=== PATIENT | female | born 1945 | race Caucasian/White ===

== ENCOUNTER 2016-06-22 12:08 | Observation (INO) ==
--- NOTE | 2016-06-22 12:21 | Emergency Department Note ---
Disposition Clinical Impression: Unstable angina pectoris Disposition: Admitted As Inpatient Condition: Fair Chest Pain HPI - General Chief Complaint: ED Chest Pain Stated Complaint: Chest pain Time Seen by Provider: 06/22/16 12:16 - History of Present Illness HPI Narrative: She has a history of coronary artery disease and peripheral vascular disease and presents per EMS and I did see the patient immediately upon arrival muscles. The paramedics and the patient presents with chest heaviness which began at 11:00 this morning at home and is constant with radiation to the back and this is a new finding. She did have some dyspnea but no diaphoresis. She does have some exertional component. Does radiate to both arms as well as to her jaw. No lightheadedness. Does have rhinorrhea no coughing or sneezing. No fever. Does have some blurred vision for the last several days. No pain or swelling or numbness of the extremities, blood in the urine or stool, skin rash or bruising of the skin. Social history: Smoker, no alcohol or drugs - Related Data Home Medications Medication Instructions Recorded Confirmed Albuterol Sulfate [Albuterol 2 puff IH Q4HR PRN 01/22/15 06/22/16 Inhaler] Aspirin Enteric Coated [Aspirin EC] 81 mg PO HS 01/22/15 06/22/16 Carisoprodol [Soma] 350 mg PO BID PRN 01/22/15 06/22/16 ClonazePAM [Klonopin] 1 mg PO BID 01/22/15 06/22/16 Dicyclomine [Bentyl] 20 mg PO TID 01/22/15 06/22/16 Escitalopram [Lexapro] 20 mg PO DAILY 01/22/15 06/22/16 Metoprolol [Lopressor] 25 mg PO BID 01/22/15 06/22/16 Promethazine [Phenergan] 25 mg PO Q8HR PRN 01/22/15 06/22/16 Ropinirole HCl [Requip] 0.5 mg PO HS 01/22/15 06/22/16 Losartan [Cozaar] 25 mg PO DAILY 05/10/15 06/22/16 Simvastatin [Zocor] 20 mg PO HS 05/10/15 06/22/16 Famotidine [Pepcid] 20 mg PO DAILY 06/22/16 06/22/16 Mirtazapine [Remeron] 15 mg PO HS 06/22/16 06/22/16 Previous Rx's Medication Instructions Recorded Clopidogrel [Plavix] 75 mg PO DAILY #30 tablet 10/29/15 HYDROcodone/Acet 5/325 mg [[place] 1 - 2 tab PO Q4H PRN #60 tablet 10/29/15 5-325 mg] Allergies Allergy/AdvReac Type Severity Reaction Status Date / Time acetaminophen [From Percocet] Allergy Rash Verified 10/28/15 07:32 atorvastatin Allergy Nausea Verified 10/28/15 07:32 clonidine Allergy Blister Verified 10/28/15 07:32 lisinopril Allergy Cough Verified 10/28/15 07:32 Oxycodone [From Percocet] Allergy Rash Verified 10/28/15 07:32 Review of Systems: Refer to history of present illness Chest Pain PMH - Past Medical History Medical history: Reports: coronary artery disease, DVT, GERD, hepatitis, hyperlipidemia, hypertension, myocardial infarction, peripheral artery disease, renal disease, seizures, other Surgical history: Reports: appendectomy, LAYO/BSO, other Psychiatric history: Reports: anxiety, depression - Social History Smoking Status: Current every day smoker Alcohol use: Reports: occasionally Drug use: Reports: none Physical Exam CONSTITUTIONAL: Well-appearing; well-nourished; A&O X 3, in no apparent distress HEAD: Normocephalic; atraumatic EYES: PERRL, no scleral icterus NOSE: The nose is normal in appearance without rhinorrhea NECK: No JVD or distended neck veins RESP: Normal chest excursion with respiration; breath sounds clear and equal bilaterally; no wheezes, rhonchi, or rales CARD: Regular rhythm, without murmurs, rub or gallop ABD: Non-distended; non-tender, soft, without rigidity, rebound or guarding,no pulsatile mass CHEST: Normal appearance. There is some pain with palpation anterior chest wall which does cause facial wincing Skin: Normal for age and race; warm and dry without diaphoresis ; no apparent lesions EXTREMITIES: Pulses are 2 plus and equal times 4 extremities, no peripheral edema or calf muscle pain Course Vital Signs Temperature 97.4 F L 06/22/16 12:10 Pulse Rate 58 06/22/16 12:10 Respiratory Rate 18 06/22/16 12:10 Blood Pressure 111/79 06/22/16 12:10 O2 Sat by Pulse Oximetry 95 06/22/16 12:10 Temperature 98.0 F 06/22/16 19:17 Pulse Rate 54 06/22/16 19:17 Respiratory Rate 12 06/22/16 19:17 Blood Pressure 125/74 06/22/16 19:17 O2 Sat by Pulse Oximetry 98 06/22/16 19:17 Oxygen Delivery Oxygen Delivery Room Air Chest Pain - MDM Narrative Medical decision making narrative: I did review the patient's EKG showing sinus bradycardia with a rate of 58 without acute ischemic changes. The patient did receive nitroglycerin prior to arrival which did improve her symptoms. She will also get a CT scan to look for dissection with a history of vascular disease and additionally I do have labs including troponin, chest x-ray, monitor, pulse ox the patient will be watched closely in the emergency department. 1221 Patient's initial labs have been reviewed and are negative. CT scan of the chest is pending to look for dissection. I did speak with Dr. Ruiz who accepts the patient for admission pending results of CT scan being negative. Patient does have a story concerning for acute coronary syndrome. I did see the patient again and her pain has improved but is still present so the EKG will be repeated as well as a second troponin. 1410 I did speak with the radiologist was concerned about a possible left upper lobe pulmonary embolism however he said that the findings were equivocal and when I splinted the patient's clinical story he thought that this was now unlikely to be a pulmonary embolism based on the combination of clinical story and clinical correlation. I will convey this information to the hospitalist Dr. Ruiz 1422 I did confirm with the patient as she does not have a pleuritic aspect of her pain. Her clinical picture does not sound like a pulmonary embolism. I did discuss this with Dr. Ruiz - Medical Records Medical records reviewed: Yes I reviewed the patient's medical records. - Lab Data Lab results reviewed: Yes I reviewed the patient's lab results. Result diagrams: 06/22/16 12:27 06/22/16 12:27 Lab Results 06/22/16 06/22/16 06/22/16 Range/Units 12:27 12:27 12:27 WBC 7.7 (4.3-11.1) K/mcL RBC 4.54 (3.82-4.97) M/mcL Hgb 14.5 (11.5-15.4) g/dL Hct 42.7 (35.3-44.9) % MCV 94.1 (83.0-100.0) fL MCH 31.9 (28.0-33.3) pg MCHC 34.0 (31.6-35.5) g/dL RDW 13.8 (11.5-14.5) % Plt Count 199 (140-400) K/mcL MPV 10.2 (9.4-12.4) fL Immature Gran % 0.1 (0-4) % Seg Neutrophils % 30.3 % Lymphocytes % 54.9 % Monocytes % 5.6 % Eosinophils % 8.7 % Basophils % 0.4 % Neutrophils # 2.3 (1.6-8.9) K/mcL Lymphocytes # 4.2 (0.6-4.6) K/mcL Monocytes # 0.4 (0.0-1.3) K/mcL Eosinophils # 0.7 H (0.0-0.6) K/mcL Basophils # 0.0 (0.0-0.2) K/mcL PT 10.5 (9.4-12.1) Seconds INR 1.0 APTT 31.3 (26.0-36.0) Seconds Sodium 136 (136-145) mEq/L Potassium 4.9 H (3.5-4.5) mEq/L Chloride 103 (98-109) mEq/L Carbon Dioxide 26 (19-29) mEq/L BUN 25 H (7-20) mg/dL Creatinine 1.11 (0.57-1.11) mg/dL Est GFR ( Amer) 59 L (> 60) Est GFR (Non-Af Amer) 49 L (> 60) BUN/Creatinine Ratio 23 (6-26) Glucose 84 (70-99) mg/dL Calculated Osmolality 286 (280-300) Calcium 8.9 (8.6-10.8) mg/dL Troponin I (0-0.03) ng/mL 06/22/16 Range/Units 12:27 WBC (4.3-11.1) K/mcL RBC (3.82-4.97) M/mcL Hgb (11.5-15.4) g/dL Hct (35.3-44.9) % MCV (83.0-100.0) fL MCH (28.0-33.3) pg MCHC (31.6-35.5) g/dL RDW (11.5-14.5) % Plt Count (140-400) K/mcL MPV (9.4-12.4) fL Immature Gran % (0-4) % Seg Neutrophils % % Lymphocytes % % Monocytes % % Eosinophils % % Basophils % % Neutrophils # (1.6-8.9) K/mcL Lymphocytes # (0.6-4.6) K/mcL Monocytes # (0.0-1.3) K/mcL Eosinophils # (0.0-0.6) K/mcL Basophils # (0.0-0.2) K/mcL PT (9.4-12.1) Seconds INR APTT (26.0-36.0) Seconds Sodium (136-145) mEq/L Potassium (3.5-4.5) mEq/L Chloride (98-109) mEq/L Carbon Dioxide (19-29) mEq/L BUN (7-20) mg/dL Creatinine (0.57-1.11) mg/dL Est GFR ( Amer) (> 60) Est GFR (Non-Af Amer) (> 60) BUN/Creatinine Ratio (6-26) Glucose (70-99) mg/dL Calculated Osmolality (280-300) Calcium (8.6-10.8) mg/dL Troponin I 0.01 (0-0.03) ng/mL - Radiology Data Radiology results reviewed: Yes I reviewed the patient's radiology results. - EKG Data EKG attestation: Yes I reviewed and interpreted this EKG.
[2016-06-22 12:35] LABS: Basophils % 0.4 %; Eosinophils # 0.7 K/mcL (0.0-0.6); Eosinophils % 8.7 %; Hematocrit 42.7 % (35.3-44.9); Hemoglobin 14.5 g/dL (11.5-15.4); Immature Granulocytes % 0.1 % (0-4); Lymphocytes # 4.2 K/mcL (0.6-4.6); Lymphocytes % 54.9 %; Mean Corpuscular Hemoglobin 31.9 pg (28.0-33.3); Mean Corpuscular Volume 94.1 fL (83.0-100.0); Mean Platelet Volume 10.2 fL (9.4-12.4); Monocytes # 0.4 K/mcL (0.0-1.3); Monocytes % 5.6 %; Neutrophils # 2.3 K/mcL (1.6-8.9); Platelet Count 199 K/mcL (140-400); Red Blood Count 4.54 M/mcL (3.82-4.97); Red Cell Distribution Width 13.8 % (11.5-14.5); Segmented Neutrophils % 30.3 %
[2016-06-22] MEDS ORDERED: Ondansetron 4 MG/2 ML VIAL IVP ONE ×2 (12:37→22:17)
[2016-06-22] MEDS ORDERED: *HR* Morphine 2 MG/ML SYRINGE IVP ONE (12:37)
[2016-06-22 12:42] LABS: Prothrombin Time 10.5 Seconds (9.4-12.1)
[2016-06-22 12:45] LABS: Activated Partial Thrombo Time 31.3 Seconds (26.0-36.0)
[2016-06-22 12:50] LABS: Calcium 8.9 mg/dL (8.6-10.8); Potassium 4.9 mEq/L (3.5-4.5)
--- NOTE | 2016-06-22 16:04 | Electrocardiograph Report ---
[address] [address] Test Date: 2016-06-22 Pat Name: Marisa Chavez Department: 103 Room: 3B44 Gender: F Comfort Filler: PRADIP : 1945 Requested By: Emil Awan Order Number: [id number] Reading MD: Adarsh Rodriguez MD Measurements Intervals Leslie Rate: 58 P: 49 MO: 165 QRS: 25 QRSD: 83 T: 46 QT: 438 QTc: 434 Interpretive Statements SINUS BRADYCARDIA Electronically Signed On 06-22-2016 16:02:49 EDT by Adarsh Rodriguez MD
--- NOTE | 2016-06-22 16:40 | Internal Med History&Physical ---
<Yanely Joshi - Last Filed: 06/22/16 17:38> Date of Encounter: 06/22/16 Time of Encounter: 16:39 Assessment and Plan (1) 3-vessel coronary artery disease Current visit: No Status: Chronic Patient has known CAD with past stenting. Last C was 02/22/15 after patient presented with NSTEMI. Moderate 3 vessel disease, EF 60%. No stenting performed, medical management had been recommended with plavix and ASA. Patient states she has been taking her ASA daily, but has been out of plavix since March. Troponin negative x1 EKG Sinus alicia, after 4 sprays of nitro and sl nitro via EMS. Pain seems to be more musculoskeletal than ACS, however the patient is at very high risk with her history of CAD, PAD, MIs. Consider cardiology consult based on ECHO results. CTA revealed possible small filling defect in left upper lobe pulmonary artery, PE can not be ruled out. Plan: -continue ASA, plavix, statin, BB -telemetry -ECHO -Trend troponins -bilateral venous doppler (2) Decreased GFR Current visit: Yes Status: Acute GFR 49, no history of CKD and GFR has not been this low when trended. K elevated at 4.9 She did receive contrast dye with multiple CT scans, which could have affected it, however SCr at 1.11 currently. May be secondary to mild sergey, dehydration or IV dye. Plan: -500ml IVF bolus -Recheck BMP in AM, may warrant further workup depending on the trend. (3) Back pain Current visit: Yes Status: Acute Pain in romboid muscles on the left. currently 04/28 Plan: -Continue home pain meds Qualifiers: Back pain location: thoracic back pain Chronicity: acute Back pain laterality: left Qualified Code(s): M54.6 - Pain in thoracic spine (4) Abdominal pain Current visit: Yes Status: Chronic Patient with hx of GERD, epigastric pain for "years" epigastric tenderness on exam Plan: -Continue famotidine -MOM PRN Qualifiers: Abdominal location: epigastric Qualified Code(s): R10.13 - Epigastric pain (5) PAD (peripheral artery disease) Current visit: No Status: Chronic (6) GERD (gastroesophageal reflux disease) Current visit: No Status: Chronic Qualifiers: Esophagitis presence: without esophagitis Qualified Code(s): K21.9 - Gastro -esophageal reflux disease without esophagitis (7) Tobacco use disorder Current visit: Yes Status: Chronic Smoke 1PPD. States she is working on quitting on her own, does not want nicotine patch, gum, chantix. Plan: -Nicotine patch prn (8) Mixed hyperlipidemia Current visit: No Status: Chronic (9) HTN (hypertension) Current visit: Yes Status: Chronic Qualifiers: Hypertension type: essential hypertension Qualified Code(s): I10 - Essential (primary) hypertension (10) DVT prophylaxis Current visit: Yes Status: Acute heparin SQ Internal Medicine - H&P: HPI Chief complaint: Chest pain Admitted From: Emergency Dept Plans for Post Hospital Care: Home History of present illness: Ms. Chavez is a 71 year old female with a PMH of CAD, TX s/p stenting, PAD s/p femoral bypass in the left, HTN, HLD, tobacco abuse, HISTORY OF DVT, GERD, and hepatitis C who presented to the ER today complaining of chest pain. She states that she was in her kitchen when both arms began hurting, she states that they "felt like Prabhakar's arms when they are swollen." She then began to have pain in her jaw and in her back on the left side that wrapped around to the mid sternum. This pain was rated 8/10. She states that it was different from the pain she felt with her prior MIs. She did use her nitro spray at home. She sprayed it under her tongue twice without any relief. Some time later she sprayed it twice more and took 3 81mg ASA. This reduced the pain to 6-5/10. She then called EMS. She denies any current chest pain, arm or jaw pain. Her only current pain is in her left back in the romboid muscles, and is rated 2/10. She had no associated dizziness, lightheadedness, fever, diaphoresis, sob, wheezing , palpitations, nausea, vomiting, or diarrhea. She does note that she has epigastric and umbilical abdominal pain that she has had "for a while." he cannot recall the last day of her last LHC, however upon review of the records it appears t to have been 12\\7\\15. At that time no stenting was performed it was noted that she has moderate three-vessel CAD with an EF of 60%. She states that she has been out of Plavix since March. She has been taking her aspirin daily. Past Med Surg Social Fam HX - Past Medical History Source: patient Medical history: coronary artery disease, DVT, GERD, hepatitis (C), hyperlipidemia, hypertension, myocardial infarction, peripheral artery disease, other Psychiatric history: anxiety, depression - Past Surgical History Surgical History: appendectomy, LAYO/BSO, other, LE vascular intervention - Social History Smoking Status: Current every day smoker Packs per day: 1 PPD Smokeless Tobacco Status: No Alcohol use: occasionally Drug use: none Current living situation: Home, With Family Activity Level: Independent ambulation Recent Out of Country Travel Within the Last 8 Weeks: No Exposure or Possible Exposure to Illness During Travel: No - Family History Sister Adopted: No Living Status: Still Living Hx Family Cardiac Disorders: Yes Hx Family Respiratory Disorders: No Hx Family Cancer: No Hx Family GI Disorders: No Hx Family Endocrine Disorder: No Hx Family Neuromuscular Disorders: No Hx Family Neurologic Disorders: No Hx Family HEENT Disorders: No Hx Family Autoimmune Disorders: No Father Living Status: Hx Family Cardiac Disorders: Yes Hx Family Respiratory Disorders: No Hx Family Cancer: No Hx Family GI Disorders: Yes Hx Family Endocrine Disorder: No Hx Family Neuromuscular Disorders: No Hx Family Neurologic Disorders: No Hx Family HEENT Disorders: No Hx Family Autoimmune Disorders: No Internal Medicine - H&P: Meds Albuterol Sulfate [Albuterol Inhaler] 2 puff IH Q4HR PRN 01/22/15 [History] Aspirin Enteric Coated [Aspirin EC] 81 mg PO HS 01/22/15 [History] Carisoprodol [Soma] 350 mg PO BID PRN 01/22/15 [History] ClonazePAM [Klonopin] 1 mg PO BID 01/22/15 [History] Dicyclomine [Bentyl] 20 mg PO TID 01/22/15 [History] Escitalopram [Lexapro] 20 mg PO DAILY 01/22/15 [History] Metoprolol [Lopressor] 25 mg PO BID 01/22/15 [History] Promethazine [Phenergan] 25 mg PO Q8HR PRN 01/22/15 [History] Ropinirole HCl [Requip] 0.5 mg PO HS 01/22/15 [History] Losartan [Cozaar] 25 mg PO DAILY 05/10/15 [History] Simvastatin [Zocor] 20 mg PO HS 05/10/15 [History] Clopidogrel [Plavix] 75 mg PO DAILY #30 tablet 10/29/15 [Rx] HYDROcodone/Acet 5/325 mg [[place] 5-325 mg] 1 - 2 tab PO Q4H PRN #60 tablet 10/28 [Rx] Famotidine [Pepcid] 20 mg PO DAILY 06/22/16 [History] Mirtazapine [Remeron] 15 mg PO HS 06/22/16 [History] Allergies acetaminophen [From Percocet] Allergy (Verified 10/28/15 07:32) Rash atorvastatin Allergy (Verified 10/28/15 07:32) Nausea clonidine Allergy (Verified 10/28/15 07:32) Blister lisinopril Allergy (Verified 10/28/15 07:32) Cough Oxycodone [From Percocet] Allergy (Verified 10/28/15 07:32) Rash All Systems PM: A 10-system review of systems was performed and is negative for pertinent findings except as documented above in the HPI. - Constitutional Vitals: Temp Pulse Resp BP Pulse Ox 97.3 F L 53 16 137/67 97 06/22/16 15:05 06/22/16 15:05 06/22/16 15:05 06/22/16 15:05 06/22/16 15:05 General appearance: Present: cooperative, A&O X 3, pleasant, no acute distress, answers questions appropriately - Head Head exam: Present: atraumatic, normocephalic - Eye Eye exam: Present: PERRL, conjuntiva pink, sclera anicteric Pupils: Present: PERRL - ENT ENT exam: Present: mucous membranes moist, normal exam, normal oropharynx - Neck Neck exam general surgery: Present: supple, trachea midline. Absent: lymphadenopathy - Respiratory Respiratory exam: Present: CTAB. Absent: accessory muscle use, rales, rhonchi, wheezes - Cardiovascular Cardiovascular exam: Present: RRR, +S1, +S2. Absent: diastolic murmur, gallop, rubs, systolic murmur - GI/Abdominal GI/Abdominal exam: Present: normal bowel sounds, soft, tenderness (epigastric). Absent: distended - Extremities Exam Extremities exam: Present: normal capillary refill, warm, radial pulses palpable and symetrical. Absent: calf tenderness, cyanotic, pedal edema - Back Exam Back exam: Present: tenderness (left romboids) - Neurological Exam Neurological exam: Present: alert, no focal deficits. Absent: motor sensory deficit, facial droop, speech deficit - Psychiatric Psychiatric exam: Present: normal affect, normal mood - Skin Skin exam: Present: dry, intact. Absent: diaphoretic, erythema, rash Internal Med - H&P Results - Labs CBC & Chem 7: 06/22/16 12:27 06/22/16 12:27 <Silverio Ruiz T - Last Filed: 06/22/16 18:03> Date of Encounter: 06/22/16 Internal Medicine - H&P: HPI History of present illness: Ms. Chavez is a 71 year old female All Systems PM: A 10-system review of systems was performed and is negative for pertinent findings except as documented above in the HPI. - Constitutional Vitals: Temp Pulse Resp BP Pulse Ox 97.3 F L 53 16 137/67 97 06/22/16 15:05 06/22/16 15:05 06/22/16 15:05 06/22/16 15:05 06/22/16 15:05 Internal Med - H&P Results - Labs CBC & Chem 7: 06/22/16 12:27 06/22/16 12:27 - Attending Attestation I have independently interviewed and examined this patient. I agree with the resident/practitioner with exemptions as stated below. The plan of care has been discussed with the patient, resident and rest of the team 71 Y/O F, heavy tobacco use, Severe artherosclerotic disease with CAD s/p TX with stents, femoral bypass, GERD, HLD, Anxiety/depression. She presented to ER with complains of left sided back pain which radiated to her anterior chest wall. She denies active chest pain, she denies SOB/Dizziness/Palpitations/ Diaphoresis. She is still smoking and has stopped taking her Plavix earlier this year. Last LHC was 2014. Labs and Imaging reviewed: Unremarkable save for azotemia. Abdomen/Pelvic/Chest CTA noted for chronic findings of severe atherosclerosis and lung nodules, suspected NICA PE. EKG X2-sinus alicia, no ischemic changes. Last ECHO 2014 noted. Assessment/Plan: Left sided back/Chest pain in patient with risk factors for TX. Continue home meds, trend troponins, obtain ECHO to assess wall motion, tobacco cessation counselling done again. Abnormal Chest CT findings of suspected PE, unlikely due to patient not having pleuritic chest pain, tachycardia or hypoxia. However, will obtain Doppler of lower extremities. Other chronic medical conditions are stable. Rest of details as in resident Heiligs documentation.
[2016-06-22] MEDS ORDERED: 0.9 % Sodium Chloride 500 ML IVC ONE (17:21)
[2016-06-22] MEDS ORDERED: Naloxone 0.4 MG/ML INJ IVP PRN (17:25)
[2016-06-22] MEDS ORDERED: Carisoprodol 350 MG TABLET PO PRN (17:30)
[2016-06-22] MEDS ORDERED: Nicotine 21 MG PATCH.TD24 TD PRN (17:48)
[2016-06-22] MEDS: *HR* HYDROcodone/Acet 5/325 mg TABLET PO PRN (20:22)
[2016-06-22] MEDS: Aspirin Enteric Coated 81 MG Tablet PO SCH (21:53)
[2016-06-22] MEDS: rOPINIRole 0.25 MG TABLET PO SCH (21:53)
[2016-06-22] MEDS: *HR* Heparin 5,000 UNIT/ML VIAL SQ SCH (21:53)
[2016-06-22] MEDS: clonazePAM 1 MG TABLET PO SCH (21:54)
[2016-06-22 21:58] LABS: Bilirubin,Urine Negative (Negative); Blood,Urine Negative (Negative); Clarity,Urine Clear (Clear); Color,Urine Yellow (Yellow); Glucose,Urine (UA) Normal (Normal); Ketones,Urine Negative (Negative); Leukocyte Esterase,Urine Negative (Negative); Nitrite,Urine Negative (Negative); Protein,Urine Negative (Neg-Trace); Specific Gravity,Urine 1.028 (1.010-1.025); Urobilinogen,Urine Normal (Normal)
[2016-06-22] MEDS: Mirtazapine 15 MG TABLET PO SCH (22:20)
[2016-06-23 02:52] LABS: Albumin 3.3 g/dL (3.5-5.0); Bilirubin,Total 0.3 mg/dL (0.2-1.2); Calcium 8.8 mg/dL (8.6-10.8); Globulin 3.2 g/dL (2.4-3.5); Potassium 4.9 mEq/L (3.5-4.5); Total Protein 6.5 g/dL (6.0-8.3)
[2016-06-23] MEDS: *HR* Heparin 5,000 UNIT/ML VIAL SQ SCH ×3 (05:46→20:48)
[2016-06-23] MEDS: *HR* HYDROcodone/Acet 5/325 mg TABLET PO PRN ×2 (08:54→21:05)
[2016-06-23] MEDS: Famotidine 20 MG TABLET PO SCH (08:55)
[2016-06-23] MEDS: clonazePAM 1 MG TABLET PO SCH ×2 (08:55→20:48)
--- NOTE | 2016-06-23 10:51 | ECHO - Doppler Report ---
Echocardiogram Name: Marisa Chavez Date of Study: 06/23/2016 Date: 1945 Ht: 59.0 in Medical Record#: [id number] Age: 71 Wt: Gender: Female BSA: Order #: [id number] Location: [facility] IP Room #: 3B44 Reading Physician: Arianna Tijerina DO Wildlife [employer] Internship: Caesar Choudhary RN Ordering Physician: Yanely Joshi DO Primary Physician: Horacio Hardin MD Indications: Chest pain Impressions: LVEF 60%. Normal left ventricular size and systolic function. There is evidence of mild diastolic dysfunction of the left ventricle. Normal right ventricular size and function. Mild tricuspid regurgitation. Borderline mild pulmonary hypertension. Left Ventricular Wall Motion: Rest Echo Findings All wall segments showed normal motion. Findings: Study Quality * Technically adequate exam. ECG Findings * Sinus bradycardia. Left Ventricle * LVEF 60%. * Normal LV chamber size, wall thickness and function. * Mild left ventricular diastolic dysfunction. Left Atrium * Normal left atrial size. Mitral Valve * No mitral stenosis. * Mild mitral annular calcification * Mildly calcified mitral valve leaflets. * Trace mitral regurgitation. Aorta * Normally sized aortic root. Aortic Valve * No aortic regurgitation. * Aortic valve not well visualized. * No aortic stenosis. Tricuspid Valve * Normal tricuspid valve structure. * Mild tricuspid regurgitation. * Estimated RA pressure is 3 mmHg. * Estimated RVSP is 35 mmHg. * Borderline mild pulmonary hypertension. Pulmonic Valve * Pulmonic valve is not well visualized. * No pulmonic stenosis. * No pulmonic regurgitation. Pulmonary Artery * Pulmonary artery not well visualized. Right Ventricle * Normal right ventricular structure and function. Right Atrium * Normal right atrial size. Interatrial Septum * No evidence of PFO by color Doppler. IVC * The IVC is not dilated. Pericardium * There is no pericardial effusion present. History Hypertension Hypercholesteremia History of Smoking Years 61 Packs 2 Family History of CAD History of CAD/PTCA Myocardial Infarction 02/22/2015 a Previous Echo was performed. Measurements: BP: 147/ 82 2D Normal Values IVSd: 1.00 cm 0.6 - 1.0 cm LVIDd: 3.20 cm 3.7 - 5.6 cm LVPWd: 1.00 cm 0.6 - 1.1 cm LVIDs: 2.10 cm 1.5 - 3.6 cm LA: 2.70 cm 2.0 - 4.0cm %FS: 34.40 cm >25 % LVOT Diam: 1.40 cm LA volume: 31 Mitral Valve Peak E:.70 m/sec Peak A:.80 m/sec E/A Ratio:0.9 Peak E' Lat Daryl:7.12 cm/s Peak E' Med Drayl:4.68 cm/s E/E' Lat Ratio:9.8 E/E' Med Ratio:15 Tricuspid Valve TV Regurg Peak Grad: 32.00mmHg TV Regurg Peak Daryl: 2.82m/sec Updated by Arianna Tijerina on 06/23/2016 10:45:30 AM electronically signed on 06/23/2016 10:46:45 AM with status of Final Wall Motion Tuttle: 1=Normal, 2=Hypokinesis, 3=Akinesis, 4=Dyskinesis, 5=Aneurysmal, 6=Hyperkinetic, X=Not Visualized (Blank)=Missing
[2016-06-23] MEDS: Ondansetron 4 MG/2 ML VIAL IVP PRN ×2 (11:46→20:48)
--- NOTE | 2016-06-23 16:28 | Venous Imaging Report ---
LE Venous Duplex Patient Name:Marisa Chavez Order Number:[id number] Procedure Date:06/23/2016 Date:7Age:71 yrs Gender:Female Location:[facility] Room #: 3B44 Supervisor Twisting Department:Caesar Choudhary RN Referring MD:Yanely Joshi DO division officer weapons department:Horacio Hardin MD Reading MD:Lino Rondon MD , FACS Primary Indications:Possible Pulmonary Emboli on CTA Secondary Indications: Risk Factors Yes/No Hypertension Yes Diabetes No Hypercholesterolemia Yes Smoking Current Yes Anticoagulants Yes Hx of CAD/PTCA Yes Previous Vascular Surgery Yes Hx of DVT Yes Hx of Chemotherapy No Trauma to Veins No Recent Surgery No Hx of Superficial Phlebitis No Pearl Filter No Impressions: Bilateral lower extremity: normal superficial and deep exam. Recommendations: Test completed on 06/23/2016 at 9:50:00 am. Findings Venous Duplex Results: Right: Venous imaging of the lower extremity reveals full patency and normal vessel compressibility of the right distal iliac, right common femoral, right superficial femoral, right popliteal, right posterior tibial, right peroneal, right great saphenous and right lesser saphenous. Doppler signals in the evaluated veins were normal. Left: Venous imaging of the lower extremity reveals full patency and normal vessel compressibility of the left distal iliac, left common femoral, left superficial femoral, left popliteal, left posterior tibial, left peroneal, left great saphenous and left lesser saphenous. Doppler signals in the evaluated veins were normal. Prior Study: No change compared to prior study dated: 12/28/2015. Lower Extremity Venous Duplex Side Vein Compress Spontaneous Flow Augment Diameter (cm) Depth (cm) Right Distal Iliac Normal Yes Phasic Yes Right Common Femoral Normal Yes Phasic Yes Right Superficial Femoral Normal Yes Phasic Yes Right Popliteal Normal Yes Phasic Yes Right Posterior Tibial Normal Yes Phasic Yes Right Peroneal Normal Yes Phasic Yes Right Great Saphenous Normal Yes Phasic Yes Right Lesser Saphenous Normal Yes Phasic Yes Left Distal Iliac Normal Yes Phasic Yes Left Common Femoral Normal Yes Phasic Yes Left Superficial Femoral Normal Yes Phasic Yes Left Popliteal Normal Yes Phasic Yes Left Posterior Tibial Normal Yes Phasic Yes Left Peroneal Normal Yes Phasic Yes Left Great Saphenous Normal Yes Phasic Yes Left Lesser Saphenous Normal Yes Phasic Yes Updated by Lino Rondon MD, FACS on 06/23/2016 4:22:56 PM Lino Rondon MD electronically signed on 06/23/2016 4:23:53 PM with status of Final
--- NOTE | 2016-06-23 16:49 | Electrocardiograph Report ---
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
--- NOTE | 2016-06-23 17:27 | Internal Med Progress Note ---
Date of Encounter: 06/23/16 Time of Encounter: 16:45 - Assessment and plan (1) Chest pain Current Visit: Yes Status: Acute Assessment and plan: Patient currently complains of neck pain and shoulder pain as well as jaw pain which is consistent with her prior MIs. Continue with pain control. Chest x- ray negative. CTA of abdomen and chest with possible tiny PE to the left upper lobe. Lower extremity Doppler still pending. No swelling or asymmetry noted to her lower legs. She denies shortness of breath above her norm. Fair to good aeration throughout. Will bring cardiology on board as the patient states her current pain is consistent with her prior heart attacks. Echocardiogram unremarkable ejection fraction of 60% and mild diastolic dysfunction. (2) 3-vessel coronary artery disease Current Visit: No Status: Chronic (3) SAMM (acute kidney injury) Current Visit: Yes Status: Acute Assessment and plan: Acute on chronic. She currently appears consistent with her baseline, do not have enough readings to denote chronicity. We will continue to trend. (4) COPD (chronic obstructive pulmonary disease) Current Visit: No Status: Chronic Assessment and plan: No acute exacerbation. Patient denies shortness of breath above her norm. Qualifiers: COPD type: emphysema Emphysema type: panlobular Qualified Code(s): J43.1 - Panlobular emphysema (5) GERD (gastroesophageal reflux disease) Current Visit: No Status: Chronic Assessment and plan: Denies current symptoms Qualifiers: Esophagitis presence: without esophagitis Qualified Code(s): K21.9 - Gastro -esophageal reflux disease without esophagitis (6) Tobacco use disorder Current Visit: Yes Status: Chronic Assessment and plan: Patient stating she has decreased down to 1 pack per day. She used to smoke 3 packs per day and decreased down to 1-2 packs per day last year. Nicotine replacement therapy. (7) Unspecified essential hypertension Current Visit: No Status: Chronic Assessment and plan: Relatively well-controlled, at home, she is on metoprolol 25 mg twice a day, losartan 25 mg daily and these have been continued. We will continue to trend. (8) PAD (peripheral artery disease) Current Visit: No Status: Chronic Assessment and plan: She states she has had [address] Sheehan. She states she may need further surgeries and states that she would prefer second opinion from Dr. Rondon. Follow-up outpatient. (9) DVT prophylaxis Current Visit: Yes Status: Acute Assessment and plan: Subcutaneous heparin (10) Back pain Current Visit: Yes Status: Chronic Qualifiers: Back pain location: thoracic back pain Chronicity: acute Back pain laterality: left Qualified Code(s): M54.6 - Pain in thoracic spine - Subjective Interval history: Patient seen and examined. On examination, patient sitting upright in bed conversing with her . She states she continues to have pain in her neck and in her right shoulder. She states her pain is similar to the several prior times when she has had heart attacks. She states that she is going to take her home nitroglycerin and she was encouraged to let staff know when she is having chest pain and she was instructed not to take her home medications. She currently denies shortness of breath above her norm. - Constitutional Vitals: Temp Pulse Resp BP Pulse Ox 97.9 F 55 17 142/78 95 06/23/16 14:52 06/23/16 14:52 06/23/16 14:52 06/23/16 14:52 06/23/16 14:52 General appearance: Present: cooperative, A&O X 3, pleasant, no acute distress, answers questions appropriately - Head Head exam: Present: atraumatic, normocephalic - Eye Eye exam: Present: PERRL, conjuntiva pink, sclera anicteric Pupils: Present: PERRL - Neck Neck exam general surgery: Present: supple, trachea midline. Absent: lymphadenopathy - Respiratory Respiratory exam: Present: decreased breath sounds. Absent: accessory muscle use, rales, respiratory distress, rhonchi, wheezes - Cardiovascular Cardiovascular exam: Present: RRR, +S1, +S2. Absent: diastolic murmur, gallop, rubs, systolic murmur - GI/Abdominal GI/Abdominal exam: Present: normal bowel sounds, soft, no peritoneal signs. Absent: distended, tenderness - Extremities Exam Extremities exam: Present: warm, radial pulses palpable and symetrical. Absent : calf tenderness, cyanotic, pedal edema - Neurological Exam Neurological exam: Present: alert, CN II-XII intact, normal gait, oriented X3, no focal deficits, strengths equal and symetr throughout. Absent: pronater drift, facial droop, speech deficit - Skin Skin exam: Present: dry, intact, normal color, warm Internal Medicine: Result - Labs CBC & Chem 7: 06/22/16 12:27 06/23/16 02:31 Labs: BMP 06/23/16 02:31 Sodium 138 Potassium 4.9 H Chloride 105 Carbon Dioxide 22 BUN 25 H Creatinine 1.11 Glucose 87 Calcium 8.8 Cardiac Enzymes 06/22/16 06/23/16 Range/Units 20:21 02:31 Troponin I 0.01 0.01 (0-0.03) ng/mL Liver Function 06/23/16 Range/Units 02:31 Total Bilirubin 0.3 (0.2-1.2) mg/dL AST 15 (5-34) Units/L ALT 10 (0-55) Units/L Alkaline Phosphatase 78 (38-126) Units/L Albumin 3.3 L (3.5-5.0) g/dL Urine 06/22/16 Range/Units 21:41 Urine Color Yellow (Yellow) Urine Clarity Clear (Clear) Urine pH 6.0 (5.0-8.0) pH Units Ur Specific [place] 1.028 H (1.010-1.025) Urine Protein Negative (Neg-Trace) mg/dL Urine Glucose (UA) Normal (Normal) mg/dL - ABG Interpretation ABG results: PT/INR, D-dimer PT 10.5 Seconds (9.4-12.1) 06/22/16 12:27 Consult Discharge Plan - Plan Referrals: Horacio Hardin MD [Primary Care Provider] - 06/30/16 1:15 pm Jake Andrade DO [Partnered Physician] - 07/20/16 10:55 am
[2016-06-23] MEDS: Mirtazapine 15 MG TABLET PO SCH (20:45)
[2016-06-23] MEDS: rOPINIRole 0.25 MG TABLET PO SCH (20:48)
[2016-06-23] MEDS: Aspirin Enteric Coated 81 MG Tablet PO SCH (20:48)
[2016-06-24 05:16] LABS: Calcium 8.6 mg/dL (8.6-10.8); Potassium 4.4 mEq/L (3.5-4.5)
[2016-06-24] MEDS: *HR* Heparin 5,000 UNIT/ML VIAL SQ SCH (06:24)
--- NOTE | 2016-06-24 08:03 | Cardiology Consult Note ---
Date of Encounter: 06/24/16 Time of Encounter: 08:00 Assessment and Plan (1) Chest pain Current Visit: Yes Status: Acute Patient presented with atypical chest pain symptoms. Troponin negative x3, no ischemic ECG changes. Hx of CAD s/p PCI. Most recent [facility] 2014--stable CAD. CTA Chest upon admission--small PE could not be ruled out; BLE dopplers normal. TTE 06/23/16: EF preserved, 60%, mild LVDD, mild TR, borderline PH, with normal wall motion. Given possible PE, recommend medical management. Continue current CV medications including asa, statin, betablocker, and ARB. Will add nitrate. Risk factor modification including tobacco cessation discussed; hx of 2-2.5 ppd x50+ years. Close outpatient follow-up with [facility] as scheduled in July. No further inpatient Cardiology recommendations. Qualifiers: Chest pain type: unspecified Qualified Code(s): R07.9 - Chest pain, unspecified (2) SAMM (acute kidney injury) Current Visit: Yes Status: Acute Defer mgmt to primary service. (3) Unspecified essential hypertension Current Visit: Yes Status: Acute EMS report--SBP 193/150. Controlled now, continue to monitor closely as outpatient. Discussion w patient/family: The assessment and plan as outlined above was discussed with the patient and/or family members who expressed understanding and agreement. All questions were answered. Thank you for involving us in the care of your patient. Please call with any questions. The patient will be discussed and reviewed with Dr. Andrade; changes to be made accordingly. History of Present Illness Consult date: 06/24/16 Requesting physician: Flori Lewis Consult reason: Chest pain Chief complaint: Chest pain History of present illness: Ms. Chavez is a 71 year old female with PMH significant for CAD s/p PCI, PAD s/ p LE arterial bypass, HTN, HLD, and heavy tobacco use who presents to the ED with a 1-day history of midsternal chest pain. Reports symptoms started abruptly while at rest; associated symptoms including jaw/bilateral arm, and back discomfort--states symptoms are different that prior [place]. Per EMS report, SBP was 193/150. CTA chest in ED could not rule small PE. No ischemic ECG changes noted, troponin was negative x3. Cardiology consulted today for chest pain given hx of obstructive CAD. Prior CV testing includes: TTE 02/22/2015: EF 65%. Normal LV size and function. Mild diastolic dysfunction. Mild pulmonary hypertension, estimated RVSP 44 mmHg. C 02/22/2015: EF 60%. Left main normal. LAD mid 40% stenosis. D1 50% stenosis. Circumflex mid 100% stenosis (small vessel). RCA patent stent, mid 40 % stenosis. [id number] collaterals noted. Past Med Surg Social Fam HX - Past Medical History Attestation: Yes The following information was validated with the patient. Source: patient, old records reviewed Medical history: coronary artery disease, DVT, GERD, hepatitis, hyperlipidemia, hypertension, myocardial infarction, peripheral artery disease, renal disease, seizures Psychiatric history: anxiety, depression - Past Surgical History Surgical History: angioplasty/stent, appendectomy, LAYO/BSO, LE bypass - Social History Smoking Status: Current every day smoker Packs per day: 1 PPD Smokeless Tobacco Status: No Alcohol use: occasionally Drug use: none - Family History Sister Adopted: No Living Status: Still Living Hx Family Cardiac Disorders: Yes Hx Family Respiratory Disorders: No Hx Family Cancer: No Hx Family GI Disorders: No Hx Family Endocrine Disorder: No Hx Family Neuromuscular Disorders: No Hx Family Neurologic Disorders: No Hx Family HEENT Disorders: No Hx Family Autoimmune Disorders: No Father Name: Guanako Villegas Living Status: Age at : 75 Cause of : heart attack Hx Family Cardiac Disorders: Yes Hx Family Respiratory Disorders: No Hx Family Cancer: No Hx Family GI Disorders: Yes Hx Family Endocrine Disorder: No Hx Family Neuromuscular Disorders: No Hx Family Neurologic Disorders: No Hx Family HEENT Disorders: No Hx Family Autoimmune Disorders: No Medications and Allergies Albuterol Sulfate [Albuterol Inhaler] 2 puff IH Q4HR PRN 01/22/15 [History] Aspirin Enteric Coated [Aspirin EC] 81 mg PO HS 01/22/15 [History] Carisoprodol [Soma] 350 mg PO BID PRN 01/22/15 [History] ClonazePAM [Klonopin] 1 mg PO BID 01/22/15 [History] Dicyclomine [Bentyl] 20 mg PO TID 01/22/15 [History] Escitalopram [Lexapro] 20 mg PO DAILY 01/22/15 [History] Metoprolol [Lopressor] 25 mg PO BID 01/22/15 [History] Promethazine [Phenergan] 25 mg PO Q8HR PRN 01/22/15 [History] Ropinirole HCl [Requip] 0.5 mg PO HS 01/22/15 [History] Losartan [Cozaar] 25 mg PO DAILY 05/10/15 [History] Simvastatin [Zocor] 20 mg PO HS 05/10/15 [History] Clopidogrel [Plavix] 75 mg PO DAILY #30 tablet 10/29/15 [Rx] HYDROcodone/Acet 5/325 mg [[place] 5-325 mg] 1 - 2 tab PO Q4H PRN #60 tablet 10/28 [Rx] Famotidine [Pepcid] 20 mg PO DAILY 06/22/16 [History] Mirtazapine [Remeron] 15 mg PO HS 06/22/16 [History] Allergies acetaminophen [From Percocet] Allergy (Verified 10/28/15 07:32) Rash atorvastatin Allergy (Verified 10/28/15 07:32) Nausea clonidine Allergy (Verified 10/28/15 07:32) Blister lisinopril Allergy (Verified 10/28/15 07:32) Cough Oxycodone [From Percocet] Allergy (Verified 10/28/15 07:32) Rash All Systems Review: A 10-system review of systems was performed and is negative for pertinent findings except as documented above in the HPI. - Cardiovascular Cardiovascular: as per HPI Physical Examination General: Conversant, No Apparent Distress HEENT: Atraumatic, Normocephaly, Mucus Membranes Moist Cardiac: Reg Rate and Rhythm, Normal S1 and S2 Lungs: Normal Breath Sounds Neuro: Alert and responsive Abdomen: Soft Skin: No rashes noted on visualized skin Musculoskeletal: No Chest Wall Tenderness Extremities: No Edema, Normal Pulses Results 06/22/16 12:27 06/24/16 04:28 Lab Results 06/24/16 04:28 Sodium 139 Potassium 4.4 Chloride 107 Carbon Dioxide 22 BUN 25 H Creatinine 1.29 H Glucose 99 Calcium 8.6 Active Medications Acetaminophen/Hydrocodone Bitart ([place] 5-325 Mg) 1 tab PO Q4H PRN PRN Reason: Moderate Pain Stop: 12/22/16 17:31 Last Admin: 06/24/16 08:33 Dose: 1 tab Albuterol Sulfate (Albuterol Inhaler) 2 puff IH Q4HR PRN PRN Reason: Shortness Of Breath Stop: 12/22/16 17:31 Aspirin (Aspirin Ec) 81 mg PO HS [facility] Stop: 12/22/16 21:01 Last Admin: 06/23/16 20:48 Dose: 81 mg Carisoprodol (Soma) 350 mg PO BID PRN PRN Reason: Pain Stop: 12/22/16 17:31 Last Admin: 06/23/16 21:05 Dose: 350 mg Clonazepam (Klonopin) 1 mg PO BID [facility] Stop: 12/22/16 21:01 Last Admin: 06/24/16 08:33 Dose: 1 mg Clopidogrel Bisulfate (Plavix) 75 mg PO DAILY [facility] Stop: 12/22/16 17:31 Last Admin: 06/24/16 08:33 Dose: 75 mg Dicyclomine HCl (Bentyl) 20 mg PO TID [facility] Stop: 12/22/16 21:01 Last Admin: 06/24/16 08:33 Dose: 20 mg Docusate Sodium (Colace) 100 mg PO BID PRN PRN Reason: Constipation Stop: 12/22/16 17:26 Escitalopram Oxalate (Lexapro) 20 mg PO DAILY [facility] Stop: 12/23/16 09:01 Last Admin: 06/24/16 08:33 Dose: 20 mg Famotidine (Pepcid) 20 mg PO DAILY [facility] PRN Reason: Protocol Stop: 12/23/16 09:01 Last Admin: 06/24/16 08:33 Dose: 20 mg Heparin Sodium (Porcine) (Heparin) 5,000 unit SQ Q8HCO [facility] Stop: 12/22/16 22:01 Last Admin: 06/24/16 06:24 Dose: 5,000 unit Losartan Potassium (Cozaar) 25 mg PO DAILY [facility] PRN Reason: Protocol Stop: 12/23/16 09:01 Last Admin: 06/24/16 08:33 Dose: 25 mg Metoprolol Tartrate (Lopressor) 25 mg PO BID [facility] Stop: 12/22/16 21:01 Last Admin: 06/24/16 08:34 Dose: Not Given Mirtazapine (Remeron) 15 mg PO HS [facility] Stop: 12/22/16 21:01 Last Admin: 06/23/16 20:45 Dose: Not Given Naloxone HCl (Narcan) 0.4 mg IVP Q2MIN PRN PRN Reason: Opioid Reversal Stop: 12/22/16 17:26 Nicotine (Nicoderm) 21 mg TD DAILY PRN; Protocol PRN Reason: Nicotine Cravings Stop: 12/23/16 09:01 Ondansetron HCl (Zofran) 4 mg IVP Q6HR PRN; Protocol PRN Reason: Nausea Stop: 12/23/16 10:58 Last Admin: 06/23/16 20:48 Dose: 4 mg Ropinirole HCl (Requip) 0.5 mg PO HS [facility] Stop: 12/22/16 21:01 Last Admin: 06/23/16 20:48 Dose: 0.5 mg Simvastatin (Zocor) 20 mg PO HS [facility] PRN Reason: Protocol Stop: 12/22/16 21:01 Last Admin: 06/23/16 20:48 Dose: 20 mg - Imaging and Cardiology Chest Xray: report reviewed Echo: report reviewed - EKG Interpretation EKG results cardiology: personally reviewed Consult Discharge Plan - Plan Referrals: Horacio Hardin MD [Primary Care Provider] - 06/30/16 1:15 pm Jake Andrade DO [Partnered Physician] - 07/20/16 10:55 am
[2016-06-24] MEDS: *HR* HYDROcodone/Acet 5/325 mg TABLET PO PRN (08:33)
[2016-06-24] MEDS: clonazePAM 1 MG TABLET PO SCH (08:33)
[2016-06-24] MEDS: Famotidine 20 MG TABLET PO SCH (08:33)
--- NOTE | 2016-06-24 11:43 | Discharge Summary ---
Date of Encounter: 06/24/16 Time of Encounter: 09:00 - Discharge Diagnosis (1) Chest pain Priority: Primary Status: Acute Comments: Seen and evaluated by cardiology who recommended medical management with the addition of Imdur to her regimen with close outpatient follow-up. Qualifiers: Chest pain type: unspecified Qualified Code(s): R07.9 - Chest pain, unspecified (2) 3-vessel coronary artery disease Priority: Secondary Status: Chronic (3) SAMM (acute kidney injury) Priority: Primary Status: Acute Comments: Remained stable. Strongly suspect she has chronic kidney disease stage III, moving forward, she will need more serial lab exams to determine chronicity. (4) COPD (chronic obstructive pulmonary disease) Priority: Secondary Status: Chronic Comments: No acute exacerbation Qualifiers: COPD type: emphysema Emphysema type: panlobular Qualified Code(s): J43.1 - Panlobular emphysema (5) GERD (gastroesophageal reflux disease) Priority: Secondary Status: Chronic Comments: Patient states she had an EGD last year and was started on omeprazole, then Prevacid, the Nexium. She states she has not taken any of these medications recently, we will start her back on a PPI given that she is endorsing reflux symptoms. Qualifiers: Esophagitis presence: without esophagitis Qualified Code(s): K21.9 - Gastro -esophageal reflux disease without esophagitis (6) Tobacco use disorder Priority: Secondary Status: Chronic Comments: Patient stating she has decreased down to 1 pack per day. She used to smoke 3 packs per day and decreased down to 1-2 packs per day last year. Nicotine replacement therapy while admitted. She declined smoking cessation counseling. (7) Unspecified essential hypertension Priority: Primary Status: Acute Comments: Relatively well-controlled. at home, she is on metoprolol 25 mg twice a day, losartan 25 mg daily and these have been continued. Hypertensive at times when she was in pain and anxious, started on Imdur, daily blood pressure checks at home (8) PAD (peripheral artery disease) Priority: Secondary Status: Chronic Comments: Follow-up with vascular outpatient (9) DVT prophylaxis Priority: Primary Status: Acute Comments: Subcutaneous heparin while admitted (10) Back pain Priority: Secondary Status: Chronic Qualifiers: Back pain location: thoracic back pain Chronicity: acute Back pain laterality: left Qualified Code(s): M54.6 - Pain in thoracic spine - Discharge Medications Prescriptions: Esomeprazole Magnesium [Nexium] 20 mg PO DAILY #30 capsule. Isosorbide MONOnitrate (24 HR) [Imdur] 30 mg PO DAILY #30 tab.er.24h Home Medications: Albuterol Sulfate [Albuterol Inhaler] 2 puff IH Q4HR PRN 01/22/15 [History] Aspirin Enteric Coated [Aspirin EC] 81 mg PO HS 01/22/15 [History] Carisoprodol [Soma] 350 mg PO BID PRN 01/22/15 [History] ClonazePAM [Klonopin] 1 mg PO BID 01/22/15 [History] Dicyclomine [Bentyl] 20 mg PO TID 01/22/15 [History] Escitalopram [Lexapro] 20 mg PO DAILY 01/22/15 [History] Metoprolol [Lopressor] 25 mg PO BID 01/22/15 [History] Promethazine [Phenergan] 25 mg PO Q8HR PRN 01/22/15 [History] Ropinirole HCl [Requip] 0.5 mg PO HS 01/22/15 [History] Losartan [Cozaar] 25 mg PO DAILY 05/10/15 [History] Simvastatin [Zocor] 20 mg PO HS 05/10/15 [History] Clopidogrel [Plavix] 75 mg PO DAILY #30 tablet 10/29/15 [Rx] HYDROcodone/Acet 5/325 mg [North 5-325 mg] 1 - 2 tab PO Q4H PRN #60 tablet 10/28 [Rx] Famotidine [Pepcid] 20 mg PO DAILY 06/22/16 [History] Mirtazapine [Remeron] 15 mg PO HS 06/22/16 [History] Esomeprazole Magnesium [Nexium] 20 mg PO DAILY #30 06/24/16 [Rx] Isosorbide MONOnitrate (24 HR) [Imdur] 30 mg PO DAILY #30 tab.er.24h 06/24/16 [ Rx] Allergies/Adverse Reactions: Allergies acetaminophen [From Percocet] Allergy (Verified 10/28/15 07:32) Rash atorvastatin Allergy (Verified 10/28/15 07:32) Nausea clonidine Allergy (Verified 10/28/15 07:32) Blister lisinopril Allergy (Verified 10/28/15 07:32) Cough Oxycodone [From Percocet] Allergy (Verified 10/28/15 07:32) Rash Procedures/tests Complete & Pending: Procedures Performed prior 72 hours Category Date Time Status ECG 12 lead ECG [ECG] Stat Y 06/22/16 14:12 Completed EV echocardiogram Routine Y 06/23/16 17:24 Completed EV venous imaging LE BI Routine Y 06/23/16 17:54 Completed Date of admission: 06/22/16 14:10 Primary care physician: Horacio Hardin MD Consults: 06/23/16 17:36 Consult to Cardiology [CONS] Routine Comment: Consulting Provider: Cardiology Judy Reason for Consult: known CAD. still with chest pain consistent with her prior MT's. echo unremarkable. Possible tiny PE to NICA- LE dopp pending Time Notified: 17:37 Call Completed: Yes Discharging clinician: Flori Lewis Anticipated date of discharge: 06/24/16 - Patient Status Disposition: Home, Self-Care Condition: Fair Functional capacity at discharge: independent ambulation Overall status at discharge: patient is back to baseline - Discharge Instructions Follow Up With: Horacio Hardin MD [Primary Care Provider] - 06/30/16 1:15 pm Jake Andrade DO [Partnered Physician] - 07/20/16 10:55 am Additional Instructions: Follow-up with primary care provider and experimental electronics developer as scheduled - Diet and Activity Activity: increase activity as tolerated Diet: low fat, low cholesterol, low salt diet Hospital course: Ms. Chavez is a 71 year old female with past medical history of CAD with known three-vessel disease, multiple stents, PAD status post femoral bypass, hypertension, hyperlipidemia, tobacco abuse, DVT, GERD, hepatitis C. She presented to the emergency department chief complaint of chest pain. Patient stating she was in her kitchen when both of her arms began to hurt and she began to have pain in her jaw, and her back, and the left-sided upper back and wrapped around to her midsternal area. Patient stating the pain was different from the pain that she felt with her prior MIs. She did use her nitroglycerin spray at home without any relief. She then tried more nitroglycerin and took 3 baby aspirin and her pain was reduced, she then called EMS. Workup in the emergency department notable for a possible tiny PE. Chest, Abdominal and pelvic CTA revealing possible small PE to left upper lobe not well visualized. Otherwise, her known severe vascular arthrosclerotic disease was noted. Patient continued to have bouts of pain during admission so cardiology was brought on board. Echocardiogram unremarkable with ejection fraction 60% and mild diastolic dysfunction. Cardiology proceeded with medical management and started her on Imdur. Troponins negative 3, no ischemic ECG changes. Unable to obtain stress test due to possibility of a small PE. Dopplers of her lower extremities were without DVT. Patient denies shortness of breath above her norm throughout this admission. She did endorse reflux symptoms and stated that she has stopped taking her Nexium home, so she was placed back on it. She also states that she had not taken her Plavix since March. She was discharged home in stable condition with close outpatient follow-up with her primary care provider, cardiology, and vascular surgery as needed. ITS Impressions Abdomen/Pelvis CTA 06/22/16 00:00 IMPRESSION: 1. No aortic dissection. 2. Subtle filling defect within the left upper lobe pulmonary artery, favored to be artifactual, although, a small PE cannot be excluded. Correlation with the patient's clinical risk for a PE is recommended. A venous ultrasound of the lower extremities may also be beneficial to evaluate for a DVT, which would be a potential source for a PE. 3. Severe vascular atherosclerotic disease. Moderate to severe focal stenosis of the right common femoral artery secondary to calcified atherosclerotic plaque. 4. Moderate to severe coronary artery disease. 5. Diverticulosis. 6. S-shaped thoracolumbar scoliosis. Grade 1 anterolisthesis of L5 on S1, with bilateral L5 pars defects. Results of this examination were verbally discussed with Dr. Awan at 2:20 p.m. on 06/22/2016. D/ / 06/22/2016 14:31:21 Daniel Garner MD / So [place] Interpreting Provider: Daniel Garner MD Chest CTA 06/22/16 12:21 IMPRESSION: 1. No aortic dissection. 2. Subtle filling defect within the left upper lobe pulmonary artery, favored to be artifactual, although, a small PE cannot be excluded. Correlation with the patient's clinical risk for a PE is recommended. A venous ultrasound of the lower extremities may also be beneficial to evaluate for a DVT, which would be a potential source for a PE. 3. Severe vascular atherosclerotic disease. Moderate to severe focal stenosis of the right common femoral artery secondary to calcified atherosclerotic plaque. 4. Moderate to severe coronary artery disease. 5. Diverticulosis. 6. S-shaped thoracolumbar scoliosis. Grade 1 anterolisthesis of L5 on S1, with bilateral L5 pars defects. Results of this examination were verbally discussed with Dr. Awan at 2:20 p.m. on 06/22/2016. D/ / 06/22/2016 14:31:21 Daniel Garner MD / So [place] Interpreting Provider: Daniel Garner MD Chest X-Ray 06/22/16 12:21 IMPRESSION: No evidence of acute cardiopulmonary abnormality. D/ / Chucho Cohn MD / Chucho Cohn MD Interpreting Provider: Chucho Cohn MD Echocardiogram impressions: LVEF 60%. Normal left ventricle size and systolic function. There is evidence of mild diastolic dysfunction of the left ventricle. Normal right ventricular size and function. Mild tricuspid regurgitation. Borderline mild pulmonary hypertension. - Time Spent with Patient Total time spent providing and/or coordinating discharge services: - Constitutional Vitals: Temp Pulse Resp BP Pulse Ox 97.8 F 49 16 107/59 94 06/24/16 11:06 06/24/16 11:06 06/24/16 11:06 06/24/16 11:06 06/24/16 11:06 General appearance: Present: cooperative, A&O X 3, pleasant, no acute distress, answers questions appropriately - Head Head exam: Present: atraumatic, normocephalic - Eye Eye exam: Present: PERRL, conjuntiva pink, sclera anicteric Pupils: Present: PERRL - Neck Neck exam general surgery: Present: supple, trachea midline. Absent: lymphadenopathy - Respiratory Respiratory exam: Present: decreased breath sounds. Absent: accessory muscle use, rales, respiratory distress, rhonchi, wheezes - Cardiovascular Cardiovascular exam: Present: RRR, +S1, +S2. Absent: diastolic murmur, gallop, rubs, systolic murmur - GI/Abdominal GI/Abdominal exam: Present: normal bowel sounds, soft, no peritoneal signs. Absent: distended, tenderness - Extremities Exam Extremities exam: Present: warm, radial pulses palpable and symetrical. Absent : calf tenderness, cyanotic, pedal edema - Neurological Exam Neurological exam: Present: alert, CN II-XII intact, normal gait, oriented X3, no focal deficits, strengths equal and symetr throughout. Absent: pronater drift, facial droop, speech deficit - Psychiatric Psychiatric exam: Present: anxious - Skin Skin exam: Present: dry, intact, pallor, warm
[2016-06-24] MEDS ORDERED: Isosorbide MONOnitrate (24 HR) 30 MG TAB.ER.24H PO SCH (12:00)
--- NOTE | 2016-06-26 09:06 | Electrocardiograph Report ---
[address] [address] Test Date: 2016-06-24 Pat Name: Marisa Chavez Department: 113 Room: 3B44 Gender: F Etl Bi Developer: : [id number] Requested By: Flori Lewis Order Number: [id number] Reading MD: Adarsh Rodriguez MD Measurements Intervals [place] Rate: 46 P: 56 ME: 188 QRS: 19 QRSD: 82 T: 30 QT: 475 QTc: 433 Interpretive Statements SINUS BRADYCARDIA Electronically Signed On 06-26-2016 9:04:39 EDT by Adarsh Rodriguez MD
[2016-06-27 10:30] VITALS: BP 107/59
== END 2016-06-24 12:58 | disposition home or self-care (01) ==
LOC: 3BNU 12:08 → EMEROO 12:08 → 3BNU 14:50
PROVIDERS: ADMIT Internal Medicine; ATTEND Nurse Practitioner Family

== ENCOUNTER 2016-08-24 17:46 | Inpatient (IN) ==
[2016-08-24] MEDS ORDERED: *HR* Heparin 5,000 UNIT/ML VIAL IVP PRN ×2 (17:49)
[2016-08-24] MEDS ORDERED: *HR* Heparin 5,000 UNIT/ML VIAL IVP ONE (17:49)
[2016-08-24] MEDS ORDERED: *HR* Ticagrelor 90 MG TABLET PO ONE (17:49)
[2016-08-24] MEDS ORDERED: Ondansetron 4 MG/2 ML VIAL IVP ONE (17:57)
[2016-08-24] MEDS ORDERED: *HR* Morphine 2 MG/ML SYRINGE IVP ONE (17:57)
[2016-08-24] MEDS ORDERED: Heparin 25,000 UNIT/500 ML D5W 25,000 UNIT/500 ML MLS IVC SCH (18:00)
[2016-08-24] MEDS: Nitroglycerin 0.4 MG TAB.SUBL SL PRN (18:00)
[2016-08-24] MEDS ORDERED: *HR* FentaNYL (PF) 100 MCG/2 ML VIAL ONE (18:03)
[2016-08-24] MEDS ORDERED: *HR* Midazolam HCl 5 MG/5 ML VIAL IVP ONE (18:03)
[2016-08-24] MEDS ORDERED: 0.9 % Sodium Chloride 1,000 ML ONE (18:03)
[2016-08-24] MEDS ORDERED: Nitroglycerin 1,000 MCG/10 ML VIAL IV ONE (18:04)
[2016-08-24] MEDS ORDERED: Heparin 1,000 UNITS/500 mL NS 500 ML ONE (18:04)
[2016-08-24] MEDS ORDERED: *HR* Heparin 10,000 UNIT/10 ML VIAL ONE (18:04)
--- NOTE | 2016-08-24 18:06 | Emergency Department Note ---
Disposition Clinical Impression: ST elevation myocardial infarction (STEMI) Qualifiers: Involved coronary artery: unspecified coronary artery Qualified Code(s): I21.3 - ST elevation (STEMI) myocardial infarction of unspecified site Disposition: Admitted As Inpatient Condition: Fair Referrals: Horacio Hardin MD [Primary Care Provider] - Time of Disposition: 18:10 Chest Pain HPI - General Chief Complaint: ED Chest Pain Stated Complaint: Chest Pain Time Seen by Provider: 08/24/16 17:49 Source: patient, EMS Limitations: no limitations Vital Signs Reviewed: Yes Nursing Notes Reviewed: Yes - History of Present Illness HPI Narrative: Patient is a 71-year-old female who presents to [facility] ED via EMS as a STEMI alert. Patient states she started having pain in her back at approximately 2:30 PM today. It then progressed into her chest. Past medical history significant for prior MO CAD with 4 cardiac stents. Also history of hypertension, hyperlipidemia, peripheral artery disease. Patient states she took 5 nitroglycerin at home. She continues to be hypertensive upon arrival at 200/110. Admits to nausea, diaphoresis. States she had an episode of chest pain approximately 2 months ago which they told her was angina. No other recent illnesses. Pt complaint: chest pain Onset (ago): hour(s) Time: 14:30 Duration: gradually worsening Onset: during rest Pain Location: substernal Severity: severe Severity scale (1-10): 10 Quality: aching, heaviness Pain Radiation: RUE, LUE, jaw/teeth Improves with: nothing Worsens with: exertion Associated symptoms: Reports: nausea, diaphoresis, dyspnea. Denies: vomiting Treatments prior to arrival chest pain: aspirin, nitroglycerin - Related Data Home Medications Medication Instructions Recorded Confirmed Albuterol Sulfate [Albuterol 2 puff IH Q4HR PRN 01/22/15 06/22/16 Inhaler] Aspirin Enteric Coated [Aspirin EC] 81 mg PO HS 01/22/15 06/22/16 Carisoprodol [Soma] 350 mg PO BID PRN 01/22/15 06/22/16 ClonazePAM [Klonopin] 1 mg PO BID 01/22/15 06/22/16 Dicyclomine [Bentyl] 20 mg PO TID 01/22/15 06/22/16 Escitalopram [Lexapro] 20 mg PO DAILY 01/22/15 06/22/16 Metoprolol [Lopressor] 25 mg PO BID 01/22/15 06/22/16 Promethazine [Phenergan] 25 mg PO Q8HR PRN 01/22/15 06/22/16 Ropinirole HCl [Requip] 0.5 mg PO HS 01/22/15 06/22/16 Losartan [Cozaar] 25 mg PO DAILY 05/10/15 06/22/16 Simvastatin [Zocor] 20 mg PO HS 05/10/15 06/22/16 Famotidine [Pepcid] 20 mg PO DAILY 06/22/16 06/22/16 Mirtazapine [Remeron] 15 mg PO HS 06/22/16 06/22/16 Previous Rx's Medication Instructions Recorded Clopidogrel [Plavix] 75 mg PO DAILY #30 tablet 10/29/15 HYDROcodone/Acet 5/325 mg [[place] 1 - 2 tab PO Q4H PRN #60 tablet 10/29/15 5-325 mg] Esomeprazole Magnesium [Nexium] 20 mg PO DAILY #30 capsule. 06/24/16 Isosorbide MONOnitrate (24 HR) 30 mg PO DAILY #30 tab.er.24h 06/24/16 [Imdur] Allergies Allergy/AdvReac Type Severity Reaction Status Date / Time acetaminophen [From Percocet] Allergy Rash Verified 10/28/15 07:32 atorvastatin Allergy Nausea Verified 10/28/15 07:32 clonidine Allergy Blister Verified 10/28/15 07:32 lisinopril Allergy Cough Verified 10/28/15 07:32 Oxycodone [From Percocet] Allergy Rash Verified 10/28/15 07:32 All systems ED: reviewed and negative except as stated. Chest Pain PMH - Past Medical History Medical history: Reports: coronary artery disease, DVT, GERD, hepatitis, hyperlipidemia, hypertension, myocardial infarction, peripheral artery disease, renal disease, seizures Surgical history: Reports: angioplasty/stent, appendectomy, LAYO/BSO, LE bypass Psychiatric history: Reports: anxiety, depression - Social History Smoking Status: Current every day smoker Alcohol use: Reports: occasionally Drug use: Reports: none Physical Exam - General Limitations: no limitations General appearance: alert, in distress - Head Head exam: atraumatic, normocephalic, normal inspection - Eye Eye exam: Present: normal appearance, PERRL, EOMI - ENT ENT exam: normal exam, normal oropharynx, mucous membranes moist - Neck Neck exam: Present: normal inspection, full ROM, trachea midline - Chest Chest inspection: Present: normal inspection, symmetric chest wall rise - Respiratory Respiratory exam: Present: normal lung sounds bilaterally - Cardiovascular Cardiovascular exam: Present: regular rate, normal rhythm, normal heart sounds - Abdominal Exam Abdominal exam: Present: soft, Non-Tender. Absent: tenderness, distention, guarding, rebound, rigidity - Extremities Exam Extremities exam: Present: normal inspection, full ROM. Absent: tenderness, pedal edema - Back Exam Back exam: Present: normal inspection, full ROM. Absent: tenderness - Neurological Exam Neurological exam: Present: alert, oriented X3 - Psychiatric Psychiatric exam: Present: normal affect, normal mood - Skin Skin exam: Present: warm, dry, intact, diaphoresis Course Course Narrative: Patient seen and examined. EKG shows what appears to be an anterior STEMI. The patient's symptoms are also consistent with this. STEMI labs and chest x- ray ordered. Interventionalist Dr. Chen was notified and is on his way in. Statistical Technician was notified. Patient given Brilinta, Nitro, Morphine, and zofran. Vital Signs Temperature 97.8 F 08/24/16 17:47 Pulse Rate 82 08/24/16 17:47 Respiratory Rate 18 08/24/16 17:47 Blood Pressure 177/131 08/24/16 17:47 O2 Sat by Pulse Oximetry 95 08/24/16 17:47 Temperature 97.8 F 08/24/16 17:47 Pulse Rate 82 08/24/16 18:18 Respiratory Rate 18 08/24/16 18:18 Blood Pressure 165/72 08/24/16 18:18 O2 Sat by Pulse Oximetry 98 08/24/16 18:18 Oxygen Delivery Oxygen Delivery Room Air Chest Pain - Medical Records Medical records reviewed: Yes I reviewed the patient's medical records. - Lab Data Lab results reviewed: Yes I reviewed the patient's lab results. Result diagrams: 08/24/16 17:59 08/24/16 17:59 Lab Results 08/24/16 08/24/16 08/24/16 Range/Units 17:56 17:59 17:59 WBC 9.4 (4.3-11.1) K/mcL RBC 4.09 (3.82-4.97) M/mcL Hgb 12.9 (11.5-15.4) g/dL Hct 37.5 (35.3-44.9) % MCV 91.7 (83.0-100.0) fL MCH 31.5 (28.0-33.3) pg MCHC 34.4 (31.6-35.5) g/dL RDW 12.3 (11.5-14.5) % Plt Count 213 (140-400) K/mcL MPV 10.2 (9.4-12.4) fL Immature Gran % 0.5 (0-4) % Seg Neutrophils % 65.4 % Lymphocytes % 21.3 % Monocytes % 9.7 % Eosinophils % 2.9 % Basophils % 0.2 % Neutrophils # 6.2 (1.6-8.9) K/mcL Lymphocytes # 2.0 (0.6-4.6) K/mcL Monocytes # 0.9 (0.0-1.3) K/mcL Eosinophils # 0.3 (0.0-0.6) K/mcL Basophils # 0.0 (0.0-0.2) K/mcL PT 11.9 (9.4-12.1) Seconds INR 1.1 APTT 29.8 (26.0-36.0) Seconds Sodium (136-145) mEq/L Potassium (3.5-4.5) mEq/L Chloride (98-109) mEq/L Carbon Dioxide (19-29) mEq/L BUN (7-20) mg/dL Creatinine (0.57-1.11) mg/dL Est GFR ( Amer) (> 60) Est GFR (Non-Af Amer) (> 60) BUN/Creatinine Ratio (6-26) Glucose (70-99) mg/dL POC Glucose 120 H (58-89) Calculated Osmolality (280-300) Calcium (8.6-10.8) mg/dL Magnesium (1.6-2.6) mg/dL Troponin I (0-0.03) ng/mL 08/24/16 08/24/16 Range/Units 17:59 17:59 WBC (4.3-11.1) K/mcL RBC (3.82-4.97) M/mcL Hgb (11.5-15.4) g/dL Hct (35.3-44.9) % MCV (83.0-100.0) fL MCH (28.0-33.3) pg MCHC (31.6-35.5) g/dL RDW (11.5-14.5) % Plt Count (140-400) K/mcL MPV (9.4-12.4) fL Immature Gran % (0-4) % Seg Neutrophils % % Lymphocytes % % Monocytes % % Eosinophils % % Basophils % % Neutrophils # (1.6-8.9) K/mcL Lymphocytes # (0.6-4.6) K/mcL Monocytes # (0.0-1.3) K/mcL Eosinophils # (0.0-0.6) K/mcL Basophils # (0.0-0.2) K/mcL PT (9.4-12.1) Seconds INR APTT (26.0-36.0) Seconds Sodium 136 (136-145) mEq/L Potassium 4.0 (3.5-4.5) mEq/L Chloride 102 (98-109) mEq/L Carbon Dioxide 23 (19-29) mEq/L BUN 21 H (7-20) mg/dL Creatinine 1.51 H (0.57-1.11) mg/dL Est GFR ( Amer) 41 L (> 60) Est GFR (Non-Af Amer) 34 L (> 60) BUN/Creatinine Ratio 14 (6-26) Glucose 117 H (70-99) mg/dL POC Glucose (58-89) Calculated Osmolality 286 (280-300) Calcium 9.2 (8.6-10.8) mg/dL Magnesium 1.8 (1.6-2.6) mg/dL Troponin I 0.01 (0-0.03) ng/mL Attestation Statement - Attestation Attestation: I, Guanako Bowens, examined this patient and my medical decision-making was reviewed with the HUMANITIES INSTRUCTOR/PA/Advanced Practice Nurse/Resident Physician. I agree with the documented findings, disposition and treatment plan as described except to the extent set forth below. 61-year-old female presents with concerns of chest pain. Patient states she pressors started as an ache in her back and now has substernal pressure. Patient states she took 5 nitroglycerin throughout the day with only moderate improvement of her pain. Patient has a history of multiple stents in the past as well as Dr. Andrade as an outpatient. Patient had an EKG which showed significant ST elevations in the V3 V4 V5. Interventionalists, Dr. Chen was contacted after initial EKG was transferred to [facility]. On initial evaluation the patient continued to have chest pain, patient was given heparin, Brillinta and nitroglycerin and morphine and then was transferred to the Statistical Technician.
[2016-08-24 18:17] LABS: Basophils % 0.2 %; Eosinophils # 0.3 K/mcL (0.0-0.6); Eosinophils % 2.9 %; Hematocrit 37.5 % (35.3-44.9); Hemoglobin 12.9 g/dL (11.5-15.4); Immature Granulocytes % 0.5 % (0-4); Lymphocytes % 21.3 %; Mean Corpuscular HGB Conc 34.4 g/dL (31.6-35.5); Mean Corpuscular Hemoglobin 31.5 pg (28.0-33.3); Mean Corpuscular Volume 91.7 fL (83.0-100.0); Mean Platelet Volume 10.2 fL (9.4-12.4); Monocytes # 0.9 K/mcL (0.0-1.3); Monocytes % 9.7 %; Neutrophils # 6.2 K/mcL (1.6-8.9); Platelet Count 213 K/mcL (140-400); Red Blood Count 4.09 M/mcL (3.82-4.97); Red Cell Distribution Width 12.3 % (11.5-14.5); Segmented Neutrophils % 65.4 %
[2016-08-24 18:22] LABS: INR 1.1; Prothrombin Time 11.9 Seconds (9.4-12.1)
[2016-08-24 18:25] LABS: Activated Partial Thrombo Time 29.8 Seconds (26.0-36.0)
[2016-08-24 18:27] LABS: Calcium 9.2 mg/dL (8.6-10.8); Magnesium 1.8 mg/dL (1.6-2.6)
[2016-08-24] MEDS ORDERED: Tirofiban 12.5 MG/250ML 12.5 MG/250 ML BAG ONE (18:38)
--- NOTE | 2016-08-24 19:18 | Cardiology Consult Note ---
Date of Encounter: 08/24/16 Time of Encounter: 18:00 Assessment and Plan Discussion w patient/family: The assessment and plan as outlined above was discussed with the patient and/or family members who expressed understanding and agreement. All questions were answered. Thank you for involving us in the care of your patient. Please call with any questions. No family available. Patient lethargic. Will likely not remember our conversation Did have PTCA stent to the mid LAD 2.5x12 mm VANDANA Post dilated with NC balloon. History of Present Illness Consult date: 08/24/16 Consult reason: STEMI Chief complaint: Chest pain History of present illness: Ms. Chavez is a 71 year old female with known CAD and previous stents to the RCA and the LAD. Admitted with acute on chronic CP and EKG with anyerior wall STEMI. 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 Smokes. BP elevated.. Past Med Surg Social Fam HX - Past Medical History Medical history: coronary artery disease, DVT, GERD, hepatitis, hyperlipidemia, hypertension, myocardial infarction, peripheral artery disease, renal disease, seizures Psychiatric history: anxiety, depression - Past Surgical History Surgical History: angioplasty/stent, appendectomy, LAYO/BSO, LE bypass - Social History Smoking Status: Current every day smoker Smokeless Tobacco Status: No Alcohol use: occasionally Drug use: none - Family History Sister Adopted: No Living Status: Still Living Hx Family Cardiac Disorders: Yes Hx Family Respiratory Disorders: No Hx Family Cancer: No Hx Family GI Disorders: No Hx Family Endocrine Disorder: No Hx Family Neuromuscular Disorders: No Hx Family Neurologic Disorders: No Hx Family HEENT Disorders: No Hx Family Autoimmune Disorders: No Father Living Status: Hx Family Cardiac Disorders: Yes Hx Family Respiratory Disorders: No Hx Family Cancer: No Hx Family GI Disorders: Yes Hx Family Endocrine Disorder: No Hx Family Neuromuscular Disorders: No Hx Family Neurologic Disorders: No Hx Family HEENT Disorders: No Hx Family Autoimmune Disorders: No Medications and Allergies Albuterol Sulfate [Albuterol Inhaler] 2 puff IH Q4HR PRN 01/22/15 [History] Aspirin Enteric Coated [Aspirin EC] 81 mg PO HS 01/22/15 [History] Carisoprodol [Soma] 350 mg PO BID PRN 01/22/15 [History] ClonazePAM [Klonopin] 1 mg PO BID 01/22/15 [History] Dicyclomine [Bentyl] 20 mg PO TID 01/22/15 [History] Escitalopram [Lexapro] 20 mg PO DAILY 01/22/15 [History] Metoprolol [Lopressor] 25 mg PO BID 01/22/15 [History] Promethazine [Phenergan] 25 mg PO Q8HR PRN 01/22/15 [History] Ropinirole HCl [Requip] 0.5 mg PO HS 01/22/15 [History] Losartan [Cozaar] 25 mg PO DAILY 05/10/15 [History] Simvastatin [Zocor] 20 mg PO HS 05/10/15 [History] Clopidogrel [Plavix] 75 mg PO DAILY #30 tablet 10/29/15 [Rx] HYDROcodone/Acet 5/325 mg [[place] 5-325 mg] 1 - 2 tab PO Q4H PRN #60 tablet 10/28 [Rx] Famotidine [Pepcid] 20 mg PO DAILY 06/22/16 [History] Mirtazapine [Remeron] 15 mg PO HS 06/22/16 [History] Esomeprazole Magnesium [Nexium] 20 mg PO DAILY #30 capsule.dr 06/24/16 [Rx] Isosorbide MONOnitrate (24 HR) [Imdur] 30 mg PO DAILY #30 tab.er.24h 06/24/16 [ Rx] Allergies acetaminophen [From Percocet] Allergy (Verified 10/28/15 07:32) Rash atorvastatin Allergy (Verified 10/28/15 07:32) Nausea clonidine Allergy (Verified 10/28/15 07:32) Blister lisinopril Allergy (Verified 10/28/15 07:32) Cough Oxycodone [From Percocet] Allergy (Verified 10/28/15 07:32) Rash All Systems Review: A 10-system review of systems was performed and is negative for pertinent findings except as documented above in the HPI. - Constitutional Constitutional: fatigue, stops breathing during sleep - EENT Eyes: loss of vision - Cardiovascular Cardiovascular: as per HPI - Gastrointestinal Gastrointestinal: other - Genitourinary Genitourinary: other - Musculoskeletal Musculoskeletal: other - Integumentary Integumentary: other - Neurological Neurological: other - Psychiatric Psychiatric: other - Hematological/Lymphatic Hematologic/Lymphatic: other Physical Examination General: Conversant, Other (chest pain) HEENT: Normocephaly Neck: No JVD Cardiac: No Murmur Lungs: Normal Breath Sounds Neuro: Alert and responsive Abdomen: Soft Musculoskeletal: No Chest Wall Tenderness Extremities: No Cyanosis Results 08/24/16 17:59 08/24/16 17:59 - EKG Interpretation EKG results cardiology: personally reviewed ( Anterior wall STEMI) Consult Discharge Plan - Plan Referrals: Horacio Hardin MD [Primary Care Provider] -
--- NOTE | 2016-08-24 19:25 | Invasive Diagnostic Lab Proc ---
Name: Marisa Chavez Date of Study: 08/24/2016 Date: 1945 Ht: 59.1in Medical Record#: [id number] Age: 71 Wt: 92.59lb Gender: Female BSA: 1.33 Order #: [id number] BMI: 18.67 Physicians Procedure Physician: April Chen MD Referring MD: Referring MD: Staff Name Position Time In Sites, Eusebia RT (R) Monitor 06:29 PM Beatrice Ortiz RT Scrub 06:29 PM Ella Will RN Makeup Artist 06:29 PM Shailesh Dasilva RN Makeup Artist 06:29 PM Indications Indication STEMI Procedures Performed Procedure PRQ CARD REVASC PR 1 VSL L HRT ARTERY/VENTRICLE ANGIO Pre-Procedure Checklist Informed consent is complete signed and on chart. H\\T\\P is on chart. ID band is on and ID verified with patient. Patient NPO for procedure The procedure was described for the patient and questions were answered. Blood Pressure: 170/90 ECG is on chart. Rhythm: NSR w st elevation Plan of Care Patient will tolerate the procedure without complications. Adequate level of comfort will be maintained. Hemodynamics will remain stable Patient will recover from procedure without complications. Respiratory function will be maintained. Cardiac rhythm will remain stable. Patient temperature will be maintained. Patient and/or family have verbalized understanding of the procedure. Patient Education Chief Complaint/Reason for Test: Cardiac Cath Developmental Category: Geriatric (65+ years) Developmentally Appropriate for Age: Yes Learning Barriers: None Education Needs: Procedure Education Method: Verbal Information Taught: Cardiac Cath Educational Evaluation: Able to repeat information Intravenous Access Time IV Size Location DC'd Fluid/Drip Rate Units RN Started with 20g 1 1/4" Rt Wrist 0.9NaCl 25 ml/hr Shailesh Dasilva RN Allergies Oxycodone acetaminophen clonidine lisinopril atorvastatin Vital Signs Time BP (mmHg) HR (bpm) O2 Sat. RR (bpm) LOC 170 / 90 85 98 % 16 5 = Fully awake and oriented or at pre-proc level 06:27 PM 201 / 103 83 100 % 27 06:31 PM 170 / 90 75 98 % 12 06:36 PM 156 / 87 78 97 % 10 06:41 PM 148 / 82 39 97 % 18 06:46 PM 142 / 92 136 97 % 8 06:51 PM 152 / 80 81 97 % 10 06:56 PM 126 / 64 109 96 % 3 07:01 PM 124 / 67 75 96 % 13 Procedural Medications Time Medication Dose Units Method Given By 06:29 PM Oxygen 2 L/min nasal cannula Shailesh Dasilva RN 06:29 PM Versed 1 mg Intravenous Shailesh Dasilva RN 06:29 PM Fentanyl 50 mcg Intravenous Shailesh Dasliva RN 06:39 PM Heparin 2100 units Intravenous Ella Will RN 06:42 PM Aggrastat Bolus: 21 ml Intravenous RudyornShailesh stokes RN 06:42 PM Aggrastat 12.5mg/250ml 3.75 ml Intravenous Shailesh Dasilva RN 06:52 PM Nitroglycerin 200 mcg Intracoronary april Chen md ASA Classification: Emergent Procedure: ASA score is assumed Abdias Score Preprocedure Postprocedure Activity 2- Moves 4 extremities sustained head lift Activity 2- Moves 4 extremities sustained head lift Circulation 2- SBP +/= 20 points of pre-anesthetic level Circulation 2- SBP +/= 20 points of pre-anesthetic level Consciousness 2- Awake and alert oriented x 3 Consciousness 2- Awake and alert oriented x 3 O2 Saturation 2- Able to maintain O2 satruation of 92% on room air O2 Saturation 2- Able to maintain O2 satruation of 92% on room air Respiratory 2- Able to deep breathe and cough well Respiratory 2- Able to deep breathe and cough well Total Score 10 Total Score 10 Contrast Agent: Isovue Diagnostic Contrast: 165 ml Total Contrast: 165 ml Fluoro Dose: 439 mGy Activated Clotting Time Time Seconds to Clot 07:05 PM 204 Procedure Log Time Note Enter By 06:24 PM 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 to scientific laboratory supervisor 2 at 18:24 tsites 06:24 PM Eusebia Ordoñez RT (R) Position: Monitor Time in: 18:24 tsites 06:24 PM Beatrice Ortiz RT Position: Scrub Time in: 18:24 tsites 06:24 PM Ella Will RN Position: Makeup Artist Time in: 18:24 tsites 06:24 PM Shailesh Dasilva RN Position: Makeup Artist Time in: 18:24 tsites 06:24 PM Patient charges- Angio tray pack, Navilyst 3mm J, Pulse Oximetry and ACIST tubing and transducer tsites 06:24 PM Case Delayed No tsites 06:24 PM Physician arrived 18:24 tsites 06:24 PM Procedure start 18:24 tsites 06:24 PM CathStat 06:24 PM Vitals capture started with the following parameters, Patient=Adult, Interval=5 min, Initial Czptibfv=569 mmHg, Deflation Rate=5 mmHg, Cuff placed on Left Leg 06: PM Time: 18:25 Fentanyl 50 mcg Intravenous Given by Shailesh Dasilva RN tsites :25 PM Clinical Presentation: STEMI or equivalent tsites : PM Time out performed according to hospital policy tsites : PM Time: 18:25 Oxygen on at 2 L/min per nasal cannula by Shailesh Dasilva RN tsites : PM Time: 18:25 Versed 1 mg Intravenous Given by Shailesh Dasilva RN tsites :25 PM Vitals capture started with the following parameters, Patient=Adult, Interval=5 min, Initial Brbmmmwd=097 mmHg, Deflation Rate=5 mmHg, Cuff placed on Left Leg 06:27 PM HR=83 bpm, PZCW=046/103 mmhg, VjY9=593.0 %, Resp=27 B/min 06:28 PM Recorded ECG: HR=32 Condition=Condition 1 06:31 PM HR=75 bpm, UVLS=850/90 mmhg, SpO2=98.0 %, Resp=12 B/min 06:31 PM Access obtained by percutaneous puncture. 6Fr 10cm Terumo Longs sheath placed in right Femoral artery. [id number] tsites 06:32 PM 5Fr FR 4 catheter inserted over the wire DN tsites 06:32 PM RCA angiography performed in multiple views. tsites 06:32 PM Recorded Pressure: Ao, HR=68, Condition=Condition 1 (Aorta) Ao 166/74/112 06:33 PM Catheter removed tsites 06:34 PM PCI Status Emergency tsites 06:34 PM PCI Indication: Immediate PCI for STEMI tsites 06:34 PM 6Fr XB3.0 Comptche Bright-Tip guide catheter was used to cannulate the PCI vessel successfully. reused? No tsites 06:34 PM Inflation device was opened. tsites 06:34 PM Recorded Pressure: Ao, ES=476, Condition=Condition 1 (Aorta) Ao 173/96/128 06:35 PM LCA angiography performed in multiple views. tsites 06:36 PM HR=78 bpm, HLCD=898/87 mmhg, SpO2=97 %, Resp=10 B/min 06:39 PM .014 [employer] [place] 185cm guide wire across target lesion- successful. reused? No tsites 06:39 PM Time: 18:39 Heparin 2100 units Intravenous Given by Ella Will RN tsites 06:41 PM 2.5mm x 12mm Synergy drug-eluting stent across target lesion- successful Lot #[id number] tsites 06:41 PM HR=39 bpm, AMQI=643/82 mmhg, SpO2=97.0 %, Resp=18 B/min 06:41 PM Recorded Pressure: Ao, HR=48, Condition=Condition 1 (Aorta) Ao 153/105/129 06:42 PM Stent deployed @ 16 avery for 28 seconds tsites 06:42 PM Time: 18:42 Aggrastat Bolus: 21 ml Intravenous Given by Shailesh Dasilva RN Link pump tsites 06:42 PM Time: 18:42 Aggrastat 12.5mg/250ml 3.75 ml Intravenous Given by Shailesh Dasilva RN Link pump tsites 06:42 PM Stent balloon reinflated @ 16 avery for 30 seconds tsites 06:44 PM Stent balloon reinflated @ 16 avery for 8 seconds tsites 06:46 PM HI=593 bpm, WLUM=286/92 mmhg, SpO2=97 %, Resp=8 B/min 06:47 PM Stent balloon reinflated @ 12 avery for 30 seconds tsites 06:50 PM Stent delivery system removed intact. tsites 06:51 PM 2.5 mm x 12mm NC Emerge balloon across target lesion- successful. reused? No tsites 06:51 PM HR=81 bpm, LBSH=345/80 mmhg, SpO2=97 %, Resp=10 B/min 06:51 PM Balloon inflated @ 20 avery for 30 seconds tsites 06:51 PM Recorded Pressure: Ao, HR=87, Condition=Condition 1 (Aorta) Ao 132/90/108 06:52 PM Time: 18:52 Nitroglycerin 200 mcg Intracoronary Given by april Chen md tsites 06:53 PM Coronary Dominance: right tsites 06:53 PM Lesion found in Mid LAD. Pre Stenosis: 100 Pre IRMA Flow: 0: No Flow/No perfusion tsites 06:54 PM wire reinserted ca tsites 06:56 PM YD=229 bpm, FCUU=847/64 mmhg, SpO2=96.0 %, Resp=3 B/min 06:58 PM Guide wire removed intact. tsites 06:58 PM Balloon catheter removed intact. tsites 06:58 PM Guide catheter removed intact. tsites 06:58 PM 5Fr Pigtail catheter inserted over the wire DNC tsites 06:58 PM Catheter selectively placed in left ventricle tsites 06:59 PM Pressure channel 1 zeroed. 06:59 PM Recorded Pressure: LV, HR=75, Condition=Condition 1 (Left Ventricle) LV 99/13/10 06:59 PM Bolus angiogram of left Ventricle complete: 12 ml/sec for a total of 24 mls tsites 07:00 PM Recorded Pressure: LV, Ao, HR=63, Condition=Condition 1 (Left Ventricle) LV 115/12/16, (Aorta) Ao 127/59/83 07:00 PM Catheter removed tsites 07:00 PM Bolus angiogram of right Femoral complete: 2 ml/sec for a total of 4 mls tsites 07:01 PM HR=75 bpm, RNGQ=292/67 mmhg, SpO2=96.0 %, Resp=13 B/min 07:03 PM act drawn tsites 07:05 PM At 19:05 the ACT was 204 seconds. tsites 07:06 PM Procedure completed at 19:06 tsites 07:06 PM Sign out completed: Radiation Dose 439 mGy Fluoro Time: 9.6 Isovue 370 - 500ml contrast 165 ml given by April Chen MD. Complications: NoneCardiac Rehab Consult needed: YesConfirmed administered medications: Yes tsites 07:06 PM Isovue 370 - 500ml,1 Bottle(s) used. tsites 07:06 PM Sheath left in place to be pulled on floor/holding areaV+Pad tsites 07:06 PM Post ECG NSR tsites 07:07 PM Post Blood Pressure 116/70 tsites 07:07 PM 19:07 Post Pulses Bilateral DP \\T\\ PT Doppler tsites 07:07 PM Information taught Cardiac Cath and PCI tsites 07:07 PM Education needs Procedure, Plan of Care, and Responsibilities of Patient in Care tsites 07:07 PM Learning barriers :None tsites 07:07 PM Education Methods Verbal tsites 07:07 PM Education evaluation Able to repeat information tsites 07:07 PM Site status No bleeding/hematoma - Rt Groin as reported by Beatrice Ortiz RT at 19:07 tsites 07:08 PM Plavix, Effient or Brilinta given Yes in ER tsites 07:08 PM Delay to floor No tsites 07:08 PM Patient out of room: 19:08 tsites 07:09 PM Report given to breanna MURPHY Pt taken to ICU Room #10. 19:08 tsites 07:15 PM Lesion found in Proximal Circumflex. Pre Stenosis: 100 Pre IRMA Flow: 0: No Flow/No perfusion tsites Complications Complication None Hemodynamics Pressures Site Systolic/A Wave Diastolic/V Wave Mean AO 166 74 112 AO 173 96 128 AO 153 105 129 AO 132 90 108 LV 99 13 10 LV 115 12 16 AO 127 59 83 Post Procedure Information Blood Pressure: 116/70 mmHg Rhythm: NSR Post procedural instructions were given Closure Device Time Device Success/Fail 08/24/2016 6:53:00 PM Manual Compression Site Checks Time Location Status Staff Sheath In? Note 07:07 PM Rt Groin No bleeding/hematoma Beatrice Ortiz RT Pulses Time Site Pre-Procedure Post-Procedure Note 08/24/2016 6:32:00 PM Bilateral DP \\T\\ PT 1+ 7:07:00 PM Bilateral DP \\T\\ PT Doppler Updated by Eusebia Ordoñez RT (R) on 08/24/2016 7:17:50 PM Eusebia Ordoñez RT electronically signed on 08/24/2016 7:18:32 PM with status of Final
--- NOTE | 2016-08-24 19:27 | Pre-Sedation Evaluation ---
Pre-sedation evaluation - Pre-sedation checklist Date of procedure: 08/23/16 Procedure: Cardiac cath and intervention Recent Vitals: Last Vital Signs Temp 97.8 F 08/24/16 17:47 Pulse 82 08/24/16 18:18 Resp 18 08/24/16 18:18 BP 165/72 08/24/16 18:18 Pulse Ox 98 08/24/16 18:18 H&P (including ROS) documented in medical record: Yes (done) Previous reaction to sedatives/anesthetics: No Dietary Status: NPO 6 hours prior to procedure Airway Assessment: Patient can open mouth completely, TMJ function normal Dentition: No loose teeth or bridges Possible difficult airway: No ASA Classification *see protocol: CLASS IV-Severe systemic disease/constant threat to pt's life Plan of Care: Pt appropriate candidate for procedure/moderate/conscious sedation
--- NOTE | 2016-08-24 19:29 | Procedure Note ---
Date of procedure: 08/23/16 Pre-op diagnosis: STEMI Post-op diagnosis: same Procedure: Left cath and PTCE/stent to the mid LAD was 100% stenosed and zero post procedure. See note. Anesthesia: local, IV sedation Surgeon: Seferino Chen Estimated blood loss (cc): 10 Pathology: none sent Condition: stable Disposition: floor
--- NOTE | 2016-08-24 19:53 | Invasive Diagnostic Lab ---
Name: Marisa Chavez Date of Study: 08/24/2016 Date: 1945 Ht: 150.0 cm /59.1 in Medical Record#: [id number] Age: 71 Wt: 42. kg / 92.59 lb Account/Order#: [id number] Gender: Female BSA: 1.33 Order #: [id number] Fluoro Dose: 439 mGy BMI: 18.67 Procedure Physician: Seferino Chen MD Referring MD: Referring MD: Procedures Performed: PCI of Acute anterior wall NV LEFT HEART CATH Indications: STEMI Impressions: There is severe one vessel coronary artery disease. The left ventricle is normal and has normal contractility EF 50% Patient had successful PTCA/Drug-Eluting Stent placement in the mid LAD. Recommendations: Optimal medical therapy of patient's disease. Aggressive risk factor modification. History/Risk Factors: cad dvt gerd renal dx Hypertension Dyslipidemia Current/Recent Smoker Peripheral Vascular Disease Chronic Lung Disease Prior NV Previous PCI Procedure Access obtained in the right Femoral artery by percutaneous puncture Patient had successful PTCA/Drug-Eluting Stent placement in the mid LAD. Complications: None Contrast: Isovue 165ml Closure Device: Manual Compression Hemodynamics: Pressures Site Systolic/ A Wave Diastolic/ V Wave End Diastolic/ Mean HR AO 166 74 112 68 AO 173 96 128 113 AO 153 105 129 48 AO 132 90 108 87 LV 99 13 10 75 LV 115 12 16 75 AO 127 59 83 51 LV Ventriculography Ejection Method: LV Gram Ejection Fraction: 50% Wall Motion: SWAN Anterobasal Normal Anterolateral Normal Apical: Normal Inferoapical Akinesis Inferobasal Normal Coronary Dominance: right Lesion Findings/Interventions * Left Main Coronary Artery The LMCA is angiographically free of disease. * Left Anterior Descending There is a 12 mm long, 100% stenosis in the Mid LAD. The lesion has a IRMA flow of 0 and has no thrombus present. An intervention was performed on the Mid LAD with a final stenosis of 0%. There were no lesion complications. The final IRMA flow was 3. * Circumflex There is a 100% stenosis in the Proximal Circumflex. 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 * Right Coronary Artery The RCA is had sclerosis and old mid vessel stent is patent The Right PDA is Has plaque The Right Coronary Artery has patent stents present from a previous procedure. Interventional Device(s) Vessel Segment Type Name Diameter (mm) Length (mm) Mid LAD Drug Eluting Stent Synergy 2.5 12 Mid LAD Balloon NC Emerge 2.5 12 Updated by Eusebia Sites, RT (R) on 08/24/2016 7:19:16 PM Seferino Chen MD electronically signed on 08/24/2016 7:45:43 PM with status of Final
[2016-08-24] MEDS ORDERED: Tirofiban 12.5 MG/250ML 12.5 MG/250 ML BAG IVC SCH (21:45)
[2016-08-24] MEDS ORDERED: *HR* Atropine Sulfate 1 MG/10 ML SYRINGE ONE (21:54)
[2016-08-24] MEDS: *HR* Ticagrelor 90 MG TABLET PO SCH (22:44)
[2016-08-25] MEDS: *HR* Morphine 2 MG/ML SYRINGE IVP PRN ×3 (01:55→08:20)
[2016-08-25] MEDS: Nitroglycerin 0.4 MG TAB.SUBL SL PRN ×2 (03:03→03:12)
[2016-08-25] MEDS: *HR* Ticagrelor 90 MG TABLET PO SCH ×2 (08:20→20:53)
[2016-08-25] MEDS ORDERED: Aspirin 81 MG TAB.CHEW PO SCH (09:00)
[2016-08-25 10:34] LABS: Basophils % 0.1 %; Eosinophils # 0.3 K/mcL (0.0-0.6); Eosinophils % 3.5 %; Hematocrit 33.8 % (35.3-44.9); Hemoglobin 11.8 g/dL (11.5-15.4); Immature Granulocytes % 0.7 % (0-4); Lymphocytes # 1.6 K/mcL (0.6-4.6); Lymphocytes % 17.5 %; Mean Corpuscular HGB Conc 34.9 g/dL (31.6-35.5); Mean Corpuscular Hemoglobin 31.1 pg (28.0-33.3); Mean Corpuscular Volume 88.9 fL (83.0-100.0); Mean Platelet Volume 10.4 fL (9.4-12.4); Monocytes # 0.8 K/mcL (0.0-1.3); Neutrophils # 6.6 K/mcL (1.6-8.9); Platelet Count 228 K/mcL (140-400); Red Cell Distribution Width 12.3 % (11.5-14.5); Segmented Neutrophils % 70.2 %
[2016-08-25 10:51] LABS: Potassium 4.7 mEq/L (3.5-4.5)
[2016-08-25] MEDS ORDERED: Ondansetron 4 MG/2 ML VIAL IVP PRN (11:19)
[2016-08-25] MEDS ORDERED: 0.9 % Sodium Chloride 1,000 ML IVC SCH ×2 (11:30→14:15)
--- NOTE | 2016-08-25 11:31 | Cardiology Progress Note ---
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 Chest pain free upon exam today--no issues with right groin cath site other than mild tenderness. Emphasized importance of uninterrupted DAPT (asa + brilinta) for at least 1 year. Continue betablocker. Will change statin back to zocor (pt. states she cannot tolerate Lipitor d/t leg cramps). Cardiac rehab consulted. Check echocardiogram. Will plan to move out of ICU today. Qualifiers: Involved coronary artery: LAD coronary artery Qualified Code(s): I21.02 - ST elevation (STEMI) myocardial infarction involving left anterior descending coronary artery (2) SAMM (acute kidney injury) Current Visit: Yes Status: Acute SCr 1.51, now 1.17 today. Will start IVF and re-check in AM. Hold ARB. (3) Tobacco use disorder Current Visit: Yes Status: Chronic Tobacco cessation counseling provided. (4) HTN (hypertension) Current Visit: Yes Status: Chronic Betablocker increased today, will continue to monitor and adjust accordingly. Hold ARB for now in the setting of SAMM. Qualifiers: Hypertension type: essential hypertension Qualified Code(s): I10 - Essential (primary) hypertension (5) DVT prophylaxis Current Visit: Yes Status: Acute Heparin SC started. Discussion w patient/family: The assessment and plan as outlined above was discussed with the patient and/or family members who expressed understanding and agreement. All questions were answered. Thank you for involving us in the care of your patient. Please call with any questions. The patient will be discussed and reviewed with Dr. Terry; changes to be made accordingly. Objective Vital Signs, Last 4 Hours Temp Pulse Resp BP Pulse Ox 08/25/16 09:00 74 16 138/77 97 08/25/16 08:15 98.5 F 08/25/16 08:00 81 16 156/99 94 Results 08/25/16 10:21 08/25/16 10:21 Lab Results 08/25/16 08/25/16 10:21 10:21 WBC 9.4 Hgb 11.8 Hct 33.8 L Plt Count 228 Sodium 138 Potassium 4.7 H Chloride 106 Carbon Dioxide 23 BUN 16 Creatinine 1.17 H Glucose 92 Calcium 9.0 AST 23 ALT 8 Consult Discharge Plan - Plan Referrals: Horacio Hardin MD [Primary Care Provider] -
[2016-08-25] MEDS ORDERED: Carisoprodol 350 MG TABLET PO PRN (11:34)
[2016-08-25] MEDS ORDERED: Nitroglycerin 0.4 MG TAB.SUBL SL PRN ×2 (11:34→14:15)
[2016-08-25] MEDS ORDERED: Famotidine 20 MG TABLET PO SCH (11:45)
[2016-08-25] MEDS ORDERED: Isosorbide MONOnitrate (24 HR) 30 MG TAB.ER.24H PO SCH (11:45)
[2016-08-25] MEDS ORDERED: *HR* Heparin 5,000 UNIT/ML VIAL SQ SCH (12:00)
[2016-08-25] MEDS ORDERED: *HR* Morphine 2 MG/ML SYRINGE IVP PRN (14:15)
[2016-08-25] MEDS: *HR* Heparin 5,000 UNIT/ML VIAL SQ SCH (18:13)
[2016-08-25] MEDS: clonazePAM 1 MG TABLET PO SCH (20:53)
[2016-08-25] MEDS ORDERED: rOPINIRole 0.25 MG TABLET PO SCH ×2 (21:00)
[2016-08-25] MEDS ORDERED: clonazePAM 1 MG TABLET PO SCH (21:00)
[2016-08-25] MEDS: Carisoprodol 350 MG TABLET PO PRN (21:36)
[2016-08-26] MEDS: Ondansetron 4 MG/2 ML VIAL IVP PRN ×2 (00:43→13:12)
[2016-08-26 03:13] LABS: BUN/Creatinine Ratio 16 (6-26); Blood Urea Nitrogen 15 mg/dL (7-20); Calcium 8.4 mg/dL (8.6-10.8); Carbon Dioxide 23 mEq/L (19-29); Chloride 107 mEq/L (98-109); Glucose 87 mg/dL (70-99); Osmolality,Calculated 284 (280-300); Potassium 4.4 mEq/L (3.5-4.5); Sodium 137 mEq/L (136-145); eGFR For African Americans > 60 (> 60); eGFR For Non-African Americans 58 (> 60)
[2016-08-26 03:20] LABS: Chol/HDL Ratio 3.9 (0-4.9)
[2016-08-26] MEDS: *HR* Heparin 5,000 UNIT/ML VIAL SQ SCH (05:48)
--- NOTE | 2016-08-26 08:59 | Electrocardiograph Report ---
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
[2016-08-26] MEDS ORDERED: Aspirin 81 MG TAB.CHEW PO SCH (09:00)
[2016-08-26] MEDS ORDERED: Famotidine 20 MG TABLET PO SCH (09:00)
[2016-08-26] MEDS ORDERED: Isosorbide MONOnitrate (24 HR) 30 MG TAB.ER.24H PO SCH (09:00)
--- NOTE | 2016-08-26 09:07 | Electrocardiograph Report ---
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
[2016-08-26] MEDS: *HR* Ticagrelor 90 MG TABLET PO SCH (09:39)
[2016-08-26] MEDS: clonazePAM 1 MG TABLET PO SCH (09:39)
[2016-08-26 09:52] VITALS: BP 135/85
[2016-08-26] MEDS: Carisoprodol 350 MG TABLET PO PRN (11:31)
--- NOTE | 2016-08-26 13:02 | Discharge Summary ---
Date of Encounter: 08/26/16 Time of Encounter: 12:45 - Discharge Diagnosis (1) ST elevation myocardial infarction (STEMI) Priority: Primary Status: Acute Comments: s/p PCI to mLAD Qualifiers: Involved coronary artery: LAD coronary artery Qualified Code(s): I21.02 - ST elevation (STEMI) myocardial infarction involving left anterior descending coronary artery (2) SAMM (acute kidney injury) Priority: Secondary Status: Resolved Comments: Resolved with IV hydration (3) Tobacco use disorder Priority: Secondary Status: Chronic (4) HTN (hypertension) Priority: Secondary Status: Chronic Qualifiers: Hypertension type: essential hypertension Qualified Code(s): I10 - Essential (primary) hypertension (5) DVT prophylaxis Priority: Secondary Status: Acute - Discharge Medications Prescriptions: Ticagrelor [Brilinta] 90 mg PO BID #60 tablet Ticagrelor [Brilinta] 90 mg PO BID #30 tablet Home Medications: Albuterol Sulfate [Albuterol Inhaler] 2 puff IH Q4HR PRN 01/22/15 [History] Aspirin Enteric Coated [Aspirin EC] 81 mg PO HS 01/22/15 [History] ClonazePAM [Klonopin] 1 mg PO BID 01/22/15 [History] Dicyclomine [Bentyl] 20 mg PO TID 01/22/15 [History] Escitalopram [Lexapro] 20 mg PO DAILY 01/22/15 [History] Metoprolol [Lopressor] 25 mg PO BID 01/22/15 [History] Ropinirole HCl [Requip] 0.5 mg PO HS 01/22/15 [History] Losartan [Cozaar] 25 mg PO DAILY 05/10/15 [History] Simvastatin [Zocor] 20 mg PO HS 05/10/15 [History] Famotidine [Pepcid] 20 mg PO DAILY 06/22/16 [History] Mirtazapine [Remeron] 15 mg PO HS 06/22/16 [History] Isosorbide MONOnitrate (24 HR) [Imdur] 30 mg PO DAILY #30 tab.er.24h 06/24/16 [ Rx] Carisoprodol [Soma] 350 mg PO BID 08/25/16 [History] Nitroglycerin [Nitrostat] 0.4 mg PO Q5M PRN 08/25/16 [History] Ondansetron [Zofran] 8 mg PO BID PRN 08/25/16 [History] Ticagrelor [Brilinta] 90 mg PO BID #60 tablet 08/25/16 [Rx] Ticagrelor [Brilinta] 90 mg PO BID #30 tablet 08/26/16 [Rx] Allergies/Adverse Reactions: Allergies acetaminophen [From Percocet] Allergy (Verified 10/28/15 07:32) Rash atorvastatin Allergy (Verified 10/28/15 07:32) Nausea clonidine Allergy (Verified 10/28/15 07:32) Blister lisinopril Allergy (Verified 10/28/15 07:32) Cough Oxycodone [From Percocet] Allergy (Verified 10/28/15 07:32) Rash Procedures/tests Complete & Pending: Procedures Performed prior 72 hours Category Date Time Status ECG 12 lead ECG [ECG] Routine Y 08/25/16 03:03 Completed EV limited echocardiogram Routine Y 08/25/16 10:04 Completed Date of admission: 08/24/16 18:39 Primary care physician: Horacio Hardin MD Consults: 08/25/16 07:49 Consult to Cardiac Rehabilitation-Phase1 [CONS] Routine Comment: Reason for Consult: STEMI Call Completed: No Discharging clinician: Kaitlynn Alvarez Anticipated date of discharge: 08/26/16 - Patient Status Disposition: Home, Self-Care Condition: Good Functional capacity at discharge: independent ambulation Overall status at discharge: patient is progressing back to baseline - Discharge Instructions Follow Up With: Horacio Hardin MD [Primary Care Provider] - 08/31/16 1:15 pm (Needs 1-2 week appt, hospital follow-up) Jake Andrade DO [Partnered Physician] - (Office will call on Sunday with appointment date and time. Need 5-7 day follow-up) Additional Instructions: RISK FACTORS: STOP SMOKING: If you smoke, STOP. Smoking or tobacco use significantly increases your risk of heart disease because nicotine causes the arteries to narrow or constrict. It also causes fats to stick to the artery. Your chances of having a heart attack are greatly increased if you continue to smoke. For more information, call the education line for smoking cessation 9-197-ZIHAPVY EAT A LOW FAT/CHOLESTEROL/SODIUM DIET: This diet may help reduce your chances of having a heart attack. LIFTING: Avoid lifting anything more than 10 pounds for 5-7 days Prior to straining, laughing, sneezing and/or coughing, apply manual pressure directly over insertion site. ACTIVITY: You may walk or climb stairs as tolerated You can resume sexual activity as tolerated In general, you are encouraged to engage in a minimum of 30 minutes or more of moderate intensity physical activity, such as brisk walking, daily or at least 3 -4 times weekly BATHING Do not submerge the site into water (bath tub, hot tub, swimming pool) for 1 week. This can be a source for infection into the blood stream. You may shower after 24 hours SITE CARE: After 24 hours, you may remove the dressing and leave the site open to air. Keep the site clean and dry. Clean gently and pat dry. You can expect bruising and tenderness that gradually resolve within a week or two. Return to work as instructed per your physician Resume driving as instructed per physician Keep all scheduled follow up appointments Resume medications as instructed IMPORTANT: If prescribed a Platelet Aggregation Inhibitor such as, Plavix, Brilinta or Effient: Duration of therapy is minimum one year These medications are often used in combination with Aspirin in prevention of future heart attacks Never discontinue unless consult with your Physical Medicine Teacher STROKE (CVA) Risk factors for a stroke are: Age, cigarette smoking, diabetes, excessive alcohol consumption, family history, high blood pressure, overweight, physical inactivity, prior stroke, heart attack, diagnosis of carotid artery stenosis or other artery disease. Warning signs: Sudden numbness or weakness of the face, arm or leg; especially on one side of the body, sudden confusion, trouble speaking or understanding, sudden trouble seeing in one or both eyes, sudden trouble walking, dizziness, loss of balance or coordination, sudden severe headache with no cause. Call 911 or go to the Emergency Room. CONGESTIVE HEART FAILURE: If you have been diagnosed with Congestive Heart Failure (CHF) and your symptoms return, make an appointment with your physician Weigh yourself daily. Notify your physician if you have a weight gain of two or more pounds in one day or five or more pounds in one week. If you experience any difficulty breathing, please call 911 BLEEDING: Although the risk of bleeding is minimal, it can happen. If you have any bleeding from the site, apply firm pressure above the puncture site for 10-15 minutes. If the bleeding does not stop, continue manual pressure and call 911 Contact your physician if: You develop a fever greater than 101 degrees Fahrenheit Your site becomes reddened or has any drainage You have an increase in pain or burning at the site or if a large knot forms at the site. If you experience chest pain, shortness of breath, dizziness, or extreme tiredness, stop the activity and rest. Please notify your physicians office if you experience any of these symptoms and they are not relieved by rest please call 911! - Diet and Activity Activity: increase activity as tolerated (per post PCI guidelines. ) Diet: low fat, low cholesterol, low salt diet - Hospital Course Hospital course: Ms. Chavez is a 71 year old female who presented to the ED as anterior STEMI; she was emergently taken to the labor trainer and is s/p PCI with VANDANA to mLAD; has known [employer] of pLCx. TTE checked yesterday and demonstrated preserved LVEF, 55%, with apical inferior wall hypokinesis. She denies recurrent chest pain or discomfort since PCI on 08/24/16; she was stepped down out of ICU yesterday; however, no beds were available and therefore will be discharged to home in stable condition from ICU. She has been up and ambulating in room/hallway without issues. No issues with right groin cath site. Mild SAMM upon presentation, which resolved with IVF. Vital signs and telemetry have been stable--no ectopy noted per telemetry review. She is being prepped for discharge to home in stable condition, 30 day supply of brilinta provided to patient upon discharge. Counseled on the importance of uninterrupted DAPT (asa + brilinta) for at least 1 year, she verbalized understanding of all information provided. Post PCI education provided including care of right groin cath site. No other changes were made to her home medication regimen. She is being discharge home on optimal medical therapy for CAD including asa, statin, betablocker, ARB, brilinta, and nitrates. All questions and concerns were addressed prior to discharge. The patient was discussed and reviewed with Dr. Terry who agrees with plan as stated above. She will follow-up with PCP and [facility] within 5-7 days of discharge. Time spent discussing smoking cessation with patient: 3 to 10 minutes - Time Spent with Patient Total time spent providing and/or coordinating discharge services: 30 minutes Greater than 30 minutes Specific discharge activities: per post PCI discharge instructions, please provide written copy. No heavy lifting >5 pounds for at least 1 week. Avoid strenuous activity or exertion until seen by Cardiology at follow-up. Keep right groin cath site clean and dry until healed. Physical Examination Vital Signs, Last 4 Hours Temp Pulse Resp BP 08/26/16 12:28 98.1 F 08/26/16 12:01 63 08/26/16 10:24 65 12 08/26/16 09:36 70 12 135/85 General: Conversant, No Apparent Distress HEENT: Atraumatic, Normocephaly, Mucus Membranes Moist Neck: No JVD, Normal carotid pulses Cardiac: Reg Rate and Rhythm, Normal S1 and S2, No Murmur Lungs: Normal Breath Sounds, No Wheeze, Rales, Rhonchi Neuro: Alert and responsive, No focal deficits noted Abdomen: Soft, Non-Tender Skin: No rashes noted on visualized skin Musculoskeletal: No Chest Wall Tenderness Extremities: No Clubbing, No Cyanosis, No Edema, Normal Pulses Other: right groin cath site: dressing removed, mild tenderness. No oozing, hematoma, or bleeding noted at site. +2 DP/PT pulses.
== END 2016-08-26 14:02 | disposition home or self-care (01) | DRG 247 ==
LOC: ICNU 17:46 → EMEROO 17:46 → ICNU 18:18
PROVIDERS: ADMIT Nurse Practitioner Family; ATTEND Emergency Medicine

== ENCOUNTER 2017-01-08 07:32 | Inpatient (IN) ==
[2017-01-08] MEDS ORDERED: Heparin 1,000 UNITS/500 mL NS 500 ML ONE (07:36)
[2017-01-08] MEDS ORDERED: 0.9 % Sodium Chloride 1,000 ML ONE ×2 (07:38→09:01)
[2017-01-08] MEDS ORDERED: *HR* Morphine 2 MG/ML SYRINGE IVP ONE (07:47)
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
--- NOTE | 2017-01-08 07:48 | Emergency Department Note ---
Disposition Clinical Impression: STEMI (ST elevation myocardial infarction) Qualifiers: Involved coronary artery: unspecified coronary artery Qualified Code(s): I21.3 - ST elevation (STEMI) myocardial infarction of unspecified site Periorbital ecchymosis Qualifiers: Encounter type: initial encounter Laterality: unspecified laterality Qualified Code(s): S00.10XA - Contusion of unspecified eyelid and periocular area, initial encounter Disposition: Admitted As Inpatient Condition: Fair General Adult HPI - General Chief complaint: ED Chest Pain Stated complaint: chest pain Time Seen by Provider: 01/08/17 07:36 Source: patient Limitations: no limitations Nursing Notes Reviewed: Yes Vital Signs Reviewed: Yes - History of Present Illness HPI Narrative: 71-year-old female with history of 5 stents. She reports that she had sudden onset of chest pain a couple of hours ago which woke her from sleep. She took nitroglycerin which did not improve her symptoms such called EMS. EMS transmitted a EKG with STEMI. She also reports that a couple of days ago she was started on a new medication and has fallen and hit her head. Due to this she has 2 black eyes. She denies any current headache. She states the new medication she was started on was baclofen. She takes aspirin and Brilinta to her multiple stents with MIs. She states this does feel similar to previous heart attacks. The pain is substernal radiates up into her jaw. It is a pressure. Pain Severity: severe Pain Scale: 10 Improves with: nothing Worsens with: nothing Associated symptoms: Reports: denies other symptoms Treatments Prior to Arrival: Aspirin - Related Data Home Medications Medication Instructions Recorded Confirmed Albuterol Sulfate [Albuterol 2 puff IH Q4HR PRN 01/22/15 08/25/16 Inhaler] Aspirin Enteric Coated [Aspirin EC] 81 mg PO HS 01/22/15 06/22/16 ClonazePAM [Klonopin] 1 mg PO BID 01/22/15 08/25/16 Dicyclomine [Bentyl] 20 mg PO TID 01/22/15 08/25/16 Escitalopram [Lexapro] 20 mg PO DAILY 01/22/15 08/25/16 Metoprolol [Lopressor] 25 mg PO BID 01/22/15 06/22/16 Ropinirole HCl [Requip] 0.5 mg PO HS 01/22/15 08/25/16 Losartan [Cozaar] 25 mg PO DAILY 05/10/15 08/25/16 Simvastatin [Zocor] 20 mg PO HS 05/10/15 08/25/16 Famotidine [Pepcid] 20 mg PO DAILY 06/22/16 06/22/16 Mirtazapine [Remeron] 15 mg PO HS 06/22/16 06/22/16 Carisoprodol [Soma] 350 mg PO BID 08/25/16 08/25/16 Nitroglycerin [Nitrostat] 0.4 mg PO Q5M PRN 08/25/16 08/25/16 Ondansetron [Zofran] 8 mg PO BID PRN 08/25/16 08/25/16 Previous Rx's Medication Instructions Recorded Isosorbide MONOnitrate (24 HR) 30 mg PO DAILY #30 tab.er.24h 06/24/16 [Imdur] Ticagrelor [Brilinta] 90 mg PO BID #60 tablet 08/25/16 Ticagrelor [Brilinta] 90 mg PO BID #30 tablet 08/26/16 Allergies Allergy/AdvReac Type Severity Reaction Status Date / Time acetaminophen [From Percocet] Allergy Rash Verified 10/28/15 07:32 atorvastatin Allergy Nausea Verified 10/28/15 07:32 clonidine Allergy Blister Verified 10/28/15 07:32 lisinopril Allergy Cough Verified 10/28/15 07:32 Oxycodone [From Percocet] Allergy Rash Verified 10/28/15 07:32 All systems ED: reviewed and negative except as stated. Constitutional: Denies: fever Cardiovascular: Reports: chest pain Respiratory: Reports: dyspnea. Denies: cough Gastrointestinal: Denies: abdominal pain Musculoskeletal: Denies: back pain Integumentary: Denies: rash Neurological: Denies: weakness Past Medical History - Past Medical History Medical history: Reports: coronary artery disease, DVT, GERD, hepatitis, hyperlipidemia, hypertension, myocardial infarction, peripheral artery disease, renal disease, seizures Surgical history: Reports: angioplasty/stent, appendectomy, LAYO/BSO, LE bypass Psychiatric history: Reports: anxiety, depression - Social History Smoking Status: Former smoker Smokeless Tobacco Status: No Alcohol use: Reports: occasionally Drug use: Reports: none Physical Exam - General Limitations: no limitations General appearance: alert, in no apparent distress - Head Head exam: atraumatic - Eye Eye exam: Present: other - ENT ENT exam: normal exam, normal oropharynx - Neck Neck exam: Present: normal inspection - Chest Chest inspection: Present: normal inspection - Respiratory Respiratory exam: Present: normal lung sounds bilaterally. Absent: respiratory distress - Cardiovascular Cardiovascular exam: Present: regular rate, normal rhythm - Abdominal Exam Abdominal exam: Present: soft, Non-Tender - Extremities Exam Extremities exam: Present: normal inspection - Neurological Exam Neurological exam: Present: alert, oriented X3 - Psychiatric Psychiatric exam: Present: normal affect, normal mood - Skin Skin exam: Present: warm, dry Course Course Narrative: STEMI alert by prehospital EMS with ST elevation in leads 2, 3, aVF. ST depression in V1 through V5. She is complaining of current chest pressure. Due to the bilateral periorbital ecchymosis with her being on both Brilinta and aspirin we will go ahead and do a CT scan of the head before we give additional anticoagulants. I spoke with the eligibility technician Dr. Rodriguez who agrees with this. No acute bleed on head CT. She is off to cath cath. Vital Signs Temperature 98 F 01/08/17 07:33 Pulse Rate 82 01/08/17 07:33 Respiratory Rate 16 01/08/17 07:33 Blood Pressure 106/70 01/08/17 07:33 O2 Sat by Pulse Oximetry 90 01/08/17 07:33 Temperature 98 F 01/08/17 07:33 Pulse Rate 80 01/08/17 07:59 Respiratory Rate 16 01/08/17 08:10 Blood Pressure 112/75 01/08/17 08:10 O2 Sat by Pulse Oximetry 97 01/08/17 07:59 Oxygen Delivery Oxygen Delivery Nasal Cannula Medical Decision Making - Medical Records Medical records reviewed: Yes I reviewed the patient's medical records. - Lab Data Lab results reviewed: Yes I reviewed the patient's lab results. Result diagrams: 01/08/17 07:49 01/08/17 07:49 Lab Results 01/08/17 01/08/17 01/08/17 Range/Units 07:49 07:49 07:49 WBC 16.5 H (4.3-11.1) K/mcL RBC 4.29 (3.82-4.97) M/mcL Hgb 12.9 (11.5-15.4) g/dL Hct 38.2 (35.3-44.9) % MCV 89.0 (83.0-100.0) fL MCH 30.1 (28.0-33.3) pg MCHC 33.8 (31.6-35.5) g/dL RDW 13.2 (11.5-14.5) % Plt Count 196 (140-400) K/mcL MPV 10.4 (9.4-12.4) fL Immature Gran % 1.2 (0-4) % Seg Neutrophils % 81.8 % Lymphocytes % 7.8 % Monocytes % 8.5 % Eosinophils % 0.4 % Basophils % 0.3 % Neutrophils # 13.5 H (1.6-8.9) K/mcL Lymphocytes # 1.3 (0.6-4.6) K/mcL Monocytes # 1.4 H (0.0-1.3) K/mcL Eosinophils # 0.1 (0.0-0.6) K/mcL Basophils # 0.1 (0.0-0.2) K/mcL Immature Plt Fraction 4.7 (1.1-6.1) % PT 12.6 H (9.4-12.1) Seconds INR 1.2 APTT 32.0 (26.0-36.0) Seconds Sodium 137 (136-145) mEq/L Potassium 3.9 (3.5-4.5) mEq/L Chloride 105 (98-109) mEq/L Carbon Dioxide 18 L (19-29) mEq/L BUN 20 (7-20) mg/dL Creatinine 1.22 H (0.57-1.11) mg/dL Est GFR ( Amer) 53 L (> 60) Est GFR (Non-Af Amer) 44 L (> 60) BUN/Creatinine Ratio 16 (6-26) Glucose 139 H (70-99) mg/dL Calculated Osmolality 289 (280-300) Calcium 9.1 (8.6-10.8) mg/dL Troponin I (0-0.03) ng/mL 01/08/17 Range/Units 07:49 WBC (4.3-11.1) K/mcL RBC (3.82-4.97) M/mcL Hgb (11.5-15.4) g/dL Hct (35.3-44.9) % MCV (83.0-100.0) fL MCH (28.0-33.3) pg MCHC (31.6-35.5) g/dL RDW (11.5-14.5) % Plt Count (140-400) K/mcL MPV (9.4-12.4) fL Immature Gran % (0-4) % Seg Neutrophils % % Lymphocytes % % Monocytes % % Eosinophils % % Basophils % % Neutrophils # (1.6-8.9) K/mcL Lymphocytes # (0.6-4.6) K/mcL Monocytes # (0.0-1.3) K/mcL Eosinophils # (0.0-0.6) K/mcL Basophils # (0.0-0.2) K/mcL Immature Plt Fraction (1.1-6.1) % PT (9.4-12.1) Seconds INR APTT (26.0-36.0) Seconds Sodium (136-145) mEq/L Potassium (3.5-4.5) mEq/L Chloride (98-109) mEq/L Carbon Dioxide (19-29) mEq/L BUN (7-20) mg/dL Creatinine (0.57-1.11) mg/dL Est GFR ( Amer) (> 60) Est GFR (Non-Af Amer) (> 60) BUN/Creatinine Ratio (6-26) Glucose (70-99) mg/dL Calculated Osmolality (280-300) Calcium (8.6-10.8) mg/dL Troponin I 0.02 (0-0.03) ng/mL - Radiology Data Radiology results reviewed: Yes I reviewed the patient's radiology results. - EKG Data EKG #1 EKG attestation: Yes I reviewed and interpreted this EKG. EKG shows normal: sinus rhythm Rate: normal Rhythm: NSR [place]/QRS: normal ST segment elevation in: II, III, aVF ST segment depression in: v1, v2, v4, v5 Interpretation: other (STEMI)
[2017-01-08 07:57] LABS: Basophils # 0.1 K/mcL (0.0-0.2); Basophils % 0.3 %; Eosinophils # 0.1 K/mcL (0.0-0.6); Eosinophils % 0.4 %; Hematocrit 38.2 % (35.3-44.9); Hemoglobin 12.9 g/dL (11.5-15.4); Immature Granulocytes % 1.2 % (0-4); Immature Platelets 4.7 % (1.1-6.1); Lymphocytes # 1.3 K/mcL (0.6-4.6); Lymphocytes % 7.8 %; Mean Corpuscular HGB Conc 33.8 g/dL (31.6-35.5); Mean Corpuscular Hemoglobin 30.1 pg (28.0-33.3); Mean Platelet Volume 10.4 fL (9.4-12.4); Monocytes # 1.4 K/mcL (0.0-1.3); Monocytes % 8.5 %; Neutrophils # 13.5 K/mcL (1.6-8.9); Platelet Count 196 K/mcL (140-400); Red Blood Count 4.29 M/mcL (3.82-4.97); Red Cell Distribution Width 13.2 % (11.5-14.5); Segmented Neutrophils % 81.8 %
[2017-01-08 08:04] LABS: INR 1.2; Prothrombin Time 12.6 Seconds (9.4-12.1)
[2017-01-08] MEDS ORDERED: *HR* Ticagrelor 90 MG TABLET ONE (08:07)
[2017-01-08] MEDS ORDERED: *HR* Heparin 5,000 UNIT/ML VIAL IVP ONE (08:07)
[2017-01-08] MEDS ORDERED: *HR* Ticagrelor 90 MG TABLET PO ONE (08:07)
[2017-01-08] MEDS ORDERED: *HR* FentaNYL (PF) 100 MCG/2 ML VIAL ONE (08:11)
[2017-01-08] MEDS ORDERED: *HR* Midazolam HCl 2 MG/2 ML VIAL ONE (08:12)
[2017-01-08 08:23] LABS: Calcium 9.1 mg/dL (8.6-10.8); Potassium 3.9 mEq/L (3.5-4.5)
--- NOTE | 2017-01-08 08:58 | Cardiology History & Physical ---
Date of Encounter: 01/08/17 Time of Encounter: 09:00 Assessment and Plan (1) ST elevation myocardial infarction (STEMI) Current Visit: Yes Status: Acute Guarded prognosis - Inferior STEMI. A/R/B of LHC discussed with her and she wishes to proceed with emergent LHC for lifesaving measures. Aspirin, Brilinta given. EF assessment will be completed. Cardiac rehab consulted. Critical care time: 1 hour The assessment and plan as outlined above was discussed with the patient and/or family members who expressed understanding and agreement. All questions were answered. Qualifiers: Involved coronary artery: right coronary artery Qualified Code(s): I21.11 - ST elevation (STEMI) myocardial infarction involving right coronary artery (2) Mixed hyperlipidemia Current Visit: No Status: Chronic The assessment and plan as outlined above was discussed with the patient and/or family members who expressed understanding and agreement. All questions were answered. (3) HTN (hypertension) Current Visit: No Status: Chronic Continue home meds. The assessment and plan as outlined above was discussed with the patient and/or family members who expressed understanding and agreement. All questions were answered. Qualifiers: Hypertension type: essential hypertension Qualified Code(s): I10 - Essential (primary) hypertension History of Present Illness Chief complaint: chest pain HPI: Ms. Chavez is a 71 year old female with CAD sp PCI presents with sudden onset retrosternal chest discomfort starting around 6am that did not radiate, was severe, and did not improve with NTG. It was associated with minimal dyspnea. EMS EKG shows inferior elevation and STEMI page was activated. Past Med Surg Social Fam HX - Past Medical History Medical history: coronary artery disease, DVT, GERD, hepatitis, hyperlipidemia, hypertension, myocardial infarction, peripheral artery disease, renal disease, seizures Psychiatric history: anxiety, depression - Past Surgical History Surgical History: angioplasty/stent, appendectomy, LAYO/BSO, LE bypass - Social History Smoking Status: Former smoker Smokeless Tobacco Status: No Alcohol use: occasionally Drug use: none - Family History Sister Adopted: No Living Status: Still Living Hx Family Cardiac Disorders: Yes Hx Family Respiratory Disorders: No Hx Family Cancer: No Hx Family GI Disorders: No Hx Family Endocrine Disorder: No Hx Family Neuromuscular Disorders: No Hx Family Neurologic Disorders: No Hx Family HEENT Disorders: No Hx Family Autoimmune Disorders: No Father Living Status: Hx Family Cardiac Disorders: Yes Hx Family Respiratory Disorders: No Hx Family Cancer: No Hx Family GI Disorders: Yes Hx Family Endocrine Disorder: No Hx Family Neuromuscular Disorders: No Hx Family Neurologic Disorders: No Hx Family HEENT Disorders: No Hx Family Autoimmune Disorders: No Medications and Allergies Albuterol Sulfate [Albuterol Inhaler] 2 puff IH Q4HR PRN 01/22/15 [History] Aspirin Enteric Coated [Aspirin EC] 81 mg PO HS 01/22/15 [History] ClonazePAM [Klonopin] 1 mg PO BID 01/22/15 [History] Dicyclomine [Bentyl] 20 mg PO TID 01/22/15 [History] Escitalopram [Lexapro] 20 mg PO DAILY 01/22/15 [History] Metoprolol [Lopressor] 25 mg PO BID 01/22/15 [History] Ropinirole HCl [Requip] 0.5 mg PO HS 01/22/15 [History] Losartan [Cozaar] 25 mg PO DAILY 05/10/15 [History] Simvastatin [Zocor] 20 mg PO HS 05/10/15 [History] Famotidine [Pepcid] 20 mg PO DAILY 06/22/16 [History] Mirtazapine [Remeron] 15 mg PO HS 06/22/16 [History] Isosorbide MONOnitrate (24 HR) [Imdur] 30 mg PO DAILY #30 tab.er.24h 06/24/16 [ Rx] Carisoprodol [Soma] 350 mg PO BID 08/25/16 [History] Nitroglycerin [Nitrostat] 0.4 mg PO Q5M PRN 08/25/16 [History] Ondansetron [Zofran] 8 mg PO BID PRN 08/25/16 [History] Ticagrelor [Brilinta] 90 mg PO BID #60 tablet 08/25/16 [Rx] Ticagrelor [Brilinta] 90 mg PO BID #30 tablet 08/26/16 [Rx] 3 Allergy/AdvReac Type Severity Reaction Status Date / Time acetaminophen [From Percocet] Allergy Rash Verified 10/28/15 07:32 atorvastatin Allergy Nausea Verified 10/28/15 07:32 clonidine Allergy Blister Verified 10/28/15 07:32 lisinopril Allergy Cough Verified 10/28/15 07:32 Oxycodone [From Percocet] Allergy Rash Verified 10/28/15 07:32 All Systems Review: A 10-system review of systems was performed and is negative for pertinent findings except as documented above in the HPI. - Constitutional Constitutional: no chills, no fever(s) - EENT Eyes: no blurred vision, no loss of vision Nose, mouth and throat: no mouth pain, no odynophagia - Cardiovascular Cardiovascular: chest pain at rest, chest pain with exertion - Respiratory Respiratory: no hemoptysis, no wheezing - Gastrointestinal Gastrointestinal: no hematemesis, no hematochezia - Genitourinary Genitourinary: no dysuria, no hematuria - Musculoskeletal Musculoskeletal: no arthralgias, no myalgias - Integumentary Integumentary: no erythema, no unusual bruising - Neurological Neurological: no loss of vision, no memory loss - Psychiatric Psychiatric: no hallucinations, no panic attacks - Hematological/Lymphatic Hematologic/Lymphatic: no easy bleeding, no easy bruising Physical Examination General: Conversant, Other (mildly distressed) HEENT: Atraumatic, Normocephaly Neck: No JVD Cardiac: Reg Rate and Rhythm Lungs: Normal Breath Sounds Neuro: Alert and responsive Abdomen: Soft Skin: No rashes noted on visualized skin Musculoskeletal: No Chest Wall Tenderness Extremities: No Edema Results 01/08/17 07:49 01/08/17 07:49 - EKG Interpretation EKG results cardiology: personally reviewed (sinus rhythm with inferior current of injury)
[2017-01-08] MEDS ORDERED: Verapamil 5 MG/2 ML VIAL ONE (09:00)
[2017-01-08] MEDS ORDERED: Heparin 1,000 UNITS/500 mL NS 0 ML ONE (09:01)
[2017-01-08] MEDS ORDERED: *HR* Heparin 10,000 UNIT/10 ML VIAL ONE (09:01)
[2017-01-08] MEDS ORDERED: Nitroglycerin 1,000 MCG/10 ML VIAL IV ONE (09:01)
[2017-01-08] MEDS ORDERED: Ondansetron 4 MG/2 ML VIAL IVP PRN (09:02)
[2017-01-08] MEDS ORDERED: Nitroglycerin 0.4 MG TAB.SUBL SL PRN (09:02)
--- NOTE | 2017-01-08 09:02 | Pre-Sedation Evaluation ---
Pre-sedation evaluation - Pre-sedation checklist Date of procedure: 01/08/17 Procedure: Cardiac cath and intervention Recent Vitals: Last Vital Signs Temp 98 F 01/08/17 07:33 Pulse 80 01/08/17 07:59 Resp 16 01/08/17 08:10 BP 112/75 01/08/17 08:10 Pulse Ox 97 01/08/17 07:59 H&P (including ROS) documented in medical record: Yes (done) Previous reaction to sedatives/anesthetics: No Dietary Status: unknown Dentition: No loose teeth or bridges ASA Classification *see protocol: CLASS II-Mild systemic disease, E-EMERGENCY- Add to any of the above to indicate emergent Plan of Care: Pt appropriate candidate for procedure/moderate/conscious sedation , Risks/benefits of procedure/sedation discussed w/ patient/family, If not NPO; Risk of intake outweiged by necessity to perform procedure
[2017-01-08] MEDS ORDERED: *HR* HYDROcodone/Acet 5/325 mg TABLET PO PRN (09:06)
[2017-01-08] MEDS ORDERED: *HR* Atropine Sulfate 1 MG/10 ML SYRINGE ONE (12:24)
--- NOTE | 2017-01-08 13:50 | Electrocardiograph Report ---
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
--- NOTE | 2017-01-08 14:01 | Electrocardiograph Report ---
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
[2017-01-08] MEDS: *HR* OxyCODONE/APAP 5/325 TABLET PO PRN ×2 (17:49→21:44)
[2017-01-09] MEDS: *HR* OxyCODONE/APAP 5/325 TABLET PO PRN ×3 (04:43→18:27)
[2017-01-09 06:57] LABS: Basophils % 0.3 %; Eosinophils # 0.2 K/mcL (0.0-0.6); Eosinophils % 1.7 %; Hematocrit 36.6 % (35.3-44.9); Hemoglobin 12.3 g/dL (11.5-15.4); Immature Granulocytes % 0.8 % (0-4); Lymphocytes # 1.7 K/mcL (0.6-4.6); Lymphocytes % 12.9 %; Mean Corpuscular HGB Conc 33.6 g/dL (31.6-35.5); Mean Corpuscular Hemoglobin 29.8 pg (28.0-33.3); Mean Corpuscular Volume 88.6 fL (83.0-100.0); Mean Platelet Volume 10.9 fL (9.4-12.4); Monocytes # 0.8 K/mcL (0.0-1.3); Monocytes % 5.9 %; Neutrophils # 10.4 K/mcL (1.6-8.9); Platelet Count 200 K/mcL (140-400); Red Blood Count 4.13 M/mcL (3.82-4.97); Red Cell Distribution Width 13.2 % (11.5-14.5); Segmented Neutrophils % 78.4 %
[2017-01-09 06:59] LABS: BUN/Creatinine Ratio 19 (6-26); Blood Urea Nitrogen 18 mg/dL (7-20); Calcium 8.9 mg/dL (8.6-10.8); Carbon Dioxide 21 mEq/L (19-29); Chloride 107 mEq/L (98-109); Glucose 115 mg/dL (70-99); Osmolality,Calculated 287 (280-300); Potassium 3.7 mEq/L (3.5-4.5); Sodium 137 mEq/L (136-145); eGFR For African Americans > 60 (> 60); eGFR For Non-African Americans 57 (> 60)
[2017-01-09] MEDS ORDERED: Nitroglycerin 0.4 MG TAB.SUBL SL PRN ×3 (10:21→11:04)
[2017-01-09] MEDS ORDERED: *HR* Ticagrelor 90 MG TABLET PO ONE (10:27)
--- NOTE | 2017-01-09 10:28 | Cardiology Progress Note ---
Date of Encounter: 01/09/17 Time of Encounter: 10:00 Assessment and Plan (1) ST elevation myocardial infarction (STEMI) Current Visit: Yes Status: Acute Per Cardiology: Status post STEMI-- underwent urgent left heart catheterization with PTCA/drug- eluting stent to mid LAD 100% lesion, has proximal circumflex 100% [employer], had patent stent to RCA. Echo pending. Will resume home meds of aspirin, Brilinta, ARB, beta amy, long-acting nitrate. Had Brilinta load yesterday. Not previously on statin-- has listed allergy to atorvastatin. We'll need to evaluate potential addition of statin during hospital stay. Currently chest pain -free. Plan to transfer to floor today with possible discharge tomorrow. Has cardiac rehabilitation order. Qualifiers: Involved coronary artery: right coronary artery Qualified Code(s): I21.11 - ST elevation (STEMI) myocardial infarction involving right coronary artery (2) Periorbital ecchymosis Current Visit: Yes Status: Acute Per Cardiology: Bilateral ecchymosis -- Reported multiple falls prior to this acute STEMI episode. Head CT with no acute findings. No significant events on telemetry, continue to monitor. Social work following. Qualifiers: Encounter type: initial encounter Laterality: unspecified laterality Qualified Code(s): S00.10XA - Contusion of unspecified eyelid and periocular area, initial encounter (3) Cough Current Visit: Yes Status: Acute Per Cardiology: Reports persistent intermittent dry cough past one week or so with intermittent fever and chills. White count noted be elevated 16 upon arrival-- reflexive for STEMI? Remains afebrile. Reports had plans to follow-up in urgent care yesterday morning to evaluate for "bronchitis "prior to her STEMI. Hospitalist consult for further recommendations and evaluation. Has history of COPD and nicotine abuse. (4) Tobacco use disorder Current Visit: No Status: Chronic Per Cardiology: Reports quit smoking last week. Smoking cessation reinforced. Discussion w patient/family: The assessment and plan as outlined above was discussed with the patient who expressed understanding and agreement. All questions were answered. Thank you for involving us in the care of your patient. Please call with any questions. Subjective Principal diagnosis: STEMI Interval history: Patient denies any chest pain this morning. Reports had mid epigastric discomfort yesterday evening improved with sitting upright. She does report persistent dry nonproductive cough the past few days and intermittent chills. Denies any fever, nausea, vomiting, diarrhea. Reports concerns for "bronchitis" . Reports mild right sided groin discomfort from procedure. Objective Vital Signs, Last 4 Hours Temp Pulse Resp BP Pulse Ox 01/09/17 09:00 80 18 110/53 96 01/09/17 08:00 83 15 131/96 97 01/09/17 07:55 70 01/09/17 07:30 98.9 F 01/09/17 07:00 70 19 110/76 95 General: Conversant, No Apparent Distress HEENT: Atraumatic, Normocephaly, Mucus Membranes Moist, Other (Bilateral orbital ecchymosis) Neck: No JVD, Normal carotid pulses Cardiac: Reg Rate and Rhythm, Normal S1 and S2, No Murmur Lungs: Normal Breath Sounds, No Wheeze, Rales, Rhonchi Neuro: Alert and responsive, No focal deficits noted Abdomen: Soft, Non-Tender Skin: No rashes noted on visualized skin, Other (Right and left groin site intact, very mild ecchymosis bilaterally, no hematoma, no active bleeding, right and left cells pedis and posterior tibial pulses 2+ palpable) Musculoskeletal: No Chest Wall Tenderness Extremities: No Clubbing, No Cyanosis, No Edema, Normal Pulses Results 01/09/17 06:17 01/09/17 06:17 Lab Results Laboratory Tests 01/08/17 01/08/17 07:49 07:49 INR 1.2 Troponin I 0.[address] 01/08/17 07:44 IMPRESSION: 1. No acute intracranial abnormality nor acute calvarial fracture. 2. Mild cerebral atrophy with bifrontal predominance. 3. Minimal chronic small vessel ischemic changes. 4. Complete opacification of the left sphenoid sinus potentially due to mucosal thickening and/or secretions; superimposed acute sinusitis is not excluded. Mild to moderate bilateral ethmoid and right sphenoid sinus. D/ / Emil Sibley MD / Emil Sibley MD Interpreting Provider: Emil Sibley MD Active Medications Acetaminophen (Tylenol) 500 mg PO Q6HR PRN PRN Reason: Mild Pain Stop: 07/10/17 09:03 Hydrocodone Bitart/Acetaminophen ([place] 5-325 Mg) 1 tab PO Q4HR PRN PRN Reason: Moderate Pain Stop: 07/10/17 09:07 Albuterol Sulfate (Albuterol Inhaler) 2 puff IH Q4HR PRN PRN Reason: Shortness Of Breath Stop: 07/11/17 10:22 Aspirin (Aspirin Ec) 81 mg PO HS [facility] Stop: 07/11/17 10:31 Bupropion HCl (Wellbutrin Xl) 150 mg PO DAILY [facility] Stop: 07/11/17 10:31 Carisoprodol (Soma) 350 mg PO BID [facility] Stop: 07/11/17 10:31 Clonazepam (Klonopin) 1 mg PO BID [facility] Stop: 07/11/17 10:31 Dicyclomine HCl (Bentyl) 20 mg PO TID [facility] Stop: 07/11/17 10:31 Diphenhydramine HCl (Benadryl) 25 mg PO HS PRN PRN Reason: Insomnia Stop: 07/10/17 09:07 Famotidine (Pepcid) 20 mg PO DAILY [facility] PRN Reason: Protocol Stop: 07/11/17 10:31 Isosorbide Mononitrate (Imdur) 30 mg PO DAILY [facility] Stop: 07/11/17 10:31 Losartan Potassium (Cozaar) 25 mg PO DAILY [facility] PRN Reason: Protocol Stop: 07/11/17 10:31 Metoprolol Tartrate (Lopressor) 50 mg PO BID [facility] Stop: 07/11/17 10:31 Mirtazapine (Remeron) 15 mg PO HS [facility] Stop: 07/11/17 21:01 Nitroglycerin (Nitroglycerin) 0.4 mg SL Q5MIN PRN PRN Reason: Chest Pain Stop: 07/10/17 09:03 Last Admin: 01/09/17 00:05 Dose: 0.4 mg Nitroglycerin (Nitroglycerin) 0.4 mg SL Q5M PRN PRN Reason: Chest Pain Stop: 07/11/17 10:22 Ondansetron HCl (Zofran) 4 mg IVP Q8HR PRN PRN Reason: Nausea And Vomiting Stop: 07/10/17 09:03 Oxycodone/Acetaminophen (Percocet 5/325) 1 each PO Q4HR PRN PRN Reason: Severe Pain Stop: 07/10/17 09:07 Last Admin: 01/09/17 04:43 Dose: 1 each Ropinirole HCl (Requip) 0.5 mg PO HS [facility] Stop: 07/11/17 21:01 Ticagrelor (Brilinta) 90 mg PO BID [facility] Stop: 07/11/17 21:01 Tiotropium [place] (Spiriva) 18 mcg IH DAILYR [facility] Stop: 07/11/17 10:31 - Imaging and Cardiology Echo: pending Cardiac cath: report reviewed - EKG Interpretation EKG results cardiology: other (Sinus rhythm on telemetry, average heart rate 71 , 1 brief episode of 4 beats of nonsustained VT, one brief episode of atrial tachycardia) Consult Discharge Plan - Plan Referrals: Horacio Hardin MD [Primary Care Provider] -
[2017-01-09] MEDS ORDERED: clonazePAM 1 MG TABLET PO SCH (10:30)
[2017-01-09] MEDS ORDERED: Isosorbide MONOnitrate (24 HR) 30 MG TAB.ER.24H PO SCH (10:30)
[2017-01-09] MEDS ORDERED: Famotidine 20 MG TABLET PO SCH (10:30)
[2017-01-09] MEDS ORDERED: BuPROPion XL (24 HR) 150 MG TABLET PO SCH (10:30)
[2017-01-09] MEDS ORDERED: Tiotropium 18 MCG inhalation IH SCH (10:30)
[2017-01-09] MEDS ORDERED: Carisoprodol 350 MG TABLET PO SCH (10:30)
[2017-01-09] MEDS ORDERED: Aspirin Enteric Coated 81 MG Tablet PO SCH (10:30)
--- NOTE | 2017-01-09 15:51 | Internal Medicine Consult Note ---
Date of Encounter: 01/09/17 Time of Encounter: 12:10 - Assessment and Plan (1) Acute bronchitis Current Visit: Yes Status: Acute Assessment and plan: Does not appear toxic or ill. Noted to have leukocytosis at admission, currently improving. Could be stress related to to WA or acute bronchitis. Chest x-ray reviewed, shows no evidence of focal infiltrates. Check sputum for Gram stain and culture. Start azithromycin. Thank you for the Consult, we will follow along and monitor for improvement. May be able to be discharged tomorrow. Qualifiers: Bronchitis organism: unspecified organism Qualified Code(s): J20.9 - Acute bronchitis, unspecified (2) COPD (chronic obstructive pulmonary disease) Current Visit: Yes Status: Chronic Assessment and plan: Continue as needed bronchodilators and supplemental oxygen. Currently not requiring any oxygen. Start Symbicort. Smoking cessation advised, patient is motivated to quit smoking now. Qualifiers: COPD type: emphysema Emphysema type: panlobular Qualified Code(s): J43.1 - Panlobular emphysema (3) GERD (gastroesophageal reflux disease) Current Visit: Yes Status: Chronic Qualifiers: Esophagitis presence: without esophagitis Qualified Code(s): K21.9 - Gastro -esophageal reflux disease without esophagitis (4) Tobacco use disorder Current Visit: Yes Status: Chronic (5) Mixed hyperlipidemia Current Visit: Yes Status: Chronic (6) PAD (peripheral artery disease) Current Visit: Yes Status: Chronic (7) HTN (hypertension) Current Visit: Yes Status: Chronic Qualifiers: Hypertension type: essential hypertension Qualified Code(s): I10 - Essential (primary) hypertension (8) ST elevation myocardial infarction (STEMI) Current Visit: Yes Status: Acute Assessment and plan: Patient presented with inferior wall myocardial infarction. Underwent left heart catheterization with PTCA/drug-eluting stent to mid LAD. Further management per primary team. Patient is now on dual antiplatelet therapy and beta amy. Qualifiers: Involved coronary artery: right coronary artery Qualified Code(s): I21.11 - ST elevation (STEMI) myocardial infarction involving right coronary artery (9) Chronic kidney disease Current Visit: Yes Status: Chronic Assessment and plan: Reviewed patient's previous lab values, likely has chronic kidney disease stage III. Serum creatinine and GFR currently stable. Qualifiers: Chronic kidney disease stage: stage 3 (moderate) Qualified Code(s): N18.3 - Chronic kidney disease, stage 3 (moderate) Internal Medicine - CN: HPI - Data of Consult Patient: new to practice Consult date: 01/09/17 Requesting Physician: Adarsh Rodriguez MD - Consult Narrative History of present illness: Ms. Chavez is a 71 year old female with history of coronary artery disease, hypertension, COPD, tobacco abuse was initially admitted with left-sided chest pain and noted to have inferior wall WA underwent PTCA/stent placement. She reports feeling better but continues to have productive cough with whitish sputum, ongoing for the last 1 week. No fever or chills, reports some shortness of breath. She is an active smoker, reports quitting about one week ago. She does have history of COPD and uses albuterol and Spiriva at home. No home oxygen. Patient is noted to have ecchymosis around both eyes and reports sleepwalking when she does not take her medications correctly, which causes her to bump into furniture causing her current black eye. Past Med Surg Social Fam HX - Past Medical History Medical history: COPD, coronary artery disease, DVT, GERD, hepatitis, hyperlipidemia, hypertension, myocardial infarction, peripheral artery disease, renal disease, seizures Psychiatric history: anxiety, depression - Past Surgical History Surgical History: angioplasty/stent, appendectomy, LAYO/BSO, LE bypass - Social History Smoking Status: Current every day smoker Packs per day: 1.5 Smokeless Tobacco Status: No Alcohol use: occasionally Drug use: none Occupational status: disabled Current living situation: Home, With Family Activity Level: Independent ambulation Recent Out of Country Travel Within the Last 8 Weeks: No Exposure or Possible Exposure to Illness During Travel: No - Family History Mother Living Status: Age at : 75 Cause of : heart issues Hx Family Cardiac Disorders: Yes Sister Adopted: No Living Status: Still Living Hx Family Cardiac Disorders: Yes Hx Family Respiratory Disorders: No Hx Family Cancer: No Hx Family GI Disorders: No Hx Family Endocrine Disorder: No Hx Family Neuromuscular Disorders: No Hx Family Neurologic Disorders: No Hx Family HEENT Disorders: No Hx Family Autoimmune Disorders: No Father Living Status: Age at : 75 Cause of : heart issues Hx Family Cardiac Disorders: Yes Hx Family Respiratory Disorders: No Hx Family Cancer: No Hx Family GI Disorders: Yes Hx Family Endocrine Disorder: No Hx Family Neuromuscular Disorders: No Hx Family Neurologic Disorders: No Hx Family HEENT Disorders: No Hx Family Autoimmune Disorders: No - Constitutional Constitutional: chills - EENT Ears: as per HPI - Cardiovascular Cardiovascular ROS IM: chest pain, dyspnea - Respiratory Respiratory: cough, dyspnea on exertion, chest congestion - Gastrointestinal Gastrointestinal: no abdominal pain, no nausea, no vomiting - Musculoskeletal Musculoskeletal ROS IM: as per HPI, arthralgias (Right shoulder and hip pain, chronic) - Neurological Neurological ROS: no confusion, no convulsions - Endocrine Endocrine IM: no cold intolerance, no fatigue, no polyphagia Internal Medicine - CN: Meds Albuterol Sulfate [Albuterol Inhaler] 2 puff IH Q4HR PRN 01/22/15 [History] Aspirin Enteric Coated [Aspirin EC] 81 mg PO HS 01/22/15 [History] ClonazePAM [Klonopin] 1 mg PO BID 01/22/15 [History] Dicyclomine [Bentyl] 20 mg PO TID 01/22/15 [History] Ropinirole HCl [Requip] 0.5 mg PO HS 01/22/15 [History] Losartan [Cozaar] 25 mg PO DAILY 05/10/15 [History] Famotidine [Pepcid] 20 mg PO DAILY 06/22/16 [History] Mirtazapine [Remeron] 15 mg PO HS 06/22/16 [History] Isosorbide MONOnitrate (24 HR) [Imdur] 30 mg PO DAILY #30 tab.er.24h 06/24/16 [ Rx] Carisoprodol [Soma] 350 mg PO BID 08/25/16 [History] Nitroglycerin [Nitrostat] 0.4 mg PO Q5M PRN 08/25/16 [History] Ticagrelor [Brilinta] 90 mg PO BID #30 tablet 08/26/16 [Rx] BuPROPion XL (24 HR) [Wellbutrin XL] 150 mg PO DAILY 01/08/17 [History] Metoprolol [Lopressor] 50 mg PO BID 01/08/17 [History] Tiotropium [place] [Spiriva Respimat] 2 puff IH DAILY 01/08/17 [History] 3 Allergy/AdvReac Type Severity Reaction Status Date / Time acetaminophen [From Percocet] Allergy Rash Verified 10/28/15 07:32 atorvastatin Allergy Nausea Verified 10/28/15 07:32 clonidine Allergy Blister Verified 10/28/15 07:32 lisinopril Allergy Cough Verified 10/28/15 07:32 Oxycodone [From Percocet] Allergy Rash Verified 10/28/15 07:32 Internal Medicine - CN: Exam - Constitutional Vitals: Temp Pulse Resp BP Pulse Ox 98.3 F 87 20 130/87 95 01/09/17 12:33 01/09/17 14:00 01/09/17 14:00 01/09/17 11:00 01/09/17 14:00 General appearance IM: Present: A&O X 3, answers questions appropriately - Eye Additional comments: Bilateral periorbital ecchymosis - Neck Neck exam general surgery: Present: full ROM - Respiratory Respiratory exam: Present: CTAB (Coarse rhonchorous breath sounds bilaterally. No wheezing.) - Cardiovascular Cardiovascular exam IM: Present: RRR, +S1, +S2 - GI/Abdominal GI/Abdominal exam IM: Present: normal bowel sounds, soft - Extremities Exam Extremities exam IM: Present: full ROM. Absent: pedal edema - Neurological Exam Neurological exam: Present: alert, CN II-XII intact, oriented X3, strengths equal and symetr throughout Internal Medicine - CN: Reslt - Labs CBC & Chem 7: 01/09/17 06:17 01/09/17 06:17 Labs: Short CBC 01/09/17 Range/Units 06:17 WBC 13.3 H (4.3-11.1) K/mcL Hgb 12.3 (11.5-15.4) g/dL Hct 36.6 (35.3-44.9) % Plt Count 200 (140-400) K/mcL Neutrophils # 10.4 H (1.6-8.9) K/mcL BMP 01/09/17 06:17 Sodium 137 Potassium 3.7 Chloride 107 Carbon Dioxide 21 BUN 18 Creatinine 0.97 Glucose 115 H Calcium 8.9 - ABG Interpretation ABG results: PT/INR, D-dimer PT 12.6 Seconds (9.4-12.1) H 01/08/17 07:49 - Impressions Impressions Chest X-Ray 01/09/17 10:41 IMPRESSION: Stable examination without acute focal process. D/ / Javy Jaimes MD / Javy Jaimes MD Interpreting Provider: Javy Jaimes MD Consult Discharge Plan - Plan Referrals: Horacio Hardin MD [Primary Care Provider] -
[2017-01-09] MEDS: Azithromycin 500 MG in D5% in Water 250 ML IVPB SCH (17:03)
[2017-01-09] MEDS: Ondansetron 4 MG/2 ML VIAL IVP PRN (18:27)
[2017-01-09] MEDS ORDERED: Mirtazapine 15 MG TABLET PO SCH (21:00)
[2017-01-09] MEDS ORDERED: *HR* Ticagrelor 90 MG TABLET PO SCH (21:00)
[2017-01-09] MEDS ORDERED: rOPINIRole 0.25 MG TABLET PO SCH (21:00)
[2017-01-09] MEDS: rOPINIRole 0.25 MG TABLET PO SCH (21:07)
[2017-01-09] MEDS: Mirtazapine 15 MG TABLET PO SCH (21:08)
[2017-01-09] MEDS: Aspirin Enteric Coated 81 MG Tablet PO SCH (21:08)
[2017-01-09] MEDS: clonazePAM 1 MG TABLET PO SCH (21:09)
[2017-01-09] MEDS: *HR* Ticagrelor 90 MG TABLET PO SCH (21:09)
[2017-01-09] MEDS: Budesonide/Formoterol 80/4.5 MDI IH SCH (21:33)
[2017-01-09] MEDS: Carisoprodol 350 MG TABLET PO SCH (22:32)
[2017-01-09] MEDS: Benzonatate 100 MG CAPSULE PO PRN (23:17)
[2017-01-10] MEDS: *HR* OxyCODONE/APAP 5/325 TABLET PO PRN ×2 (03:23→08:59)
[2017-01-10] MEDS: Benzonatate 100 MG CAPSULE PO PRN (03:23)
[2017-01-10] MEDS: Ondansetron 4 MG/2 ML VIAL IVP PRN ×2 (04:03→17:00)
[2017-01-10] MEDS: Budesonide/Formoterol 80/4.5 MDI IH SCH ×2 (08:05→22:21)
[2017-01-10] MEDS: BuPROPion XL (24 HR) 150 MG TABLET PO SCH (08:58)
[2017-01-10] MEDS: Famotidine 20 MG TABLET PO SCH (08:58)
[2017-01-10] MEDS: Isosorbide MONOnitrate (24 HR) 30 MG TAB.ER.24H PO SCH (08:58)
[2017-01-10] MEDS: *HR* Ticagrelor 90 MG TABLET PO SCH ×2 (08:58→20:24)
[2017-01-10] MEDS: Carisoprodol 350 MG TABLET PO SCH ×2 (08:59→20:26)
[2017-01-10] MEDS: clonazePAM 1 MG TABLET PO SCH ×2 (08:59→20:23)
--- NOTE | 2017-01-10 09:23 | Cardiology Progress Note ---
Date of Encounter: 01/10/17 Time of Encounter: 09:21 Assessment and Plan (1) ST elevation myocardial infarction (STEMI) Current Visit: Yes Status: Acute Per Cardiology: Status post STEMI-- underwent urgent left heart catheterization and received PTCA/drug-eluting stent to mLAD 100% lesion, proximal circumflex with 100% [employer]AND[employer] H[employer] IN[employer]CTOR, previous RCA stent was patent. TTE-EF 60-65%, mild LVH, mild dd, mild MR, Mild DC. Will resume home meds of aspirin, Brilinta, ARB, beta amy, long-acting nitrate. Not previously on statin due to myalgia from statins. Cardiac rehabilitation order. Remains chest pain free. Qualifiers: Involved coronary artery: right coronary artery Qualified Code(s): I21.11 - ST elevation (STEMI) myocardial infarction involving right coronary artery (2) Acute bronchitis Current Visit: Yes Status: Acute Patient with persistent cough, leukocytosis and low grade fever. Appreciate hospitalist input. Now on IV antibiotic. On tessalon pearls PRN. Patient c/o extreme fatigue today and fever all night. Will continue to monitor. Qualifiers: Bronchitis organism: unspecified organism Qualified Code(s): J20.9 - Acute bronchitis, unspecified (3) COPD (chronic obstructive pulmonary disease) Current Visit: Yes Status: Chronic Qualifiers: COPD type: emphysema Emphysema type: panlobular Qualified Code(s): J43.1 - Panlobular emphysema (4) Periorbital ecchymosis Current Visit: Yes Status: Acute Per Cardiology: Bilateral ecchymosis -- Reported multiple falls prior to this acute STEMI episode. Head CT with no acute findings. No significant events on telemetry. Reports she had dizziness in relation to recent med changes. Recommend ambulation in the hallway once improved from acute bronchitis standpoint. Social work following. Patient would like to return home. Qualifiers: Encounter type: initial encounter Laterality: unspecified laterality Qualified Code(s): S00.10XA - Contusion of unspecified eyelid and periocular area, initial encounter Discussion w patient/family: The assessment and plan as outlined above was discussed with the patient and/or family members who expressed understanding and agreement. All questions were answered. Thank you for involving us in the care of your patient. Please call with any questions. Subjective Principal diagnosis: STEMI Interval history: Ms. Chavez says that she was up all night long without sleep due to persistent cough. C/o fever, chills, and sweating. Objective Vital Signs, Last 4 Hours Temp Pulse Resp BP Pulse Ox 01/10/17 08:08 14 94 01/10/17 07:37 98.6 F 69 14 127/66 94 01/10/17 07:35 68 General: Conversant, No Apparent Distress HEENT: Atraumatic, Normocephaly, Mucus Membranes Moist Neck: No JVD, Normal carotid pulses Cardiac: Reg Rate and Rhythm, Normal S1 and S2, No Murmur Lungs: Other (Diminished, rhonci scatered throughout. ) Neuro: Alert and responsive, No focal deficits noted Abdomen: Soft, Non-Tender Skin: No rashes noted on visualized skin Musculoskeletal: No Chest Wall Tenderness Extremities: No Clubbing, No Cyanosis, No Edema, Normal Pulses Results 01/09/17 06:17 01/09/17 06:17 - Imaging and Cardiology Echo: report reviewed (EF 60-65%, mild LVH, mild dd, mild MR, Mild DC.) - VTE Documentation of Mechanical Device: Intermittent pneumatic compression device Consult Discharge Plan - Plan Referrals: Horacio Hardin MD [Primary Care Provider] -
[2017-01-10] MEDS ORDERED: Tiotropium 18 MCG inhalation IH SCH (10:00)
[2017-01-10] MEDS ORDERED: Ipratropium/Albuterol Neb 3 ML IH SCH (11:30)
[2017-01-10] MEDS: Azithromycin 500 MG in D5% in Water 250 ML IVPB SCH (14:35)
--- NOTE | 2017-01-10 15:34 | Internal Med Progress Note ---
Date of Encounter: 01/10/17 Time of Encounter: 10:10 - Assessment and plan (1) Acute bronchitis Current Visit: Yes Status: Acute Assessment and plan: Acute bronchitis with mild COPD exacerbation Continue empiric Augmentin, DuoNeb breathing treatment, Symbicort Cardiac telemetry, pulse ox, monitor closely, repeat labs in a.m. Cultures - pending Chest x-ray - stable, no acute process Anticipate discharge in a.m. Qualifiers: Bronchitis organism: unspecified organism Qualified Code(s): J20.9 - Acute bronchitis, unspecified (2) COPD (chronic obstructive pulmonary disease) Current Visit: Yes Status: Chronic Assessment and plan: Mild acute exacerbation of COPD Plan as above Qualifiers: COPD type: emphysema Emphysema type: panlobular Qualified Code(s): J43.1 - Panlobular emphysema (3) ST elevation myocardial infarction (STEMI) Current Visit: Yes Status: Acute Assessment and plan: Acute inferior wall AL - status post PTCA/VANDANA to distal RCA, culprit lesion for STEMI Continue Aspirin, Brilinta Patient is intolerant of statins Management as per cardiology Qualifiers: Involved coronary artery: right coronary artery Qualified Code(s): I21.11 - ST elevation (STEMI) myocardial infarction involving right coronary artery (4) HTN (hypertension) Current Visit: Yes Status: Chronic Assessment and plan: Essential hypertension, controlled, monitor Significant Lopressor, Imdur, Cozaar Qualifiers: Hypertension type: essential hypertension Qualified Code(s): I10 - Essential (primary) hypertension (5) PAD (peripheral artery disease) Current Visit: Yes Status: Chronic Assessment and plan: Continue Aspirin, Brilinta (6) Chronic kidney disease Current Visit: Yes Status: Chronic Assessment and plan: Chronic kidney disease stage III, stable - GFR and creatinine at baseline Qualifiers: Chronic kidney disease stage: stage 3 (moderate) Qualified Code(s): N18.3 - Chronic kidney disease, stage 3 (moderate) (7) Tobacco use disorder Current Visit: Yes Status: Chronic Assessment and plan: Counseled about cessation, patient refusing nicotine patch She states she will quit on her own (8) DVT prophylaxis Current Visit: Yes Status: Acute Assessment and plan: Continue TASHIA stockings, ambulate - Time Spent With Patient 25 - 35 minutes - Subjective Interval history: Examined this morning. Patient is awake and alert. Not in any distress. Denies chest pain or shortness of breath. No fever at present. Hemodynamically stable. Tolerating oral diet well. Ambulating. Patient underwent PTCA/VANDANA to the RCA for STEMI. Hospitalist consult for cough with productive sputum. Patient states she did not have a lot of cough last night with some sputum production. She also had fever overnight. No other acute events or complaints. - Constitutional Vitals: Temp Pulse Resp BP Pulse Ox 97.8 F 64 18 98/65 96 01/10/17 12:28 01/10/17 15:12 01/10/17 12:28 01/10/17 12:28 01/10/17 12:28 General appearance: Present: cooperative, A&O X 3, pleasant, no acute distress, answers questions appropriately - Head Head exam: Present: atraumatic - Eye Eye exam: Present: EOMI Additional comments: Ecchymosis over both eyes, secondary to trauma - ENT ENT exam: Present: mucous membranes moist - Respiratory Respiratory exam: Present: CTAB. Absent: rales, rhonchi, wheezes, tachypnea - Cardiovascular Cardiovascular exam: Present: RRR, +S1, +S2 - GI/Abdominal GI/Abdominal exam: Present: soft. Absent: distended, firm, guarding, tenderness - Extremities Exam Extremities exam: Present: radial pulses palpable and symmetrical. Absent: calf tenderness, cyanotic, pedal edema - Neurological Exam Neurological exam: Present: alert, oriented X3, no focal deficits. Absent: facial droop, speech deficit Internal Medicine: Result - Labs CBC & Chem 7: 01/09/17 06:17 01/09/17 06:17 - ABG Interpretation ABG results: PT/INR, D-dimer PT 12.6 Seconds (9.4-12.1) H 01/08/17 07:49 - Impressions Impressions Echocardiogram 01/09/17 09:02 Impressions: LVEF 60-65%. Mild concentric left ventricular hypertrophy. Mild left ventricular diastolic dysfunction. Normal right ventricular structure and function. Mild mitral regurgitation. Mild pulmonic regurgitation. No pulmonary hypertension. Left Ventricular Wall Motion: Rest Echo Findings All wall segments showed normal motion. Findings: Study Quality * Technically adequate exam. ECG Findings * Normal sinus rhythm. Left Ventricle * LVEF 60-65%. * Mild concentric left ventricular hypertrophy. * Mild left ventricular diastolic dysfunction. Right Ventricle * Normal right ventricular structure and function. Left Atrium * Normal left atrial size. Right Atrium * Normal right atrial size. Aortic Valve * No aortic regurgitation. * Aortic valve not well visualized. * No aortic stenosis. Mitral Valve * Normal mitral valve structure. * No mitral stenosis. * Mild mitral annular calcification * Mild mitral regurgitation. Tricuspid Valve * Tricuspid valve not well visualized. * No tricuspid regurgitation. * Estimated RA pressure is 3 mmHg. * Estimated RVSP is 27 mmHg. * No pulmonary hypertension. Pulmonic Valve * Pulmonic valve is not well visualized. * No pulmonic stenosis. * Mild pulmonic regurgitation. Pulmonary Artery * Pulmonary artery not well visualized. Interatrial Septum * No evidence of PFO by color Doppler. IVC * Normal IVC dimensions and inspiratory collapse. Pericardium * There is no pericardial effusion present. Aorta * Normally sized aortic root. - VTE Documentation of Mechanical Device: Intermittent pneumatic compression device Consult Discharge Plan - Plan Referrals: Horacio Hardin MD [Primary Care Provider] - (sent web request on 01-10-17 @ 0687)
[2017-01-10] MEDS: rOPINIRole 0.25 MG TABLET PO SCH (20:23)
[2017-01-10] MEDS: *HR* HYDROcodone/Acet 5/325 mg TABLET PO PRN (20:24)
[2017-01-10] MEDS: Mirtazapine 15 MG TABLET PO SCH (20:24)
[2017-01-10] MEDS: Aspirin Enteric Coated 81 MG Tablet PO SCH (20:24)
[2017-01-11] MEDS ORDERED: Ipratropium/Albuterol Neb 3 ML IH SCH (08:00)
[2017-01-11] MEDS: Ondansetron 4 MG/2 ML VIAL IVP PRN ×2 (08:02→16:32)
[2017-01-11] MEDS: Famotidine 20 MG TABLET PO SCH (08:03)
[2017-01-11] MEDS: Isosorbide MONOnitrate (24 HR) 30 MG TAB.ER.24H PO SCH (08:03)
[2017-01-11] MEDS: BuPROPion XL (24 HR) 150 MG TABLET PO SCH (08:03)
[2017-01-11] MEDS: Carisoprodol 350 MG TABLET PO SCH (08:03)
[2017-01-11] MEDS: *HR* Ticagrelor 90 MG TABLET PO SCH ×2 (08:03→19:59)
[2017-01-11] MEDS: clonazePAM 1 MG TABLET PO SCH (08:04)
[2017-01-11 09:16] LABS: Basophils # 0.1 K/mcL (0.0-0.2); Basophils % 0.5 %; Eosinophils # 0.5 K/mcL (0.0-0.6); Eosinophils % 4.1 %; Hematocrit 34.4 % (35.3-44.9); Hemoglobin 11.6 g/dL (11.5-15.4); Immature Granulocytes % 0.8 % (0-4); Lymphocytes # 2.5 K/mcL (0.6-4.6); Lymphocytes % 22.7 %; Mean Corpuscular HGB Conc 33.7 g/dL (31.6-35.5); Mean Corpuscular Hemoglobin 29.8 pg (28.0-33.3); Mean Corpuscular Volume 88.4 fL (83.0-100.0); Mean Platelet Volume 10.5 fL (9.4-12.4); Monocytes # 0.5 K/mcL (0.0-1.3); Monocytes % 4.4 %; Neutrophils # 7.4 K/mcL (1.6-8.9); Platelet Count 223 K/mcL (140-400); Red Blood Count 3.89 M/mcL (3.82-4.97); Red Cell Distribution Width 13.2 % (11.5-14.5); Segmented Neutrophils % 67.5 %
[2017-01-11 09:30] LABS: BUN/Creatinine Ratio 13 (6-26); Blood Urea Nitrogen 12 mg/dL (7-20); Calcium 8.6 mg/dL (8.6-10.8); Carbon Dioxide 21 mEq/L (19-29); Chloride 105 mEq/L (98-109); Glucose 107 mg/dL (70-99); Osmolality,Calculated 284 (280-300); Potassium 3.9 mEq/L (3.5-4.5); Sodium 137 mEq/L (136-145); eGFR For African Americans > 60 (> 60); eGFR For Non-African Americans > 60 (> 60)
--- NOTE | 2017-01-11 09:58 | Event Note ---
Date of Encounter: 01/11/17 Time of Encounter: 09:56 - Cardiology Event Note Patient reports she slept better last night. Reports mild confusion about the time of day. I was notified by nursing staff that her oxygen was increased last night due to low SPO2 in the upper 80's. Nursing staff will try to wean of oxygen this morning. She is currently not on home O2. Instructed to ambulate in hallway as well to assess possible readiness for d/c home later today. Hospitalist following acute bronchitis. Appreciate input.
[2017-01-11 10:05] LABS: Platelet Estimate Normal (Normal)
[2017-01-11 10:06] LABS: Reactive Lymphocytes Present (Not Present)
[2017-01-11] MEDS: Ipratropium/Albuterol Neb 3 ML IH SCH ×4 (11:33→23:32)
[2017-01-11] MEDS: Budesonide/Formoterol 80/4.5 MDI IH SCH ×2 (11:36→19:27)
[2017-01-11 11:49] LABS: ABG Base Excess 0 mEq/L (-2 to 3); ABG HCO3 25 mEq/L (21-27); ABG Oxygen Saturation 89 % (95-98); ABG PCO2 40 mmHg (35-45); ABG PH 7.41 pH Units (7.32-7.45); ABG PO2 55 mmHg (85-104); ABG TCO2 26 mEq/L (20-26)
[2017-01-11] MEDS: *HR* HYDROcodone/Acet 5/325 mg TABLET PO PRN ×2 (13:05→23:50)
--- NOTE | 2017-01-11 13:22 | Cardiology Progress Note ---
Date of Encounter: 01/11/17 Time of Encounter: 13:20 Assessment and Plan (1) ST elevation myocardial infarction (STEMI) Current Visit: Yes Status: Acute Per Cardiology: Status post STEMI-- underwent urgent left heart catheterization and received PTCA/drug-eluting stent to mLAD 100% lesion, proximal circumflex with 100% ESL PROFESSOR, previous RCA stent was patent. TTE-EF 60-65%, mild LVH, mild dd, mild MR, Mild [place]. Will resume home meds of aspirin, Brilinta, ARB, beta amy, long-acting nitrate. Not previously on statin due to myalgia from statins. Cardiac rehabilitation ordered. Remains chest pain free. Importance of DAPT with asa and brilinta for minimum of one year uninterrupted reviewed with patient. She voiced understanding. Healthy heart diet and exercise reviewed. Cardiac rehab discussed. Continue statin and bb therapy. Discussed with Dr. Barney. He accepts patient to his service for ongoing treatment of acute bronchitis. Possible d/c tomorrow. Out-patient f/u will be coordinated by [facility] in one week. Please call with questions. Cardiology signing off. . Qualifiers: Involved coronary artery: right coronary artery Qualified Code(s): I21.11 - ST elevation (STEMI) myocardial infarction involving right coronary artery (2) Acute bronchitis Current Visit: Yes Status: Acute Patient with persistent cough, leukocytosis and low grade fever. Appreciate hospitalist input. Now on IV antibiotic. On tessalon pearls PRN. Patient reports she is less fatigued. SPO2 noted to decrease overnight. Follow by hospitalist. Qualifiers: Bronchitis organism: unspecified organism Qualified Code(s): J20.9 - Acute bronchitis, unspecified (3) COPD (chronic obstructive pulmonary disease) Current Visit: Yes Status: Chronic Qualifiers: COPD type: emphysema Emphysema type: panlobular Qualified Code(s): J43.1 - Panlobular emphysema (4) Periorbital ecchymosis Current Visit: Yes Status: Acute Per Cardiology: Bilateral ecchymosis -- Reported multiple falls prior to this acute STEMI episode. Head CT with no acute findings. No significant events on telemetry. Reports she had dizziness in relation to recent med changes. Recommend ambulation in the hallway once improved from acute bronchitis standpoint. Social work following. PT OT consult recommended. Qualifiers: Encounter type: initial encounter Laterality: unspecified laterality Qualified Code(s): S00.10XA - Contusion of unspecified eyelid and periocular area, initial encounter Discussion w patient/family: The assessment and plan as outlined above was discussed with the patient and/or family members who expressed understanding and agreement. All questions were answered. Thank you for involving us in the care of your patient. Please call with any questions. Subjective Principal diagnosis: STEMI Interval history: Ms. Chavez is mildly confusd this morning. SPO2 88 % on 2L. Improved with increase in O2. Denies chest pain. Mild tenderness noted in her right groin. Small knot noted. No hematoma. No bruit. Asked patient's nurse Pema to ambulate patient later in the morning to assess for pain. Objective Vital Signs, Last 4 Hours Temp Pulse Resp BP Pulse Ox 01/11/17 12:21 77 18 95 01/11/17 11:37 16 95 01/11/17 11:11 99.3 F 70 16 119/70 95 General: Conversant, No Apparent Distress, Other (drowsy, mildly confused. ) HEENT: Atraumatic, Normocephaly, Mucus Membranes Moist Neck: No JVD, Normal carotid pulses Cardiac: Reg Rate and Rhythm, Normal S1 and S2, No Murmur Lungs: Other (diminished. Respirations easy. ) Neuro: Alert and responsive, No focal deficits noted Abdomen: Soft, Non-Tender Skin: No rashes noted on visualized skin, Other (orbital ecchymosis) Musculoskeletal: No Chest Wall Tenderness Extremities: No Clubbing, No Cyanosis, No Edema, Normal Pulses, Other (right groin with small amount ecchymosis. Small pea sized knot noted that is tender. No hematoma) Results 01/11/17 09:00 01/11/17 09:00 Lab Results 01/11/17 01/11/17 09:00 09:00 WBC 10.9 Hgb 11.6 Hct 34.4 L Plt Count 223 Sodium 137 Potassium 3.9 Chloride 105 Carbon Dioxide 21 BUN 12 Creatinine 0.89 Glucose 107 H Calcium 8.6 - EKG Interpretation EKG results cardiology: personally reviewed (01/09/17-Sr with no ST changes) - VTE Documentation of Mechanical Device: Intermittent pneumatic compression device Consult Discharge Plan - Plan Referrals: Dominique Chase CNP [Partnered Physician] - 01/16/17 2:00 pm Arianna Tijerina DO [Partnered Physician] - (Cardiology office will call patient at home with a follow up appointment)
--- NOTE | 2017-01-11 19:01 | Internal Med Progress Note ---
Date of Encounter: 01/11/17 Time of Encounter: 09:40 - Assessment and plan (1) Acute bronchitis Current Visit: Yes Status: Acute Assessment and plan: Acute bronchitis with mild COPD exacerbation - improving slowly Continue empiric Augmentin, DuoNeb breathing treatment, Symbicort Cardiac telemetry, pulse ox, monitor closely, repeat labs in a.m. Cultures - pending Chest x-ray - stable, no acute process ABG - hypoxemia Anticipate discharge in a.m. Qualifiers: Bronchitis organism: unspecified organism Qualified Code(s): J20.9 - Acute bronchitis, unspecified (2) COPD (chronic obstructive pulmonary disease) Current Visit: Yes Status: Chronic Assessment and plan: Mild acute exacerbation of COPD Plan as above Qualifiers: COPD type: emphysema Emphysema type: panlobular Qualified Code(s): J43.1 - Panlobular emphysema (3) ST elevation myocardial infarction (STEMI) Current Visit: Yes Status: Acute Assessment and plan: Acute inferior wall AK - status post PTCA/VANDANA to distal RCA, culprit lesion for STEMI Continue Aspirin, Brilinta Patient is intolerant of statins Management as per cardiology Qualifiers: Involved coronary artery: right coronary artery Qualified Code(s): I21.11 - ST elevation (STEMI) myocardial infarction involving right coronary artery (4) HTN (hypertension) Current Visit: Yes Status: Chronic Assessment and plan: Essential hypertension, controlled, monitor Continue Lopressor, Imdur, Cozaar Qualifiers: Hypertension type: essential hypertension Qualified Code(s): I10 - Essential (primary) hypertension (5) PAD (peripheral artery disease) Current Visit: Yes Status: Chronic Assessment and plan: Continue Aspirin, Brilinta (6) Chronic kidney disease Current Visit: Yes Status: Chronic Assessment and plan: Chronic kidney disease stage III, stable - GFR and creatinine at baseline Qualifiers: Chronic kidney disease stage: stage 3 (moderate) Qualified Code(s): N18.3 - Chronic kidney disease, stage 3 (moderate) (7) Tobacco use disorder Current Visit: Yes Status: Chronic Assessment and plan: Counseled about cessation, patient refusing nicotine patch She states she will quit on her own (8) DVT prophylaxis Current Visit: Yes Status: Acute Assessment and plan: Continue TASHIA stockings, ambulate - Time Spent With Patient 25 - 35 minutes - Subjective Interval history: Examined this morning. Patient is awake and alert. Not in any distress. Denies chest pain or shortness of breath. No fever at present. Hemodynamically stable. Tolerating oral diet well. Ambulating. Patient underwent PTCA/VANDANA to the RCA for STEMI. Patient did have hypoxia last night and required 4 L O2 via nasal cannula. She was also confusion earlier this morning, but now she seems to be back to baseline. She also complains of cough. No other acute events or complaints. - Constitutional Vitals: Temp Pulse Resp BP Pulse Ox 98.7 F 68 18 130/72 96 01/11/17 14:27 01/11/17 17:02 01/11/17 17:02 01/11/17 17:02 01/11/17 17:02 General appearance: Present: cooperative, A&O X 2, pleasant, no acute distress, answers questions appropriately - Head Head exam: Present: atraumatic - Eye Eye exam: Present: EOMI Additional comments: Ecchymosis around both eyes due to fall - ENT ENT exam: Present: mucous membranes moist - Respiratory Respiratory exam: Present: rhonchi (Mild bilateral). Absent: chest wall tenderness, rales, wheezes, tachypnea - Cardiovascular Cardiovascular exam: Present: RRR, +S1, +S2 - GI/Abdominal GI/Abdominal exam: Present: soft. Absent: distended, firm, guarding, tenderness - Extremities Exam Extremities exam: Present: radial pulses palpable and symmetrical. Absent: calf tenderness, cyanotic, tenderness - Neurological Exam Neurological exam: Present: alert, CN II-XII intact, no focal deficits. Absent : facial droop, speech deficit Additional comments: Patient oriented to place and person but not time. She states it is December 2015. No focal neurological deficits Internal Medicine: Result - Labs CBC & Chem 7: 01/11/17 09:00 01/11/17 09:00 Labs: Short CBC 01/11/17 Range/Units 09:00 WBC 10.9 (4.3-11.1) K/mcL Hgb 11.6 (11.5-15.4) g/dL Hct 34.4 L (35.3-44.9) % Plt Count 223 (140-400) K/mcL Neutrophils # 7.4 (1.6-8.9) K/mcL BMP 01/11/17 09:00 Sodium 137 Potassium 3.9 Chloride 105 Carbon Dioxide 21 BUN 12 Creatinine 0.89 Glucose 107 H Calcium 8.6 - ABG Interpretation ABG results: ABG ABG pH 7.41 pH Units (7.32-7.45) 01/11/17 11:45 ABG pCO2 40 mmHg (35-45) 01/11/17 11:45 ABG pO2 55 mmHg (85-104) L 01/11/17 11:45 ABG O2 Saturation 89 % (95-98) L 01/11/17 11:45 PT/INR, D-dimer PT 12.6 Seconds (9.4-12.1) H 01/08/17 07:49 - Impressions Impressions Chest X-Ray 01/11/17 09:45 IMPRESSION: No acute abnormality. D/ / 01/11/2017 10:37:05 Scott Montiel MD / jasper Interpreting Provider: Scott Montiel MD - VTE Documentation of Mechanical Device: Intermittent pneumatic compression device Consult Discharge Plan - Plan Referrals: Dominique Chase CNP [Partnered Physician] - 01/16/17 2:00 pm Arianna Tijerina DO [Partnered Physician] - (Cardiology office will call patient at home with a follow up appointment)
[2017-01-11] MEDS: Aspirin Enteric Coated 81 MG Tablet PO SCH (19:58)
[2017-01-11] MEDS: rOPINIRole 0.25 MG TABLET PO SCH (19:59)
[2017-01-11] MEDS: Mirtazapine 15 MG TABLET PO SCH (19:59)
[2017-01-11] MEDS: clonazePAM 0.5 MG TABLET PO SCH (19:59)
[2017-01-11] MEDS ORDERED: Nicotine 21 MG PATCH.TD24 TD SCH (22:00)
[2017-01-11] MEDS ORDERED: *HR* LORazepam 0.5 MG TABLET PO ONE (23:42)
[2017-01-12] MEDS: Ondansetron 4 MG/2 ML VIAL IVP PRN (03:49)
[2017-01-12] MEDS: Ipratropium/Albuterol Neb 3 ML IH SCH ×2 (03:53→08:05)
[2017-01-12] MEDS: *HR* HYDROcodone/Acet 5/325 mg TABLET PO PRN (05:26)
[2017-01-12 08:03] VITALS: BP 177/92
[2017-01-12] MEDS: Budesonide/Formoterol 80/4.5 MDI IH SCH (08:05)
[2017-01-12] MEDS: Famotidine 20 MG TABLET PO SCH (08:32)
[2017-01-12] MEDS: Benzonatate 100 MG CAPSULE PO PRN (08:32)
[2017-01-12] MEDS: Isosorbide MONOnitrate (24 HR) 30 MG TAB.ER.24H PO SCH (08:32)
[2017-01-12] MEDS: BuPROPion XL (24 HR) 150 MG TABLET PO SCH (08:32)
[2017-01-12] MEDS: clonazePAM 0.5 MG TABLET PO SCH (08:32)
[2017-01-12] MEDS: *HR* Ticagrelor 90 MG TABLET PO SCH (08:33)
--- NOTE | 2017-01-12 09:29 | Discharge Summary ---
Date of Encounter: 01/12/17 Time of Encounter: 09:00 - Discharge Diagnosis (1) Acute bronchitis Priority: Primary Status: Acute Comments: Acute bronchitis with mild COPD exacerbation - now improved, patient is now back to baseline mental status Continue empiric Augmentin, DuoNeb breathing treatment, Symbicort Cultures - pending Chest x-ray - stable, no acute process ABG - hypoxemia Return if symptoms worsen, advised to follow-up with PCP and cardiology as outpatient Qualifiers: Bronchitis organism: unspecified organism Qualified Code(s): J20.9 - Acute bronchitis, unspecified (2) ST elevation myocardial infarction (STEMI) Priority: Primary Status: Acute Comments: Acute inferior wall [place] - status post PTCA/VANDANA to distal RCA, culprit lesion for STEMI Continue Aspirin, Brilinta Patient is intolerant of statins Follow-up with cardiology as outpatient Qualifiers: Involved coronary artery: right coronary artery Qualified Code(s): I21.11 - ST elevation (STEMI) myocardial infarction involving right coronary artery (3) COPD (chronic obstructive pulmonary disease) Priority: Primary Status: Chronic Comments: Mild acute exacerbation of COPD Continue DuoNeb breathing treatment and Augmentin, Symbicort Qualifiers: COPD type: emphysema Emphysema type: panlobular Qualified Code(s): J43.1 - Panlobular emphysema (4) HTN (hypertension) Priority: Secondary Status: Chronic Comments: Essential hypertension, uncontrolled, monitor Continue Lopressor, Imdur, Cozaar Qualifiers: Hypertension type: essential hypertension Qualified Code(s): I10 - Essential (primary) hypertension (5) PAD (peripheral artery disease) Priority: Secondary Status: Chronic Comments: Continue Aspirin, Brilinta (6) Chronic kidney disease Priority: Secondary Status: Chronic Comments: Chronic kidney disease stage III, stable - GFR and creatinine at baseline Qualifiers: Chronic kidney disease stage: stage 3 (moderate) Qualified Code(s): N18.3 - Chronic kidney disease, stage 3 (moderate) (7) Tobacco use disorder Priority: Secondary Status: Chronic Comments: Counseled about cessation, patient refusing nicotine patch She states she will quit on her own - Discharge Medications Prescriptions: Ipratropium/Albuterol Neb [Duoneb] 3 ml IH [id number] PRN #30 inhsol PRN Reason: Shortness Of Breath/Wheezing Amoxicillin/Clavulanate [Augmentin] 875 mg PO BIDWM 7 Days #14 tablet Budesonide/Formoterol 80/4.5 [Symbicort 80/4.5] 2 puff IH BIDR #1 inhaler clonazePAM [Klonopin] 0.5 mg PO BID PRN #7 tablet PRN Reason: Anxiety Nicotine Patch [Nicoderm] 21 mg TD DAILY #30 patch.td24 Ticagrelor [Brilinta] 90 mg PO BID #60 tablet Home Medications: Albuterol Sulfate [Albuterol Inhaler] 2 puff IH Q4HR PRN 01/22/15 [History] Aspirin Enteric Coated [Aspirin EC] 81 mg PO HS 01/22/15 [History] Ropinirole HCl [Requip] 0.5 mg PO HS 01/22/15 [History] Losartan [Cozaar] 25 mg PO DAILY 05/10/15 [History] Famotidine [Pepcid] 20 mg PO DAILY 06/22/16 [History] Mirtazapine [Remeron] 15 mg PO HS 06/22/16 [History] Isosorbide MONOnitrate (24 HR) [Imdur] 30 mg PO DAILY #30 tab.er.24h 06/24/16 [ Rx] Nitroglycerin [Nitrostat] 0.4 mg PO Q5M PRN 08/25/16 [History] BuPROPion XL (24 HR) [Wellbutrin Xl] 150 mg PO DAILY 01/08/17 [History] Metoprolol [Lopressor] 50 mg PO BID 01/08/17 [History] Tiotropium [place] [Spiriva Respimat] 2 puff IH DAILY 01/08/17 [History] Amoxicillin/Clavulanate [Augmentin] 875 mg PO BIDWM 7 Days #14 tablet 01/12/17 [ Rx] Budesonide/Formoterol 80/4.5 [Symbicort 80/4.5] 2 puff IH BIDR #1 inhaler 01/12 [Rx] Dicyclomine [Bentyl] 20 mg PO TID PRN #10 01/12/17 [Rx] Ipratropium/Albuterol Neb [Duoneb] 3 ml IH [id number] PRN #30 inhsol 01/12/17 [Rx] Nicotine Patch [Nicoderm] 21 mg TD DAILY #30 patch.td24 01/12/17 [Rx] Ticagrelor [Brilinta] 90 mg PO BID #60 tablet 01/12/17 [Rx] clonazePAM [Klonopin] 0.5 mg PO BID PRN #7 tablet 01/12/17 [Rx] Allergies/Adverse Reactions: 3 Allergy/AdvReac Type Severity Reaction Status Date / Time acetaminophen [From Percocet] Allergy Rash Verified 10/28/15 07:32 atorvastatin Allergy Nausea Verified 10/28/15 07:32 clonidine Allergy Blister Verified 10/28/15 07:32 lisinopril Allergy Cough Verified 10/28/15 07:32 Oxycodone [From Percocet] Allergy Rash Verified 10/28/15 07:32 Procedures/tests Complete & Pending: Procedures Performed prior 72 hours Category Date Time Status EV echocardiogram Routine Y 01/09/17 09:02 Completed Date of admission: 01/08/17 08:19 Primary care physician: Horacio Hardin MD Consults: 01/08/17 09:02 Consult to Cardiac Rehabilitation-Phase1 [CONS] Routine Comment: Reason for Consult: AMI Call Completed: Yes Consult to Nurse Navigator [CONS] Routine Comment: 01/08/17 09:52 Consult to Pastoral Services [CONS] Routine Comment: 01/09/17 10:27 Consult to Hospitalist [CONS] Routine Consulting Provider: Hospitalist Gerald Reason for Consult: patient concern for Bronchitis, chills, WBC 16, dry cough -- paged Dr. Monaco Call Completed: Yes 01/09/17 15:49 Consult to Occupational Therapy [CONS] Routine Comment: Evaluate, develop and implement POC Reason for Consult: Weakness, frequent falls Consult to Physical Therapy [CONS] Routine Comment: Evaluate, develop and implement POC Reason for Consult: change in mental status, deconditioning in the patients statys 01/11/17 12:58 Consult to Physical Therapy [CONS] Stat Comment: Evaluate, develop and implement POC Reason for Consult: mental status change, and deconditioning status. OT [Consult to Occupational Therapy] [CONS] Stat Comment: Evaluate, develop and implement POC Reason for Consult: change in mental status , deconditiong in status Anticipated date of discharge: 01/12/17 - Patient Status Disposition: Home Health Service Condition: Fair Functional capacity at discharge: independent ambulation Overall status at discharge: patient is progressing back to baseline - Discharge Instructions Instructions: Clonazepam (By mouth), Amoxicillin/Clavulanate Potassium (By mouth), Nicotine (Absorbed through the skin), Ipratropium/Albuterol (By breathing), Budesonide/Formoterol (By breathing), Ticagrelor (By mouth), Myocardial Infarction (DC), How to Stop Smoking (DC), Chronic Hypertension (DC) Follow Up With: Dominique Chase CNP [Partnered Physician] - 01/16/17 2:00 pm Arianna Tijerina DO [Partnered Physician] - (Cardiology office will call patient at home with a follow up appointment) - Diet and Activity Activity: increase activity as tolerated, resume usual activities as tolerated Diet: low fat, low cholesterol, low salt diet Hospital course: Ms. Chavez is a 71 year old female with past medical history of COPD, coronary artery disease, DVT, GERD, hepatitis, hyperlipidemia, hypertension, seizure disorder, chronic kidney disease, anxiety, depression and peripheral arterial disease. Patient presented to the ED with complaints of chest pain. She was found to have a STEMI and was taken to the [facility]. She underwent successful PTCA/D in the distal RCA which was a culprit lesion for STEMI. Previous 2 stents in the mid LAD and mid RCA are both patent. LV EF was found to be 55%. Patient does have severe residual small vessel disease. Patient tolerated the procedure well. Hospitalist service was consulted for cough and shortness of breath. Patient does have COPD and was being treated for bronchitis. She was started on DuoNeb breathing treatment and empiric Augmentin. She was also on supplemental oxygen. She was also started on Symbicort. She was counseled about smoking cessation. She was continued on all home medications and also started on aspirin and brilinta. Patient is intolerant of statins. Her chronic kidney disease stage III is at baseline. Patient did have some mild confusion which is likely due to hypoxia. This is now resolved. Patient seems to be back to baseline mental status. Patient also when she presented had ecchymosis of both eyes secondary to a fall. She states that she sleep walks and likely hit her head and fell. Initial head CT is negative for any acute intracranial abnormality. There is minimal chronic small vessel ischemic change. Patient's acute bronchitis and COPD exacerbation has now improved. Patient is being discharged with Augmentin and has been advised to continue breathing treatments. She has also been advised to continue the double antiplatelet therapy with aspirin and brilinta. Patient is now tolerating oral diet well and ambulating well. She did not have any other acute events or complications during her stay in the hospital. Patient has been explained about her condition and plan of care in detail. She understood and agreed. No unanswered questions. She is being discharged in stable condition. Time spent discussing smoking cessation with patient: 3 to 10 minutes - Time Spent with Patient Total time spent providing and/or coordinating discharge services: Less than 30 minutes - Constitutional Vitals: Temp Pulse Resp BP Pulse Ox 97.9 F 74 18 177/92 979 01/12/17 08:00 01/12/17 08:00 01/12/17 08:00 01/12/17 08:00 01/12/17 08:00 General appearance: Present: cooperative, A&O X 3, pleasant, no acute distress, underweight, answers questions appropriately - Head Head exam: Present: atraumatic - Eye Eye exam: Present: EOMI Additional comments: Ecchymosis around both eyes is now improved - ENT ENT exam: Present: mucous membranes moist - Respiratory Respiratory exam: Present: CTAB. Absent: rales, rhonchi, wheezes, tachypnea - Cardiovascular Cardiovascular exam: Present: RRR, +S1, +S2 - GI/Abdominal GI/Abdominal exam: Present: soft. Absent: distended, firm, guarding, tenderness - Extremities Exam Extremities exam: Present: radial pulses palpable and symmetrical. Absent: calf tenderness, cyanotic, pedal edema - Neurological Exam Neurological exam: Present: alert, oriented X3, no focal deficits. Absent: facial droop, speech deficit - VTE Documentation of Mechanical Device: Intermittent pneumatic compression device
--- NOTE | 2017-01-12 09:38 | Physician Discharge Referral ---
Home Health/Hosp Referral Info Transfer to: Home Health Provider in Charge Post Discharge: PCP - Diagnosis (1) Acute bronchitis Priority: Primary Status: Acute (2) ST elevation myocardial infarction (STEMI) Priority: Primary Status: Acute (3) COPD (chronic obstructive pulmonary disease) Priority: Primary Status: Chronic (4) HTN (hypertension) Priority: Secondary Status: Chronic (5) PAD (peripheral artery disease) Priority: Secondary Status: Chronic (6) Chronic kidney disease Priority: Secondary Status: Chronic (7) Tobacco use disorder Priority: Secondary Status: Chronic - Respiratory Orders Smoking Cessation: Smoking cessation has been advised. For more information, call the [place] Tobacco Quit Line at 4-001-CYGI-NOW. - Diet/Nutrition Diet/Nutrition Orders: Cardiac - Activity Activity Orders: Ambulate - Services Needed Following services are medically necessary services: Nursing, Physical Therapy - Transfer Medications Prescriptions: Ipratropium/Albuterol Neb [Duoneb] 3 ml IH [id number] PRN #30 inhsol PRN Reason: Shortness Of Breath/Wheezing Amoxicillin/Clavulanate [Augmentin] 875 mg PO BIDWM 7 Days #14 tablet Budesonide/Formoterol 80/4.5 [Symbicort 80/4.5] 2 puff IH BIDR #1 inhaler clonazePAM [Klonopin] 0.5 mg PO BID PRN #7 tablet PRN Reason: Anxiety Nicotine Patch [Nicoderm] 21 mg TD DAILY #30 patch.td24 Ticagrelor [Brilinta] 90 mg PO BID #60 tablet Home Medications: Albuterol Sulfate [Albuterol Inhaler] 2 puff IH Q4HR PRN 01/22/15 [History] Aspirin Enteric Coated [Aspirin EC] 81 mg PO HS 01/22/15 [History] Ropinirole HCl [Requip] 0.5 mg PO HS 01/22/15 [History] Losartan [Cozaar] 25 mg PO DAILY 05/10/15 [History] Famotidine [Pepcid] 20 mg PO DAILY 06/22/16 [History] Mirtazapine [Remeron] 15 mg PO HS 06/22/16 [History] Isosorbide MONOnitrate (24 HR) [Imdur] 30 mg PO DAILY #30 tab.er.24h 06/24/16 [ Rx] Nitroglycerin [Nitrostat] 0.4 mg PO Q5M PRN 08/25/16 [History] BuPROPion XL (24 HR) [Wellbutrin Xl] 150 mg PO DAILY 01/08/17 [History] Metoprolol [Lopressor] 50 mg PO BID 01/08/17 [History] Tiotropium [place] [Spiriva Respimat] 2 puff IH DAILY 01/08/17 [History] Amoxicillin/Clavulanate [Augmentin] 875 mg PO BIDWM 7 Days #14 tablet 01/12/17 [ Rx] Budesonide/Formoterol 80/4.5 [Symbicort 80/4.5] 2 puff IH BIDR #1 inhaler 01/12 [Rx] Dicyclomine [Bentyl] 20 mg PO TID PRN #10 01/12/17 [Rx] Ipratropium/Albuterol Neb [Duoneb] 3 ml IH [id number] PRN #30 inhsol 01/12/17 [Rx] Nicotine Patch [Nicoderm] 21 mg TD DAILY #30 patch.td24 01/12/17 [Rx] Ticagrelor [Brilinta] 90 mg PO BID #60 tablet 01/12/17 [Rx] clonazePAM [Klonopin] 0.5 mg PO BID PRN #7 tablet 01/12/17 [Rx] Allergies/Adverse Reactions: 3 Allergy/AdvReac Type Severity Reaction Status Date / Time acetaminophen [From Percocet] Allergy Rash Verified 10/28/15 07:32 atorvastatin Allergy Nausea Verified 10/28/15 07:32 clonidine Allergy Blister Verified 10/28/15 07:32 lisinopril Allergy Cough Verified 10/28/15 07:32 Oxycodone [From Percocet] Allergy Rash Verified 10/28/15 07:32 Certification: Further, I certify that my clinical findings support that this patient is homebound (i.e. absences from home require considerable and taxing effort and are for medical reasons or restoration services or infrequently or short duration when for other reasons) because: Homebound Reason: Patient requires assistance of a person or device to safely leave home Attestation: My signature below is to certify that this patient is under my care and that I, or nurse practitioner, or a physician's architectural administrative assistant working with me, has a face-to -face encounter with this patient.
== END 2017-01-12 10:50 | disposition home health service (06) | DRG 247 ==
LOC: EMEROO 07:32 → ICNU 08:19 → 2NNU 01-09 18:19
PROVIDERS: ADMIT Family Medicine; ATTEND Family Medicine

== ENCOUNTER 2018-02-18 02:45 | Observation (INO) ==
[2018-02-18] MEDS ORDERED: Nitroglycerin 0.4 MG TAB.SUBL SL ONE (02:54)
[2018-02-18 03:14] LABS: Basophils % 0.4 %; Eosinophils # 0.1 K/mcL (0.0-0.6); Eosinophils % 1.1 %; Hematocrit 43.4 % (35.3-44.9); Hemoglobin 14.7 g/dL (11.5-15.4); Immature Granulocytes % 0.4 % (0-4); Lymphocytes # 1.6 K/mcL (0.6-4.6); Lymphocytes % 17.1 %; Mean Corpuscular HGB Conc 33.9 g/dL (31.6-35.5); Mean Corpuscular Hemoglobin 30.4 pg (28.0-33.3); Mean Corpuscular Volume 89.9 fL (83.0-100.0); Mean Platelet Volume 10.1 fL (9.4-12.4); Monocytes # 0.3 K/mcL (0.0-1.3); Monocytes % 3.6 %; Neutrophils # 7.1 K/mcL (1.6-8.9); Platelet Count 182 K/mcL (140-400); Red Blood Count 4.83 M/mcL (3.82-4.97); Red Cell Distribution Width 13.5 % (11.5-14.5); Segmented Neutrophils % 77.4 %
[2018-02-18 03:26] LABS: INR 0.9; Prothrombin Time 10.6 Seconds (9.4-12.1)
--- NOTE | 2018-02-18 03:26 | Emergency Department Note ---
Disposition Clinical Impression: Unstable angina pectoris, PAD (peripheral artery disease), Tobacco use disorder, Angina pectoris Chest pain Qualifiers: Chest pain type: chest pain due to myocardial ischemia Ischemic chest pain type: unstable angina pectoris Qualified Code(s): I20.0 - Unstable angina Disposition: Admitted As Inpatient Condition: Fair Time of Disposition: 04:54 Chest Pain HPI - General Chief Complaint: ED Chest Pain Stated Complaint: Chest Pain Time Seen by Provider: 02/18/18 02:53 Source: patient, EMS Mode of arrival: EMS Limitations: no limitations Vital Signs Reviewed: Yes Nursing Notes Reviewed: Yes - History of Present Illness HPI Narrative: 72-year-old male presented to the emergency room via EMS for chest pain. Patient states that she had chest pain beginning at 11:00 this morning that continued she did take nitroglycerin just a total of 4 nitroglycerin before coming into here in the emergency department. She does have history of 6 stents placed. Last one occurring 2 years ago. Patient states this does feel similar to her previous heart attacks although this time the pain seems worse. She is describing it as 8 out of 10 started in her right side of her back went up into her right jaw and into her right arm. She does not have any weakness was occurs. When she presented here to the emergency department she was not having chest pain is the nitroglycerin completely took the pain away. Patient does take a full dose aspirin she takes 1 every day and to take one today. Patient otherwise having no nausea or vomiting. She has no other complaints including headaches, blurry vision, neck pain, back pain, fevers, chills, nausea, vomitin g, shortness of breath, abdominal pain, change in bowel movement, pain with urination, pain or tingling going down the arms or legs or generalized weakness. Severity scale (1-10): 3 - Related Data Home Medications Medication Instructions Recorded Confirmed RX: Albuterol Sulfate [Albuterol 2 puff IH Q4HR PRN 01/22/15 12/25/17 Inhaler] RX: Aspirin Enteric Coated 81 mg PO HS 01/22/15 12/25/17 [Aspirin EC] RX: Ropinirole HCl [Requip] 0.5 mg PO HS 01/22/15 12/25/17 RX: Losartan [Cozaar] 25 mg PO DAILY 05/10/15 12/25/17 RX: Famotidine [Pepcid] 20 mg PO DAILY 06/22/16 12/25/17 RX: Mirtazapine [Remeron] 15 mg PO HS 06/22/16 12/25/17 RX: Nitroglycerin [Nitrostat] 0.4 mg PO Q5M PRN 08/25/16 12/25/17 RX: BuPROPion XL (24 HR) 150 mg PO DAILY 01/08/17 12/25/17 [Wellbutrin Xl] RX: Metoprolol [Lopressor] 50 mg PO BID 01/08/17 12/25/17 RX: Tiotropium [place] [Spiriva 2 puff IH DAILY 01/08/17 12/25/17 Respimat] Previous Rx's Medication Instructions Recorded RX: Isosorbide MONOnitrate (24 HR) 30 mg PO DAILY #30 tab.er.24h 06/24/16 [Imdur] RX: Budesonide/Formoterol 80/4.5 2 puff IH BIDR #1 inhaler 01/12/17 [Symbicort 80/4.5] RX: Ipratropium/Albuterol Neb 3 ml IH [id number] PRN #30 inhsol 01/12/17 [Duoneb] RX: Nicotine Patch [Nicoderm] 21 mg TD DAILY #30 patch.td24 01/12/17 RX: Ticagrelor [Brilinta] 90 mg PO BID #60 tablet 01/12/17 RX: clonazePAM [Klonopin] 0.5 mg PO BID PRN #7 tablet 01/12/17 Cephalexin [Keflex] 500 mg PO TID #21 capsule 03/21/17 HYDROcodone/Acet 5/325 mg [[place] 1 tab PO Q4-6H PRN #6 tab 04/02/17 5-325 mg] Mupirocin [Bactroban Oint] 1 appl TP BID #1 tube 04/02/17 Benzonatate [Tessalon] 100 mg PO TID PRN #30 capsule 12/07/17 Guaifenesin [Mucinex] 600 mg PO BID PRN #20 tab.er.12h 12/07/17 Clotrimazole [Mycelex [place]] 10 mg MM 5XD 14 Days #70 chelsey 10/09/18 Fluconazole [Diflucan] 150 mg PO Q3D #2 tab 12/25/17 RX: Nystatin [Nystatin Suspension] 500,000 units PO QID #120 ml 12/25/17 Allergies Allergy/AdvReac Type Severity Reaction Status Date / Time acetaminophen [From Percocet] Allergy Rash Verified 12/25/17 12:21 clonidine Allergy Blister Verified 12/25/17 12:21 Oxycodone [From Percocet] Allergy Rash Verified 12/25/17 12:21 atorvastatin AdvReac Nausea Verified 12/25/17 12:21 lisinopril AdvReac Cough Verified 12/25/17 12:21 All systems ED: reviewed and negative except as stated. Review of Systems: As Per HPI Chest Pain PMH - Past Medical History Medical history: Reports: COPD, coronary artery disease, DVT, GERD, hepatitis, hyperlipidemia, hypertension, myocardial infarction, peripheral artery disease, renal disease, seizures Surgical history: Reports: angioplasty/stent, appendectomy, LAYO/BSO, other (T&A 1951), LE bypass Psychiatric history: Reports: anxiety, depression FEATHERER history: Reports: no FEATHERER history - Social History Smoking Status: Current every day smoker Alcohol use: Reports: none Drug use: Reports: none Physical Exam - General Limitations: no limitations General appearance: alert, in no apparent distress - Head Head exam: atraumatic, normocephalic, normal inspection - Eye Eye exam: Present: normal appearance, PERRL, EOMI - ENT ENT exam: normal exam, normal oropharynx, mucous membranes moist - Neck Neck exam: Present: normal inspection, full ROM, trachea midline - Chest Chest inspection: Present: normal inspection, symmetric chest wall rise. Abse nt: tenderness - Respiratory Respiratory exam: Present: normal lung sounds bilaterally. Absent: respiratory distress, wheezes, stridor, accessory muscle use - Cardiovascular Cardiovascular exam: Present: regular rate, normal rhythm, normal heart sounds - Abdominal Exam Abdominal exam: Present: soft, Non-Tender, normal bowel sounds. Absent: tenderness, distention, guarding, rebound, rigidity - Extremities Exam Extremities exam: Present: normal inspection, full ROM. Absent: tenderness, pedal edema - Back Exam Back exam: Present: normal inspection, full ROM. Absent: tenderness, CVA tenderness (R), CVA tenderness (L) - Neurological Exam Neurological exam: Present: alert, oriented X3 - Skin Skin exam: Present: warm, dry, intact, normal color Course Course Narrative: We will get basic labs including CBC, BMP, troponin, coags. We will get EKG and chest x-ray. Patient does not a nitroglycerin at this time as she is not having chest pain but she does we will give him nitroglycerin. Due to patient's history she most likely will be admitted for further evaluation and serial troponins. Vital Signs Temperature 98.6 F 02/18/18 02:52 Pulse Rate 73 02/18/18 02:52 Respiratory Rate 13 02/18/18 02:52 Blood Pressure 140/81 02/18/18 02:52 O2 Sat by Pulse Oximetry 98 02/18/18 02:52 Temperature 98.6 F 02/18/18 02:52 Pulse Rate 61 02/18/18 04:39 Respiratory Rate 12 02/18/18 04:39 Blood Pressure 139/75 02/18/18 04:39 O2 Sat by Pulse Oximetry 96 02/18/18 04:39 Oxygen Delivery Oxygen Delivery Room Air Chest Pain - MDM Narrative Medical decision making narrative: 72-year-old female here with chest pain. Patient's chest pain similar to last time that she had a stent placement 2 years ago. She has had total of 6 stents placed. Did not come in with any chest pain as she took nitroglycerin prior to her arrival she has been chest pain-free since being here. She did take a full dose aspirin prior to arrival as well. She does take these daily. Nitroglycerin was ordered but was not given as patient has not been having chest pain here in the emergency department. All labs came back normal troponin was negative EKG had no acute findings chest x-ray also was normal. Patient did have an elevated heart score of 5. Due to her risk factors as well as the chest pain being similar to previous stents admission was recommended to the patient she agreed. I spoke with the hospitalist Dr. Christensen who agreed to admit the patient to their service and agreed with our plan. Patient admitted in stable condition. Chest X-Ray 02/18/18 02:55 IMPRESSION: No acute disease. D/ / Nikita Peguero MD / Nikita Peguero MD Interpreting Provider: Nikita Peguero MD - Medical Records Medical records reviewed: Yes I reviewed the patient's medical records. - Lab Data Lab results reviewed: Yes I reviewed the patient's lab results. Result diagrams: 02/18/18 02:59 02/18/18 02:59 Lab Results 02/18/18 02/18/18 02/18/18 Range/Units 02:59 02:59 02:59 WBC 9.2 (4.3-11.1) K/mcL RBC 4.83 (3.82-4.97) M/mcL Hgb 14.7 (11.5-15.4) g/dL Hct 43.4 (35.3-44.9) % MCV 89.9 (83.0-100.0) fL MCH 30.4 (28.0-33.3) pg MCHC 33.9 (31.6-35.5) g/dL RDW 13.5 (11.5-14.5) % Plt Count 182 (140-400) K/mcL MPV 10.1 (9.4-12.4) fL Immature Gran % 0.4 (0-4) % Seg Neutrophils % 77.4 % Lymphocytes % 17.1 % Monocytes % 3.6 % Eosinophils % 1.1 % Basophils % 0.4 % Neutrophils # 7.1 (1.6-8.9) K/mcL Lymphocytes # 1.6 (0.6-4.6) K/mcL Monocytes # 0.3 (0.0-1.3) K/mcL Eosinophils # 0.1 (0.0-0.6) K/mcL Basophils # 0.0 (0.0-0.2) K/mcL PT 10.6 (9.4-12.1) Seconds INR 0.9 APTT 28.7 (26.0-36.0) Seconds Sodium 136 (136-145) mEq/L Potassium 4.4 (3.5-5.1) mEq/L Chloride 106 (98-107) mEq/L Carbon Dioxide 21 L (23-29) mEq/L BUN 19 (8-23) mg/dL Creatinine 1.16 (0.60-1.20) mg/dL Est GFR ( Amer) 56 L (> 60) Est GFR (Non-Af Amer) 46 L (> 60) BUN/Creatinine Ratio 16 (6-26) Glucose 176 H (70-105) mg/dL Calculated Osmolality 289 (280-300) Calcium 8.3 L (8.6-10.3) mg/dL Troponin I < 0.03 (< 0.04) ng/mL - Radiology Data Radiology results reviewed: Yes I reviewed the patient's radiology results. - EKG Data EKG attestation: Yes I reviewed and interpreted this EKG. EKG results narrative: EKG done at 0305 review myself and the attending shows sinus rhythm at a rate of 69, FL interval 154, QRS 12, QTC 463. There is no acute ST changes no acute T- wave changes nor pathological Q waves otherwise no other signs of ischemia. No hypertrophy, heart strain, heart block. No WPW/Brugada/HOCM. No old EKG to compare with. Heart Score - Score History: Moderately Suspicious EKG: Normal Age: Greater than 65 Risk Factors: Equal/Greater than 3 risk factor or history of atherosclerotic disease Troponin: Less than normal limit HEART Score Total: 5 Attestation Statement - Attestation Attestation: DR Traore note: Pt seen in conjunction w/ Resident Dr Chely Tejeda; I spent face to face time w/ the pt and agree w/ the pts treatment and disposition; Please see his charting for complete documentation; Pain free at time of my eval; ekg unremarkable for injury as is initial troponin draw; h/o chronic/intermittent chest pain , and known CAD; admitted pain free;
[2018-02-18 03:28] LABS: Activated Partial Thrombo Time 28.7 Seconds (26.0-36.0)
[2018-02-18 04:02] LABS: BUN/Creatinine Ratio 16 (6-26); Blood Urea Nitrogen 19 mg/dL (8-23); Calcium 8.3 mg/dL (8.6-10.3); Carbon Dioxide 21 mEq/L (23-29); Chloride 106 mEq/L (98-107); Glucose 176 mg/dL (70-105); Osmolality,Calculated 289 (280-300); Potassium 4.4 mEq/L (3.5-5.1); Sodium 136 mEq/L (136-145); Troponin I < 0.03 ng/mL (< 0.04); eGFR For Non-African Americans 46 (> 60)
--- NOTE | 2018-02-18 05:21 | Internal Med History&Physical ---
<Blair Cates T - Last Filed: 02/18/18 06:50> Date of Encounter: 02/18/18 Time of Encounter: 05:12 Internal Medicine - H&P: HPI Chief complaint: Chest pain Admitted From: Home History of present illness: Ms. Chavez is a 72 year old female sending with chest pain. Patient states that this chest pain has been ongoing intermittently for the past couple weeks. She states that chest pain or sending yesterday morning and was relieved by nitroglycerin. Patient states that the pain is rated 10 out of 10, located substernally and radiating to her back, shoulders, and jaw. Pain occurs at both rest and exertion. Patient currently is not having chest pain. She denies recent fever, nausea, vomiting, chills, diaphoresis, abdominal pain, changes in bowel movement or urination. EKG done at ED showed sinus rhythm with no acute ST changes. Troponins were negative. Chest x-ray shows no acute disease. Patient has significant cardiac history having 6 MIs in the past. She is a patient of Dr. Morrison. Echocardiogram on 12/2016 showed ejection fraction of 60-65% with no abnormal wall motion. Past Med Surg Social Fam HX - Past Medical History Medical history: COPD, coronary artery disease, DVT, GERD, hepatitis, hyperlipidemia, hypertension, myocardial infarction, peripheral artery disease, renal disease, seizures Additional medical history: scoliosis Psychiatric history: anxiety, depression - Past Surgical History Surgical History: angioplasty/stent, appendectomy, LAYO/BSO, other (T&A 1951), LE bypass Additional surgical history: tonsillectomy, cardiac stents - Social History Smoking Status: Current every day smoker Smokeless Tobacco Status: No Alcohol use: none Drug use: none - Family History Mother Living Status: Hx Family Cardiac Disorders: Yes Sister Adopted: No Living Status: Still Living Hx Family Cardiac Disorders: Yes Hx Family Respiratory Disorders: No Hx Family Cancer: No Hx Family GI Disorders: No Hx Family Endocrine Disorder: No Hx Family Neuromuscular Disorders: No Hx Family Neurologic Disorders: No Hx Family HEENT Disorders: No Hx Family Autoimmune Disorders: No Father Living Status: Hx Family Cardiac Disorders: Yes Hx Family Respiratory Disorders: No Hx Family Cancer: No Hx Family GI Disorders: Yes Hx Family Endocrine Disorder: No Hx Family Neuromuscular Disorders: No Hx Family Neurologic Disorders: No Hx Family HEENT Disorders: No Hx Family Autoimmune Disorders: No Internal Medicine - H&P: Meds Albuterol Sulfate [Albuterol Inhaler] 2 puff IH Q4HR PRN 01/22/15 [History] Aspirin Enteric Coated [Aspirin EC] 81 mg PO HS 01/22/15 [History] Ropinirole HCl [Requip] 0.5 mg PO HS 01/22/15 [History] Losartan [Cozaar] 25 mg PO DAILY 05/10/15 [History] Famotidine [Pepcid] 20 mg PO DAILY 06/22/16 [History] Mirtazapine [Remeron] 15 mg PO HS 06/22/16 [History] Isosorbide MONOnitrate (24 HR) [Imdur] 30 mg PO DAILY #30 tab.er.24h 06/24/16 [Rx] Nitroglycerin [Nitrostat] 0.4 mg PO Q5M PRN 08/25/16 [History] BuPROPion XL (24 HR) [Wellbutrin Xl] 150 mg PO DAILY 01/08/17 [History] Metoprolol [Lopressor] 50 mg PO BID 01/08/17 [History] Tiotropium [place] [Spiriva Respimat] 2 puff IH DAILY 01/08/17 [History] Budesonide/Formoterol 80/4.5 [Symbicort 80/4.5] 2 puff IH BIDR #1 inhaler 01/12/17 [Rx] Ipratropium/Albuterol Neb [Duoneb] 3 ml IH A4AUCUV PRN #30 inhsol 01/12/17 [Rx] Nicotine Patch [Nicoderm] 21 mg TD DAILY #30 patch.td24 01/12/17 [Rx] Ticagrelor [Brilinta] 90 mg PO BID #60 tablet 01/12/17 [Rx] clonazePAM [Klonopin] 0.5 mg PO BID PRN #7 tablet 01/12/17 [Rx] Cephalexin [Keflex] 500 mg PO TID #21 capsule 03/21/17 [Rx] HYDROcodone/Acet 5/325 mg [[place] 5-325 mg] 1 tab PO Q4-6H PRN #6 tab 04/02/17 [Rx] Mupirocin [Bactroban Oint] 1 appl TP BID #1 tube 04/02/17 [Rx] Benzonatate [Tessalon] 100 mg PO TID PRN #30 capsule 12/07/17 [Rx] Guaifenesin [Mucinex] 600 mg PO BID PRN #20 tab.er.12h 12/07/17 [Rx] Clotrimazole [Mycelex [place]] 10 mg MM 5XD 14 Days #70 [place] 12/25/17 [Rx] Fluconazole [Diflucan] 150 mg PO Q3D #2 tab 12/25/17 [Rx] Nystatin [Nystatin Suspension] 500,000 units PO QID #120 ml 12/25/17 [Rx] Allergy/AdvReac Type Severity Reaction Status Date / Time acetaminophen [From Percocet] Allergy Rash Verified 12/25/17 12:21 clonidine Allergy Blister Verified 12/25/17 12:21 Oxycodone [From Percocet] Allergy Rash Verified 12/25/17 12:21 atorvastatin AdvReac Nausea Verified 12/25/17 12:21 lisinopril AdvReac Cough Verified 12/25/17 12:21 All Systems PM: A 10-system review of systems was performed and is negative for pertinent findings except as documented above in the HPI. - Constitutional Constitutional: fatigue, lethargy, no excessive sweating - Cardiovascular Cardiovascular ROS IM: as per HPI - Respiratory Respiratory: no dyspnea, no wheezing - Gastrointestinal Gastrointestinal: no abdominal pain - Genitourinary Genitourinary: no dysuria - Constitutional Vitals: Temp Pulse Resp BP Pulse Ox 98.6 F 61 12 139/75 96 02/18/18 02:52 02/18/18 04:39 02/18/18 04:39 02/18/18 04:39 02/18/18 04:39 General appearance: Present: cooperative, mild distress, A&O X 3, answers questions appropriately Exam: . - Head Head exam: Present: normocephalic - Eye Eye exam: Present: EOMI, normal appearance. Absent: conjuntiva pink - Neck Neck exam general surgery: Present: supple, trachea midline - Respiratory Respiratory exam: Present: CTAB. Absent: rales, respiratory distress, wheezes - Cardiovascular Cardiovascular exam: Present: RRR, +S1, +S2 Additional comments: No chest wall tenderness with palpation - GI/Abdominal GI/Abdominal exam: Present: normal bowel sounds, soft. Absent: tenderness, no peritoneal signs - Extremities Exam Extremities exam: Present: normal capillary refill, tenderness, warm - Back Exam Back exam: Absent: CVA tenderness (L), CVA tenderness (R), vertebral tenderness - Neurological Exam Neurological exam: Present: alert, no focal deficits - Psychiatric Psychiatric exam: Present: agitated - Skin Skin exam: Present: dry, intact, warm Internal Med - H&P Results - Labs CBC & Chem 7: 02/18/18 02:59 02/18/18 02:59 Labs: Short CBC 02/18/18 Range/Units 02:59 WBC 9.2 (4.3-11.1) K/mcL Hgb 14.7 (11.5-15.4) g/dL Hct 43.4 (35.3-44.9) % Plt Count 182 (140-400) K/mcL Neutrophils # 7.1 (1.6-8.9) K/mcL BMP 02/18/18 02:59 Sodium 136 Potassium 4.4 Chloride 106 Carbon Dioxide 21 L BUN 19 Creatinine 1.16 Glucose 176 H Calcium 8.3 L Cardiac Enzymes 02/18/18 Range/Units 02:59 Troponin I < 0.03 (< 0.04) ng/mL - Impressions ITS Impressions Chest X-Ray 02/18/18 02:55 IMPRESSION: No acute disease. D/ / Nikita Peguero MD / Nikita Peguero MD Interpreting Provider: Nikita Peguero MD - Assessment and plan (1) Chest pain Current Visit: Yes Status: Acute Assessment and plan: 72-year-old female stiffing cardiac history presenting with chest pain that is present with exertion and at rest. She has negative EKG and troponins. Last echo was over a year ago. Likely unstable angina. - Repeat echo this morning. - Trend troponins. - CBC BMP this a.m. - Consult cardiology - nitro drip started for pain. Qualifiers: Chest pain type: chest pain due to myocardial ischemia Ischemic chest pain type: unstable angina pectoris Qualified Code(s): I20.0 - Unstable angina (2) Nicotine dependence Current Visit: Yes Status: Acute Assessment and plan: Patient is a smoker but does not want nicotine patch. Qualifiers: Nicotine product type: cigarettes Substance use status: uncomplicated Qualified Code(s): F17.210 - Nicotine dependence, cigarettes, uncomplicated (3) Nondiabetic hyperglycemia Current Visit: Yes Status: Acute Assessment and plan: Patient has elevate glucose without diabetes - no treatment indicated at this time. - Time Spent With Patient Total time spent is greater than 50% in coordination of care (as documented) at patient's floor/unit and/or counseling patient: <FerminZackary Sacha - Last Filed: 02/18/18 08:34> Date of Encounter: 02/18/18 Internal Medicine - H&P: HPI History of present illness: Ms. Chavez is a 72 year old female All Systems PM: A 10-system review of systems was performed and is negative for pertinent findings except as documented above in the HPI. - Constitutional Vitals: Temp Pulse Resp BP Pulse Ox 97.6 F 62 18 152/83 94 02/18/18 07:49 02/18/18 07:49 02/18/18 07:49 02/18/18 07:49 02/18/18 07:49 Internal Med - H&P Results - Labs CBC & Chem 7: 02/18/18 02:59 02/18/18 02:59 Labs: Short CBC 02/18/18 Range/Units 02:59 WBC 9.2 (4.3-11.1) K/mcL Hgb 14.7 (11.5-15.4) g/dL Hct 43.4 (35.3-44.9) % Plt Count 182 (140-400) K/mcL Neutrophils # 7.1 (1.6-8.9) K/mcL BMP 02/18/18 02:59 Sodium 136 Potassium 4.4 Chloride 106 Carbon Dioxide 21 L BUN 19 Creatinine 1.16 Glucose 176 H Calcium 8.3 L Cardiac Enzymes 02/18/18 02/18/18 Range/Units 02:59 06:26 Troponin I < 0.03 < 0.03 (< 0.04) ng/mL - Impressions ITS Impressions Chest X-Ray 02/18/18 02:55 IMPRESSION: No acute disease. D/ / Nikita Peguero MD / Nikita Peguero MD Interpreting Provider: Nikita Peguero MD - Time Spent With Patient Total time spent is greater than 50% in coordination of care (as documented) at patient's floor/unit and/or counseling patient: - Attending Attestation I saw and evaluated the patient. I reviewed the residents note, performed my own physical examination and agree with findings and plan as documented in the residents note. Patient seen and examined on 02/18/18. Patient had several episodes of chest pain during the night, relieved by nitro, but continued to return. On my assessment she had 2 episodes while I was in the room. Will start nitro drip. Consult to cardiology as well after echocardiogram this morning. Patient has long history of CAD with 6 stents. Appreciate recommendations. Negative trops and EKG at this time. Patient also had elevated blood sugar, with no history of diabetes. Can consider A1c with next blood draw. Patient is a daily smoker and declined nicotine patch.
[2018-02-18] MEDS ORDERED: Nitroglycerin 0.4 MG TAB.SUBL SL PRN (05:29)
[2018-02-18] MEDS ORDERED: Nitroglycerin 25 MG/250 ML INFUS..BTL IVC SCH (06:45)
--- NOTE | 2018-02-18 09:21 | Cardiology Consult Note ---
Addendum entered and electronically signed by Kaitlynn Alvarez CNP 02/18/18 11:18: Reassessment completed. Patient now alert and oriented x3. No focal deficits noted. Describes chest pain symptoms similar to prior angina--mid epigastric tenderness present upon exam. Symptoms have been present for >1 month. Suspect GI in etiology, will give GI cocktail x1 now. Plan for nuclear stress test in AM, patient is agreeable. Wean off NTG now. Troponin remain negative. Cardiac lunch, NPO after MN except medications. Original Note: <Kaitlynn Alvarez - Last Filed: 02/18/18 09:52> Date of Encounter: 02/18/18 Time of Encounter: 08:30 Assessment and Plan (1) Chest pain Current Visit: Yes Status: Acute Patient reportedly presents with chest pain. At time of exam, patient is very drowsy and unable to hold conversation. No new medications administered via MAR, discussed with primary service for further evaluation. Troponin negative x3. No concerning ST/T wave abnormalities noted. She does have a significant CV history including CAD s/p PCI (last 01/08/17 with PCI to dRCA). Would recommend continuation of home CV medications (asa, brilinta, BB, and nitrates). Hx of statin intolerance. Echo pending, please call with significant abnormalities, prior EF normal. If neurology work-up negative and/or current symptoms resolve, could consider nuclear stress test; alternatively, could follow-up with [facility] in 1-2 weeks s/p discharge for further evaluation. Qualifiers: Chest pain type: unspecified Qualified Code(s): R07.9 - Chest pain, unspecified (2) CAD (coronary artery disease) Current Visit: Yes Status: Acute As above. Continue asa, brilinta, BB. Hx of statin intolerance. Qualifiers: Coronary Disease-Associated Artery/Lesion type: [place] artery [place] vs. transplanted heart: [place] heart Associated angina: with unspecified angina Qualified Code(s): I25.119 - Atherosclerotic heart disease of [place] coronary artery with unspecified angina pectoris Discussion w patient/family: The assessment and plan as outlined above was discussed with the patient and/or family members who expressed understanding and agreement. All questions were answered. Thank you for involving us in the care of your patient. Please call with any questions. The patient will be discussed and reviewed with Dr. Tijerina; changes to be made accordingly. History of Present Illness Consult date: 02/18/18 Requesting physician: Blair Cates Consult reason: Chest pain Chief complaint: Chest pain History of present illness: Ms. Chavez is a 72 year old female with PMHx significant of CAD s/p PCI (x2 STEMI 2016), COPD, GERD, CKD, PAD s/p LE bypass (Dr. Sheehan), and anxiety who presented to the ED with complaints of reported chest discomfort. Of note, upon exam patient is extremely drowsy and is currently unable to hold conversation or provide details regarding HPI upon multiple attempts. I discussed with primary team, Dr. Wade for further evaluation. Troponin negative x3. ECG without acute ischemic changes. Prior CV testing: TTE 01/09/2017: EF 60-65%. Mild concentric LVH. Normal LV, RV size and function. Mild MR, NC. No pulmonary hypertension. TTE 08/25/2016: LVEF 55%. Apical inferior hypokinesis, otherwise normal LV function. TTE 06/23/2016: LVEF 60%. Normal LV, RV size and function. Mild diastolic dysfunction. Mild TR. Borderline mild pulmonary hypertension. TTE 02/22/2015: EF 65%. Normal LV size and function. Mild diastolic dysfunction. Mild pulmonary hypertension, estimated RVSP 44 mmHg. [facility] 02/22/2015: EF 60%. Left main normal. LAD mid 40% stenosis. D1 50% stenosis. Circumflex mid 100% stenosis (small vessel). RCA patent stent, mid 40% stenosis. [id number]-irsf collaterals noted. [facility] 08/24/2016: Left main normal. LAD mid 100% stenosis 0.6 VANDANA placed). Circumf mark proximal ROLLER ENGRAVER. RCA patent stent in midportion. RPDA plaque. EF 50%. [facility] 01/08/2017: Left main normal. LAD distal 50% stenosis. D1 50% stenosis. Circumflex mid 100% stenosis, small vessel. OM1 95% stenosis, small vessel. RCA proximal 50% stenosis, distal 99% stenosis (VANDANA placed). Past Med Surg Social Fam HX - Past Medical History Attestation: Yes The following information was validated with the patient. Source: patient Medical history: COPD, coronary artery disease, DVT, GERD, hepatitis, hyperlipidemia, hypertension, myocardial infarction, peripheral artery disease, renal disease, seizures Additional medical history: scoliosis Psychiatric history: anxiety, depression - Past Surgical History Surgical History: angioplasty/stent, appendectomy, LAYO/BSO, other (T&A 195), LE bypass Additional surgical history: tonsillectomy, cardiac stents - Social History Smoking Status: Current every day smoker Smokeless Tobacco Status: No Alcohol use: none Drug use: none - Family History Mother Living Status: Hx Family Cardiac Disorders: Yes Sister Adopted: No Living Status: Still Living Hx Family Cardiac Disorders: Yes Hx Family Respiratory Disorders: No Hx Family Cancer: No Hx Family GI Disorders: No Hx Family Endocrine Disorder: No Hx Family Neuromuscular Disorders: No Hx Family Neurologic Disorders: No Hx Family HEENT Disorders: No Hx Family Autoimmune Disorders: No Father Living Status: Hx Family Cardiac Disorders: Yes Hx Family Respiratory Disorders: No Hx Family Cancer: No Hx Family GI Disorders: Yes Hx Family Endocrine Disorder: No Hx Family Neuromuscular Disorders: No Hx Family Neurologic Disorders: No Hx Family HEENT Disorders: No Hx Family Autoimmune Disorders: No Medications and Allergies Albuterol Sulfate [Albuterol Inhaler] 2 puff IH Q4HR PRN 01/22/15 [History] Aspirin Enteric Coated [Aspirin EC] 81 mg PO HS 01/22/15 [History] Ropinirole HCl [Requip] 0.5 mg PO HS 01/22/15 [History] Losartan [Cozaar] 25 mg PO DAILY 05/10/15 [History] Famotidine [Pepcid] 20 mg PO DAILY 06/22/16 [History] Mirtazapine [Remeron] 15 mg PO HS 06/22/16 [History] Isosorbide MONOnitrate (24 HR) [Imdur] 30 mg PO DAILY #30 tab.er.24h 06/24/16 [Rx] Nitroglycerin [Nitrostat] 0.4 mg PO Q5M PRN 08/25/16 [History] BuPROPion XL (24 HR) [Wellbutrin Xl] 150 mg PO DAILY 01/08/17 [History] Metoprolol [Lopressor] 50 mg PO BID 01/08/17 [History] Tiotropium [place] [Spiriva Respimat] 2 puff IH DAILY 01/08/17 [History] Budesonide/Formoterol 80/4.5 [Symbicort 80/4.5] 2 puff IH BIDR #1 inhaler 01/12/17 [Rx] Ipratropium/Albuterol Neb [Duoneb] 3 ml IH [id number] PRN #30 inhsol 01/12/17 [Rx] Nicotine Patch [Nicoderm] 21 mg TD DAILY #30 patch.td24 01/12/17 [Rx] Ticagrelor [Brilinta] 90 mg PO BID #60 tablet 01/12/17 [Rx] clonazePAM [Klonopin] 0.5 mg PO BID PRN #7 tablet 01/12/17 [Rx] Cephalexin [Keflex] 500 mg PO TID #21 capsule 03/21/17 [Rx] HYDROcodone/Acet 5/325 mg [[place] 5-325 mg] 1 tab PO Q4-6H PRN #6 tab 04/02/17 [Rx] Mupirocin [Bactroban Oint] 1 appl TP BID #1 tube 04/02/17 [Rx] Benzonatate [Tessalon] 100 mg PO TID PRN #30 capsule 12/07/17 [Rx] Guaifenesin [Mucinex] 600 mg PO BID PRN #20 tab.er.12h 12/07/17 [Rx] Clotrimazole [Mycelex [place]] 10 mg MM 5XD 14 Days #70 chelsey 12/25/17 [Rx] Fluconazole [Diflucan] 150 mg PO Q3D #2 tab 12/25/17 [Rx] Nystatin [Nystatin Suspension] 500,000 units PO QID #120 ml 12/25/17 [Rx] Allergy/AdvReac Type Severity Reaction Status Date / Time acetaminophen [From Percocet] Allergy Rash Verified 12/25/17 12:21 clonidine Allergy Blister Verified 12/25/17 12:21 Oxycodone [From Percocet] Allergy Rash Verified 12/25/17 12:21 atorvastatin AdvReac Nausea Verified 12/25/17 12:21 lisinopril AdvReac Cough Verified 12/25/17 12:21 ROS unobtainable: due to mental status All Systems Review: The remainder of the systems were reviewed and are negative Physical Examination Vital Signs, Last 4 Hours Temp Pulse Resp BP Pulse Ox 02/18/18 07:49 97.6 F 62 18 152/83 94 02/18/18 07:20 65 16 152/83 96 02/18/18 07:15 83 16 163/80 96 02/18/18 05:23 97.5 F L 69 16 140/78 96 General: Conversant, Other (drowsy; unable to hold conversation) HEENT: Atraumatic, Normocephaly Cardiac: Reg Rate and Rhythm, Normal S1 and S2 Lungs: Normal Breath Sounds Neuro: Other (drowsy, unable to follow simple commands) Abdomen: Soft Skin: No rashes noted on visualized skin Musculoskeletal: No Chest Wall Tenderness Extremities: No Edema, Normal Pulses Results 02/18/18 02:59 02/18/18 02:59 Lab Results 02/18/18 02/18/18 02/18/18 02:59 02:59 02:59 WBC 9.2 Hgb 14.7 Hct 43.4 Plt Count 182 INR 0.9 APTT 28.7 Sodium 136 Potassium 4.4 Chloride 106 Carbon Dioxide 21 L BUN 19 Creatinine 1.16 Glucose 176 H Calcium 8.3 L Troponin I < 0.03 02/18/18 06:26 WBC Hgb Hct Plt Count INR APTT Sodium Potassium Chloride Carbon Dioxide BUN Creatinine Glucose Calcium Troponin I < 0.03 Active Medications Nitroglycerin (Nitroglycerin Premix 25 Mg/250 Ml) 25 mg in 250 mls @ 3 mls/hr IVC .Q24H CORY; Protocol Stop: 08/20/18 06:46 Last Admin: 02/18/18 07:14 Dose: 5 mcg/min, 3 mls/hr Ondansetron HCl (Zofran) 4 mg IVP Q6HR PRN; Protocol PRN Reason: Nausea Stop: 08/20/18 06:43 - Imaging and Cardiology Echo: report reviewed Cardiac cath: report reviewed Other Results: 12 hour tele: avg HR=65 SR. Occasional PVCs. - EKG Interpretation EKG results cardiology: personally reviewed Consult Discharge Plan - Plan Referrals: Horacio Hardin MD [Primary Care Provider] - 02/22/18 9:45 am <Arianna Tijerina - Last Filed: 02/18/18 13:14> Date of Encounter: 02/18/18 - Attending Attestation I examined this patient and my medical decision-making was reviewed with the Resident Physician. I agree with the documented findings, disposition and treatment plan as described. Ms. Chavez presents with atypical chest pain. Troponins negative. No acute ECG findings. On exam, patient is in NAD On exam, she is tender to palpation in midepigastrum, no cardiac murmur, normal pulses, no LE edema Labs reviewed Impression: 1. Chest pain: Cardiac workup so far is negative. Possibly a GI etiology - on DAPT - will give GI cocktail and observe symptoms. Due to known CAD, recommend performing stress testing for ischemic workup. Assessment and Plan Discussion w patient/family: The assessment and plan as outlined above was discussed with the patient and/or family members who expressed understanding and agreement. All questions were answered. Thank you for involving us in the care of your patient. Please call with any questions. History of Present Illness History of present illness: Ms. Chavez is a 72 year old female All Systems Review: The remainder of the systems were reviewed and are negative Physical Examination Vital Signs, Last 4 Hours Temp Pulse Resp BP Pulse Ox 02/18/18 12:04 98.6 F 69 19 154/86 97 02/18/18 10:46 88 132/79 96 02/18/18 10:28 74 143/83 96 02/18/18 10:13 65 164/84 96 Results 02/18/18 02:59 02/18/18 02:59 Lab Results 02/18/18 02/18/18 02/18/18 02:59 02:59 02:59 WBC 9.2 Hgb 14.7 Hct 43.4 Plt Count 182 INR 0.9 APTT 28.7 Sodium 136 Potassium 4.4 Chloride 106 Carbon Dioxide 21 L BUN 19 Creatinine 1.16 Glucose 176 H Calcium 8.3 L Troponin I < 0.03 02/18/18 02/18/18 06:26 12:15 WBC Hgb Hct Plt Count INR APTT Sodium Potassium Chloride Carbon Dioxide BUN Creatinine Glucose Calcium Troponin I < 0.03 < 0.03
[2018-02-18] MEDS: Ondansetron 4 MG/2 ML VIAL IVP PRN ×2 (10:49→17:35)
[2018-02-18] MEDS ORDERED: GI Cocktail 40 ML EACH PO ONE (11:16)
--- NOTE | 2018-02-18 11:23 | Internal Med Progress Note ---
Hospitalist Progress Note - Encounter Date of Encounter: 02/18/18 Time of Encounter: 10:00 - Subjective Interval History: Ms. Chavez is a 72 year old female with known PMH of CAD s/p PCI (x2 STEMI 2017), COPD, GERD, CKD, PAD s/p LE bypass, and anxiety who presented to the ED with complaints of chest pain has been ongoing intermittently for the past coup le weeks. Patient stated that the pain is rated 10 out of 10, located substernally and radiating to her back, shoulders, and jaw. Pain occurs at both rest and exertion. She also c/o epigastric discomfort. EKG done at ED showed sinus rhythm with no acute ST changes. Initial troponins were negative. Pt was admitted in the hospital and started her on Nitro gtt. However her back pain and epigastric painn have not improved much. She denied any SOB. - Exam Vitals: Temp Pulse Resp BP Pulse Ox 97.6 F 88 18 132/79 96 02/18/18 07:49 02/18/18 10:46 02/18/18 07:49 02/18/18 10:46 02/18/18 10:46 Exam: Gen: Alert, awake, Oriented to time,place and person Chest: Diminished breath sounds B/L, No wheezing, No crackles, No rales Heart: S1S2+ RRR No murmurs Abd: Soft, NT, BS +, No organomegaly Ext: No edema, pulses are palpable, No calf tenderness Neuro : Benign findings Skin: No rash. - Assessment and Plan (1) Chest pain Current Visit: Yes Status: Acute Assessment and Plan: Atypical chest pain vague presentation d/c Nitro gtt so far negative troponin no acute issue changes on EKG [facility] 01/08/2017: Left main normal. LAD distal 50% stenosis. D1 50% stenosis. Circumflex mid 100% stenosis, small vessel. OM1 95% stenosis, small vessel. RCA proximal 50% stenosis, distal 99% stenosis (VANDANA placed) Cont ASA, Brilinta, Metoprolol, ARB and statin since pt is high risk fro ACS will get a stress test in AM appreciate cardiology recommendations (2) Nicotine dependence Current Visit: Yes Status: Acute Assessment and Plan: Patient is a smoker but does not want nicotine patch. (3) Nondiabetic hyperglycemia Current Visit: Yes Status: Acute Assessment and Plan: ADA diet and ISS (4) CAD (coronary artery disease) Current Visit: Yes Status: Acute Assessment and Plan: Will resume all home medication once medication reconciliation done (5) COPD (chronic obstructive pulmonary disease) Current Visit: No Status: Chronic Assessment and Plan: Stable not in exacerbation will resumed home inhalers (6) GERD (gastroesophageal reflux disease) Current Visit: No Status: Chronic Assessment and Plan: On PPI (7) HTN (hypertension) Current Visit: No Status: Chronic Assessment and Plan: Stable will resume all home medications - Time Spent with Patient Total time spent is greater than 50% in coordination of care (as documented) at patient's floor/unit and/or counseling patient: Internal Medicine: Result - Labs CBC & Chem 7: 02/18/18 02:59 02/18/18 02:59 Labs: Short CBC 02/18/18 Range/Units 02:59 WBC 9.2 (4.3-11.1) K/mcL Hgb 14.7 (11.5-15.4) g/dL Hct 43.4 (35.3-44.9) % Plt Count 182 (140-400) K/mcL Neutrophils # 7.1 (1.6-8.9) K/mcL BMP 02/18/18 02:59 Sodium 136 Potassium 4.4 Chloride 106 Carbon Dioxide 21 L BUN 19 Creatinine 1.16 Glucose 176 H Calcium 8.3 L Cardiac Enzymes 02/18/18 02/18/18 Range/Units 02:59 06:26 Troponin I < 0.03 < 0.03 (< 0.04) ng/mL - ABG Interpretation ABG results: PT/INR, D-dimer PT 10.6 Seconds (9.4-12.1) 02/18/18 02:59 - Impressions Impressions Chest X-Ray 02/18/18 02:55 IMPRESSION: No acute disease. D/ / Nikita Peguero MD / Nikita Peguero MD Interpreting Provider: Nikita Peguero MD Consult Discharge Plan - Plan Referrals: Horacio Hardin MD [Primary Care Provider] - (1) Chest pain Qualifiers: Chest pain type: unspecified Qualified Code(s): R07.9 - Chest pain, uns pecified (2) Nicotine dependence Qualifiers: Nicotine product type: cigarettes Substance use status: uncomplicated Qualified Code(s): F17.210 - Nicotine dependence, cigarettes, uncomplicated (4) CAD (coronary artery disease) Qualifiers: Coronary Disease-Associated Artery/Lesion type: [place] artery [place] vs. transplanted heart: [place] heart Associated angina: with unspecified angina Qualified Code(s): I25.119 - Atherosclerotic heart disease of [place] coronary artery with unspecified angina pectoris (5) COPD (chronic obstructive pulmonary disease) Qualifiers: COPD type: emphysema Emphysema type: panlobular Qualified Code(s): J43.1 - Panlobular emphysema (6) GERD (gastroesophageal reflux disease) Qualifiers: Esophagitis presence: without esophagitis Qualified Code(s): K21.9 - Gastro- esophageal reflux disease without esophagitis (7) HTN (hypertension) Qualifiers: Hypertension type: essential hypertension Qualified Code(s): I10 - Essential (primary) hypertension
--- NOTE | 2018-02-18 16:41 | Electrocardiograph Report ---
[address] [place], [place] [address] Test Date: 2018-02-18 Pat Name: Marisa Chavez Department: EXAM2 Room: 3B Gender: F Legal Associate: : [id number] Requested By: Sagar Tejeda Order Number: [id number] Reading MD: Arianna Tijerina Measurements Intervals [place] Rate: 69 P: 46 ME: 154 QRS: 9 QRSD: 102 T: 54 QT: 432 QTc: 463 Interpretive Statements Sinus rhythm Electronically Signed On 02-18-2018 16:40:02 EST by Arianna Tijerina
[2018-02-18] MEDS ORDERED: Acetaminophen 325 MG TABLET PO ONE (22:34)
--- NOTE | 2018-02-18 22:39 | Event Note ---
Date of Encounter: 02/18/18 Time of Encounter: 21:02 Notified by nurse of patient having chest pain and headache. Was previously on nitro drip and was stopped per cardiology with plans for stress test in a.m. tomorrow. EKG ordered, shows sinus rhythm, with some peaked T waves, will order BMP to recheck potassium. Assessed patient at bedside. Chest pain continues to be intermittent and similar to what she has experienced during her admission, states pain starts in center of her back and radiates to center of her chest and to her right arm. Cardiac workup has been negative so far, will order additional troponin and Tylenol for headache and pain. Discussed with Dr Christensen.
[2018-02-18] MEDS ORDERED: clonazePAM 0.5 MG TABLET PO PRN (23:17)
[2018-02-18] MEDS ORDERED: Ipratropium/Albuterol Neb 3 ML IH PRN (23:17)
[2018-02-19] MEDS ORDERED: rOPINIRole 0.25 MG TABLET PO SCH ×2 (01:00→21:00)
[2018-02-19] MEDS: Baclofen 10 MG TABLET PO SCH ×2 (01:12→08:49)
[2018-02-19 03:13] VITALS: BP 135/79
[2018-02-19] MEDS ORDERED: Regadenoson 0.4 MG/5 ML SYRINGE IVP ONE (05:32)
[2018-02-19 07:03] LABS: Basophils % 0.4 %; Eosinophils # 0.2 K/mcL (0.0-0.6); Hematocrit 45.3 % (35.3-44.9); Hemoglobin 15.1 g/dL (11.5-15.4); Immature Granulocytes % 0.2 % (0-4); Lymphocytes # 2.4 K/mcL (0.6-4.6); Lymphocytes % 28.3 %; Mean Corpuscular HGB Conc 33.3 g/dL (31.6-35.5); Mean Corpuscular Hemoglobin 29.8 pg (28.0-33.3); Mean Corpuscular Volume 89.5 fL (83.0-100.0); Mean Platelet Volume 10.7 fL (9.4-12.4); Monocytes # 0.4 K/mcL (0.0-1.3); Monocytes % 4.6 %; Neutrophils # 5.4 K/mcL (1.6-8.9); Platelet Count 170 K/mcL (140-400); Red Blood Count 5.06 M/mcL (3.82-4.97); Red Cell Distribution Width 13.7 % (11.5-14.5); Segmented Neutrophils % 64.5 %
[2018-02-19 07:23] LABS: Alanine Aminotransferase 8 Units/L (7-52); Albumin 3.8 g/dL (3.5-5.7); Albumin/Globulin Ratio 1.4 (1.1-2.2); Alkaline Phosphatase 86 Units/L (34-104); Aspartate Amino Transferase 11 Units/L (13-39); BUN/Creatinine Ratio 18 (6-26); Bilirubin,Total 0.6 mg/dL (0.3-1.0); Blood Urea Nitrogen 18 mg/dL (8-23); Calcium 8.7 mg/dL (8.6-10.3); Carbon Dioxide 25 mEq/L (23-29); Chloride 106 mEq/L (98-107); Globulin 2.7 g/dL (2.4-3.5); Glucose 99 mg/dL (70-105); Magnesium 2.1 mg/dL (1.6-2.6); Osmolality,Calculated 284 (280-300); Potassium 4.1 mEq/L (3.5-5.1); Sodium 136 mEq/L (136-145); Total Protein 6.5 g/dL (6.4-8.9); eGFR For Non-African Americans 54 (> 60)
[2018-02-19 07:27] LABS: INR 0.9; Prothrombin Time 10.4 Seconds (9.4-12.1)
[2018-02-19] MEDS ORDERED: *HR* Ticagrelor 90 MG TABLET PO SCH (09:00)
[2018-02-19] MEDS ORDERED: Budesonide/Formoterol 80/4.5 MDI IH SCH (10:00)
--- NOTE | 2018-02-19 10:46 | Discharge Summary ---
- NOTES TO OUTPATIENT PROVIDER Notes to Outpatient Provider: Follow up with PCP in one week. Follow the enterprise project manager in one week. Please continue taking Imdur since you need this for your intermittent chest pains. Orders not resulted at time of discharge: Pending orders 02/18/18 21:16 EKG [ECG 12 lead ECG] [ECG] Stat 02/19/18 08:00 NM anh perf SPECT multi [NM] Routine Date of Encounter: 02/19/18 Time of Encounter: 10:45 - Discharge Diagnosis (1) Chest pain Priority: Primary Status: Acute Qualifiers: Chest pain type: unspecified Qualified Code(s): R07.9 - Chest pain, unspecified (2) Nicotine dependence Priority: Secondary Status: Acute Qualifiers: Nicotine product type: cigarettes Substance use status: uncomplicated Qualified Code(s): F17.210 - Nicotine dependence, cigarettes, uncomplicated (3) Nondiabetic hyperglycemia Priority: Secondary Status: Acute (4) CAD (coronary artery disease) Priority: Secondary Status: Acute Qualifiers: Coronary Disease-Associated Artery/Lesion type: [place] artery [place] vs. transplanted heart: [place] heart Associated angina: with unspecified angina Qualified Code(s): I25.119 - Atherosclerotic heart disease of [place] coronary artery with unspecified angina pectoris (5) COPD (chronic obstructive pulmonary disease) Priority: Secondary Status: Chronic Qualifiers: COPD type: emphysema Emphysema type: panlobular Qualified Code(s): J43.1 - Panlobular emphysema (6) GERD (gastroesophageal reflux disease) Priority: Secondary Status: Chronic Qualifiers: Esophagitis presence: without esophagitis Qualified Code(s): K21.9 - Gastro-esophageal reflux disease without esophagitis (7) HTN (hypertension) Priority: Secondary Status: Chronic Qualifiers: Hypertension type: essential hypertension Qualified Code(s): I10 - Essential (primary) hypertension Hospital course: Ms. Chavez is a 72 year old female with known PMH of CAD s/p PCI (x2 STEMI 2017), COPD, GERD, CKD, PAD s/p LE bypass, and anxiety who presented to the ED with complaints of chest pain has been ongoing intermittently for the past couple weeks. Patient stated that the pain is rated 10 out of 10, located substernally and radiating to her back, shoulders, and jaw. Pain occurs at both rest and exertion. She also c/o epigastric discomfort. EKG done at ED showed sinus rhythm with no acute ST changes. Initial troponins were negative. Pt was admitted in the hospital and started her on Nitro gtt. However her back pain and epigastric painn have not improved much. She denied any SOB. Her Nitro drip was discontinued. Her serial troponin came back is negative. Her EKG did not show any acute ischemic changes. Patient was evaluated by enterprise project manager and who did nuclear stress test which came back is negative for any perfusion defect for ischemia/infarct. Apparently patient stopped taking her imdur which might contributed to her current intermittent chest pain. So recommended her to continue taking Imdur 30mg for now and follow with the enterprise project manager in one week as an outpatient. Also counseled the patient to quit smoking - Time Spent with Patient Total time spent providing and/or coordinating discharge services: - Discharge Medications Home Medications: Aspirin Enteric Coated [Aspirin EC] 81 mg PO HS 01/22/15 [History] Ropinirole HCl [Requip] 0.5 mg PO HS 01/22/15 [History] Mirtazapine [Remeron] 15 mg PO HS 06/22/16 [History] Nitroglycerin [Nitrostat] 0.4 mg PO Q5M PRN 08/25/16 [History] Budesonide/Formoterol 80/4.5 [Symbicort 80/4.5] 2 puff IH BIDR #1 inhaler 01/12/17 [Rx] Ticagrelor [Brilinta] 90 mg PO BID #60 tablet 01/12/17 [Rx] Albuterol Sulfate [Proair Hfa] 2 puff IH Q4H PRN 02/18/18 [History] Baclofen [Lioresal] 10 mg PO TID 02/18/18 [History] Cilostazol [Pletal] 50 mg PO BID 02/18/18 [History] Citalopram Hydrobromide [Celexa] 40 mg PO DAILY 02/18/18 [History] Ipratropium/Albuterol Neb [Duoneb] 3 ml IH Q4H PRN 02/18/18 [History] Losartan Potassium 25 mg PO DAILY 02/18/18 [History] Mupirocin [Bactroban Oint] 1 applic TP DAILY PRN 02/18/18 [History] Ondansetron [Zofran] 8 mg PO BID PRN 02/18/18 [History] Sennosides/Docusate Sodium [Senna-S Tablet] 1 each PO HS PRN 02/18/18 [History] clonazePAM [Klonopin] 1 mg PO BID PRN 02/18/18 [History] Allergies/Adverse Reactions: Allergy/AdvReac Type Severity Reaction Status Date / Time acetaminophen [From Percocet] Allergy Rash Verified 12/25/17 12:21 clonidine Allergy Blister Verified 12/25/17 12:21 Oxycodone [From Percocet] Allergy Rash Verified 12/25/17 12:21 atorvastatin AdvReac Nausea Verified 12/25/17 12:21 lisinopril AdvReac Cough Verified 12/25/17 12:21 Date of admission: 02/18/18 05:12 Primary care physician: Horacio Hardin MD Consults: 02/18/18 05:29 Consult to Cardiology [CONS] Routine Comment: Consulting Provider: [facility] [place] Reason for Consult: chest pain Call Completed: No - Constitutional Vitals: Temp Pulse Resp BP Pulse Ox 98.3 F 68 16 135/79 92 02/19/18 03:10 02/19/18 03:10 02/19/18 03:10 02/19/18 03:10 02/19/18 03:10 General appearance: Present: cooperative, A&O X 3, answers questions appropriately Exam: Gen: Alert, awake, Oriented to time,place and person Chest: Diminished breath sounds B/L, No wheezing, No crackles, No rales Heart: S1S2+ RRR No murmurs Abd: Soft, NT, BS +, No organomegaly Ext: No edema, pulses are palpable, No calf tenderness Neuro : Benign findings Skin: No rash. - Patient Status Disposition: Home, Self-Care Condition: Good Overall status at discharge: patient is back to baseline - Discharge Instructions Follow Up With: Horacio Hardin MD [Primary Care Provider] - 02/22/18 9:45 am Arianna Tijerina DO [Partnered Physician] - - Diet and Activity Activity: increase activity as tolerated Diet: low salt diet
--- NOTE | 2018-02-19 10:53 | Cardiology Progress Note ---
Date of Encounter: 02/19/18 Time of Encounter: 10:50 Assessment and Plan (1) Chest pain Current Visit: Yes Status: Acute Patient presented with chest pain. Reproducible epigastric pain was noted and she was given GI cocktail. Se is now pain free. Troponin negative x3. No concerning ST/T wave abnormalities noted. She does have a significant CV history including CAD s/p PCI (last 01/08/17 with PCI to dRCA). Testing during stay: Stress test completed and is negative for ischemia. TTE shows EF 50-55%. Basal sigmoid septum seen. Mild diastolic dysfunction. Tace mitral regurgitation. Recommend continuation of home CV medications (asa, brilinta, BB, and nitrates). Hx of statin intolerance. Reports recently stopping imdur due to starting ple arron. Discussed with patient, this is not an indication to stop imdur, okay to continue. Out-pt f/u with cardiology. Qualifiers: Chest pain type: unspecified Qualified Code(s): R07.9 - Chest pain, unspecified (2) CAD (coronary artery disease) Current Visit: Yes Status: Acute As above. Continue asa, brilinta, BB. Hx of statin intolerance. Qualifiers: Coronary Disease-Associated Artery/Lesion type: vie[place] artery [place] vs. transplanted heart: viejas heart Associated angina: with unspecified angina Qualified Code(s): I25.119 - Atherosclerotic heart disease of viejas coronary artery with unspecified angina pectoris Discussion w patient/family: The assessment and plan as outlined above was discussed with the patient and/or family members who expressed understanding and agreement. All questions were answered. Thank you for involving us in the care of your patient. Please call with any questions. Subjective Principal diagnosis: Chest pain Interval history: Ms. Kathy keene resting in bed. She denies chest pain this morning. Objective General: Conversant, No Apparent Distress HEENT: Atraumatic, Normocephaly, Mucus Membranes Moist Neck: No JVD, Normal carotid pulses Cardiac: Reg Rate and Rhythm, Normal S1 and S2, No Murmur Lungs: Normal Breath Sounds, No Wheeze, Rales, Rhonchi Neuro: Alert and responsive, No focal deficits noted Abdomen: Soft, Non-Tender Skin: No rashes noted on visualized skin Musculoskeletal: No Chest Wall Tenderness Extremities: No Clubbing, No Cyanosis, No Edema, Normal Pulses Results 02/19/18 05:52 12/04/18 05:52 Lab Results 02/18/18 02/18/18 02/18/18 12:15 18:38 22:41 WBC Hgb Hct Plt Count INR Sodium Potassium Chloride Carbon Dioxide BUN Creatinine Glucose Calcium Magnesium Total Bilirubin AST ALT Alkaline Phosphatase Troponin I < 0.03 < 0.03 < 0.03 02/19/18 02/19/18 02/19/18 05:52 05:52 05:52 WBC 8.4 Hgb 15.1 Hct 45.3 H Plt Count 170 INR 0.9 Sodium 136 Potassium 4.1 Chloride 106 Carbon Dioxide 25 BUN 18 Creatinine 1.01 Glucose 99 Calcium 8.7 Magnesium 2.1 Total Bilirubin 0.6 AST 11 L ALT 8 Alkaline Phosphatase 86 Troponin I - Imaging and Cardiology Stress Test: report reviewed Echo: report reviewed - EKG Interpretation EKG results cardiology: personally reviewed Consult Discharge Plan - Plan Referrals: Horacio Hardin MD [Primary Care Provider] - 02/22/18 9:45 am Arianna Tijerina DO [Partnered Physician] - Prescriptions: Isosorbide MONOnitrate (24 HR) [Imdur] 30 mg PO DAILY #30 tab.er.24h
--- NOTE | 2018-02-19 11:15 | Physician Discharge Referral ---
Home Health/Hosp Referral Info Transfer to: Home Health Provider in Charge Post Discharge: PCP - Diagnosis (1) Chest pain Status: Acute (2) Nicotine dependence Status: Acute (3) Nondiabetic hyperglycemia Status: Acute (4) CAD (coronary artery disease) Status: Acute (5) COPD (chronic obstructive pulmonary disease) Status: Chronic (6) GERD (gastroesophageal reflux disease) Status: Chronic (7) HTN (hypertension) Status: Chronic - Respiratory Orders Smoking Cessation: Smoking cessation has been advised. For more information, call the [place] Tobacco Quit Line at 3-125-RIAT-NOW. - Services Needed Following services are medically necessary services: Nursing - Transfer Medications Prescriptions: Isosorbide MONOnitrate (24 HR) [Imdur] 30 mg PO DAILY #30 tab.er.24h Home Medications: Aspirin Enteric Coated [Aspirin EC] 81 mg PO HS 01/22/15 [History] Ropinirole HCl [Requip] 0.5 mg PO HS 01/22/15 [History] Mirtazapine [Remeron] 15 mg PO HS 06/22/16 [History] Nitroglycerin [Nitrostat] 0.4 mg PO Q5M PRN 08/25/16 [History] Budesonide/Formoterol 80/4.5 [Symbicort 80/4.5] 2 puff IH BIDR #1 inhaler 01/12/17 [Rx] Ticagrelor [Brilinta] 90 mg PO BID #60 tablet 01/12/17 [Rx] Albuterol Sulfate [Proair Hfa] 2 puff IH Q4H PRN 02/18/18 [History] Baclofen [Lioresal] 10 mg PO TID 02/18/18 [History] Cilostazol [Pletal] 50 mg PO BID 02/18/18 [History] Citalopram Hydrobromide [Celexa] 40 mg PO DAILY 02/18/18 [History] Ipratropium/Albuterol Neb [Duoneb] 3 ml IH Q4H PRN 02/18/18 [History] Losartan Potassium 25 mg PO DAILY 02/18/18 [History] Mupirocin [Bactroban Oint] 1 applic TP DAILY PRN 02/18/18 [History] Ondansetron [Zofran] 8 mg PO BID PRN 02/18/18 [History] Sennosides/Docusate Sodium [Senna-S Tablet] 1 each PO HS PRN 02/18/18 [History] clonazePAM [Klonopin] 1 mg PO BID PRN 02/18/18 [History] Isosorbide MONOnitrate (24 HR) [Imdur] 30 mg PO DAILY #30 tab.er.24h 02/19/18 [Rx] Allergies/Adverse Reactions: Allergy/AdvReac Type Severity Reaction Status Date / Time acetaminophen [From Percocet] Allergy Rash Verified 12/25/17 12:21 clonidine Allergy Blister Verified 12/25/17 12:21 Oxycodone [From Percocet] Allergy Rash Verified 12/25/17 12:21 atorvastatin AdvReac Nausea Verified 12/25/17 12:21 lisinopril AdvReac Cough Verified 12/25/17 12:21 Certification: Further, I certify that my clinical findings support that this patient is homebound (i.e. absences from home require considerable and taxing effort and are for medical reasons or yazidism services or infrequently or short duration when for other reasons) because: Homebound Reason: Patient requires assistance of a person or device to safely leave home Attestation: My signature below is to certify that this patient is under my care and that I, or nurse practitioner, or a physician's anesthesia assistant working with me, has a [id number] encounter with this patient.
[2018-02-19] MEDS ORDERED: Aspirin Enteric Coated 81 MG Tablet PO SCH (21:00)
== END 2018-02-19 11:41 | disposition home or self-care (01) ==
LOC: EMEROOARM 02:45 → 3BNU 02:45 → SUATTDRO 05:12 → 3BNU 05:14
PROVIDERS: ADMIT Family Medicine; ATTEND Family Medicine

== ENCOUNTER 2018-11-17 09:11 | Observation (INO) ==
[2018-11-17] MEDS ORDERED: Isovue-370 500 ML BOTTLE IVP ONE (09:24)
[2018-11-17] MEDS ORDERED: Pantoprazole 40 MG VIAL IVP ONE (09:26)
[2018-11-17] MEDS ORDERED: Morphine Sulfate 2 MG/ML SYRINGE IVP ONE (09:26)
[2018-11-17] MEDS ORDERED: Ondansetron 4 MG/2 ML VIAL IVP ONE ×2 (09:26→19:04)
--- NOTE | 2018-11-17 09:38 | Emergency Department Note ---
Disposition Clinical Impression: Pancreatic mass, Epigastric pain, Acute cholecystitis Disposition: Admitted As Inpatient Condition: Good Time of Disposition: 11:57 General Adult HPI - General Chief complaint: ED Back Pain/Injury Stated complaint: back pain Time Seen by Provider: 11/17/18 09:15 Source: patient Limitations: no limitations Nursing Notes Reviewed: Yes Vital Signs Reviewed: Yes - History of Present Illness HPI Narrative: 73 year old female with history of CAD with 6 stents, GERD presents with back pain and abdominal pain. pt stated the pain located on right side thoracic back and radiate to right upper abdomen and epigastric area. Associate with nausea and vomiting. Pt stated she felt shortness of breath when the pain came. Pt is currently on Brillinta. No cough. No chills and fever. No abdomen surgery in the past. Pt took last meal and Brillinta last night. Onset (ago): hour(s) (2) Location: back, abdomen Pain Scale: 10 - Related Data Home Medications Medication Instructions Recorded Confirmed Aspirin Enteric Coated [Aspirin EC] 81 mg PO DAILY 01/22/15 11/17/18 Ropinirole HCl [Requip] 1 mg PO HS 01/22/15 11/17/18 Mirtazapine [Remeron] 15 mg PO HS 06/22/16 11/17/18 Nitroglycerin [Nitrostat] 0.4 mg PO Q5M PRN 08/25/16 11/17/18 Baclofen [Lioresal] 10 mg PO TID 02/18/18 11/17/18 Citalopram Hydrobromide [Celexa] 40 mg PO DAILY 02/18/18 11/17/18 Ipratropium/Albuterol Neb [Duoneb] 3 ml IH Q4H PRN 02/18/18 11/17/18 Albuterol Sulfate [Ventolin Hfa] 2 puff PO Q4H PRN 07/09/18 11/17/18 Losartan Potassium 50 mg PO DAILY 07/09/18 11/17/18 Ondansetron HCl 8 mg PO BID PRN 07/09/18 11/17/18 clonazePAM [Clonazepam] 1 mg PO BID PRN 07/09/18 11/17/18 Cilostazol 50 mg PO BID 11/17/18 11/17/18 Esomeprazole Magnesium [Nexium] 40 mg PO DAILY 11/17/18 11/17/18 Fluticasone Propionate Nasal 100 mcg NS DAILY PRN 11/17/18 11/17/18 [Flonase] Sucralfate [Carafate] 1 gm PO 0730,1630 11/17/18 11/17/18 Previous Rx's Medication Instructions Recorded Ticagrelor [Brilinta] 90 mg PO BID #60 tablet 01/12/17 Isosorbide MONOnitrate (24 HR) 30 mg PO DAILY #30 tab.er.24h 02/19/18 [Imdur] Allergies Allergy/AdvReac Type Severity Reaction Status Date / Time acetaminophen [From Percocet] Allergy Rash Verified 11/17/18 09:13 clonidine Allergy Blister Verified 11/17/18 09:13 oxycodone [From Percocet] Allergy Rash Verified 11/17/18 09:13 atorvastatin AdvReac Nausea Verified 11/17/18 09:13 lisinopril AdvReac Cough Verified 11/17/18 09:13 Constitutional: Denies: fever, chills Eyes: Denies: eye pain ENT ED: Denies: ear pain Cardiovascular: Denies: chest pain Respiratory: Denies: cough Gastrointestinal: Reports: abdominal pain, nausea, vomiting Genitourinary: Denies: urgency Musculoskeletal: Reports: back pain Integumentary: Denies: rash Neurological: Denies: headache Psychiatric: Denies: anxiety Endocrine: Denies: fatigue Hematological/Lymphatic: Denies: easy bleeding Allergic/Immunologic: Denies: facial swelling Past Medical History - Past Medical History Medical history: Reports: COPD, coronary artery disease, DVT, GERD, hepatitis, hyperlipidemia, hypertension, myocardial infarction, peripheral artery disease, renal disease, seizures Surgical history: Reports: angioplasty/stent, appendectomy, LAYO/BSO, other, LE b ypass Psychiatric history: Reports: anxiety, depression PATIENT TRANSITION SPECIALIST history: Reports: no PATIENT TRANSITION SPECIALIST history - Social History Smoking Status: Current every day smoker Smokeless Tobacco Status: No Alcohol use: Reports: none Drug use: Reports: none Physical Exam - General Limitations: no limitations General appearance: alert, in no apparent distress - Head Head exam: atraumatic - Eye Eye exam: Present: normal appearance - ENT ENT exam: normal exam - Neck Neck exam: Present: normal inspection - Chest Chest inspection: Present: normal inspection - Respiratory Respiratory exam: Present: normal lung sounds bilaterally - Cardiovascular Cardiovascular exam: Present: regular rate - Abdominal Exam Abdominal exam: Present: soft, tenderness Abdominal tenderness: Present: RUQ, epigastrium - Extremities Exam Extremities exam: Present: normal inspection, full ROM. Absent: tenderness - Back Exam Back exam: Present: normal inspection, full ROM. Absent: tenderness - Neurological Exam Neurological exam: Present: alert, oriented X3 - Psychiatric Psychiatric exam: Present: normal affect - Skin Skin exam: Present: warm, intact Course Vital Signs Temperature 97.8 F 11/17/18 09:13 Pulse Rate 78 11/17/18 09:13 Respiratory Rate 22 11/17/18 09:13 Blood Pressure 195/109 11/17/18 09:13 O2 Sat by Pulse Oximetry 94 11/17/18 09:13 Temperature 97.8 F 11/17/18 09:13 Pulse Rate 68 11/17/18 16:09 Respiratory Rate 16 11/17/18 16:09 Blood Pressure 148/84 11/17/18 16:09 O2 Sat by Pulse Oximetry 96 11/17/18 16:09 Oxygen Delivery Oxygen Delivery Room Air Medical Decision Making - MDM Narrative Medical decision making narrative: 73 year old female with history of CAD, stents, GERD presents with acute back pain, abdominal pain and nausea and vomiting. No chills and fever. No abdomen surgery in past. Physical exam: epigastric and RUQ tender to palpation. Labs: white cell 10.3, normal liver enzyme, negative lipase. CTA and abdomen CT with iv contrast indicated gallbladder wall thickening and edema, incidental finding lymphoma: 5x4x5 close to pancreatic head. Spoke with Surgeon Dr. Velez. She reviewed the CT and consider pt has acute gallbladder inflammation. She will take pt to surgery this afternoon. She consider the lymphoma is chronic, and needs oncology follow up. Due to patient's significant medical history, Dr. Velez wants to admit pt to medical floor with surgery consult. Dr. Kate has seen the patient and agrees the above plan. Antibiotics started in ER. - Lab Data Lab results reviewed: Yes I reviewed the patient's lab results. Result diagrams: 11/17/18 09:39 11/17/18 09:39 Lab Results 11/17/18 11/17/18 11/17/18 Range/Units 09:39 09:39 09:39 WBC 10.3 (4.3-11.1) K/mcL RBC 5.76 H (3.82-4.97) M/mcL Hgb 16.7 H (11.5-15.4) g/dL Hct 49.1 H (35.3-44.9) % MCV 85.2 (83.0-100.0) fL MCH 29.0 (28.0-33.3) pg MCHC 34.0 (31.6-35.5) g/dL RDW 14.6 H (11.5-14.5) % Plt Count 254 (140-400) K/mcL MPV 10.2 (9.4-12.4) fL Immature Gran % 0.5 (0-4) % Seg Neutrophils % 77.8 % Lymphocytes % 15.2 % Monocytes % 3.7 % Eosinophils % 2.5 % Basophils % 0.3 % Neutrophils # 8.1 (1.6-8.9) K/mcL Lymphocytes # 1.6 (0.6-4.6) K/mcL Monocytes # 0.4 (0.0-1.3) K/mcL Eosinophils # 0.3 (0.0-0.6) K/mcL Basophils # 0.0 (0.0-0.2) K/mcL Sodium 138 (136-145) mEq/L Potassium 4.1 (3.5-5.1) mEq/L Chloride 103 (98-107) mEq/L Carbon Dioxide 24 (23-29) mEq/L BUN 18 (8-23) mg/dL Creatinine 1.07 (0.60-1.20) mg/dL Est GFR ( Amer) > 60 (> 60) Est GFR (Non-Af Amer) 51 L (> 60) BUN/Creatinine Ratio 17 (6-26) Glucose 118 H (70-105) mg/dL Calculated Osmolality 289 (280-300) Lactic Acid 0.7 (0.5-2.2) mmol/L Calcium 9.5 (8.6-10.3) mg/dL Magnesium 1.8 (1.6-2.6) mg/dL Total Bilirubin 0.4 (0.3-1.0) mg/dL AST 15 (13-39) Units/L ALT 7 (7-52) Units/L Alkaline Phosphatase 92 (34-104) Units/L Troponin I < 0.03 (< 0.04) ng/mL Serum Total Protein 7.7 (6.4-8.9) g/dL Albumin 4.3 (3.5-5.7) g/dL Globulin 3.4 (2.4-3.5) g/dL Albumin/Globulin Ratio 1.3 (1.1-2.2) Triglycerides 115 (< 150) mg/dL Cholesterol 178 (< 200) mg/dL LDL Cholesterol, Calc 108 H (0-99) mg/dL VLDL Cholesterol, Calc 23 (< 31) mg/dL HDL Cholesterol 47 (40-59) mg/dL Cholesterol/HDL Ratio 3.8 (0-4.9) Lipase 26 (11-82) Units/L Carcinoembryonic Ag 2.9 (Less than 5.0) ng/mL - Radiology Data Radiology results reviewed: Yes I reviewed the patient's radiology results. FINDINGS: CTA chest: Pulmonary Arteries: There is adequate opacification of the pulmonary arteries through the segmental level. No filling defects are identified. Mediastinum: There is calcification of the thoracic aorta. Coronary calcification is present. The left ventricular wall is thickened. There is no pericardial effusion. Calcified subcarinal lymph nodes are noted. Lungs/pleura: A large calcified granuloma is noted in the right lower lobe. There is no pneumothorax, edema, focal consolidation or pleural effusion. Soft Tissues/Bones: Scoliosis is noted. There is no acute fracture or dislocation. Axillary lymphadenopathy has improved. CT abdomen and pelvis: Focal fatty infiltration of the liver is noted near the falciform ligament. There is marked gallbladder wall thickening. There is mild periportal edema. There is a tiny probable cyst within the right lobe of the liver measuring 4 mm. Splenic calcifications are present. There is a lobular soft tissue mass near the hilum of the liver and pancreatic head. This lobular soft tissue mass measures 5.3 x 4.4 x 4.6 cm. There is associated upper abdominal and retroperitoneal lymphadenopathy. Aortocaval lymphadenopathy measures 1.4 cm in AP dimension. The infiltrative mass significantly narrows the left renal vein. There is mild thickening of the right adrenal gland. Renal cysts are unchanged, the largest measuring 5.2 cm on the left. The kidneys are not obstructed. Bowel: Bowel is not obstructed. Diverticulosis is noted. There is no CT evidence of diverticulitis. The appendix is not identified. There is no pericecal inflammatory change. Pelvis: There is no free fluid in the pelvis. Retroperitoneum: There is advanced atherosclerotic disease. The abdominal aorta is of normal caliber. Retroperitoneal lymphadenopathy is as mentioned above. There is no free intraperitoneal air. Bones and soft tissues: Scoliosis is noted. There is no acute osseous abnormality. Bilateral L5 pars defects are present. There is grade [address]/CT abd pelvis w iv no oral IMPRESSION: 1. Negative for pulmonary embolic disease. 2. Large (approximately 5 x 4 x 5 cm) lobular upper retroperitoneal mass with associated upper abdominal and retroperitoneal lymphadenopathy. Lymphoma is felt most likely. Axillary lymphadenopathy has improved since the prior exam. 3. Gallbladder wall edema. D/ / 11/17/2018 11:06:55 Jeremy Marley MD / [facility] Interpreting Provider: Jeremy Marley MD
[2018-11-17 09:54] LABS: Basophils % 0.3 %; Eosinophils # 0.3 K/mcL (0.0-0.6); Eosinophils % 2.5 %; Hematocrit 49.1 % (35.3-44.9); Hemoglobin 16.7 g/dL (11.5-15.4); Immature Granulocytes % 0.5 % (0-4); Lymphocytes # 1.6 K/mcL (0.6-4.6); Lymphocytes % 15.2 %; Mean Corpuscular Volume 85.2 fL (83.0-100.0); Mean Platelet Volume 10.2 fL (9.4-12.4); Monocytes # 0.4 K/mcL (0.0-1.3); Monocytes % 3.7 %; Neutrophils # 8.1 K/mcL (1.6-8.9); Platelet Count 254 K/mcL (140-400); Red Blood Count 5.76 M/mcL (3.82-4.97); Red Cell Distribution Width 14.6 % (11.5-14.5); Segmented Neutrophils % 77.8 %; White Blood Count 10.3 K/mcL (4.3-11.1)
[2018-11-17 10:17] LABS: Alanine Aminotransferase 7 Units/L (7-52); Albumin 4.3 g/dL (3.5-5.7); Albumin/Globulin Ratio 1.3 (1.1-2.2); Alkaline Phosphatase 92 Units/L (34-104); Aspartate Amino Transferase 15 Units/L (13-39); BUN/Creatinine Ratio 17 (6-26); Bilirubin,Total 0.4 mg/dL (0.3-1.0); Blood Urea Nitrogen 18 mg/dL (8-23); Calcium 9.5 mg/dL (8.6-10.3); Carbon Dioxide 24 mEq/L (23-29); Chloride 103 mEq/L (98-107); Globulin 3.4 g/dL (2.4-3.5); Glucose 118 mg/dL (70-105); Lipase 26 Units/L (11-82); Osmolality,Calculated 289 (280-300); Potassium 4.1 mEq/L (3.5-5.1); Sodium 138 mEq/L (136-145); Total Protein 7.7 g/dL (6.4-8.9); Troponin I < 0.03 ng/mL (< 0.04); eGFR For African Americans > 60 (> 60); eGFR For Non-African Americans 51 (> 60)
[2018-11-17] MEDS ORDERED: *HR* FentaNYL (PF) 100 MCG/2 ML VIAL IVP ONE ×2 (11:20→15:34)
[2018-11-17] MEDS ORDERED: MetroNIDAZOLE 500 MG/100 ML 500 MG/100 ML BAG IVPB ONE ×2 (11:41→12:06)
--- NOTE | 2018-11-17 12:06 | AcuteCare Surgery Consult Note ---
Date of Encounter: 11/17/18 Time of Encounter: 12:00 Assessment and Plan (1) Acute cholecystitis Current Visit: Yes Status: Acute Pt diagnosis of acute cholecystitis is discussed. Laparoscopic Cholecystectomy is recommended. Procedure for the surgery, risks and benefits are discussed in detail. Possible known complications for Laparoscopic Cholecystectomy are bleeding, infection, bile duct injury, bile leak, small intestine or stomach inj ury, stroke, DVT/PE, PA or . Pt understands these risks, which in this case are moderate due to pt's comorbidities and DAPT . We also discussed the finding of intraabdominal mass concerning for lymphoma. Discussed the need to address the acute issue with cholecystectomy and may not see or be able to bx mass at the time of this laparoscopy. If the mass is obvious and easy to access then will biopsy for pathology for diagnosis. Pt wishes to proceed with surgery as soon as possible. Informed consent is obtained. Pt condition is stable. Surgery is scheduled. (2) Intraabdominal mass Current Visit: Yes Status: Acute Found on CT suspicious for lymphoma. Not associated with acute cholecystitis. See above. (3) COPD (chronic obstructive pulmonary disease) Current Visit: No Status: Chronic Qualifiers: COPD type: emphysema Emphysema type: panlobular Qualified Code(s): J43.1 - Panlobular emphysema (4) PAD (peripheral artery disease) Current Visit: No Status: Chronic (5) HTN (hypertension) Current Visit: No Status: Chronic Qualifiers: Hypertension type: essential hypertension Qualified Code(s): I10 - Essential (primary) hypertension (6) CAD (coronary artery disease) Current Visit: No Status: Acute Qualifiers: Coronary Disease-Associated Artery/Lesion type: [place] artery [place] vs. transplanted heart: [place] heart Associated angina: with unspecified angina Qualified Code(s): I25.119 - Atherosclerotic heart disease of [place] coronary artery with unspecified angina pectoris History of Present Illness Consult date: 11/17/18 Reason for consult: abdominal pain Requesting physician: Nicholas Thurman History of present illness: This 73 y/o female pt presents to [facility] c/o severe RUQ abdominal pain. Pt reports pain is severe and unrelenting. Pt c/o epigastric pain as well. Pt reports pain radiates into back. Pt reports intractable nausea and vomiting. Pt denies changes in BM. Pt denies CP or SOB. Pt denies fever. Past Med Surg Social Fam HX - Past Medical History Medical history: COPD, coronary artery disease, DVT, GERD, hepatitis, hyperlipidemia, hypertension, myocardial infarction, peripheral artery disease, renal disease, seizures Additional medical history: scoliosis Psychiatric history: anxiety, depression - Past Surgical History Surgical History: angioplasty/stent, appendectomy, LAYO/BSO, other, LE bypass Additional surgical history: tonsillectomy, cardiac stents - Social History Smoking Status: Current every day smoker Smokeless Tobacco Status: No Alcohol use: none Drug use: none - Family History Mother Living Status: Hx Family Cardiac Disorders: Yes Sister Adopted: No Living Status: Still Living Hx Family Cardiac Disorders: Yes Hx Family Respiratory Disorders: No Hx Family Cancer: No Hx Family GI Disorders: No Hx Family Endocrine Disorder: No Hx Family Neuromuscular Disorders: No Hx Family Neurologic Disorders: No Hx Family HEENT Disorders: No Hx Family Autoimmune Disorders: No Father Living Status: Hx Family Cardiac Disorders: Yes Hx Family Respiratory Disorders: No Hx Family Cancer: No Hx Family GI Disorders: Yes Hx Family Endocrine Disorder: No Hx Family Neuromuscular Disorders: No Hx Family Neurologic Disorders: No Hx Family HEENT Disorders: No Hx Family Autoimmune Disorders: No Medications and Allergies Aspirin Enteric Coated [Aspirin EC] 81 mg PO HS 01/22/15 [History] Ropinirole HCl [Requip] 1 mg PO HS 01/22/15 [History] Mirtazapine [Remeron] 15 mg PO HS 06/22/16 [History] Nitroglycerin [Nitrostat] 0.4 mg PO Q5M PRN 08/25/16 [History] Ticagrelor [Brilinta] 90 mg PO BID #60 tablet 01/12/17 [Rx] Baclofen [Lioresal] 10 mg PO TID 02/18/18 [History] Citalopram Hydrobromide [Celexa] 40 mg PO DAILY 02/18/18 [History] Ipratropium/Albuterol Neb [Duoneb] 3 ml IH Q4H PRN 02/18/18 [History] Sennosides/Docusate Sodium [Senna-S Tablet] 1 each PO HS PRN 02/18/18 [History] Isosorbide MONOnitrate (24 HR) [Imdur] 30 mg PO DAILY #30 tab.er.24h 02/19/18 [Rx] Albuterol Sulfate [Ventolin Hfa] 2 puff PO Q4H PRN 07/09/18 [History] Budesonide/Formoterol 80/4.5 [Symbicort 80/4.5] 2 puff IH BIDR PRN 07/09/18 [History] Lidocaine Patch [Lidoderm 5% patch] 1 patch TP Q12H PRN 07/09/18 [History] Losartan Potassium 50 mg PO DAILY 07/09/18 [History] Ondansetron HCl 8 mg PO BID PRN 07/09/18 [History] Varenicline Tartrate [Chantix Starting Month CHARLES] 0.5 - 1 mg PO AD 07/09/18 [History] clonazePAM [Clonazepam] 1 mg PO BID PRN 07/09/18 [History] Rosuvastatin [Crestor] 20 mg PO HS #30 tablet 07/11/18 [Rx] Allergy/AdvReac Type Severity Reaction Status Date / Time acetaminophen [From Percocet] Allergy Rash Verified 11/17/18 09:13 clonidine Allergy Blister Verified 11/17/18 09:13 oxycodone [From Percocet] Allergy Rash Verified 11/17/18 09:13 atorvastatin AdvReac Nausea Verified 11/17/18 09:13 lisinopril AdvReac Cough Verified 11/17/18 09:13 Review of Systems All systems PM: The remainder of the systems were reviewed and are negative - Constitutional anorexia, chills, no fatigue, no fever(s), no night sweats, no weakness - EENT Nose, mouth and throat: dry mouth, no dysphagia, no nasal congestion, no nasal discharge, no sinus pain, no sinus pressure, no sore throat - Cardiovascular no chest pain, no diaphoresis, no dyspnea, no edema - Respiratory no cough, no dyspnea, no wheezing - Gastrointestinal abdominal pain, belching, bloating, cramping, heartburn, nausea, vomiting, no constipation, no diarrhea, no hematemesis - Genitourinary Genitourinary: no difficulty voiding, no dysuria, no flank pain, no urinary frequency - Musculoskeletal back pain, no joint swelling, no limited range of motion, no neck pain - Integumentary dry skin, no pruritus, no rash, no wounds, no jaundice - Neurological no confusion, no dizziness, no focal weakness, no weakness - Psychiatric no anxiety, no depression - Endocrine no fatigue - Hematologic/Lymphatic other (Pt on DAPT), no easy bleeding, no easy bruising General Surgery Exam Initial Vital Signs Temp Pulse Resp BP Pulse Ox 97.8 F 78 22 195/109 94 11/17/18 09:13 11/17/18 09:13 11/17/18 09:13 11/17/18 09:13 11/17/18 09:13 - General physical appearance no distress, moderate pain. negative: jaundice - Eyes PERRL, normal ocular movement. negative: icteric - ENT no congestion, dry mucosa. negative: nasal discharge - Neck no masses, trachea midline, no lymphadectomy, no venous distension - Respiratory normal respiratory effort, clear to auscultation - Cardiovascular Cardiovascular exam: Present: RRR. Absent: JVD - Abdomen Abdomen general surgery: Present: bowel sounds present, soft, distended, tender, guarding. Absent: rebound, rigid Abdominal Tenderness: Present: RUQ - Genitourinary Present: normal external genitalia - Integumentary Integumentary general surgery: Present: warm and dry - Neurologic Present: CN 2-12 grossly intact, normal coordination - Musculoskeletal Present: normal posture - Psychiatric Psychiatric general surgery: Present: A&Ox3, appropriate Exam Initial Vital Signs Temp Pulse Resp BP Pulse Ox 97.8 F 78 22 195/109 94 11/17/18 09:13 11/17/18 09:13 11/17/18 09:13 11/17/18 09:13 11/17/18 09:13 Results - Labs 11/17/18 09:39 11/17/18 09:39 Abnormal lab results RBC 5.76 M/mcL (3.82-4.97) H 11/17/18 09:39 Hgb 16.7 g/dL (11.5-15.4) H 11/17/18 09:39 Hct 49.1 % (35.3-44.9) H 11/17/18 09:39 RDW 14.6 % (11.5-14.5) H 11/17/18 09:39 Est GFR (Non-Af Amer) 51 (> 60) L 11/17/18 09:39 Glucose 118 mg/dL (70-105) H 11/17/18 09:39 Diabetes panel 11/17/18 Range/Units 09:39 Sodium 138 (136-145) mEq/L Potassium 4.1 (3.5-5.1) mEq/L Chloride 103 (98-107) mEq/L Carbon Dioxide 24 (23-29) mEq/L BUN 18 (8-23) mg/dL Creatinine 1.07 (0.60-1.20) mg/dL Glucose 118 H (70-105) mg/dL Calcium 9.5 (8.6-10.3) mg/dL AST 15 (13-39) Units/L ALT 7 (7-52) Units/L Alkaline Phosphatase 92 (34-104) Units/L Albumin 4.3 (3.5-5.7) g/dL Calcium panel 11/17/18 Range/Units 09:39 Calcium 9.5 (8.6-10.3) mg/dL Albumin 4.3 (3.5-5.7) g/dL Pituitary panel 11/17/18 Range/Units 09:39 Sodium 138 (136-145) mEq/L Potassium 4.1 (3.5-5.1) mEq/L Chloride 103 (98-107) mEq/L Carbon Dioxide 24 (23-29) mEq/L BUN 18 (8-23) mg/dL Creatinine 1.07 (0.60-1.20) mg/dL Glucose 118 H (70-105) mg/dL Calcium 9.5 (8.6-10.3) mg/dL Adrenal panel 11/17/18 Range/Units 09:39 Sodium 138 (136-145) mEq/L Potassium 4.1 (3.5-5.1) mEq/L Chloride 103 (98-107) mEq/L Carbon Dioxide 24 (23-29) mEq/L BUN 18 (8-23) mg/dL Creatinine 1.07 (0.60-1.20) mg/dL Glucose 118 H (70-105) mg/dL Calcium 9.5 (8.6-10.3) mg/dL Total Bilirubin 0.4 (0.3-1.0) mg/dL AST 15 (13-39) Units/L ALT 7 (7-52) Units/L Alkaline Phosphatase 92 (34-104) Units/L Albumin 4.3 (3.5-5.7) g/dL All other labs normal. - Imaging CT scan - abdomen: image reviewed (There is marked gallbladder wall thickening. There is mild periportal edema. There is a lobular soft tissue mass near the hilum of the liver and pancreatic head. This lobular soft tissue mass measures 5.3 x 4.4 x 4.6 cm. There is associated upper abdominal and retroperitoneal lymphadenopathy.) CT scan - pelvis: image reviewed Consult Discharge Plan - Plan
--- NOTE | 2018-11-17 12:12 | Emergency Department Note ---
Disposition Clinical Impression: Pancreatic mass, Thickening of wall of gallbladder, Epigastric pain Disposition: Admitted As Inpatient Condition: Good Referrals: Horacio Hardin MD [Primary Care Provider] - Forms: ED Satisfaction Letter Time of Disposition: 12:10 General Adult HPI - General Chief complaint: ED Back Pain/Injury Stated complaint: back pain Time Seen by Provider: 11/17/18 09:15 Source: patient Limitations: no limitations - History of Present Illness Location: back, abdomen Pain Scale: 10 - Related Data Home Medications Medication Instructions Recorded Confirmed Aspirin Enteric Coated [Aspirin EC] 81 mg PO HS 01/22/15 07/09/18 Ropinirole HCl [Requip] 1 mg PO HS 01/22/15 07/09/18 Mirtazapine [Remeron] 15 mg PO HS 06/22/16 07/09/18 Nitroglycerin [Nitrostat] 0.4 mg PO Q5M PRN 08/25/16 07/09/18 Baclofen [Lioresal] 10 mg PO TID 02/18/18 07/09/18 Citalopram Hydrobromide [Celexa] 40 mg PO DAILY 02/18/18 07/09/18 Ipratropium/Albuterol Neb [Duoneb] 3 ml IH Q4H PRN 02/18/18 07/09/18 Sennosides/Docusate Sodium 1 each PO HS PRN 02/18/18 07/09/18 [Senna-S Tablet] Albuterol Sulfate [Ventolin Hfa] 2 puff PO Q4H PRN 07/09/18 07/09/18 Budesonide/Formoterol 80/4.5 2 puff IH BIDR PRN 07/09/18 07/09/18 [Symbicort 80/4.5] Lidocaine Patch [Lidoderm 5% patch] 1 patch TP Q12H PRN 07/09/18 07/09/18 Losartan Potassium 50 mg PO DAILY 07/09/18 07/09/18 Ondansetron HCl 8 mg PO BID PRN 07/09/18 07/09/18 Varenicline Tartrate [Chantix 0.5 - 1 mg PO AD 07/09/18 07/09/18 Starting Month CHARLES] clonazePAM [Clonazepam] 1 mg PO BID PRN 07/09/18 07/09/18 Previous Rx's Medication Instructions Recorded Ticagrelor [Brilinta] 90 mg PO BID #60 tablet 01/12/17 Isosorbide MONOnitrate (24 HR) 30 mg PO DAILY #30 tab.er.24h 02/19/18 [Imdur] Rosuvastatin [Crestor] 20 mg PO HS #30 tablet 07/11/18 Allergies Allergy/AdvReac Type Severity Reaction Status Date / Time acetaminophen [From Percocet] Allergy Rash Verified 11/17/18 09:13 clonidine Allergy Blister Verified 11/17/18 09:13 oxycodone [From Percocet] Allergy Rash Verified 11/17/18 09:13 atorvastatin AdvReac Nausea Verified 11/17/18 09:13 lisinopril AdvReac Cough Verified 11/17/18 09:13 Past Medical History - Past Medical History Medical history: Reports: COPD, coronary artery disease, DVT, GERD, hepatitis, hyperlipidemia, hypertension, myocardial infarction, peripheral artery disease, renal disease, seizures Surgical history: Reports: angioplasty/stent, appendectomy, LAYO/BSO, other, LE bypass Psychiatric history: Reports: anxiety, depression RELATIONS MANAGER history: Reports: no RELATIONS MANAGER history - Social History Smoking Status: Current every day smoker Smokeless Tobacco Status: No Alcohol use: Reports: none Drug use: Reports: none Physical Exam - General Limitations: no limitations General appearance: alert, in no apparent distress Course Vital Signs Temperature 97.8 F 11/17/18 09:13 Pulse Rate 78 11/17/18 09:13 Respiratory Rate 22 11/17/18 09:13 Blood Pressure 195/109 11/17/18 09:13 O2 Sat by Pulse Oximetry 94 11/17/18 09:13 Temperature 97.8 F 11/17/18 09:13 Pulse Rate 71 11/17/18 11:30 Respiratory Rate 14 11/17/18 11:30 Blood Pressure 169/95 11/17/18 11:30 O2 Sat by Pulse Oximetry 95 11/17/18 11:30 Oxygen Delivery Oxygen Delivery Room Air Medical Decision Making - Lab Data Result diagrams: 11/17/18 09:39 11/17/18 09:39 Lab Results 11/17/18 11/17/18 11/17/18 Range/Units 09:39 09:39 09:39 WBC 10.3 (4.3-11.1) K/mcL RBC 5.76 H (3.82-4.97) M/mcL Hgb 16.7 H (11.5-15.4) g/dL Hct 49.1 H (35.3-44.9) % MCV 85.2 (83.0-100.0) fL MCH 29.0 (28.0-33.3) pg MCHC 34.0 (31.6-35.5) g/dL RDW 14.6 H (11.5-14.5) % Plt Count 254 (140-400) K/mcL MPV 10.2 (9.4-12.4) fL Immature Gran % 0.5 (0-4) % Seg Neutrophils % 77.8 % Lymphocytes % 15.2 % Monocytes % 3.7 % Eosinophils % 2.5 % Basophils % 0.3 % Neutrophils # 8.1 (1.6-8.9) K/mcL Lymphocytes # 1.6 (0.6-4.6) K/mcL Monocytes # 0.4 (0.0-1.3) K/mcL Eosinophils # 0.3 (0.0-0.6) K/mcL Basophils # 0.0 (0.0-0.2) K/mcL Sodium 138 (136-145) mEq/L Potassium 4.1 (3.5-5.1) mEq/L Chloride 103 (98-107) mEq/L Carbon Dioxide 24 (23-29) mEq/L BUN 18 (8-23) mg/dL Creatinine 1.07 (0.60-1.20) mg/dL Est GFR ( Amer) > 60 (> 60) Est GFR (Non-Af Amer) 51 L (> 60) BUN/Creatinine Ratio 17 (6-26) Glucose 118 H (70-105) mg/dL Calculated Osmolality 289 (280-300) Lactic Acid 0.7 (0.5-2.2) mmol/L Calcium 9.5 (8.6-10.3) mg/dL Total Bilirubin 0.4 (0.3-1.0) mg/dL AST 15 (13-39) Units/L ALT 7 (7-52) Units/L Alkaline Phosphatase 92 (34-104) Units/L Troponin I < 0.03 (< 0.04) ng/mL Serum Total Protein 7.7 (6.4-8.9) g/dL Albumin 4.3 (3.5-5.7) g/dL Globulin 3.4 (2.4-3.5) g/dL Albumin/Globulin Ratio 1.3 (1.1-2.2) Lipase 26 (11-82) Units/L Attestation Statement - Attestation Attestation: For this encounter, I have reviewed the BRAND DESIGNER or PA documentation, treatment plan, and medical decision making; and I have had face to face time with this patient CT results reviewed by surgery, who was concerning for cholecystitis. This is certainly the differential, although there are other potential isolations for her gallbladder wall edema, especially given the apparent lymphoma near the P ancreatic head. Patient will be admitted to medicine with consult by surgery..
[2018-11-17] MEDS ORDERED: Naloxone 0.4 MG/ML INJ IVP PRN ×2 (14:04→20:06)
--- NOTE | 2018-11-17 14:19 | Internal Med History&Physical ---
<Anatoliy León M - Last Filed: 11/17/18 16:29> Date of Encounter: 11/17/18 Time of Encounter: 14:17 Internal Medicine - H&P: HPI Chief complaint: Abdominal pain Admitted From: Home Plans for Post Hospital Care: Home History of present illness: Ms. Chavez is a 73 year old female PMHx hepatitis C, COPD, CAD; 6 stents, DVT who presented to the ED on 11/17/18 with cc of abdominal and mid back pain. She reports approximately 1 week of progressive abdominal and mid thoracic pain that worsened acutely last night and this morning. Pain is described as occasionally sharp, dull, ache, and cramping. Pain is worse in the mid thoracic region and radiates to the LUQ and epigastric area. Pain improved significantly with forward flexion. Pain worse when laying supine, post-prandial. She also reports 1-2 episodes of n/v at the onset of symptoms 1 week ago and additional n/v early today. Appetite has been decreased since the onset of symptoms but pt denies significant weight loss. She has never had similar pain prior to this episode. Endorses chronic diarrhea over the last year and complaints of dysphagia with right sided neck swelling and discomfort. She has GI f/u with endoscopy on 12/10/18 for persistent symptoms. Denies fever, malaise, cp, sob, jaundice, light stools. At admission her WBC was 10.3, lipase 26. CTA performed which did not demonstrate PE. CT of abdomen/pelvis demonstrated soft tissue mass near the pancreatic head and liver hilum with associated retroperitoneal LAD. CT also showed significant GB wall edema w/o stones or sludge. Past Med Surg Social Fam HX - Past Medical History Medical history: COPD, coronary artery disease, DVT, GERD, hepatitis, hyperlipidemia, hypertension, myocardial infarction, peripheral artery disease, renal disease, seizures Additional medical history: scoliosis Psychiatric history: anxiety, depression - Past Surgical History Surgical History: angioplasty/stent, appendectomy, LAYO/BSO, other, LE bypass Additional surgical history: tonsillectomy, cardiac stents - Social History Smoking Status: Current every day smoker Smokeless Tobacco Status: No Alcohol use: none Drug use: none - Family History Mother Living Status: Hx Family Cardiac Disorders: Yes Sister Adopted: No Living Status: Still Living Hx Family Cardiac Disorders: Yes Hx Family Respiratory Disorders: No Hx Family Cancer: No Hx Family GI Disorders: No Hx Family Endocrine Disorder: No Hx Family Neuromuscular Disorders: No Hx Family Neurologic Disorders: No Hx Family HEENT Disorders: No Hx Family Autoimmune Disorders: No Father Living Status: Hx Family Cardiac Disorders: Yes Hx Family Respiratory Disorders: No Hx Family Cancer: No Hx Family GI Disorders: Yes Hx Family Endocrine Disorder: No Hx Family Neuromuscular Disorders: No Hx Family Neurologic Disorders: No Hx Family HEENT Disorders: No Hx Family Autoimmune Disorders: No Internal Medicine - H&P: Meds Aspirin Enteric Coated [Aspirin EC] 81 mg PO DAILY 01/22/15 [History] Ropinirole HCl [Requip] 1 mg PO HS 01/22/15 [History] Mirtazapine [Remeron] 15 mg PO HS 06/22/16 [History] Nitroglycerin [Nitrostat] 0.4 mg PO Q5M PRN 08/25/16 [History] Ticagrelor [Brilinta] 90 mg PO BID #60 tablet 01/12/17 [Rx] Baclofen [Lioresal] 10 mg PO TID 02/18/18 [History] Citalopram Hydrobromide [Celexa] 40 mg PO DAILY 02/18/18 [History] Ipratropium/Albuterol Neb [Duoneb] 3 ml IH Q4H PRN 02/18/18 [History] Isosorbide MONOnitrate (24 HR) [Imdur] 30 mg PO DAILY #30 tab.er.24h 02/19/18 [Rx] Albuterol Sulfate [Ventolin Hfa] 2 puff PO Q4H PRN 07/09/18 [History] Losartan Potassium 50 mg PO DAILY 07/09/18 [History] Ondansetron HCl 8 mg PO BID PRN 07/09/18 [History] clonazePAM [Clonazepam] 1 mg PO BID PRN 07/09/18 [History] Cilostazol 50 mg PO BID 11/17/18 [History] Esomeprazole Magnesium [Nexium] 40 mg PO DAILY 11/17/18 [History] Fluticasone Propionate Nasal [Flonase] 100 mcg NS DAILY PRN 11/17/18 [History] Sucralfate [Carafate] 1 gm PO 0730,1630 11/17/18 [History] Allergy/AdvReac Type Severity Reaction Status Date / Time acetaminophen [From Percocet] Allergy Rash Verified 11/17/18 09:13 clonidine Allergy Blister Verified 11/17/18 09:13 oxycodone [From Percocet] Allergy Rash Verified 11/17/18 09:13 atorvastatin AdvReac Nausea Verified 11/17/18 09:13 lisinopril AdvReac Cough Verified 11/17/18 09:13 All Systems PM: A 10-system review of systems was performed and is negative for pertinent findings except as documented above in the HPI. - Constitutional Constitutional: fatigue, no anorexia, no fever(s), no lethargy, no night sweats, no weight loss - EENT Eyes: no change in vision, no loss of vision Ears: no ear pain, no tinnitus Nose, mouth and throat: dysphagia, neck mass, neck pain - Cardiovascular Cardiovascular ROS IM: no chest pain, no diaphoresis, no dyspnea, no edema, no irregular heart rhythm, no palpitations, no syncope - Respiratory Respiratory: no cough, no dyspnea, no wheezing, no chest congestion - Gastrointestinal Gastrointestinal: abdominal pain, cramping, diarrhea, dyspepsia, nausea, vomiting, no constipation, no hematemesis, no hematochezia - Genitourinary Genitourinary: no change in urinary stream, no flank pain - Musculoskeletal Musculoskeletal ROS IM: arthralgias, back pain (midline thoracic) - Integumentary Integumentary IM: no rash, no sores, no jaundice - Neurological Neurological ROS: no abnormal speech, no confusion, no dizziness, no frequent falls, no vertigo - Psychiatric Psychiatric: depression, no behavioral changes, no hallucinations - Endocrine Endocrine IM: cold intolerance, fatigue - Hematologic/Lymphatic Hematologic/Lymphatic: lymphadenopathy (reports right sided neck swelling) - Allergic/Immunologic Allergic/Immunologic: no tongue swelling, no throat swelling, no wheezing - Constitutional Vitals: Temp Pulse Resp BP Pulse Ox 97.8 F 66 15 143/82 93 11/17/18 09:13 11/17/18 13:00 11/17/18 12:00 11/17/18 13:00 11/17/18 13:00 General appearance: Present: A&O X 3, pleasant, no acute distress Exam: see below - Head Head exam: Present: atraumatic, normocephalic - Eye Eye exam: Present: EOMI, PERRL, conjuntiva pink. Absent: conjunctival injection, scleral icterus Pupils: Present: PERRL - ENT ENT exam: Present: mucous membranes moist, normal oropharynx - Neck Neck exam general surgery: Present: trachea midline. Absent: tenderness, thyromegaly Additional comments: pt reports right sided neck swelling, unable to appreciate on exam - Respiratory Respiratory exam: Present: CTAB. Absent: accessory muscle use, chest wall tenderness, rales, rhonchi, wheezes - Cardiovascular Cardiovascular exam: Present: gallop, RRR, +S1, +S2. Absent: diastolic murmur, JVD, systolic murmur - GI/Abdominal GI/Abdominal exam: Present: firm, guarding (mild), normal bowel sounds, tenderness (Epigastric, LUQ). Absent: distended, mass, rebound - Extremities Exam Extremities exam: Present: normal capillary refill, warm. Absent: cyanotic, pedal edema, tenderness - Back Exam Back exam: Absent: CVA tenderness (L), CVA tenderness (R), tenderness - Neurological Exam Neurological exam: Present: alert, CN II-XII intact, no focal deficits. Absent: facial droop - Psychiatric Psychiatric exam: Present: normal affect, normal mood - Skin Skin exam: Present: intact, normal color, warm Internal Med - H&P Results - Labs CBC & Chem 7: 11/17/18 09:39 11/17/18 09:39 Labs: Short CBC 11/17/18 Range/Units 09:39 WBC 10.3 (4.3-11.1) K/mcL Hgb 16.7 H (11.5-15.4) g/dL Hct 49.1 H (35.3-44.9) % Plt Count 254 (140-400) K/mcL Neutrophils # 8.1 (1.6-8.9) K/mcL BMP 11/17/18 09:39 Sodium 138 Potassium 4.1 Chloride 103 Carbon Dioxide 24 BUN 18 Creatinine 1.07 Glucose 118 H Calcium 9.5 Cardiac Enzymes 11/17/18 Range/Units 09:39 Troponin I < 0.03 (< 0.04) ng/mL Liver Function 11/17/18 Range/Units 09:39 Total Bilirubin 0.4 (0.3-1.0) mg/dL AST 15 (13-39) Units/L ALT 7 (7-52) Units/L Alkaline Phosphatase 92 (34-104) Units/L Albumin 4.3 (3.5-5.7) g/dL - Impressions ITS Impressions Abdomen/Pelvis CT 11/17/18 09:24 IMPRESSION: 1. Negative for pulmonary embolic disease. 2. Large (approximately 5 x 4 x 5 cm) lobular upper retroperitoneal mass with associated upper abdominal and retroperitoneal lymphadenopathy. Lymphoma is felt most likely. Axillary lymphadenopathy has improved since the prior exam. 3. Gallbladder wall edema. D/ / 11/17/2018 11:06:55 Jeremy Marley MD / elis Interpreting Provider: Jeremy Marley MD Chest CTA 11/17/18 09:24 IMPRESSION: 1. Negative for pulmonary embolic disease. 2. Large (approximately 5 x 4 x 5 cm) lobular upper retroperitoneal mass with associated upper abdominal and retroperitoneal lymphadenopathy. Lymphoma is felt most likely. Axillary lymphadenopathy has improved since the prior exam. 3. Gallbladder wall edema. D/ / 11/17/2018 11:06:55 Jeremy Marley MD / elis Interpreting Provider: Jeremy Marley MD - Assessment and Plan (1) Thickening of wall of gallbladder Current Visit: Yes Status: Acute Assessment and plan: Patient presented to ED for acute epigastric ap radiating to the mid back. She was treated with IV pain medication and anti-emetics. CT performed revealed significant gallbladder wall edema, with suspicion of cholecystitis. Surgery consulted and suggested to proceed with cholecystectomy. Pt was given abx in ED. - Oxycodone 5 mg SL for pain. - NPO, IV fluids. - Phenergan PO for nausea. - Surgery agreed to see patient and pt to be prepped for cholecystectomy today. Appreciate assistance. (2) Intraabdominal mass Current Visit: Yes Status: Acute Assessment and plan: Pt reports epigastric pain radiating to the mid back that improves with forward flexion. CT demonstrated lobular soft tissue mass near the hilum of the liver and pancreatic head w/associated retroperitoneal LAD suggestive of lymphoma. It is likely that this mass is contributing to abdominal pain and possibly contributing to GB edema. - Heme/Onc consulted and agreed to see pt, recommends CEA, CA-19-9, and GI consult for EUS w/biopsy for further evaluation. Appreciate assistance. - Pain meds, anti-emetics. - Cholecystectomy today with possibility of intra-operative biopsy. (3) Angina pectoris Current Visit: No Status: Acute Assessment and plan: Pt has a history of 3 vessel CAD with 6 stents. EKG negative for ischemia, troponin WNL at this time. - Continue home isosorbide mononitrate. SL nitrostat PRN for chest pain. - ASA. (4) CAD (coronary artery disease) Current Visit: No Status: Acute Assessment and plan: Pt with history of 3 vessel CAD. Cardiac w/u negative at this time. - Continue cilostazol. - Hold Brillenta prior to surgery. - Home isosorbide mononitrate, SL nitrostat PRN. Qualifiers: Coronary Disease-Associated Artery/Lesion type: samish artery [place] vs. transplanted heart: samish heart Associated angina: with unspecified angina Qualified Code(s): I25.119 - Atherosclerotic heart disease of samish coronary artery with unspecified angina pectoris (5) COPD (chronic obstructive pulmonary disease) Current Visit: No Status: Chronic Assessment and plan: Pt with significant smoking history and mild-moderate COPD. Currently stable, asymptomatic. - Continue home Duonebs Q4H PRN. - Continue home Proventil Q4H PRN. - Vital signs Q4H. - Monitor for hypoxia, oxygen PRN. Qualifiers: COPD type: emphysema Emphysema type: panlobular Qualified Code(s): J43.1 - Panlobular emphysema (6) HTN (hypertension) Current Visit: No Status: Chronic Assessment and plan: Pt had significant BP elevations up to 223/113, likely secondary to acute pain. Current BP is 146/97 with adequate pain control. - Continue home losartan 50 mg daily. - Vitals Q4H. Qualifiers: Hypertension type: essential hypertension Qualified Code(s): I10 - Essential (primary) hypertension (7) GERD (gastroesophageal reflux disease) Current Visit: No Status: Chronic Assessment and plan: Pt reports chronic GERD, slightly improved with home PPI. - Start protonix. - NPO at this time. Qualifiers: Esophagitis presence: without esophagitis Qualified Code(s): K21.9 - Gastro-esophageal reflux disease without esophagitis (8) Tobacco use disorder Current Visit: No Status: Chronic Assessment and plan: Pt with significant smoking history. Smokes 1-1/2 PPD currently. - Nicotene patches PRN. - Summary of Assessment and Plan Summary of Assessment and Plan: Patient seen in ED for acute abdominal/mid back pain. Was treated with IVF, pain meds, anti-emetics with improvement. CT demonstrated soft tissue mass near mcfadden creatic head with retroperitoneal LAD and GB edema. Surgery consulted and agreed to proceed with cholecystectomy. Heme/onc consulted for soft tissue mass and recommended CA 19-9, CEA and f/u with GI for EUS w/biopsy. - Time Spent With Patient Total time spent is greater than 50% in coordination of care (as documented) at patient's floor/unit and/or counseling patient: <Jono Das Chely - Last Filed: 11/17/18 16:44> Date of Encounter: 11/17/18 Internal Medicine - H&P: HPI History of present illness: Ms. Chavez is a 73 year old female All Systems PM: A 10-system review of systems was performed and is negative for pertinent findings except as documented above in the HPI. - Constitutional Vitals: Temp Pulse Resp BP Pulse Ox 97.8 F 68 16 148/84 96 11/17/18 09:13 11/17/18 16:09 11/17/18 16:09 11/17/18 16:09 11/17/18 16:09 Internal Med - H&P Results - Labs CBC & Chem 7: 11/17/18 09:39 11/17/18 09:39 Labs: Short CBC 11/17/18 Range/Units 09:39 WBC 10.3 (4.3-11.1) K/mcL Hgb 16.7 H (11.5-15.4) g/dL Hct 49.1 H (35.3-44.9) % Plt Count 254 (140-400) K/mcL Neutrophils # 8.1 (1.6-8.9) K/mcL BMP 11/17/18 09:39 Sodium 138 Potassium 4.1 Chloride 103 Carbon Dioxide 24 BUN 18 Creatinine 1.07 Glucose 118 H Calcium 9.5 Cardiac Enzymes 11/17/18 Range/Units 09:39 Troponin I < 0.03 (< 0.04) ng/mL Liver Function 11/17/18 Range/Units 09:39 Total Bilirubin 0.4 (0.3-1.0) mg/dL AST 15 (13-39) Units/L ALT 7 (7-52) Units/L Alkaline Phosphatase 92 (34-104) Units/L Albumin 4.3 (3.5-5.7) g/dL - Impressions ITS Impressions Abdomen/Pelvis CT 11/17/18 09:24 IMPRESSION: 1. Negative for pulmonary embolic disease. 2. Large (approximately 5 x 4 x 5 cm) lobular upper retroperitoneal mass with associated upper abdominal and retroperitoneal lymphadenopathy. Lymphoma is felt most likely. Axillary lymphadenopathy has improved since the prior exam. 3. Gallbladder wall edema. D/ / 11/17/2018 11:06:55 Jeremy Marley MD / elis Interpreting Provider: Jeremy Marley MD Chest CTA 11/17/18 09:24 IMPRESSION: 1. Negative for pulmonary embolic disease. 2. Large (approximately 5 x 4 x 5 cm) lobular upper retroperitoneal mass with associated upper abdominal and retroperitoneal lymphadenopathy. Lymphoma is felt most likely. Axillary lymphadenopathy has improved since the prior exam. 3. Gallbladder wall edema. D/ / 11/17/2018 11:06:55 Jeremy Marley MD / elis Interpreting Provider: Jeremy Marley MD - Assessment and Plan (1) Acute cholecystitis Current Visit: Yes Status: Suspected (2) Intraabdominal mass Current Visit: Yes Status: Acute (3) CAD (coronary artery disease) Current Visit: No Status: Chronic Qualifiers: Coronary Disease-Associated Artery/Lesion type: samish artery [place] vs. transplanted heart: samish heart Associated angina: without angina Qualified Code(s): I25.10 - Atherosclerotic heart disease of samish coronary artery without angina pectoris (4) HTN (hypertension) Current Visit: No Status: Chronic Qualifiers: Hypertension type: essential hypertension Qualified Code(s): I10 - Essential (primary) hypertension (5) PAD (peripheral artery disease) Current Visit: No Status: Chronic (6) Tobacco use disorder Current Visit: No Status: Chronic (7) Mixed hyperlipidemia Current Visit: No Status: Chronic - Time Spent With Patient Total time spent is greater than 50% in coordination of care (as documented) at patient's floor/unit and/or counseling patient: - Attending Attestation I examined this patient and my medical decision-making was reviewed with the Resident Physician on 11/17/18. I agree with the documented findings, disposition and treatment plan as described except to the extent set forth below. 73 y/o female with hx of CAD s/p stents presented to ED with abdominal pain. She was evaluated and there is concern for cholecystitis. She is being placed in observation. At this time she is having midepigastric discomfort. No fever or chills. No cough. Exam: Alert. Oriented. EOMI. NC. Mucus membranes moist. Neck supple. Heart reg without murmur. Lungs clear. Abd with epigastric discomfort. No peritoneal signs. No edema. Moves all extremities. No rash. CT shows thickened gallbladder wall and mass near head of pancreas - ? lymphoma Plan Observe. Surg consult. GI eval - ? outpatient versus inpatient. Pain control
[2018-11-17 14:31] LABS: Chol/HDL Ratio 3.8 (0-4.9); Cholesterol 178 mg/dL (< 200); HDL Cholesterol 47 mg/dL (40-59); LDL Cholesterol,Calculated 108 mg/dL (0-99); Magnesium 1.8 mg/dL (1.6-2.6); Triglycerides 115 mg/dL (< 150)
[2018-11-17] MEDS ORDERED: 0.9 % Sodium Chloride 1,000 ML IVC SCH (15:00)
[2018-11-17] MEDS ORDERED: SODIUM CHLORIDE 0.9% IVPB ONE (15:12)
[2018-11-17] MEDS ORDERED: KETAMINE IVPB ONE (15:12)
[2018-11-17] MEDS ORDERED: Ipratropium/Albuterol Neb 3 ML IH PRN ×2 (15:34→20:06)
[2018-11-17] MEDS ORDERED: clonazePAM 1 MG TABLET PO PRN ×2 (15:34→20:06)
[2018-11-17] MEDS ORDERED: Fluticasone Propionate Nasal 50 MCG/SPRAY BOTTLE NS PRN ×2 (15:34→20:06)
[2018-11-17] MEDS ORDERED: Nitroglycerin 0.4 MG TAB.SUBL SL PRN ×2 (15:34→20:06)
[2018-11-17] MEDS ORDERED: Albuterol 2.5 MG/3 ML NEBULIZER ONE (16:21)
[2018-11-17] MEDS ORDERED: Sucralfate 1 GM TABLET PO SCH (16:30)
[2018-11-17 17:21] LABS: Carcinoembryonic Antigen 2.9 ng/mL (Less than 5.0)
--- NOTE | 2018-11-17 17:24 | Anesthesia Evaluation PreOp ---
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 Significant HX Other Medical History: Hepatic (Hep C), Other (Anxiety Depression) Anesthesia History: No Prior Anesthetic Complications Alcohol Use: none Drug use: none Medications and Allergies Aspirin Enteric Coated [Aspirin EC] 81 mg PO DAILY 01/22/15 [History] Ropinirole HCl [Requip] 1 mg PO HS 01/22/15 [History] Mirtazapine [Remeron] 15 mg PO HS 06/22/16 [History] Nitroglycerin [Nitrostat] 0.4 mg PO Q5M PRN 08/25/16 [History] Ticagrelor [Brilinta] 90 mg PO BID #60 tablet 01/12/17 [Rx] Baclofen [Lioresal] 10 mg PO TID 02/18/18 [History] Citalopram Hydrobromide [Celexa] 40 mg PO DAILY 02/18/18 [History] Ipratropium/Albuterol Neb [Duoneb] 3 ml IH Q4H PRN 02/18/18 [History] Isosorbide MONOnitrate (24 HR) [Imdur] 30 mg PO DAILY #30 tab.er.24h 02/19/18 [Rx] Albuterol Sulfate [Ventolin Hfa] 2 puff PO Q4H PRN 07/09/18 [History] Losartan Potassium 50 mg PO DAILY 07/09/18 [History] Ondansetron HCl 8 mg PO BID PRN 07/09/18 [History] clonazePAM [Clonazepam] 1 mg PO BID PRN 07/09/18 [History] Cilostazol 50 mg PO BID 11/17/18 [History] Esomeprazole Magnesium [Nexium] 40 mg PO DAILY 11/17/18 [History] Fluticasone Propionate Nasal [Flonase] 100 mcg NS DAILY PRN 11/17/18 [History] Sucralfate [Carafate] 1 gm PO 0730,1630 11/17/18 [History] Allergy/AdvReac Type Severity Reaction Status Date / Time acetaminophen [From Percocet] Allergy Rash Verified 11/17/18 09:13 clonidine Allergy Blister Verified 11/17/18 09:13 oxycodone [From Percocet] Allergy Rash Verified 11/17/18 09:13 atorvastatin AdvReac Nausea Verified 11/17/18 09:13 lisinopril AdvReac Cough Verified 11/17/18 09:13 - Meds/Allergy Pre-op Review Medications Reviewed: Yes Allergies Reviewed: Yes Beta Blockers on Current Med List: No Anesthesia Results - Labs 11/17/18 09:39 11/17/18 09:39 - Imaging Additional studies: ECHO EF 60% Anesthesia Exam O2 Sat Height 1.55 m Weight 46.312 kg O2 Sat by Pulse Oximetry 96 O2 Sat by Pulse Oximetry 97 O2 Sat by Pulse Oximetry 93 O2 Sat by Pulse Oximetry 94 O2 Sat by Pulse Oximetry 95 O2 Sat by Pulse Oximetry 94 O2 Sat by Pulse Oximetry 96 O2 Sat by Pulse Oximetry 94 Vital Signs Temp Pulse Resp BP Pulse Ox 97.8 F 78 22 195/109 94 11/17/18 09:13 11/17/18 09:13 11/17/18 09:13 11/17/18 09:13 11/17/18 09:13 Height: 5'1 Weight: 102 lbs NPO (# of Hours): MN Pain Scale: 0 - HEENT Pupil (Motor): Pupils equal, EOMI Mallampati: III Teeth: Edentulous Oral Opening: Less than or equal to 3 - GEOTECHNICAL LABORATORY TECHNICIAN LOC: Oriented GEOTECHNICAL LABORATORY TECHNICIAN Motor: Normal RUE, Normal LUE, Normal RLE, Normal LLE, Normal Face GEOTECHNICAL LABORATORY TECHNICIAN Sensory: Normal: RUE, LUE, RLE, LLE, Face - Cardiac Rhythm: Regular Murmur: None JVD: No Carotid Bruit: No - Pulmonary Breath Sounds: bilateral Clear Respiratory Effort: Symmetrical Anesthesia Assess/Plan ASA Score: 3 (CAD Tobacco COPD) Level of consciousness: Cooperative, Oriented Anesthetic Plan: General Autologous Blood: No Monitoring Plan: Standard Monitors Recovery Plan: PACU (Discussed GA, agrees to proceed)
[2018-11-17] MEDS ORDERED: Dexamethasone 4 MG/ML VIAL ONE (17:30)
[2018-11-17] MEDS ORDERED: Ondansetron 4 MG/2 ML VIAL ONE (17:30)
[2018-11-17] MEDS ORDERED: *HR* Propofol 200 MG/20 ML VIAL IVP ONE (17:30)
[2018-11-17] MEDS ORDERED: Lidocaine -MPF 2% 2 ML VIAL ONE (17:30)
[2018-11-17] MEDS ORDERED: *HR* FentaNYL (PF) 100 MCG/2 ML VIAL ONE (17:30)
[2018-11-17] MEDS ORDERED: *HR* Rocuronium Bromide 50 MG/5 ML VIAL ONE (17:31)
[2018-11-17] MEDS ORDERED: *HR* OxyCODONE Immed Rel 5 MG TABLET PO PRN (19:04)
[2018-11-17] MEDS ORDERED: *HR* Labetalol 20 MG/4 ML SYRINGE IVP PRN (19:04)
[2018-11-17] MEDS ORDERED: Morphine Sulfate 2 MG/ML SYRINGE IVP PRN (19:04)
--- NOTE | 2018-11-17 19:16 | Operative Note ---
Date of procedure: 11/17/18 Pre-op diagnosis: acute cholecystitis Post-op diagnosis: same Procedure: Laparoscopic cholecystectomy Complications: none Anesthesia: GETA Surgeon: Ortiz Albrecht Was there an field research assistant present: Yes Charge Master Specialist: Tabatha Singh Estimated blood loss (cc): 20 Specimen: 1. gallbladder 2. LN Condition: stable Disposition: PACU Procedure in Detail: This 73 year-old female was taken to the operating room and placed in the supine position. The anterior abdominal wall is prepped and draped in the usual sterile fashion. A 1-2 cm curvilinear incision is made in the infraumbilical area and subcutaneous tissue was dissected down to anterior rectus fascia. Fascia is grasped with a Puma clamp, stay sutures were placed in the fascia is divided. Posterior rectus fascia and peritoneum were elevated and divided in the same manner. A Abhi port is inserted. Exploration of the intraabdominal cavity reveals an abnormal gallbladder but, normal appearing liver. Under direct visualization after the injection of 0.5% Marcaine the three right subcostal 5 mm ports were inserted. The patient is placed in reverse Trendelenburg position and rotated to the left. The gallbladder is grasped and retracted in cephalad direction. It is also grasped and retracted in the lateral direction. The retroperitoneal mass is not visualized easily. However, the LN of [place] is enlarged and removed for biopsy. The cystic duct was carefully identified circumferentially dissected, doubly clipped and divided between clips. The gallbladder is dissected off the liver bed using electrocautery. Hemostasis was perfected using electrocautery. The gallbladder is removed from the intra-abdominal cavity using an Endo Catch bag. Copious irrigation is carried out in the intra-abdominal cavity, Dennis's pouch and the gallbladder fossa. The pneumoperitoneum was allowed to escape under direct visualization. The ports were removed also under direct visualization. The fascia at the infraumbilical incision is closed using 0 Vicryl sutures. All skin incisions are closed using 4-0 Monocryl subcuticular stitches. Steri- Strips are placed. Sterile dressing is placed. Patient tolerated procedure well was taken to the PACU in good condition.
[2018-11-17] MEDS ORDERED: Baclofen 10 MG TABLET PO SCH (21:00)
[2018-11-17] MEDS ORDERED: Mirtazapine 15 MG TABLET PO SCH (21:00)
[2018-11-17] MEDS ORDERED: rOPINIRole 1 MG TABLET PO SCH (21:00)
[2018-11-17] MEDS: rOPINIRole 1 MG TABLET PO SCH (21:13)
[2018-11-17] MEDS: Mirtazapine 15 MG TABLET PO SCH (21:14)
[2018-11-17] MEDS: Baclofen 10 MG TABLET PO SCH (21:14)
[2018-11-17] MEDS: 0.9 % Sodium Chloride 1,000 ML IVC SCH (21:16)
[2018-11-18] MEDS: Ampicillin/Sulbactam 3,000 MG in 0.9 % Sodium Chloride Mini Bag 100 ML IVPB SCH ×4 (01:02→17:08)
[2018-11-18 04:37] LABS: Basophils % 0.2 %; Eosinophils % 0.1 %; Hematocrit 40.6 % (35.3-44.9); Immature Granulocytes % 0.6 % (0-4); Lymphocytes # 0.9 K/mcL (0.6-4.6); Lymphocytes % 8.5 %; Mean Corpuscular Hemoglobin 28.5 pg (28.0-33.3); Mean Corpuscular Volume 86.4 fL (83.0-100.0); Monocytes # 0.4 K/mcL (0.0-1.3); Monocytes % 3.9 %; Neutrophils # 9.4 K/mcL (1.6-8.9); Platelet Count 188 K/mcL (140-400); Red Cell Distribution Width 14.7 % (11.5-14.5); Segmented Neutrophils % 86.7 %; White Blood Count 10.8 K/mcL (4.3-11.1)
[2018-11-18 04:39] LABS: Hemoglobin 13.4 g/dL (11.5-15.4)
[2018-11-18 05:01] LABS: Alanine Aminotransferase 59 Units/L (7-52); Albumin 3.4 g/dL (3.5-5.7); Albumin/Globulin Ratio 1.3 (1.1-2.2); Alkaline Phosphatase 70 Units/L (34-104); Aspartate Amino Transferase 106 Units/L (13-39); BUN/Creatinine Ratio 18 (6-26); Bilirubin,Total 0.4 mg/dL (0.3-1.0); Blood Urea Nitrogen 17 mg/dL (8-23); Calcium 8.1 mg/dL (8.6-10.3); Carbon Dioxide 21 mEq/L (23-29); Chloride 106 mEq/L (98-107); Globulin 2.7 g/dL (2.4-3.5); Glucose 127 mg/dL (70-105); Osmolality,Calculated 287 (280-300); Sodium 137 mEq/L (136-145); Total Protein 6.1 g/dL (6.4-8.9); eGFR For African Americans > 60 (> 60); eGFR For Non-African Americans 59 (> 60)
[2018-11-18] MEDS: 0.9 % Sodium Chloride 1,000 ML IVC SCH ×3 (05:46→17:15)
--- NOTE | 2018-11-18 07:45 | Internal Med Progress Note ---
<Anatoliy León - Last Filed: 11/18/18 11:53> Hospitalist Progress Note - Encounter Date of Encounter: 11/18/18 Time of Encounter: 07:45 - Subjective Interval History: Pt awake, in bed, appears comfortable. S/P cholecystectomy. Reports improvement in both her mid back and abdominal pain. Surgical wounds intact and normal. Surg franky has discharged pt and recs f/u biopsy for soft tissue mass. Plan to d/c antiplatelet therapy prior to biopsy. - Exam Vitals: Temp Pulse Resp BP Pulse Ox 98.5 F 73 15 105/60 95 11/18/18 06:42 11/18/18 06:42 11/18/18 06:42 11/18/18 06:42 11/18/18 06:42 Exam: GA: A&O X 3, pleasant, no acute distress Head: atraumatic, normocephalic Eyes: EOMI, PERRL, conjuntiva pink. ENT: mucous membranes moist, normal oropharynx Neck: no tenderness, thyromegaly Lungs: CTAB. No rales, rhonchi, wheezes CV: RRR, +S1, +S2. No murmur, rub, gallop. GI: Surgical incisions dry and clean. Abdomen firm, slightly distended, normal bowel sounds, tenderness (Epigastric, LUQ, RUQ). Ext: no cyanosis, pedal edema, tenderness Back: no significant tenderness to palpation. Neuro: alert, no focal deficits. - Assessment and Plan (1) Thickening of wall of gallbladder Current Visit: Yes Status: Resolved Assessment and Plan: Pt is s/p cholecystectomy for suspected cholecystitis. Pain improved significantly since procedure. Discharged by surgery, appreciate there assistance. - Advance to regular diet per surgery. - Continue IV abx. - Continue oxycodone, phenergan for pain/nausea. - Monitor for changes overnight with plans to discharge tomorrow with GI f/u. (2) Intraabdominal mass Current Visit: Yes Status: Acute Assessment and Plan: Soft tissue mass was unable to be accessed during surgery. However, a small LN was taken for biopsy. - Monitor tonight. Advance to regular diet. - Routine f/u for EUS with biopsy for soft tissue mass per surgery. - Oncology consult today. - Continue oxycodone, phenergan for pain/nausea. (3) Angina pectoris Current Visit: No Status: Acute Assessment and Plan: Pt w/history of 3 vessel CAD x 6 stents. Negative cardiac workup. - Continue home isosorbide mononitrate. SL nitrostat PRN for chest pain. - ASA. (4) CAD (coronary artery disease) Current Visit: No Status: Chronic Assessment and Plan: Pt with history of 3 vessel CAD. Cardiac w/u negative. - Continue cilostazol d/c prior to surgery. - Hold Brillenta. - Home isosorbide mononitrate, SL nitrostat PRN. (5) COPD (chronic obstructive pulmonary disease) Current Visit: No Status: Chronic Assessment and Plan: Pt with significant smoking history and mild-moderate COPD. Currently stable, asymptomatic. - Continue home Duonebs Q4H PRN. - Continue home Proventil Q4H PRN. - 2 L NC. (6) HTN (hypertension) Current Visit: No Status: Chronic Assessment and Plan: Pt had significant BP elevations up to 223/113, likely secondary to acute pain. Current BP is 105/68 with adequate pain control. - Continue home losartan 50 mg daily. - Vitals Q4H. (7) GERD (gastroesophageal reflux disease) Current Visit: No Status: Chronic Assessment and Plan: Pt reports chronic GERD, slightly improved with home PPI. - Protonix daily. - Advance diet per surgery. (8) Tobacco use disorder Current Visit: No Status: Chronic Assessment and Plan: Pt with significant smoking history. Smokes 1-1/2 PPD currently. - Nicotene patches PRN. DVT Prophylaxis: SQ Heparin - Time Spent with Patient Total time spent is greater than 50% in coordination of care (as documented) at patient's floor/unit and/or counseling patient: Plan of Care Discussed with: patient Internal Medicine: Result - Labs CBC & Chem 7: 11/18/18 03:33 11/18/18 03:33 Labs: Short CBC 11/17/18 11/18/18 Range/Units 09:39 03:33 WBC 10.3 10.8 (4.3-11.1) K/mcL Hgb 16.7 H 13.4 D (11.5-15.4) g/dL Hct 49.1 H 40.6 (35.3-44.9) % Plt Count 254 188 (140-400) K/mcL Neutrophils # 8.1 9.4 H (1.6-8.9) K/mcL BMP 11/17/18 11/18/18 09:39 03:33 Sodium 138 137 Potassium 4.1 4.0 Chloride 103 106 Carbon Dioxide 24 21 L BUN 18 17 Creatinine 1.07 0.93 Glucose 118 H 127 H Calcium 9.5 8.1 L Cardiac Enzymes 11/17/18 Range/Units 09:39 Troponin I < 0.03 (< 0.04) ng/mL Liver Function 11/17/18 11/18/18 Range/Units 09:39 03:33 Total Bilirubin 0.4 0.4 (0.3-1.0) mg/dL AST 15 106 H (13-39) Units/L ALT 7 59 H (7-52) Units/L Alkaline Phosphatase 92 70 (34-104) Units/L Albumin 4.3 3.4 L (3.5-5.7) g/dL - Impressions Impressions Abdomen/Pelvis CT 11/17/18 09:24 IMPRESSION: 1. Negative for pulmonary embolic disease. 2. Large (approximately 5 x 4 x 5 cm) lobular upper retroperitoneal mass with associated upper abdominal and retroperitoneal lymphadenopathy. Lymphoma is felt most likely. Axillary lymphadenopathy has improved since the prior exam. 3. Gallbladder wall edema. D/ / 11/17/2018 11:06:55 Jeremy Marley MD / elis Interpreting Provider: Jeremy Marley MD Chest CTA 11/17/18 09:24 IMPRESSION: 1. Negative for pulmonary embolic disease. 2. Large (approximately 5 x 4 x 5 cm) lobular upper retroperitoneal mass with associated upper abdominal and retroperitoneal lymphadenopathy. Lymphoma is felt most likely. Axillary lymphadenopathy has improved since the prior exam. 3. Gallbladder wall edema. D/ / 11/17/2018 11:06:55 Jeremy Marley MD / elis Interpreting Provider: Jeremy Marley MD Consult Discharge Plan - Plan Referrals: Horacio Hardin MD [Primary Care Provider] - <Jono Das - Last Filed: 11/18/18 15:35> Hospitalist Progress Note - Encounter Date of Encounter: 11/18/18 - Exam Vitals: Temp Pulse Resp BP Pulse Ox 97.9 F 80 16 112/56 92 11/18/18 11:54 11/18/18 11:54 11/18/18 11:54 11/18/18 11:54 11/18/18 11:54 - Assessment and Plan (1) Acute cholecystitis Current Visit: Yes Status: Suspected (2) Intraabdominal mass Current Visit: Yes Status: Acute (3) CAD (coronary artery disease) Current Visit: No Status: Chronic (4) HTN (hypertension) Current Visit: No Status: Chronic (5) PAD (peripheral artery disease) Current Visit: No Status: Chronic (6) Tobacco use disorder Current Visit: No Status: Chronic (7) Mixed hyperlipidemia Current Visit: No Status: Chronic - Time Spent with Patient Total time spent is greater than 50% in coordination of care (as documented) at patient's floor/unit and/or counseling patient: Internal Medicine: Result - Labs CBC & Chem 7: 11/18/18 03:33 11/18/18 03:33 Labs: Short CBC 11/18/18 Range/Units 03:33 WBC 10.8 (4.3-11.1) K/mcL Hgb 13.4 D (11.5-15.4) g/dL Hct 40.6 (35.3-44.9) % Plt Count 188 (140-400) K/mcL Neutrophils # 9.4 H (1.6-8.9) K/mcL BMP 11/17/18 11/18/18 09:39 03:33 Sodium 138 137 Potassium 4.1 4.0 Chloride 103 106 Carbon Dioxide 24 21 L BUN 18 17 Creatinine 1.07 0.93 Glucose 118 H 127 H Calcium 9.5 8.1 L Cardiac Enzymes 11/17/18 Range/Units 09:39 Troponin I < 0.03 (< 0.04) ng/mL Liver Function 11/17/18 11/18/18 Range/Units 09:39 03:33 Total Bilirubin 0.4 0.4 (0.3-1.0) mg/dL AST 15 106 H (13-39) Units/L ALT 7 59 H (7-52) Units/L Alkaline Phosphatase 92 70 (34-104) Units/L Albumin 4.3 3.4 L (3.5-5.7) g/dL - Attending Attestation I examined this patient and my medical decision-making was reviewed with the Resident Physician on 11/18/18. I agree with the documented findings, disposition and treatment plan as described except to the extent set forth below. Ms Chavez is currently hospitalized for abdominal pain related to acute cholecystitis. She remains moderate to high risk due to potential for worsening clinical status. Ms Chavez is feeling better from yesterday since surgery. Still with some pain. No fever or chills. No diarrhea. Exam: Alert. Comfortable. NC. EOMI. Mucus membranes dry. Neck supple. Heart not tachy. No wheeze. Abd with tenderness. No edema. No rash. Plan: Monitor overnight. Anticipate d/c tomorrow. Follow up outpatient. <Anatoliy León - Last Filed: 11/18/18 11:53> (4) CAD (coronary artery disease) Qualifiers: Coronary Disease-Associated Artery/Lesion type: [place] artery [place] vs. transplanted heart: [place] heart Associated angina: without angina Qualified Code(s): I25.10 - Atherosclerotic heart disease of [place] coronary artery without angina pectoris (5) COPD (chronic obstructive pulmonary disease) Qualifiers: COPD type: emphysema Emphysema type: panlobular Qualified Code(s): J43.1 - Panlobular emphysema (6) HTN (hypertension) Qualifiers: Hypertension type: essential hypertension Qualified Code(s): I10 - Essential (primary) hypertension (7) GERD (gastroesophageal reflux disease) Qualifiers: Esophagitis presence: without esophagitis Qualified Code(s): K21.9 - Gastro- esophageal reflux disease without esophagitis <Jono Das - Last Filed: 11/18/18 15:35> (3) CAD (coronary artery disease) Qualifiers: Coronary Disease-Associated Artery/Lesion type: [place] artery [place] vs. transplanted heart: [place] heart Associated angina: without angina Qualified Code(s): I25.10 - Atherosclerotic heart disease of [place] coronary artery without angina pectoris (4) HTN (hypertension) Qualifiers: Hypertension type: essential hypertension Qualified Code(s): I10 - Essential (primary) hypertension
[2018-11-18] MEDS ORDERED: Aspirin Enteric Coated 81 MG Tablet PO SCH (09:00)
[2018-11-18] MEDS ORDERED: Isosorbide MONOnitrate (24 HR) 30 MG TAB.ER.24H PO SCH (09:00)
--- NOTE | 2018-11-18 09:02 | AcuteCareSurgery Progress Note ---
Date of Encounter: 11/18/18 Time of Encounter: 07:30 - Assessment and Plan (1) Acute cholecystitis Current Visit: Yes Status: Suspected The patient has done well after laparoscopic cholecystectomy. She will need to follow-up for biopsy of retroperitoneal mass. This appears to be likely lymphatic tissue in the area of the retrohepatic vena cava just above the pancreas. She is currently on antiplatelet therapy for cardiac stents and this will need to be discontinued prior to biopsy. Follow-up acute care surgery clinic in 1-2 weeks. She will also need to follow up for biopsy of retroperitoneal mass. Subjective Narrative: The patient is postoperative day 1 from laparoscopic cholecystectomy. She also has retroperitoneal adenopathy essentially encasing the retrohepatic vena cava. This could not be easily biopsied during the surgery, however, a lymph node was taken with the gallbladder and may yield diagnostic tissue no biopsy of the retroperitoneal mass was taken. We discussed this with the patient. She will need follow-up for her retroperitoneal mass and likely future biopsy. She will need to be off her antiplatelet agents prior to the biopsy. We will advance her diet and she may be discharged from surgical standpoint. Follow-up acute care surgery clinic in 1-2 weeks Objective Vital Signs - Last 8 Hours Temp Pulse Resp BP Pulse Ox 11/18/18 06:42 98.5 F 73 15 105/60 95 11/18/18 02:56 98.1 F 79 15 108/65 95 Intake and Output 11/17/18 11/18/18 11/18/18 23:59 07:59 15:59 Intake Total 1200 / 1200 Output Total Balance -15 / 285 1200 / 1200 Intake: IV Fluids 1200 / 1200 0.9 % Sodium Chloride 1,000 ML 1000 / 1000 @ 125 mls/hr IVC .Q8H [facility] Rx#: [id number] Unasyn 3,000 MG In 0.9 % Sodium 200 / 200 Chloride (Mini-Bag +) 100 ML @ 200 mls/hr IVPB Q6HR [facility] Rx#: [id number] Output: Estimated Blood Loss Other: # Voids 1 Weight 46.5 kg Patient Weight 11/18/18 23:59 Weight 46.5 kg - General physical appearance no distress, no pain - Respiratory normal respiratory effort, clear to auscultation - Cardiovascular Cardiovascular exam: Present: RRR, no murmurs/rubs/gallops - Abdomen Abdomen: Present: bowel sounds present - Incision Incision: Present: clean and dry - Neurologic CN 2-12 grossly intact - Psychiatric oriented to time, oriented to person, oriented to place, speech is normal, memory intact - Labs 11/18/18 03:33 11/18/18 03:33 Diabetes panel 11/17/18 11/18/18 Range/Units 09:39 03:33 Sodium 138 137 (136-145) mEq/L Potassium 4.1 4.0 (3.5-5.1) mEq/L Chloride 103 106 (98-107) mEq/L Carbon Dioxide 24 21 L (23-29) mEq/L BUN 18 17 (8-23) mg/dL Creatinine 1.07 0.93 (0.60-1.20) mg/dL Glucose 118 H 127 H (70-105) mg/dL Calcium 9.5 8.1 L (8.6-10.3) mg/dL AST 15 106 H (13-39) Units/L ALT 7 59 H (7-52) Units/L Alkaline Phosphatase 92 70 (34-104) Units/L Albumin 4.3 3.4 L (3.5-5.7) g/dL Triglycerides 115 (< 150) mg/dL HDL Cholesterol 47 (40-59) mg/dL Calcium panel 11/17/18 11/18/18 Range/Units 09:39 03:33 Calcium 9.5 8.1 L (8.6-10.3) mg/dL Albumin 4.3 3.4 L (3.5-5.7) g/dL Pituitary panel 11/17/18 11/18/18 Range/Units 09:39 03:33 Sodium 138 137 (136-145) mEq/L Potassium 4.1 4.0 (3.5-5.1) mEq/L Chloride 103 106 (98-107) mEq/L Carbon Dioxide 24 21 L (23-29) mEq/L BUN 18 17 (8-23) mg/dL Creatinine 1.07 0.93 (0.60-1.20) mg/dL Glucose 118 H 127 H (70-105) mg/dL Calcium 9.5 8.1 L (8.6-10.3) mg/dL Adrenal panel 11/17/18 11/18/18 Range/Units 09:39 03:33 Sodium 138 137 (136-145) mEq/L Potassium 4.1 4.0 (3.5-5.1) mEq/L Chloride 103 106 (98-107) mEq/L Carbon Dioxide 24 21 L (23-29) mEq/L BUN 18 17 (8-23) mg/dL Creatinine 1.07 0.93 (0.60-1.20) mg/dL Glucose 118 H 127 H (70-105) mg/dL Calcium 9.5 8.1 L (8.6-10.3) mg/dL Total Bilirubin 0.4 0.4 (0.3-1.0) mg/dL AST 15 106 H (13-39) Units/L ALT 7 59 H (7-52) Units/L Alkaline Phosphatase 92 70 (34-104) Units/L Albumin 4.3 3.4 L (3.5-5.7) g/dL Consult Discharge Plan - Plan Referrals: Horacio Hardin MD [Primary Care Provider] -
[2018-11-18] MEDS: Isosorbide MONOnitrate (24 HR) 30 MG TAB.ER.24H PO SCH (09:23)
[2018-11-18] MEDS: Baclofen 10 MG TABLET PO SCH ×3 (09:31→20:43)
[2018-11-18] MEDS: *HR* Heparin 5,000 UNIT/ML VIAL SQ SCH ×2 (09:32→17:07)
[2018-11-18] MEDS: Nicotine 14 MG PATCH.TD24 TD SCH (16:54)
[2018-11-18] MEDS: rOPINIRole 1 MG TABLET PO SCH (20:43)
[2018-11-18] MEDS: Mirtazapine 15 MG TABLET PO SCH (20:43)
[2018-11-19] MEDS: Ampicillin/Sulbactam 3,000 MG in 0.9 % Sodium Chloride Mini Bag 100 ML IVPB SCH ×3 (01:44→13:27)
[2018-11-19 04:33] LABS: Basophils % 0.4 %; Eosinophils # 0.2 K/mcL (0.0-0.6); Eosinophils % 1.9 %; Hematocrit 36.2 % (35.3-44.9); Immature Granulocytes % 0.4 % (0-4); Lymphocytes # 2.5 K/mcL (0.6-4.6); Lymphocytes % 31.9 %; Mean Corpuscular HGB Conc 32.6 g/dL (31.6-35.5); Mean Corpuscular Hemoglobin 28.9 pg (28.0-33.3); Mean Corpuscular Volume 88.7 fL (83.0-100.0); Mean Platelet Volume 10.7 fL (9.4-12.4); Monocytes # 0.5 K/mcL (0.0-1.3); Monocytes % 6.6 %; Neutrophils # 4.6 K/mcL (1.6-8.9); Platelet Count 148 K/mcL (140-400); Red Blood Count 4.08 M/mcL (3.82-4.97); Red Cell Distribution Width 14.8 % (11.5-14.5); Segmented Neutrophils % 58.8 %; White Blood Count 7.8 K/mcL (4.3-11.1)
[2018-11-19 04:34] LABS: Hemoglobin 11.8 g/dL (11.5-15.4)
[2018-11-19 04:56] LABS: BUN/Creatinine Ratio 16 (6-26); Blood Urea Nitrogen 14 mg/dL (8-23); Calcium 7.7 mg/dL (8.6-10.3); Carbon Dioxide 20 mEq/L (23-29); Chloride 111 mEq/L (98-107); Glucose 94 mg/dL (70-105); Osmolality,Calculated 290 (280-300); Potassium 3.4 mEq/L (3.5-5.1); Sodium 140 mEq/L (136-145); eGFR For African Americans > 60 (> 60); eGFR For Non-African Americans > 60 (> 60)
[2018-11-19] MEDS: *HR* Heparin 5,000 UNIT/ML VIAL SQ SCH (06:34)
[2018-11-19 06:44] VITALS: BP 198/92
[2018-11-19] MEDS ORDERED: Potassium Chloride Elixir 20 MEQ/15 ML UDC PO ONE (07:43)
--- NOTE | 2018-11-19 07:43 | Internal Med Progress Note ---
Hospitalist Progress Note - Encounter Date of Encounter: 11/19/18 - Exam Vitals: Temp Pulse Resp BP Pulse Ox 97.7 F 80 18 198/92 94 11/19/18 06:38 11/19/18 06:38 11/19/18 06:38 11/19/18 06:38 11/19/18 06:38 Exam: GA: A&O X 3, pleasant, no acute distress Head: atraumatic, normocephalic Eyes: EOMI, PERRL, conjuntiva pink. ENT: mucous membranes moist, normal oropharynx Neck: no tenderness, thyromegaly Lungs: CTAB. No rales, rhonchi, wheezes CV: RRR, +S1, +S2. No murmur, rub, gallop. GI: Surgical incisions dry and clean. Abdomen firm, slightly distended, normal bowel sounds, tenderness (Epigastric, LUQ, RUQ). Ext: no cyanosis, pedal edema, tenderness Back: no significant tenderness to palpation. Neuro: alert, no focal deficits. - Assessment and Plan (1) Thickening of wall of gallbladder Current Visit: Yes Status: Resolved (2) Intraabdominal mass Current Visit: Yes Status: Acute (3) Angina pectoris Current Visit: No Status: Acute (4) CAD (coronary artery disease) Current Visit: No Status: Chronic (5) COPD (chronic obstructive pulmonary disease) Current Visit: No Status: Chronic (6) HTN (hypertension) Current Visit: No Status: Chronic (7) GERD (gastroesophageal reflux disease) Current Visit: No Status: Chronic (8) Tobacco use disorder Current Visit: No Status: Chronic - Time Spent with Patient Total time spent is greater than 50% in coordination of care (as documented) at patient's floor/unit and/or counseling patient: Internal Medicine: Result - Labs CBC & Chem 7: 11/19/18 03:19 11/19/18 03:19 Labs: Short CBC 11/19/18 Range/Units 03:19 WBC 7.8 (4.3-11.1) K/mcL Hgb 11.8 D (11.5-15.4) g/dL Hct 36.2 (35.3-44.9) % Plt Count 148 (140-400) K/mcL Neutrophils # 4.6 (1.6-8.9) K/mcL BMP 11/19/18 03:19 Sodium 140 Potassium 3.4 L Chloride 111 H Carbon Dioxide 20 L BUN 14 Creatinine 0.86 Glucose 94 Calcium 7.7 L Consult Discharge Plan - Plan Referrals: Horacio Hardin MD [Primary Care Provider] - (4) CAD (coronary artery disease) Qualifiers: Coronary Disease-Associated Artery/Lesion type: [place] artery [place] vs. transplanted heart: [place] heart Associated angina: without angina Qualified Code(s): I25.10 - Atherosclerotic heart disease of [place] coronary artery without angina pectoris (5) COPD (chronic obstructive pulmonary disease) Qualifiers: COPD type: emphysema Emphysema type: panlobular Qualified Code(s): J43.1 - P anlobular emphysema (6) HTN (hypertension) Qualifiers: Hypertension type: essential hypertension Qualified Code(s): I10 - Essential (primary) hypertension (7) GERD (gastroesophageal reflux disease) Qualifiers: Esophagitis presence: without esophagitis Qualified Code(s): K21.9 - Gastro- esophageal reflux disease without esophagitis
[2018-11-19] MEDS ORDERED: *HR* OxyCODONE Immed Rel 5 MG TABLET PO PRN (07:59)
--- NOTE | 2018-11-19 08:02 | Acute Care Surgery Event Note ---
Date of Encounter: 11/19/18 Time of Encounter: 08:01 Abdominal discomfort moderately controlled. Added scheduled Tylenol PO and PRN oxycodone Q6 hours for severe pain. Patient is located discharge from a surgical standpoint. Her acute care follow-up has been scheduled as well as interval follow-up with general surgery for retroperitoneal mass. Surgery will sign off at this time. Thank you for allowing us to participate in Ms. Chavez's care. Please call or reconsult further questions or needs arise.
[2018-11-19] MEDS: Baclofen 10 MG TABLET PO SCH (08:59)
[2018-11-19] MEDS: Isosorbide MONOnitrate (24 HR) 30 MG TAB.ER.24H PO SCH (08:59)
[2018-11-19] MEDS: Nicotine 14 MG PATCH.TD24 TD SCH (09:00)
[2018-11-19] MEDS: 0.9 % Sodium Chloride 1,000 ML IVC SCH ×2 (09:01→13:18)
--- NOTE | 2018-11-19 09:07 | Discharge Summary ---
<RomeliaAnatoliy M - Last Filed: 11/19/18 13:03> - NOTES TO OUTPATIENT PROVIDER Notes to Outpatient Provider: Ms. Chavez is a 73 year old female PMHx hepatitis C, COPD, CAD, DVT who presented to the ED on 11/17/18 with cc of abdominal and mid back pain. At admission her WBC was 10.3, lipase 26. CT of abdomen/pelvis demonstrated soft tissue mass near the pancreatic head and liver hilum with associated retroperitoneal LAD. CT also showed significant GB wall edema w/o stones or sludge. Surgery consulted, cholecystectomy was performed and LN was biopsied. Oncology consulted, recommended CEA, CA-19-9, and EUS w/biopsy for soft tissue mas. Pt improved following surgery. Discharged on 11/19/18. Important to follow up with GI for endoscopic ultrasound with biopsy of soft tissue mass as soon as possible. GI appointment was set for 12/10/18 for endo/colonoscopy per patient. Awaiting pathology results of LN specimen. Orders not resulted at time of discharge: Pending orders 11/17/18 15:03 Cancer Antigen-GI (CA 19-9) Routine 11/17/18 19:02 Surgical Pathology [PTH] Routine Date of Encounter: 11/19/18 Time of Encounter: 09:06 - Discharge Diagnosis (1) Thickening of wall of gallbladder Priority: Primary Status: Resolved Assessment and Plan: S/P cholecystectomy for suspected cholecystitis. Pain has improved significant ly. Pt has tolerated regular diet. - Advance to regular diet per surgery. - D/C IV abx. - Oxycodone 10 mg Q12H, 10 days for pain at discharge. - F/U with GI for EUS w/bx. (2) Intraabdominal mass Priority: Secondary Status: Acute Assessment and Plan: Soft tissue mass was unable to be visualized and accessed during surgery. However, a small LN was taken for biopsy. - Tolerating regular diet. Plan for discharge today. - F/U with GI for EUS with biopsy for soft tissue mass per surgery and oncology. - CEA was WNL. - Awaiting CA 19-9 and pathology results. (3) Angina pectoris Priority: Secondary Status: Chronic Assessment and Plan: Pt with history of 3 vessel CAD. Cardiac w/u was negative at this admission. - Continue home cilostazol, brillenta at discharge. Hold prior to EUS w/bx. - Continue home isosorbide mononitrate, SL nitrostat PRN at d/c. - PCP follow up (4) COPD (chronic obstructive pulmonary disease) Priority: Secondary Status: Chronic Assessment and Plan: Pt with mild-moderate COPD. Currently stable, asymptomatic. - Continue home Duonebs Q4H PRN. - Continue home Proventil Q4H PRN. Qualifiers: COPD type: emphysema Emphysema type: panlobular Qualified Code(s): J43.1 - Panlobular emphysema (5) HTN (hypertension) Priority: Secondary (a) Status: Chronic Assessment and Plan: Pt had significant BP elevations up to 223/113, likely secondary to acute pain. Current BP has ranged from 118-198/58-92. Otherwise stable, asymptomatic with adequate pain control. - Continue home losartan 50 mg daily. - Recommend PCP follow-up. Qualifiers: Hypertension type: essential hypertension Qualified Code(s): I10 - Essential (primary) hypertension (6) Tobacco use disorder Priority: Secondary Status: Chronic Assessment and Plan: Pt given nicotene patches during admission. Routine f/u with pcp. Hospital course: Ms. Chavez is a 73 year old female with a PMHx hepatitis C, COPD, CAD; 6 stents, DVT who presented to the ED on 11/17/18 with cc of abdominal and mid back pain with associated nausea and vomiting. Pain was described as worse in the mid thoracic, right scapular region, radiating to the LUQ, epigastric area. Pain improved significantly with forward flexion. No significant weight loss, malaise, fatigue reported with symptoms. At admission her WBC was 10.3, lipase 26. CTA was performed and negative for PE. - CT of abdomen/pelvis demonstrated: lobular soft tissue mass near the hilum of the liver andpancreatic head. This lobular soft tissue mass measures 5.3 x 4.4 x 4.6 cm.There is associated upper abdominal and retroperitoneal lymphadenopathy. Aortocaval lymphadenopathy measures 1.4 cm in AP dimension. Marked gallbladder wall thickening. There is mild periportal edema. There is a tiny probable cyst within the right lobe of the liver measuring 4 mm. Splenic calcifications are present. Surgery was consulted for suspected cholecystitis and a cholecystectomy was perfomed w/o complications. The soft tissue mass was not able to be visualized, however a small LN was taken for biopsy. Awaiting results. Oncology consulted and suggested outpatient f/u with EUS and biopsy of soft tissue mass. CEA was normal, awaiting CA 19-9 results. Patient reported significant improvement s/p cholecystectomy and her diet was advanced. She tolerated regular diet well without significant complaints. Surgical incisions were dry, normal and clean. Patient prepared for discharge. - Time Spent with Patient Total time spent providing and/or coordinating discharge services: - Discharge Medications Prescriptions: New Oxycodone HCl 10 mg PO Q12H 10 Days #20 tablet Continued Aspirin Enteric Coated [Aspirin EC] 81 mg PO DAILY Ropinirole HCl [Requip] 1 mg PO HS Mirtazapine [Remeron] 15 mg PO HS Nitroglycerin [Nitrostat] 0.4 mg PO Q5M PRN PRN Reason: Chest Pain Ticagrelor [Brilinta] 90 mg PO BID #60 tablet Citalopram Hydrobromide [Celexa] 40 mg PO DAILY Baclofen [Lioresal] 10 mg PO TID Ipratropium/Albuterol Neb [Duoneb] 3 ml IH Q4H PRN PRN Reason: Shortness Of Breath Isosorbide MONOnitrate (24 HR) [Imdur] 30 mg PO DAILY #30 tab.er.24h Albuterol Sulfate [Ventolin Hfa] 2 puff PO Q4H PRN PRN Reason: Shortness Of Breath clonazePAM [Clonazepam] 1 mg PO BID PRN PRN Reason: Anxiety Losartan Potassium 50 mg PO DAILY Ondansetron HCl 8 mg PO BID PRN PRN Reason: Nausea Cilostazol 50 mg PO BID Esomeprazole Magnesium [Nexium] 40 mg PO DAILY Fluticasone Propionate Nasal [Flonase] 100 mcg NS DAILY PRN PRN Reason: allergies Sucralfate [Carafate] 1 gm PO 0730,1630 Home Medications: Aspirin Enteric Coated [Aspirin EC] 81 mg PO DAILY 01/22/15 [History] Ropinirole HCl [Requip] 1 mg PO HS 01/22/15 [History] Mirtazapine [Remeron] 15 mg PO HS 06/22/16 [History] Nitroglycerin [Nitrostat] 0.4 mg PO Q5M PRN 08/25/16 [History] Ticagrelor [Brilinta] 90 mg PO BID #60 tablet 01/12/17 [Rx] Baclofen [Lioresal] 10 mg PO TID 02/18/18 [History] Citalopram Hydrobromide [Celexa] 40 mg PO DAILY 02/18/18 [History] Ipratropium/Albuterol Neb [Duoneb] 3 ml IH Q4H PRN 02/18/18 [History] Isosorbide MONOnitrate (24 HR) [Imdur] 30 mg PO DAILY #30 tab.er.24h 02/19/18 [Rx] Albuterol Sulfate [Ventolin Hfa] 2 puff PO Q4H PRN 07/09/18 [History] Losartan Potassium 50 mg PO DAILY 07/09/18 [History] Ondansetron HCl 8 mg PO BID PRN 07/09/18 [History] clonazePAM [Clonazepam] 1 mg PO BID PRN 07/09/18 [History] Cilostazol 50 mg PO BID 11/17/18 [History] Esomeprazole Magnesium [Nexium] 40 mg PO DAILY 11/17/18 [History] Fluticasone Propionate Nasal [Flonase] 100 mcg NS DAILY PRN 11/17/18 [History] Sucralfate [Carafate] 1 gm PO 0730,1630 11/17/18 [History] Oxycodone HCl 10 mg PO Q12H 10 Days #20 tablet 11/19/18 [Rx] Allergies/Adverse Reactions: Allergy/AdvReac Type Severity Reaction Status Date / Time clonidine Allergy Blister Verified 11/17/18 09:13 atorvastatin AdvReac Nausea Verified 11/17/18 09:13 lisinopril AdvReac Cough Verified 11/17/18 09:13 Date of admission: 11/17/18 13:12 Primary care physician: Horacio Hardin MD Consults: 11/17/18 14:59 Consult to Oncology Hematology [CONS] Routine Consulting Provider: Jono Das Reason for Consult: soft tissue mass abdomen, retroperitoneal LAD Time Notified: 15:00 Call Completed: Yes 11/17/18 20:27 Consult to Pastoral Services [CONS] Routine Comment: Discharging clinician: Anatoliy León Anticipated date of discharge: 11/19/18 - Constitutional Vitals: Temp Pulse Resp BP Pulse Ox 97.7 F 80 18 198/92 94 11/19/18 06:38 11/19/18 06:38 11/19/18 06:38 11/19/18 06:38 11/19/18 06:38 General appearance: Present: A&O X 3, pleasant, no acute distress Exam: see below - Head Head exam: Present: atraumatic, normocephalic - Eye Eye exam: Present: EOMI, normal appearance, conjuntiva pink. Absent: scleral icterus - ENT ENT exam: Present: mucous membranes moist, normal exam - Neck Neck exam general surgery: Absent: lymphadenopathy, tenderness, thyromegaly - Respiratory Respiratory exam: Present: CTAB. Absent: rales, respiratory distress, rhonchi, stridor, wheezes - Cardiovascular Cardiovascular exam: Present: RRR, +S1, +S2. Absent: diastolic murmur, JVD, systolic murmur - GI/Abdominal GI/Abdominal exam: Present: distended (mild), firm, normal bowel sounds, tenderness (mild-moderate tenderness at RQ, epigastrium), no peritoneal signs. Absent: guarding, rebound - Extremities Exam Extremities exam: Present: warm. Absent: cyanotic, pedal edema, tenderness - Incison Incision: Present: clean and dry - Neurological Exam Neurological exam: Present: alert, CN II-XII intact, oriented X3, no focal deficits - Psychiatric Psychiatric exam: Present: normal mood - Skin Skin exam: Present: dry, normal color. Absent: cyanosis, rash - Patient Status Disposition: Home, Self-Care Condition: Good Functional capacity at discharge: independent ambulation Overall status at discharge: patient is back to baseline - Discharge Instructions Instructions: Laparoscopic Cholecystectomy (DC), Chronic Obstructive Pulmonary Disease (DC), Chronic Hypertension (DC) Follow Up With: Horacio Hardin MD [Primary Care Provider] - Bismark Mao MD [Partnered Physician] - 12/04/18 8:30 am Gissell Sam CNP [Advanced Practice Nurse] - 12/02/18 1:00 pm Additional Instructions: General Surgical Discharge Instructions 1. No pushing, pulling, or lifting greater than 15 lbs for 4 week. 2. You may remove your dressings and shower beginning today, but no tub baths, soaking, or swimming for 2 weeks. 3. No driving for one weeks unless otherwise specified and then you may resume driving when you are off narcotics and are safe to react in a car. 4. Take 1000 mg Tylenol every 6 hours for discomfort. If this does not relieve discomfort, you may take the as needed Oxycodone. Eat a small snack with pain medication as this will help reduce the risk of nausea. Take narcotics as directed. Do not take more narcotics then directed and do not share your n arcotics with any other person. Do not drink alcohol while on narcotics. You can take the Zofran/ondansetron if needed for nausea or with a dose of narcotics to prevent nausea. 5. Take stool softeners (Colace) or a water based laxative (Miralax) while taking narcotics. You may hold for loose stools. 6. Report any fevers greater than 100.5F, increase abdominal discomfort, drainage that looks like pus, increased redness or pain at the surgical site, or any vomiting. 7. Report any pain in the calves, shortness of breath, or rapid heartbeat. 8. Follow-up in the office as directed. 9. If you were prescribed antibiotics, do not stop them without talking to your provider. <Jono Das - Last Filed: 11/19/18 16:27> Orders not resulted at time of discharge: Pending orders 11/17/18 15:03 Cancer Antigen-GI (CA 19-9) Routine 11/17/18 19:02 Surgical Pathology [PTH] Routine Date of Encounter: 11/19/18 - Discharge Diagnosis (1) Acute cholecystitis Status: Suspected (2) Intraabdominal mass Status: Acute (3) CAD (coronary artery disease) Status: Chronic Qualifiers: Coronary Disease-Associated Artery/Lesion type: [place] artery [place] vs. transplanted heart: [place] heart Associated angina: without angina Qualified Code(s): I25.10 - Atherosclerotic heart disease of [place] coronary artery without angina pectoris (4) HTN (hypertension) Status: Chronic Qualifiers: Hypertension type: essential hypertension Qualified Code(s): I10 - Essential (primary) hypertension (5) PAD (peripheral artery disease) Status: Chronic (6) Tobacco use disorder Status: Chronic (7) Mixed hyperlipidemia Status: Chronic Hospital course: Ms. Chavez is a 73 year old female - Time Spent with Patient Total time spent providing and/or coordinating discharge services: Date of admission: 11/17/18 13:12 Primary care physician: Horacio Hardin MD Consults: 11/17/18 14:59 Consult to Oncology Hematology [CONS] Routine Consulting Provider: Jono Das Reason for Consult: soft tissue mass abdomen, retroperitoneal LAD Time Notified: 15:00 Call Completed: Yes 11/17/18 20:27 Consult to Pastoral Services [CONS] Routine Comment: - Constitutional Vitals: Temp Pulse Resp BP Pulse Ox 97.7 F 80 18 198/92 94 11/19/18 06:38 11/19/18 06:38 11/19/18 06:38 11/19/18 06:38 11/19/18 08:04 - Attending Attestation I examined this patient and my medical decision-making was reviewed with the Resident Physician on 11/19/18. I agree with the documented findings, disposition and treatment plan as described except to the extent set forth below. Ms Chavez has been admitted for acute cholecystitis and is s/p lap ryan. She also has soft tissue mass that will need further work up. She is now afebrile and ready for discharge home. Exam Alert. Comfortable Mucus membranes dry Heart reg and not tachy No wheeze abd soft Plan D/C home today Outpatient follow up as arranged D/C time 34min
[2018-11-19] MEDS ORDERED: Ondansetron ODT 4 MG TAB.RAPDIS SL ONE (13:05)
--- NOTE | 2018-11-21 11:15 | Electrocardiograph Report ---
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
== END 2018-11-19 15:10 | disposition home or self-care (01) ==
LOC: 3ANU 09:11 → EMEROOARM 09:11 → SUATTDRO 13:12 → 3ANU 16:18
PROVIDERS: ADMIT Internal Medicine; ATTEND Internal Medicine

== ENCOUNTER 2019-01-02 12:22 | Observation (INO) ==
[~2019-01-02 12:22] MED LIST: Acetaminophen 325 MG TABLET PO PRN; Naloxone 0.4 MG/ML INJ IVP PRN; Ondansetron 4 MG/2 ML VIAL IVP PRN
[2019-01-02 12:56] LABS: Basophils % 0.4 %; Eosinophils # 0.6 K/mcL (0.0-0.6); Eosinophils % 6.6 %; Hematocrit 42.2 % (35.3-44.9); Hemoglobin 14.2 g/dL (11.5-15.4); Immature Granulocytes % 0.2 % (0-4); Lymphocytes # 2.7 K/mcL (0.6-4.6); Lymphocytes % 32.4 %; Mean Corpuscular HGB Conc 33.6 g/dL (31.6-35.5); Mean Corpuscular Hemoglobin 29.2 pg (28.0-33.3); Mean Corpuscular Volume 86.8 fL (83.0-100.0); Mean Platelet Volume 10.8 fL (9.4-12.4); Monocytes # 0.4 K/mcL (0.0-1.3); Monocytes % 4.5 %; Neutrophils # 4.7 K/mcL (1.6-8.9); Platelet Count 192 K/mcL (140-400); Red Blood Count 4.86 M/mcL (3.82-4.97); Red Cell Distribution Width 14.4 % (11.5-14.5); Segmented Neutrophils % 55.9 %; White Blood Count 8.4 K/mcL (4.3-11.1)
[2019-01-02] MEDS ORDERED: Isovue-370 500 ML BOTTLE IVP ONE ×3 (13:03→14:38)
[2019-01-02] MEDS ORDERED: FLU Vac QV 19-20 (6Month+)/PF 0.5 ML SYRINGE IM ONE (13:15)
[2019-01-02 13:22] LABS: Alanine Aminotransferase 5 Units/L (7-52); Albumin/Globulin Ratio 1.3 (1.1-2.2); Alkaline Phosphatase 77 Units/L (34-104); Aspartate Amino Transferase 13 Units/L (13-39); BUN/Creatinine Ratio 17 (6-26); Bilirubin,Total 0.2 mg/dL (0.3-1.0); Blood Urea Nitrogen 18 mg/dL (8-23); Carbon Dioxide 27 mEq/L (23-29); Chloride 106 mEq/L (98-107); Globulin 3.1 g/dL (2.4-3.5); Glucose 88 mg/dL (70-105); Osmolality,Calculated 295 (280-300); Sodium 142 mEq/L (136-145); Total Protein 7.1 g/dL (6.4-8.9); eGFR For African Americans > 60 (> 60); eGFR For Non-African Americans 53 (> 60)
[2019-01-02] MEDS ORDERED: *HR* HYDROcodone/Acet 5/325 mg TABLET PO PRN (13:48)
[2019-01-02] MEDS ORDERED: Nitroglycerin 0.4 MG TAB.SUBL SL PRN (13:48)
[2019-01-02] MEDS: 0.9 % Sodium Chloride 1,000 ML IVC SCH ×2 (15:00→23:08)
[2019-01-02] MEDS: PrednisoLONE Acetate 1% Opth 5 ML BOTTLE LEFT EYE SCH ×5 (15:08→21:53)
[2019-01-02] MEDS: PrednisoLONE Acetate 1% Opth 5 ML BOTTLE RIGHT EYE SCH ×5 (15:09→21:53)
[2019-01-02] MEDS: *HR* HYDROmorphone (PF) 1 MG/ML SYRINGE IVP PRN ×2 (15:09→20:14)
[2019-01-02] MEDS: Ondansetron 4 MG/2 ML VIAL IVP PRN (15:10)
[2019-01-02] MEDS: Isosorbide MONOnitrate (24 HR) 30 MG TAB.ER.24H PO SCH (15:10)
[2019-01-02] MEDS: Baclofen 10 MG TABLET PO SCH ×2 (15:10→20:14)
[2019-01-02] MEDS: clonazePAM 1 MG TABLET PO SCH ×2 (15:10→20:14)
[2019-01-02] MEDS: Budesonide/Formoterol 160/4.5 1 PUFF INH IH SCH ×2 (15:55→22:22)
[2019-01-02] MEDS: Tiotropium 18 MCG inhalation IH SCH (15:55)
[2019-01-02] MEDS ORDERED: ISOVUE-370 100 ML INFUS..BTL PO ONE (16:21)
[2019-01-02] MEDS: rOPINIRole 0.25 MG TABLET PO SCH (20:14)
[2019-01-02] MEDS: Mirtazapine 15 MG TABLET PO SCH (20:14)
[2019-01-03 04:50] LABS: Basophils % 0.5 %; Eosinophils # 0.4 K/mcL (0.0-0.6); Eosinophils % 6.1 %; Hematocrit 39.1 % (35.3-44.9); Hemoglobin 12.7 g/dL (11.5-15.4); Immature Granulocytes % 0.3 % (0-4); Lymphocytes # 2.1 K/mcL (0.6-4.6); Lymphocytes % 31.9 %; Mean Corpuscular HGB Conc 32.5 g/dL (31.6-35.5); Mean Corpuscular HGB Conc 33.3 g/dL (31.6-35.5); Mean Corpuscular Hemoglobin 28.7 pg (28.0-33.3); Mean Corpuscular Volume 86.1 fL (83.0-100.0); Mean Corpuscular Volume 88.3 fL (83.0-100.0); Mean Platelet Volume 10.4 fL (9.4-12.4); Monocytes # 0.3 K/mcL (0.0-1.3); Monocytes % 4.8 %; Neutrophils # 3.6 K/mcL (1.6-8.9); Platelet Count 158 K/mcL (140-400); Platelet Count 161 K/mcL (140-400); Red Blood Count 4.43 M/mcL (3.82-4.97); Red Blood Count 4.53 M/mcL (3.82-4.97); Red Cell Distribution Width 14.6 % (11.5-14.5); Segmented Neutrophils % 56.4 %; White Blood Count 6.4 K/mcL (4.3-11.1); White Blood Count 6.6 K/mcL (4.3-11.1)
[2019-01-03 04:57] LABS: Prothrombin Time 10.9 Seconds (9.4-12.1)
[2019-01-03 04:58] LABS: Alanine Aminotransferase 5 Units/L (7-52); Albumin 3.3 g/dL (3.5-5.7); Albumin/Globulin Ratio 1.3 (1.1-2.2); Alkaline Phosphatase 71 Units/L (34-104); Amylase 64 Units/L (29-103); Aspartate Amino Transferase 11 Units/L (13-39); BUN/Creatinine Ratio 13 (6-26); Bilirubin,Total 0.3 mg/dL (0.3-1.0); Blood Urea Nitrogen 12 mg/dL (8-23); Calcium 8.1 mg/dL (8.6-10.3); Carbon Dioxide 25 mEq/L (23-29); Chloride 106 mEq/L (98-107); Globulin 2.6 g/dL (2.4-3.5); Glucose 92 mg/dL (70-105); Lipase 57 Units/L (11-82); Osmolality,Calculated 287 (280-300); Potassium 3.8 mEq/L (3.5-5.1); Sodium 139 mEq/L (136-145); Total Protein 5.9 g/dL (6.4-8.9); eGFR For African Americans > 60 (> 60); eGFR For Non-African Americans 59 (> 60)
[2019-01-03 04:59] LABS: BUN/Creatinine Ratio 12 (6-26); Blood Urea Nitrogen 11 mg/dL (8-23); Calcium 7.9 mg/dL (8.6-10.3); Carbon Dioxide 25 mEq/L (23-29); Chloride 106 mEq/L (98-107); Glucose 92 mg/dL (70-105); Osmolality,Calculated 287 (280-300); Potassium 3.8 mEq/L (3.5-5.1); Sodium 139 mEq/L (136-145); eGFR For African Americans > 60 (> 60); eGFR For Non-African Americans > 60 (> 60)
[2019-01-03] MEDS: PrednisoLONE Acetate 1% Opth 5 ML BOTTLE LEFT EYE SCH ×8 (06:37→21:58)
[2019-01-03] MEDS: *HR* HYDROmorphone (PF) 1 MG/ML SYRINGE IVP PRN ×2 (06:38→11:37)
[2019-01-03] MEDS: PrednisoLONE Acetate 1% Opth 5 ML BOTTLE RIGHT EYE SCH ×9 (06:38→21:58)
[2019-01-03] MEDS: Ondansetron 4 MG/2 ML VIAL IVP PRN (06:41)
[2019-01-03] MEDS: Tiotropium 18 MCG inhalation IH SCH (07:20)
[2019-01-03] MEDS: Budesonide/Formoterol 160/4.5 1 PUFF INH IH SCH ×2 (07:20→20:12)
[2019-01-03] MEDS: clonazePAM 1 MG TABLET PO SCH ×2 (07:59→21:57)
[2019-01-03] MEDS: Baclofen 10 MG TABLET PO SCH ×3 (08:00→21:57)
[2019-01-03] MEDS: Isosorbide MONOnitrate (24 HR) 30 MG TAB.ER.24H PO SCH (08:00)
[2019-01-03] MEDS ORDERED: *HR* Succinylcholine 200 MG/10 ML VIAL IVP ONE (12:09)
[2019-01-03] MEDS ORDERED: *HR* Propofol 200 MG/20 ML VIAL IVP ONE (12:09)
[2019-01-03] MEDS ORDERED: *HR* FentaNYL (PF) 100 MCG/2 ML VIAL ONE (12:09)
[2019-01-03] MEDS ORDERED: Dexamethasone 4 MG/ML VIAL ONE (12:09)
[2019-01-03] MEDS ORDERED: Ondansetron 4 MG/2 ML VIAL ONE (12:09)
[2019-01-03] MEDS ORDERED: Lidocaine -MPF 2% 2 ML VIAL ONE ×2 (12:09→12:10)
[2019-01-03] MEDS ORDERED: Albuterol 2.5 MG/3 ML NEBULIZER IH ONE (12:46)
[2019-01-03] MEDS ORDERED: Albuterol 2.5 MG/3 ML NEBULIZER ONE (12:46)
[2019-01-03] MEDS ORDERED: Lidocaine -MPF 4% 5 ML AMPUL ONE (12:49)
[2019-01-03] MEDS: *HR* OxyCODONE/APAP 5/325 TABLET PO PRN ×2 (16:37→21:57)
[2019-01-03] MEDS: Nicotine 14 MG PATCH.TD24 TD SCH (18:32)
[2019-01-03] MEDS: *HR* Heparin 5,000 UNIT/ML VIAL SQ SCH (18:33)
[2019-01-03] MEDS: 0.9 % Sodium Chloride 1,000 ML IVC SCH (19:11)
[2019-01-03] MEDS ORDERED: SYMBICORT IN SCH (21:00)
[2019-01-03] MEDS: Sucralfate 1 GM TABLET PO SCH (21:56)
[2019-01-03] MEDS: Mirtazapine 15 MG TABLET PO SCH (21:57)
[2019-01-03] MEDS: *HR* Ticagrelor 90 MG TABLET PO SCH (21:57)
[2019-01-03] MEDS: rOPINIRole 0.25 MG TABLET PO SCH (21:58)
[2019-01-04] MEDS: *HR* OxyCODONE/APAP 5/325 TABLET PO PRN ×4 (04:04→19:28)
[2019-01-04] MEDS: *HR* Heparin 5,000 UNIT/ML VIAL SQ SCH ×2 (05:17→18:38)
[2019-01-04] MEDS: PrednisoLONE Acetate 1% Opth 5 ML BOTTLE LEFT EYE SCH ×9 (05:17→21:48)
[2019-01-04] MEDS: PrednisoLONE Acetate 1% Opth 5 ML BOTTLE RIGHT EYE SCH ×9 (05:17→21:48)
[2019-01-04] MEDS: Tiotropium 18 MCG inhalation IH SCH (07:33)
[2019-01-04] MEDS: Budesonide/Formoterol 160/4.5 1 PUFF INH IH SCH ×2 (07:33→19:49)
[2019-01-04] MEDS: Nicotine 14 MG PATCH.TD24 TD SCH (07:40)
[2019-01-04] MEDS: Sucralfate 1 GM TABLET PO SCH ×2 (07:41→21:44)
[2019-01-04] MEDS: Isosorbide MONOnitrate (24 HR) 30 MG TAB.ER.24H PO SCH (07:42)
[2019-01-04] MEDS: clonazePAM 1 MG TABLET PO SCH ×2 (07:42→21:44)
[2019-01-04] MEDS: Baclofen 10 MG TABLET PO SCH ×3 (07:42→21:44)
[2019-01-04] MEDS: Aspirin Enteric Coated 81 MG Tablet PO SCH (07:42)
[2019-01-04] MEDS: *HR* Ticagrelor 90 MG TABLET PO SCH ×2 (07:42→21:44)
[2019-01-04] MEDS ORDERED: CITALOPRAM HYDROBROMIDE 40 MG PO SCH (09:00)
[2019-01-04] MEDS: Ondansetron 4 MG/2 ML VIAL IVP PRN ×2 (09:16→19:35)
[2019-01-04] MEDS ORDERED: Sennosides/Docusate Sodium TABLET PO PRN (12:17)
[2019-01-04] MEDS: rOPINIRole 1 MG TABLET PO SCH (16:12)
[2019-01-04] MEDS: Mirtazapine 15 MG TABLET PO SCH (21:44)
[2019-01-04] MEDS: rOPINIRole 0.25 MG TABLET PO SCH (21:44)
[2019-01-04] MEDS: Atropine Sulfate 1% 40 DROP/2 ML BOTTLE BOTH EYES SCH (21:46)
[2019-01-05 04:29] LABS: Hematocrit 36.7 % (35.3-44.9); Hemoglobin 12.2 g/dL (11.5-15.4); Mean Corpuscular HGB Conc 33.2 g/dL (31.6-35.5); Mean Corpuscular Hemoglobin 28.6 pg (28.0-33.3); Mean Corpuscular Volume 86.2 fL (83.0-100.0); Mean Platelet Volume 10.8 fL (9.4-12.4); Platelet Count 176 K/mcL (140-400); Red Blood Count 4.26 M/mcL (3.82-4.97); Red Cell Distribution Width 14.6 % (11.5-14.5); White Blood Count 6.4 K/mcL (4.3-11.1)
[2019-01-05 04:47] LABS: Calcium 8.5 mg/dL (8.6-10.3); Potassium 3.9 mEq/L (3.5-5.1)
[2019-01-05] MEDS: *HR* OxyCODONE/APAP 5/325 TABLET PO PRN (05:50)
[2019-01-05] MEDS: PrednisoLONE Acetate 1% Opth 5 ML BOTTLE LEFT EYE SCH ×9 (05:50→22:20)
[2019-01-05] MEDS: *HR* Heparin 5,000 UNIT/ML VIAL SQ SCH ×2 (05:51→18:23)
[2019-01-05] MEDS: PrednisoLONE Acetate 1% Opth 5 ML BOTTLE RIGHT EYE SCH ×9 (05:51→22:20)
[2019-01-05] MEDS: Budesonide/Formoterol 160/4.5 1 PUFF INH IH SCH ×2 (07:27→20:34)
[2019-01-05] MEDS: Tiotropium 18 MCG inhalation IH SCH (07:28)
[2019-01-05] MEDS: 0.9 % Sodium Chloride 1,000 ML IVC SCH ×2 (08:12→20:58)
[2019-01-05] MEDS: Atropine Sulfate 1% 40 DROP/2 ML BOTTLE BOTH EYES SCH ×2 (08:13→20:53)
[2019-01-05] MEDS: rOPINIRole 1 MG TABLET PO SCH ×2 (08:13→16:16)
[2019-01-05] MEDS: Ondansetron 4 MG/2 ML VIAL IVP PRN ×2 (08:14→16:39)
[2019-01-05] MEDS: *HR* Ticagrelor 90 MG TABLET PO SCH ×2 (08:15→20:52)
[2019-01-05] MEDS: Isosorbide MONOnitrate (24 HR) 30 MG TAB.ER.24H PO SCH (08:15)
[2019-01-05] MEDS: clonazePAM 1 MG TABLET PO SCH ×2 (08:15→20:52)
[2019-01-05] MEDS: Nicotine 14 MG PATCH.TD24 TD SCH (08:15)
[2019-01-05] MEDS: Aspirin Enteric Coated 81 MG Tablet PO SCH (08:15)
[2019-01-05] MEDS: Sucralfate 1 GM TABLET PO SCH ×2 (08:15→20:52)
[2019-01-05] MEDS: Baclofen 10 MG TABLET PO SCH ×3 (08:15→20:52)
[2019-01-05] MEDS ORDERED: amLODIPine 5 MG TABLET PO SCH (09:00)
[2019-01-05] MEDS: *HR* OxyCODONE/APAP 7.5/325 TABLET PO PRN ×3 (10:36→20:52)
[2019-01-05] MEDS: Mirtazapine 15 MG TABLET PO SCH (20:52)
[2019-01-05] MEDS: rOPINIRole 0.25 MG TABLET PO SCH (20:52)
[2019-01-06] MEDS: *HR* OxyCODONE/APAP 7.5/325 TABLET PO PRN ×4 (06:06→22:25)
[2019-01-06] MEDS: PrednisoLONE Acetate 1% Opth 5 ML BOTTLE LEFT EYE SCH ×9 (06:07→22:26)
[2019-01-06] MEDS: PrednisoLONE Acetate 1% Opth 5 ML BOTTLE RIGHT EYE SCH ×9 (06:07→22:26)
[2019-01-06] MEDS: *HR* Heparin 5,000 UNIT/ML VIAL SQ SCH ×2 (06:10→17:48)
[2019-01-06] MEDS: Budesonide/Formoterol 160/4.5 1 PUFF INH IH SCH ×2 (07:26→19:30)
[2019-01-06] MEDS: Tiotropium 18 MCG inhalation IH SCH (07:27)
[2019-01-06] MEDS: Isosorbide MONOnitrate (24 HR) 30 MG TAB.ER.24H PO SCH (08:19)
[2019-01-06] MEDS: Aspirin Enteric Coated 81 MG Tablet PO SCH (08:19)
[2019-01-06] MEDS: *HR* Ticagrelor 90 MG TABLET PO SCH ×2 (08:19→20:58)
[2019-01-06] MEDS: Sucralfate 1 GM TABLET PO SCH ×2 (08:19→20:57)
[2019-01-06] MEDS: clonazePAM 1 MG TABLET PO SCH ×2 (08:19→20:58)
[2019-01-06] MEDS: Sennosides/Docusate Sodium TABLET PO SCH (08:20)
[2019-01-06] MEDS: Nicotine 14 MG PATCH.TD24 TD SCH (08:20)
[2019-01-06] MEDS: amLODIPine 5 MG TABLET PO SCH (08:20)
[2019-01-06] MEDS: Baclofen 10 MG TABLET PO SCH ×3 (08:20→21:00)
[2019-01-06] MEDS: Atropine Sulfate 1% 40 DROP/2 ML BOTTLE BOTH EYES SCH ×2 (08:21→20:56)
[2019-01-06] MEDS: rOPINIRole 1 MG TABLET PO SCH ×2 (08:35→16:42)
[2019-01-06] MEDS: Ondansetron 4 MG/2 ML VIAL IVP PRN ×3 (11:24→22:25)
[2019-01-06 12:05] LABS: Calcium 8.7 mg/dL (8.6-10.3); Potassium 3.7 mEq/L (3.5-5.1)
[2019-01-06] MEDS: 0.9 % Sodium Chloride 1,000 ML IVC SCH (13:15)
[2019-01-06] MEDS: rOPINIRole 0.25 MG TABLET PO SCH (20:59)
[2019-01-06] MEDS: Mirtazapine 15 MG TABLET PO SCH (22:25)
[2019-01-07] MEDS: 0.9 % Sodium Chloride 1,000 ML IVC SCH (00:42)
[2019-01-07] MEDS: *HR* Heparin 5,000 UNIT/ML VIAL SQ SCH (05:42)
[2019-01-07] MEDS: Ondansetron 4 MG/2 ML VIAL IVP PRN ×2 (05:42→12:12)
[2019-01-07] MEDS: PrednisoLONE Acetate 1% Opth 5 ML BOTTLE RIGHT EYE SCH ×5 (05:42→14:29)
[2019-01-07] MEDS: PrednisoLONE Acetate 1% Opth 5 ML BOTTLE LEFT EYE SCH ×5 (05:42→14:29)
[2019-01-07 06:50] LABS: Calcium 8.7 mg/dL (8.6-10.3); Potassium 3.9 mEq/L (3.5-5.1)
[2019-01-07] MEDS: Budesonide/Formoterol 160/4.5 1 PUFF INH IH SCH (07:41)
[2019-01-07] MEDS: Tiotropium 18 MCG inhalation IH SCH (07:42)
[2019-01-07] MEDS: amLODIPine 5 MG TABLET PO SCH (08:03)
[2019-01-07] MEDS: Sucralfate 1 GM TABLET PO SCH (08:03)
[2019-01-07] MEDS: Isosorbide MONOnitrate (24 HR) 30 MG TAB.ER.24H PO SCH (08:03)
[2019-01-07] MEDS: Sennosides/Docusate Sodium TABLET PO SCH (08:04)
[2019-01-07] MEDS: *HR* Ticagrelor 90 MG TABLET PO SCH (08:04)
[2019-01-07] MEDS: *HR* OxyCODONE/APAP 7.5/325 TABLET PO PRN ×3 (08:05→15:41)
[2019-01-07] MEDS: clonazePAM 1 MG TABLET PO SCH (08:05)
[2019-01-07] MEDS: Aspirin Enteric Coated 81 MG Tablet PO SCH (08:05)
[2019-01-07] MEDS: Nicotine 14 MG PATCH.TD24 TD SCH (08:06)
[2019-01-07] MEDS: Baclofen 10 MG TABLET PO SCH ×2 (08:06→14:30)
[2019-01-07] MEDS: rOPINIRole 1 MG TABLET PO SCH (08:06)
[2019-01-07] MEDS: Atropine Sulfate 1% 40 DROP/2 ML BOTTLE BOTH EYES SCH (08:07)
[2019-01-07 10:29] VITALS: BP 165/87
[2019-01-07] MEDS ORDERED: FLU Vac QV 19-20 (6Month+)/PF 0.5 ML SYRINGE IM ONE (12:07)
== END 2019-01-07 15:52 | disposition home health service (06) ==
LOC: 3ANU → SUATTDRO 12:22 → EDSTATUS 01-03 08:00
PROVIDERS: ADMIT Internal Medicine Gastroenterology; ATTEND Internal Medicine
PROC: ENDOEUS (2019-01-03 08:00)

== ENCOUNTER 2019-01-31 14:46 | Inpatient (IN) ==
[2019-01-31] MEDS ORDERED: Aspirin 81 MG TAB.CHEW PO ONE (14:53)
[2019-01-31] MEDS ORDERED: 0.9 % Sodium Chloride 500 ML IVC ONE ×2 (14:53→16:03)
[2019-01-31] MEDS: Nitroglycerin 0.4 MG TAB.SUBL SL PRN (15:01)
[2019-01-31 15:17] LABS: Eosinophils % 1.4 %; Hematocrit 45.3 % (35.3-44.9); Hemoglobin 16.1 g/dL (11.5-15.4); Immature Granulocytes % 0.6 % (0-4); Lymphocytes % 23.9 %; Mean Corpuscular HGB Conc 35.5 g/dL (31.6-35.5); Mean Corpuscular Hemoglobin 29.7 pg (28.0-33.3); Mean Corpuscular Volume 83.4 fL (83.0-100.0); Mean Platelet Volume 10.1 fL (9.4-12.4); Monocytes % 4.8 %; Platelet Count 278 K/mcL (140-400); Red Blood Count 5.43 M/mcL (3.82-4.97); Red Cell Distribution Width 14.6 % (11.5-14.5); Segmented Neutrophils % 69.1 %; White Blood Count 12.2 K/mcL (4.3-11.1)
[2019-01-31 15:18] LABS: Basophils % 0.2 %; Eosinophils # 0.2 K/mcL (0.0-0.6); Lymphocytes # 2.9 K/mcL (0.6-4.6); Monocytes # 0.6 K/mcL (0.0-1.3); Neutrophils # 8.4 K/mcL (1.6-8.9)
[2019-01-31 15:21] LABS: INR 0.9; Prothrombin Time 10.4 Seconds (9.4-12.1)
[2019-01-31 15:23] LABS: Activated Partial Thrombo Time 33.5 Seconds (26.0-36.0)
[2019-01-31 15:40] LABS: Albumin 4.6 g/dL (3.5-5.7); Albumin/Globulin Ratio 1.3 (1.1-2.2); Bilirubin,Direct 0.1 mg/dL (0.0-0.2); Bilirubin,Indirect 0.3 mg/dL (0.0-1.0); Bilirubin,Total 0.4 mg/dL (0.3-1.0); Globulin 3.5 g/dL (2.4-3.5); Potassium 4.2 mEq/L (3.5-5.1); Total Protein 8.1 g/dL (6.4-8.9); Troponin I 0.03 ng/mL (< 0.04)
[2019-01-31] MEDS ORDERED: Budesonide/Formoterol 160/4.5 1 PUFF INH IH PRN (16:42)
[2019-01-31] MEDS ORDERED: Fluticasone Propionate Nasal 50 MCG/SPRAY BOTTLE NS PRN (16:42)
[2019-01-31] MEDS ORDERED: Baclofen 10 MG TABLET PO PRN (16:42)
[2019-01-31] MEDS ORDERED: Ondansetron 4 MG/2 ML VIAL IVP PRN (16:48)
[2019-01-31] MEDS ORDERED: Mag Hydrox/Al Hydrox/Simeth 30 ML UDC PO PRN (16:48)
[2019-01-31] MEDS ORDERED: Naloxone 0.4 MG/ML INJ IVP PRN (16:48)
[2019-01-31] MEDS ORDERED: MOM Conc 10 ML UD.LIQ PO PRN (16:48)
[2019-01-31] MEDS: *HR* Heparin 5,000 UNIT/ML VIAL SQ SCH (20:37)
[2019-01-31] MEDS: 0.9 % Sodium Chloride 3,000 ML IVC SCH (20:37)
[2019-01-31] MEDS: *HR* Ticagrelor 90 MG TABLET PO SCH (20:38)
[2019-01-31] MEDS: rOPINIRole 0.25 MG TABLET PO SCH (20:38)
[2019-01-31] MEDS: clonazePAM 1 MG TABLET PO SCH (20:38)
[2019-01-31] MEDS: Mirtazapine 15 MG TABLET PO SCH (20:39)
[2019-01-31] MEDS: *HR* OxyCODONE/APAP 7.5/325 TABLET PO PRN (20:39)
[2019-01-31] MEDS: PrednisoLONE Acetate 1% Opth 5 ML BOTTLE BOTH EYES SCH ×4 (20:42→23:55)
[2019-01-31] MEDS ORDERED: Famotidine 20 MG TABLET PO PRN (20:51)
[2019-01-31] MEDS: Acetaminophen 325 MG TABLET PO PRN (22:32)
[2019-02-01] MEDS: PrednisoLONE Acetate 1% Opth 5 ML BOTTLE BOTH EYES SCH ×10 (02:38→22:02)
[2019-02-01] MEDS: *HR* OxyCODONE/APAP 7.5/325 TABLET PO PRN ×3 (05:26→19:22)
[2019-02-01] MEDS: *HR* Heparin 5,000 UNIT/ML VIAL SQ SCH ×2 (05:26→18:07)
[2019-02-01] MEDS ORDERED: Regadenoson 0.4 MG/5 ML SYRINGE IVP ONE (06:34)
[2019-02-01 06:39] LABS: Basophils % 0.4 %; Eosinophils # 0.4 K/mcL (0.0-0.6); Eosinophils % 4.8 %; Hematocrit 40.5 % (35.3-44.9); Immature Granulocytes % 0.4 % (0-4); Lymphocytes # 2.9 K/mcL (0.6-4.6); Lymphocytes % 36.7 %; Mean Corpuscular HGB Conc 35.1 g/dL (31.6-35.5); Mean Corpuscular Hemoglobin 29.5 pg (28.0-33.3); Mean Corpuscular Volume 84.2 fL (83.0-100.0); Mean Platelet Volume 10.1 fL (9.4-12.4); Monocytes # 0.5 K/mcL (0.0-1.3); Monocytes % 6.8 %; Platelet Count 219 K/mcL (140-400); Red Blood Count 4.81 M/mcL (3.82-4.97); Red Cell Distribution Width 14.5 % (11.5-14.5); Segmented Neutrophils % 50.9 %; White Blood Count 7.9 K/mcL (4.3-11.1)
[2019-02-01 06:40] LABS: Hemoglobin 14.2 g/dL (11.5-15.4)
[2019-02-01 06:58] LABS: Calcium 8.7 mg/dL (8.6-10.3); Potassium 3.5 mEq/L (3.5-5.1)
[2019-02-01 06:59] LABS: Chol/HDL Ratio 4.2 (0-4.9); Phosphorous 3.2 mg/dL (2.7-4.5)
[2019-02-01 07:35] LABS: Bilirubin,Urine Negative (Negative); Blood,Urine Negative (Negative); Clarity,Urine Cloudy (Clear); Color,Urine Yellow (Yellow); Glucose,Urine (UA) Normal (Normal); Ketones,Urine Negative (Negative); Leukocyte Esterase,Urine Moderate (Negative); Nitrite,Urine Positive (Negative); PH,Urine 5.5 pH Units (5.0-8.0); Protein,Urine Negative (Neg-Trace); Specific Gravity,Urine 1.019 (1.010-1.025); Urobilinogen,Urine Normal (Normal)
[2019-02-01 07:38] LABS: Amphetamine Screen,Urine Negative ng/mL (Cutoff=1000); Barbiturate Screen,Urine Negative ng/mL (Cutoff=200)
[2019-02-01 07:39] LABS: Benzodiazepines Screen,Urine Negative ng/mL (Cutoff=300); Cannabinoid Screen,Urine Positive ng/mL (Cutoff = 50); Cocaine Screen,Urine Negative ng/mL (Cutoff= 300); Opiate Screen,Urine Negative ng/mL (Cutoff=300); Phencyclidine Screen,Urine Negative ng/mL (Cutoff=25)
[2019-02-01] MEDS: Tiotropium 18 MCG inhalation IH SCH (10:03)
[2019-02-01] MEDS: Aspirin Enteric Coated 81 MG Tablet PO SCH (10:28)
[2019-02-01] MEDS: Isosorbide MONOnitrate (24 HR) 30 MG TAB.ER.24H PO SCH (10:28)
[2019-02-01] MEDS: Sucralfate 1 GM TABLET PO SCH ×2 (10:28→17:56)
[2019-02-01] MEDS: clonazePAM 1 MG TABLET PO SCH ×2 (10:28→21:58)
[2019-02-01] MEDS: *HR* Ticagrelor 90 MG TABLET PO SCH ×2 (10:28→21:58)
[2019-02-01] MEDS: rOPINIRole 0.25 MG TABLET PO SCH ×2 (10:29→21:58)
[2019-02-01] MEDS: cefTRIAXone 2,000 MG in 0.9 % Sodium Chloride Mini Bag 100 ML IVPB SCH (11:14)
[2019-02-01] MEDS: Acetaminophen 325 MG TABLET PO PRN (14:00)
[2019-02-01] MEDS: traMADol 50 MG TABLET PO PRN (17:56)
[2019-02-01] MEDS: Ondansetron ODT 4 MG TAB.RAPDIS SL PRN (17:56)
[2019-02-01] MEDS: Mirtazapine 15 MG TABLET PO SCH (18:07)
[2019-02-01] MEDS: 0.9 % Sodium Chloride 3,000 ML IVC SCH (18:07)
[2019-02-02] MEDS: PrednisoLONE Acetate 1% Opth 5 ML BOTTLE BOTH EYES SCH ×12 (00:22→23:38)
[2019-02-02] MEDS: Ondansetron ODT 4 MG TAB.RAPDIS SL PRN (01:41)
[2019-02-02] MEDS: *HR* OxyCODONE/APAP 7.5/325 TABLET PO PRN ×3 (03:07→23:57)
[2019-02-02] MEDS: *HR* Heparin 5,000 UNIT/ML VIAL SQ SCH ×2 (06:11→17:33)
[2019-02-02] MEDS: 0.9 % Sodium Chloride 3,000 ML IVC SCH ×2 (07:01→11:38)
[2019-02-02 07:18] LABS: Calcium 8.5 mg/dL (8.6-10.3); Potassium 3.9 mEq/L (3.5-5.1)
[2019-02-02] MEDS: Tiotropium 18 MCG inhalation IH SCH (08:26)
[2019-02-02] MEDS: clonazePAM 1 MG TABLET PO SCH ×2 (09:36→20:30)
[2019-02-02] MEDS: Sucralfate 1 GM TABLET PO SCH ×2 (09:37→17:34)
[2019-02-02] MEDS: Aspirin Enteric Coated 81 MG Tablet PO SCH (09:37)
[2019-02-02] MEDS: *HR* Ticagrelor 90 MG TABLET PO SCH ×2 (09:37→20:29)
[2019-02-02] MEDS: Nicotine 14 MG PATCH.TD24 TD SCH (09:37)
[2019-02-02] MEDS: rOPINIRole 0.25 MG TABLET PO SCH ×2 (09:38→20:30)
[2019-02-02] MEDS: Isosorbide MONOnitrate (24 HR) 30 MG TAB.ER.24H PO SCH (09:38)
[2019-02-02] MEDS: cefTRIAXone 2,000 MG in 0.9 % Sodium Chloride Mini Bag 100 ML IVPB SCH (09:49)
[2019-02-02] MEDS: traMADol 50 MG TABLET PO PRN (13:43)
[2019-02-02] MEDS: Mirtazapine 15 MG TABLET PO SCH (17:34)
[2019-02-02] MEDS: Nitroglycerin 0.4 MG TAB.SUBL SL PRN (23:58)
[2019-02-03] MEDS: Nitroglycerin 0.4 MG TAB.SUBL SL PRN (00:03)
[2019-02-03] MEDS: PrednisoLONE Acetate 1% Opth 5 ML BOTTLE BOTH EYES SCH ×10 (01:31→23:26)
[2019-02-03] MEDS: *HR* Heparin 5,000 UNIT/ML VIAL SQ SCH ×2 (05:51→22:38)
[2019-02-03] MEDS: *HR* OxyCODONE/APAP 7.5/325 TABLET PO PRN ×3 (05:58→21:15)
[2019-02-03] MEDS: Sucralfate 1 GM TABLET PO SCH ×2 (06:47→22:37)
[2019-02-03 07:07] LABS: BUN/Creatinine Ratio 15 (6-26); Blood Urea Nitrogen 15 mg/dL (8-23); Calcium 8.7 mg/dL (8.6-10.3); Carbon Dioxide 23 mEq/L (23-29); Chloride 105 mEq/L (98-107); Glucose 93 mg/dL (70-105); Osmolality,Calculated 283 (280-300); Potassium 3.8 mEq/L (3.5-5.1); Sodium 136 mEq/L (136-145); eGFR For African Americans > 60 (> 60); eGFR For Non-African Americans 53 (> 60)
[2019-02-03] MEDS: Tiotropium 18 MCG inhalation IH SCH (07:58)
[2019-02-03] MEDS: Isosorbide MONOnitrate (24 HR) 30 MG TAB.ER.24H PO SCH (09:08)
[2019-02-03] MEDS: *HR* Ticagrelor 90 MG TABLET PO SCH ×2 (09:08→23:18)
[2019-02-03] MEDS: clonazePAM 1 MG TABLET PO SCH ×2 (09:08→23:16)
[2019-02-03] MEDS: Aspirin Enteric Coated 81 MG Tablet PO SCH (09:08)
[2019-02-03] MEDS: rOPINIRole 0.25 MG TABLET PO SCH ×2 (09:08→23:17)
[2019-02-03] MEDS: Nicotine 14 MG PATCH.TD24 TD SCH (09:09)
[2019-02-03] MEDS: traMADol 50 MG TABLET PO PRN (09:28)
[2019-02-03] MEDS: Ondansetron ODT 4 MG TAB.RAPDIS SL PRN (09:32)
[2019-02-03] MEDS: cefTRIAXone 2,000 MG in 0.9 % Sodium Chloride Mini Bag 100 ML IVPB SCH (09:39)
[2019-02-03] MEDS ORDERED: *HR* FentaNYL (PF) 100 MCG/2 ML VIAL ONE (15:28)
[2019-02-03] MEDS ORDERED: Verapamil 5 MG/2 ML VIAL ONE (15:28)
[2019-02-03] MEDS ORDERED: *HR* Midazolam HCl 2 MG/2 ML VIAL ONE ×2 (15:28→16:16)
[2019-02-03] MEDS ORDERED: 0.9 % Sodium Chloride 2,000 ML ONE (15:29)
[2019-02-03] MEDS ORDERED: Nitroglycerin 1,000 MCG/10 ML VIAL IV ONE (15:29)
[2019-02-03] MEDS ORDERED: ISOVUE-370 200 ML INFUS..BTL ONE (15:29)
[2019-02-03] MEDS ORDERED: *HR* Heparin 10,000 UNIT/10 ML VIAL ONE (15:29)
[2019-02-03] MEDS ORDERED: Heparin 1,000 UNITS/500 mL 500 ML ONE (15:29)
[2019-02-03] MEDS ORDERED: *HR* Ticagrelor 90 MG TABLET ONE (16:33)
[2019-02-03] MEDS ORDERED: *HR* Atropine Sulfate 1 MG/10 ML SYRINGE ONE (21:36)
[2019-02-03] MEDS: Mirtazapine 15 MG TABLET PO SCH (23:16)
[2019-02-04] MEDS: PrednisoLONE Acetate 1% Opth 5 ML BOTTLE BOTH EYES SCH ×13 (00:03→23:17)
[2019-02-04 01:04] LABS: BUN/Creatinine Ratio 14 (6-26); Blood Urea Nitrogen 12 mg/dL (8-23); Calcium 8.2 mg/dL (8.6-10.3); Carbon Dioxide 22 mEq/L (23-29); Chloride 105 mEq/L (98-107); Glucose 119 mg/dL (70-105); Osmolality,Calculated 281 (280-300); Potassium 3.2 mEq/L (3.5-5.1); Sodium 135 mEq/L (136-145); eGFR For African Americans > 60 (> 60); eGFR For Non-African Americans > 60 (> 60)
[2019-02-04] MEDS: *HR* Heparin 5,000 UNIT/ML VIAL SQ SCH ×2 (04:56→16:54)
[2019-02-04] MEDS: Nicotine 14 MG PATCH.TD24 TD SCH (07:40)
[2019-02-04] MEDS: Sucralfate 1 GM TABLET PO SCH ×2 (07:44→16:54)
[2019-02-04] MEDS: rOPINIRole 0.25 MG TABLET PO SCH ×2 (07:44→21:12)
[2019-02-04] MEDS: *HR* Ticagrelor 90 MG TABLET PO SCH ×2 (07:45→21:12)
[2019-02-04] MEDS: Metoprolol XL (24 HR) Succ 25 MG TAB.ER.24H PO SCH (07:46)
[2019-02-04] MEDS: *HR* OxyCODONE/APAP 7.5/325 TABLET PO PRN ×3 (07:46→21:16)
[2019-02-04] MEDS: Isosorbide MONOnitrate (24 HR) 30 MG TAB.ER.24H PO SCH (07:47)
[2019-02-04] MEDS: Aspirin Enteric Coated 81 MG Tablet PO SCH (07:47)
[2019-02-04] MEDS: clonazePAM 1 MG TABLET PO SCH ×2 (07:47→21:12)
[2019-02-04] MEDS: Tiotropium 18 MCG inhalation IH SCH (08:09)
[2019-02-04] MEDS: traMADol 50 MG TABLET PO PRN (10:50)
[2019-02-04] MEDS: *HR* Promethazine 25 MG/ML VIAL IVP PRN (10:51)
[2019-02-04] MEDS: Mirtazapine 15 MG TABLET PO SCH (18:35)
[2019-02-05] MEDS: PrednisoLONE Acetate 1% Opth 5 ML BOTTLE BOTH EYES SCH ×6 (03:13→10:24)
[2019-02-05 05:02] LABS: Hematocrit 42.7 % (35.3-44.9); Mean Corpuscular HGB Conc 35.1 g/dL (31.6-35.5); Mean Corpuscular Hemoglobin 29.9 pg (28.0-33.3); Mean Corpuscular Volume 85.1 fL (83.0-100.0); Mean Platelet Volume 10.4 fL (9.4-12.4); Platelet Count 192 K/mcL (140-400); Red Blood Count 5.02 M/mcL (3.82-4.97); White Blood Count 9.2 K/mcL (4.3-11.1)
[2019-02-05] MEDS: *HR* Heparin 5,000 UNIT/ML VIAL SQ SCH (05:09)
[2019-02-05 05:24] LABS: BUN/Creatinine Ratio 11 (6-26); Blood Urea Nitrogen 11 mg/dL (8-23); Calcium 9.5 mg/dL (8.6-10.3); Carbon Dioxide 25 mEq/L (23-29); Chloride 103 mEq/L (98-107); Glucose 95 mg/dL (70-105); Osmolality,Calculated 281 (280-300); Potassium 3.8 mEq/L (3.5-5.1); Sodium 136 mEq/L (136-145); eGFR For African Americans > 60 (> 60); eGFR For Non-African Americans 57 (> 60)
[2019-02-05] MEDS: Tiotropium 18 MCG inhalation IH SCH (07:26)
[2019-02-05] MEDS: Nicotine 14 MG PATCH.TD24 TD SCH (08:13)
[2019-02-05] MEDS: Aspirin Enteric Coated 81 MG Tablet PO SCH (08:15)
[2019-02-05] MEDS: Sucralfate 1 GM TABLET PO SCH (08:15)
[2019-02-05] MEDS: rOPINIRole 0.25 MG TABLET PO SCH (08:15)
[2019-02-05] MEDS: Metoprolol XL (24 HR) Succ 25 MG TAB.ER.24H PO SCH (08:16)
[2019-02-05] MEDS: Isosorbide MONOnitrate (24 HR) 30 MG TAB.ER.24H PO SCH (08:16)
[2019-02-05] MEDS: clonazePAM 1 MG TABLET PO SCH (08:16)
[2019-02-05] MEDS: *HR* Ticagrelor 90 MG TABLET PO SCH (08:16)
[2019-02-05] MEDS: *HR* Promethazine 25 MG/ML VIAL IVP PRN (08:18)
[2019-02-05] MEDS: Ondansetron ODT 4 MG TAB.RAPDIS SL PRN (10:48)
[2019-02-05 11:26] VITALS: BP 158/74
== END 2019-02-05 11:15 | disposition home or self-care (01) | DRG 247 ==
LOC: EMEROOARM 14:46 → 3BNU 14:46 → 2NNU 02-03 20:26
PROVIDERS: ADMIT Internal Medicine; ATTEND Internal Medicine

== ENCOUNTER 2019-03-05 11:25 | Inpatient (IN) ==
[2019-03-05] MEDS ORDERED: 0.9 % Sodium Chloride 1,000 ML IVC ONE (11:30)
[2019-03-05] MEDS ORDERED: Ipratropium/Albuterol Neb 3 ML IH ONE (11:30)
[2019-03-05] MEDS ORDERED: Ipratropium/Albuterol Neb 3 ML ONE (11:32)
[2019-03-05] MEDS: Ipratropium/Albuterol Neb 3 ML IH ONE ×2 (11:36→12:31)
[2019-03-05 11:57] LABS: Basophils % 0.2 %; Hematocrit 46.5 % (35.3-44.9); Hemoglobin 15.6 g/dL (11.5-15.4); Immature Granulocytes % 0.8 % (0-4); Lymphocytes # 0.4 K/mcL (0.6-4.6); Lymphocytes % 3.6 %; Mean Corpuscular HGB Conc 33.5 g/dL (31.6-35.5); Mean Corpuscular Hemoglobin 28.9 pg (28.0-33.3); Mean Corpuscular Volume 86.3 fL (83.0-100.0); Mean Platelet Volume 10.6 fL (9.4-12.4); Monocytes # 0.3 K/mcL (0.0-1.3); Monocytes % 2.4 %; Neutrophils # 10.5 K/mcL (1.6-8.9); Platelet Count 184 K/mcL (140-400); Red Blood Count 5.39 M/mcL (3.82-4.97); Red Cell Distribution Width 14.8 % (11.5-14.5); White Blood Count 11.3 K/mcL (4.3-11.1)
[2019-03-05] MEDS ORDERED: Ondansetron 4 MG/2 ML VIAL ONE (12:07)
[2019-03-05] MEDS ORDERED: Ondansetron ODT 4 MG TAB.RAPDIS SL STA (12:07)
[2019-03-05 12:08] LABS: VBG HCO3 27 mEq/L (21-27); VBG PCO2 55 mmHg (41-51); VBG PH 7.29 pH Units (7.32-7.42); VBG PO2 110 mmHg (25-50)
[2019-03-05] MEDS: Ondansetron 4 MG/2 ML VIAL IVP STA ×2 (12:11→16:08)
[2019-03-05] MEDS ORDERED: *HR* FentaNYL (PF) 100 MCG/2 ML VIAL IVP STA (13:05)
[2019-03-05 13:53] LABS: Alanine Aminotransferase 8 Units/L (7-52); Albumin 3.8 g/dL (3.5-5.7); Albumin/Globulin Ratio 1.2 (1.1-2.2); Alkaline Phosphatase 77 Units/L (34-104); BUN/Creatinine Ratio 21 (6-26); Bilirubin,Total 0.3 mg/dL (0.3-1.0); Blood Urea Nitrogen 24 mg/dL (8-23); Calcium 8.5 mg/dL (8.6-10.3); Carbon Dioxide 26 mEq/L (23-29); Chloride 101 mEq/L (98-107); Globulin 3.1 g/dL (2.4-3.5); Glucose 157 mg/dL (70-105); Lipase 4 Units/L (11-82); Osmolality,Calculated 291 (280-300); Potassium 4.5 mEq/L (3.5-5.1); Sodium 137 mEq/L (136-145); Total Protein 6.9 g/dL (6.4-8.9); Troponin I 0.06 ng/mL (< 0.04); eGFR For African Americans 55 (> 60); eGFR For Non-African Americans 45 (> 60)
[2019-03-05] MEDS ORDERED: Aspirin 81 MG TAB.CHEW PO STA (13:58)
[2019-03-05] MEDS ORDERED: Acetaminophen 325 MG TABLET PO ONE (14:22)
[2019-03-05] MEDS ORDERED: *HR* FentaNYL (PF) 100 MCG/2 ML VIAL IVP ONE (14:52)
[2019-03-05 15:09] LABS: Bilirubin,Urine Negative (Negative); Blood,Urine Trace (Negative); Clarity,Urine Cloudy (Clear); Color,Urine Yellow (Yellow); Glucose,Urine (UA) Normal (Normal); Ketones,Urine Negative (Negative); Leukocyte Esterase,Urine Negative (Negative); Nitrite,Urine Positive (Negative); Protein,Urine 30 mg/dL (Neg-Trace); Specific Gravity,Urine 1.021 (1.010-1.025); Urobilinogen,Urine Normal (Normal)
[2019-03-05 15:17] LABS: Bacteria,Urine Many per hpf (None-Few); Hyaline Casts,Urine None Seen per lpf (None-Few); RBC,Urine 0-3 per hpf (0-3); Squamous Epithelial Cell,Urine Many per lpf (None-Few)
[2019-03-05] MEDS ORDERED: Naloxone 0.4 MG/ML INJ IVP PRN (15:47)
[2019-03-05] MEDS ORDERED: Budesonide/Formoterol 160/4.5 1 PUFF INH IH PRN (16:16)
[2019-03-05] MEDS ORDERED: Fluticasone Propionate Nasal 50 MCG/SPRAY BOTTLE NS PRN (16:16)
[2019-03-05] MEDS ORDERED: Baclofen 10 MG TABLET PO PRN (16:16)
[2019-03-05] MEDS ORDERED: Nitroglycerin 0.4 MG TAB.SUBL SL PRN (16:16)
[2019-03-05] MEDS ORDERED: Tiotropium 18 MCG inhalation IH PRN (16:16)
[2019-03-05] MEDS ORDERED: PrednisoLONE Acetate 1% Opth 5 ML BOTTLE BOTH EYES SCH (16:30)
[2019-03-05] MEDS ORDERED: Furosemide 20 MG/2 ML VIAL IVP ONE (20:00)
[2019-03-05] MEDS: Albuterol 2.5 MG/3 ML NEBULIZER IH SCH (20:14)
[2019-03-05] MEDS: Budesonide/Formoterol 160/4.5 1 PUFF INH IH SCH (20:15)
[2019-03-05] MEDS: Azithromycin 500 MG in 0.9 % Sodium Chloride 250 ML IVPB SCH (20:44)
[2019-03-05] MEDS: clonazePAM 1 MG TABLET PO SCH (20:45)
[2019-03-05] MEDS: Sucralfate 1 GM TABLET PO SCH (20:45)
[2019-03-05] MEDS: *HR* Ticagrelor 90 MG TABLET PO SCH (20:45)
[2019-03-05] MEDS: rOPINIRole 1 MG TABLET PO SCH (20:45)
[2019-03-05] MEDS: Mirtazapine 15 MG TABLET PO SCH (20:46)
[2019-03-05] MEDS ORDERED: Pantoprazole 40 MG VIAL IVP ONE (20:49)
[2019-03-05] MEDS ORDERED: *HR* Labetalol 20 MG/4 ML SYRINGE IVP ONE (20:49)
[2019-03-05] MEDS: Nicotine 14 MG PATCH.TD24 TD SCH ×2 (21:17→21:30)
[2019-03-05] MEDS: methylPREDNISolone 125 MG/2 ML VIAL IVP SCH (21:18)
[2019-03-05] MEDS: *HR* Heparin 5,000 UNIT/ML VIAL SQ SCH (21:18)
[2019-03-05] MEDS: Ondansetron ODT 4 MG TAB.RAPDIS SL PRN (21:19)
[2019-03-06] MEDS: Albuterol 2.5 MG/3 ML NEBULIZER IH SCH ×6 (00:13→19:45)
[2019-03-06] MEDS: methylPREDNISolone 125 MG/2 ML VIAL IVP SCH ×4 (01:44→23:54)
[2019-03-06 02:38] LABS: Basophils % 0.1 %; Hematocrit 43.4 % (35.3-44.9); Hemoglobin 14.4 g/dL (11.5-15.4); Immature Granulocytes % 0.4 % (0-4); Lymphocytes # 0.5 K/mcL (0.6-4.6); Lymphocytes % 5.2 %; Mean Corpuscular HGB Conc 33.2 g/dL (31.6-35.5); Mean Corpuscular Hemoglobin 29.1 pg (28.0-33.3); Mean Corpuscular Volume 87.9 fL (83.0-100.0); Mean Platelet Volume 10.6 fL (9.4-12.4); Monocytes # 0.4 K/mcL (0.0-1.3); Monocytes % 3.6 %; Neutrophils # 9.1 K/mcL (1.6-8.9); Platelet Count 136 K/mcL (140-400); Red Blood Count 4.94 M/mcL (3.82-4.97); Segmented Neutrophils % 90.7 %; White Blood Count 10.1 K/mcL (4.3-11.1)
[2019-03-06 02:57] LABS: Potassium 4.2 mEq/L (3.5-5.1)
[2019-03-06] MEDS ORDERED: *HR* LORazepam 2 MG/ML VIAL IVP ONE (03:22)
[2019-03-06] MEDS ORDERED: Prochlorperazine 10 MG/2 ML VIAL IVP PRN (03:23)
[2019-03-06] MEDS: *HR* Heparin 5,000 UNIT/ML VIAL SQ SCH ×2 (07:16→17:39)
[2019-03-06] MEDS: Budesonide/Formoterol 160/4.5 1 PUFF INH IH SCH ×2 (07:46→19:46)
[2019-03-06] MEDS: Metoprolol XL (24 HR) Succ 25 MG TAB.ER.24H PO SCH (09:43)
[2019-03-06] MEDS: Aspirin Enteric Coated 81 MG Tablet PO SCH (09:43)
[2019-03-06] MEDS: clonazePAM 1 MG TABLET PO SCH ×2 (09:43→20:15)
[2019-03-06] MEDS: Sucralfate 1 GM TABLET PO SCH ×2 (09:43→20:15)
[2019-03-06] MEDS: rOPINIRole 1 MG TABLET PO SCH ×2 (09:43→20:15)
[2019-03-06] MEDS: Isosorbide MONOnitrate (24 HR) 30 MG TAB.ER.24H PO SCH (09:43)
[2019-03-06] MEDS: *HR* Ticagrelor 90 MG TABLET PO SCH ×2 (09:43→20:15)
[2019-03-06] MEDS: Nicotine 7 MG PATCH.TD24 TD SCH (11:19)
[2019-03-06] MEDS ORDERED: Benzonatate 100 MG CAPSULE PO PRN (16:21)
[2019-03-06] MEDS: Azithromycin 500 MG in 0.9 % Sodium Chloride 250 ML IVPB SCH (17:47)
[2019-03-06] MEDS: cefTRIAXone 1,000 MG in Water for inj. (sterile) 10 ML IVP SCH (17:48)
[2019-03-06] MEDS: Mirtazapine 15 MG TABLET PO SCH (20:15)
[2019-03-07] MEDS: Albuterol 2.5 MG/3 ML NEBULIZER IH SCH ×6 (00:34→20:22)
[2019-03-07 01:26] LABS: Adenovirus Not Detected (Not Detect); Bordetella Pertussis Not Detected (Not Detect); Chlamydophila pneumoniae Not Detected (Not Detect); Coronavirus 229E Not Detected (Not Detect); Coronavirus HKU1 Not Detected (Not Detect); Coronavirus NL63 Not Detected (Not Detect); Coronavirus OC43 Not Detected (Not Detect); Human Metapneumovirus Not Detected (Not Detect); Human Rhinovirus/Enterovirus Not Detected (Not Detect); Influenza A Untypeable Not Detected (Not Detect); Influenza B Not Detected (Not Detect); Mycoplasma pneumoniae Not Detected (Not Detect); Parainfluenza Virus 1 Not Detected (Not Detect); Parainfluenza Virus 2 Not Detected (Not Detect); Parainfluenza Virus 3 Not Detected (Not Detect); Parainfluenza Virus 4 Not Detected (Not Detect); Respiratory Syncytial Virus Not Detected (Not Detect)
[2019-03-07] MEDS: *HR* Heparin 5,000 UNIT/ML VIAL SQ SCH ×2 (05:03→17:20)
[2019-03-07 05:34] LABS: Basophils % 0.1 %; Immature Granulocytes % 0.6 % (0-4); Lymphocytes # 0.5 K/mcL (0.6-4.6); Mean Corpuscular HGB Conc 34.1 g/dL (31.6-35.5); Mean Corpuscular Hemoglobin 29.7 pg (28.0-33.3); Mean Corpuscular Volume 87.3 fL (83.0-100.0); Mean Platelet Volume 10.5 fL (9.4-12.4); Monocytes # 0.2 K/mcL (0.0-1.3); Monocytes % 1.5 %; Neutrophils # 14.9 K/mcL (1.6-8.9); Platelet Count 161 K/mcL (140-400); Red Blood Count 4.24 M/mcL (3.82-4.97); Red Cell Distribution Width 14.6 % (11.5-14.5); Segmented Neutrophils % 94.8 %
[2019-03-07 05:38] LABS: Hemoglobin 12.6 g/dL (11.5-15.4); White Blood Count 15.7 K/mcL (4.3-11.1)
[2019-03-07 05:56] LABS: Calcium 8.5 mg/dL (8.6-10.3); Potassium 3.6 mEq/L (3.5-5.1)
[2019-03-07] MEDS: Budesonide/Formoterol 160/4.5 1 PUFF INH IH SCH ×2 (08:13→20:23)
[2019-03-07 08:55] LABS: Troponin I 0.12 ng/mL (< 0.04)
[2019-03-07 09:59] LABS: Influenza A Subtype 2009 H1 DETECTED (Not Detect)
[2019-03-07] MEDS: Aspirin Enteric Coated 81 MG Tablet PO SCH (10:17)
[2019-03-07] MEDS: *HR* Ticagrelor 90 MG TABLET PO SCH ×2 (10:17→20:40)
[2019-03-07] MEDS: Nicotine 7 MG PATCH.TD24 TD SCH (10:17)
[2019-03-07] MEDS: methylPREDNISolone 125 MG/2 ML VIAL IVP SCH (10:17)
[2019-03-07] MEDS: Sucralfate 1 GM TABLET PO SCH ×2 (10:17→20:40)
[2019-03-07] MEDS: Metoprolol XL (24 HR) Succ 25 MG TAB.ER.24H PO SCH (10:18)
[2019-03-07] MEDS: Isosorbide MONOnitrate (24 HR) 30 MG TAB.ER.24H PO SCH (10:18)
[2019-03-07] MEDS: clonazePAM 1 MG TABLET PO SCH ×2 (10:18→20:40)
[2019-03-07] MEDS: Sennosides/Docusate Sodium TABLET PO SCH ×2 (12:24→20:42)
[2019-03-07] MEDS: Azithromycin 250 MG TABLET PO SCH (15:14)
[2019-03-07] MEDS: Ondansetron ODT 4 MG TAB.RAPDIS SL PRN (15:14)
[2019-03-07] MEDS: Prochlorperazine 10 MG/2 ML VIAL IVP PRN (19:42)
[2019-03-07] MEDS: rOPINIRole 1 MG TABLET PO SCH (20:40)
[2019-03-07] MEDS: Mirtazapine 15 MG TABLET PO SCH (20:40)
[2019-03-08] MEDS: Albuterol 2.5 MG/3 ML NEBULIZER IH SCH ×7 (00:21→23:11)
[2019-03-08 01:49] LABS: Red Blood Count 4.15 M/mcL (3.82-4.97); White Blood Count 17.1 K/mcL (4.3-11.1)
[2019-03-08 01:50] LABS: Basophils % 0.1 %; Hematocrit 35.4 % (35.3-44.9); Hemoglobin 11.9 g/dL (11.5-15.4); Immature Granulocytes % 0.7 % (0-4); Lymphocytes # 0.5 K/mcL (0.6-4.6); Lymphocytes % 2.9 %; Mean Corpuscular HGB Conc 33.6 g/dL (31.6-35.5); Mean Corpuscular Hemoglobin 28.7 pg (28.0-33.3); Mean Corpuscular Volume 85.3 fL (83.0-100.0); Mean Platelet Volume 10.8 fL (9.4-12.4); Monocytes # 0.4 K/mcL (0.0-1.3); Monocytes % 2.5 %; Platelet Count 176 K/mcL (140-400); Red Cell Distribution Width 14.7 % (11.5-14.5); Segmented Neutrophils % 93.8 %
[2019-03-08 02:09] LABS: Calcium 8.4 mg/dL (8.6-10.3); Potassium 3.4 mEq/L (3.5-5.1)
[2019-03-08] MEDS: *HR* Heparin 5,000 UNIT/ML VIAL SQ SCH ×2 (05:34→18:28)
[2019-03-08] MEDS: Budesonide/Formoterol 160/4.5 1 PUFF INH IH SCH ×2 (07:23→20:35)
[2019-03-08] MEDS: 0.9 % Sodium Chloride 1,000 ML IVC SCH ×2 (10:31→21:10)
[2019-03-08] MEDS: Sucralfate 1 GM TABLET PO SCH ×2 (10:32→21:11)
[2019-03-08] MEDS: predniSONE 20 MG TABLET PO SCH (10:32)
[2019-03-08] MEDS: Sennosides/Docusate Sodium TABLET PO SCH ×2 (10:32→21:12)
[2019-03-08] MEDS: Aspirin Enteric Coated 81 MG Tablet PO SCH (10:32)
[2019-03-08] MEDS: Nicotine 7 MG PATCH.TD24 TD SCH (10:32)
[2019-03-08] MEDS: *HR* Ticagrelor 90 MG TABLET PO SCH ×2 (10:33→21:17)
[2019-03-08] MEDS: Isosorbide MONOnitrate (24 HR) 30 MG TAB.ER.24H PO SCH (10:33)
[2019-03-08] MEDS: Metoprolol XL (24 HR) Succ 25 MG TAB.ER.24H PO SCH (10:33)
[2019-03-08] MEDS: Azithromycin 250 MG TABLET PO SCH (10:33)
[2019-03-08] MEDS: clonazePAM 1 MG TABLET PO SCH ×2 (10:33→21:11)
[2019-03-08] MEDS: Tiotropium 18 MCG inhalation IH SCH (11:11)
[2019-03-08] MEDS: rOPINIRole 1 MG TABLET PO SCH (21:11)
[2019-03-08] MEDS: Mirtazapine 15 MG TABLET PO SCH (21:11)
[2019-03-09 03:04] LABS: Hematocrit 32.5 % (35.3-44.9); Hemoglobin 10.9 g/dL (11.5-15.4); Immature Granulocytes % 0.7 % (0-4); Lymphocytes # 0.6 K/mcL (0.6-4.6); Lymphocytes % 7.1 %; Mean Corpuscular HGB Conc 33.5 g/dL (31.6-35.5); Mean Corpuscular Hemoglobin 28.8 pg (28.0-33.3); Mean Platelet Volume 10.8 fL (9.4-12.4); Monocytes # 0.4 K/mcL (0.0-1.3); Monocytes % 4.2 %; Neutrophils # 7.5 K/mcL (1.6-8.9); Platelet Count 150 K/mcL (140-400); Red Blood Count 3.78 M/mcL (3.82-4.97); Red Cell Distribution Width 14.9 % (11.5-14.5)
[2019-03-09 03:05] LABS: White Blood Count 8.5 K/mcL (4.3-11.1)
[2019-03-09 03:09] LABS: BUN/Creatinine Ratio 38 (6-26); Blood Urea Nitrogen 36 mg/dL (8-23); Calcium 8.1 mg/dL (8.6-10.3); Carbon Dioxide 26 mEq/L (23-29); Chloride 102 mEq/L (98-107); Glucose 112 mg/dL (70-105); Osmolality,Calculated 291 (280-300); Potassium 3.8 mEq/L (3.5-5.1); Sodium 136 mEq/L (136-145); eGFR For African Americans > 60 (> 60); eGFR For Non-African Americans 59 (> 60)
[2019-03-09] MEDS: Albuterol 2.5 MG/3 ML NEBULIZER IH SCH ×6 (03:50→23:25)
[2019-03-09] MEDS: *HR* Heparin 5,000 UNIT/ML VIAL SQ SCH ×2 (06:37→16:58)
[2019-03-09] MEDS: 0.9 % Sodium Chloride 1,000 ML IVC SCH ×2 (06:38→16:58)
[2019-03-09] MEDS: Budesonide/Formoterol 160/4.5 1 PUFF INH IH SCH ×2 (08:07→19:42)
[2019-03-09] MEDS: Tiotropium 18 MCG inhalation IH SCH (08:07)
[2019-03-09] MEDS: Sennosides/Docusate Sodium TABLET PO SCH ×2 (09:03→20:56)
[2019-03-09] MEDS: Nicotine 7 MG PATCH.TD24 TD SCH (09:04)
[2019-03-09] MEDS: Aspirin Enteric Coated 81 MG Tablet PO SCH (09:05)
[2019-03-09] MEDS: predniSONE 20 MG TABLET PO SCH (09:05)
[2019-03-09] MEDS: Metoprolol XL (24 HR) Succ 25 MG TAB.ER.24H PO SCH (09:05)
[2019-03-09] MEDS: Sucralfate 1 GM TABLET PO SCH ×2 (09:05→20:56)
[2019-03-09] MEDS: clonazePAM 1 MG TABLET PO SCH ×2 (09:05→20:56)
[2019-03-09] MEDS: Azithromycin 250 MG TABLET PO SCH (09:06)
[2019-03-09] MEDS: *HR* Ticagrelor 90 MG TABLET PO SCH ×2 (09:06→20:56)
[2019-03-09] MEDS: Isosorbide MONOnitrate (24 HR) 30 MG TAB.ER.24H PO SCH (09:06)
[2019-03-09] MEDS: Prochlorperazine 10 MG/2 ML VIAL IVP PRN (19:15)
[2019-03-09] MEDS: rOPINIRole 1 MG TABLET PO SCH (20:56)
[2019-03-09] MEDS: Mirtazapine 15 MG TABLET PO SCH (20:56)
[2019-03-10 03:01] LABS: Basophils % 0.4 %; Hematocrit 29.3 % (35.3-44.9); Hemoglobin 9.7 g/dL (11.5-15.4); Immature Granulocytes % 1.4 % (0-4); Lymphocytes # 1.1 K/mcL (0.6-4.6); Lymphocytes % 21.5 %; Mean Corpuscular HGB Conc 33.1 g/dL (31.6-35.5); Mean Corpuscular Hemoglobin 28.7 pg (28.0-33.3); Mean Corpuscular Volume 86.7 fL (83.0-100.0); Mean Platelet Volume 10.1 fL (9.4-12.4); Monocytes # 0.4 K/mcL (0.0-1.3); Monocytes % 7.4 %; Neutrophils # 3.4 K/mcL (1.6-8.9); Platelet Count 123 K/mcL (140-400); Red Blood Count 3.38 M/mcL (3.82-4.97); Red Cell Distribution Width 14.6 % (11.5-14.5); Segmented Neutrophils % 69.3 %; White Blood Count 4.9 K/mcL (4.3-11.1)
[2019-03-10 03:16] LABS: BUN/Creatinine Ratio 28 (6-26); Blood Urea Nitrogen 21 mg/dL (8-23); Calcium 7.7 mg/dL (8.6-10.3); Carbon Dioxide 27 mEq/L (23-29); Chloride 106 mEq/L (98-107); Glucose 95 mg/dL (70-105); Osmolality,Calculated 291 (280-300); Potassium 3.4 mEq/L (3.5-5.1); Sodium 139 mEq/L (136-145); eGFR For African Americans > 60 (> 60); eGFR For Non-African Americans > 60 (> 60)
[2019-03-10 03:52] LABS: Reactive Lymphocytes Present (Not Present)
[2019-03-10] MEDS: 0.9 % Sodium Chloride 1,000 ML IVC SCH ×3 (04:30→17:42)
[2019-03-10] MEDS: Albuterol 2.5 MG/3 ML NEBULIZER IH SCH ×6 (04:33→19:49)
[2019-03-10] MEDS: *HR* Heparin 5,000 UNIT/ML VIAL SQ SCH (05:03)
[2019-03-10] MEDS ORDERED: *HR* Metoprolol 5 MG/5 ML VIAL IVP ONE (05:21)
[2019-03-10] MEDS: Budesonide/Formoterol 160/4.5 1 PUFF INH IH SCH ×2 (07:46→19:49)
[2019-03-10] MEDS: Tiotropium 18 MCG inhalation IH SCH (07:46)
[2019-03-10] MEDS: clonazePAM 1 MG TABLET PO SCH ×2 (09:02→21:53)
[2019-03-10] MEDS: Isosorbide MONOnitrate (24 HR) 30 MG TAB.ER.24H PO SCH (09:02)
[2019-03-10] MEDS: Metoprolol XL (24 HR) Succ 25 MG TAB.ER.24H PO SCH (09:02)
[2019-03-10] MEDS: Aspirin Enteric Coated 81 MG Tablet PO SCH (09:03)
[2019-03-10] MEDS: Sucralfate 1 GM TABLET PO SCH ×2 (09:03→21:54)
[2019-03-10] MEDS: predniSONE 20 MG TABLET PO SCH (09:03)
[2019-03-10] MEDS: amLODIPine 5 MG TABLET PO SCH ×2 (09:03→09:05)
[2019-03-10] MEDS: *HR* Ticagrelor 90 MG TABLET PO SCH ×2 (09:04→21:53)
[2019-03-10] MEDS: Sennosides/Docusate Sodium TABLET PO SCH ×2 (09:08→21:54)
[2019-03-10] MEDS: Nicotine 7 MG PATCH.TD24 TD SCH (09:23)
[2019-03-10] MEDS: Prochlorperazine 10 MG/2 ML VIAL IVP PRN (13:33)
[2019-03-10] MEDS: cefTRIAXone 1,000 MG in Water for inj. (sterile) 10 ML IVP SCH (16:06)
[2019-03-10] MEDS: rOPINIRole 1 MG TABLET PO SCH ×2 (16:06→21:54)
[2019-03-10] MEDS ORDERED: Gadolinium Contrast Agent (WT Based) IV PRN (16:22)
[2019-03-10] MEDS ORDERED: Ondansetron 4 MG/2 ML VIAL IVP PRN (16:25)
[2019-03-10] MEDS: Pantoprazole 40 MG VIAL IVP SCH (17:38)
[2019-03-10] MEDS: Mirtazapine 15 MG TABLET PO SCH (21:53)
[2019-03-11] MEDS: Albuterol 2.5 MG/3 ML NEBULIZER IH SCH ×5 (00:41→16:13)
[2019-03-11 02:06] LABS: Basophils % 0.4 %; Hematocrit 30.7 % (35.3-44.9); Hemoglobin 10.6 g/dL (11.5-15.4); Lymphocytes # 1.6 K/mcL (0.6-4.6); Lymphocytes % 31.1 %; Mean Corpuscular HGB Conc 34.5 g/dL (31.6-35.5); Mean Corpuscular Hemoglobin 28.9 pg (28.0-33.3); Mean Corpuscular Volume 83.7 fL (83.0-100.0); Mean Platelet Volume 10.3 fL (9.4-12.4); Monocytes # 0.3 K/mcL (0.0-1.3); Platelet Count 167 K/mcL (140-400); Red Blood Count 3.67 M/mcL (3.82-4.97); Red Cell Distribution Width 14.5 % (11.5-14.5); Segmented Neutrophils % 60.5 %
[2019-03-11 02:32] LABS: BUN/Creatinine Ratio 17 (6-26); Blood Urea Nitrogen 14 mg/dL (8-23); Carbon Dioxide 27 mEq/L (23-29); Chloride 104 mEq/L (98-107); Glucose 113 mg/dL (70-105); Osmolality,Calculated 285 (280-300); Potassium 3.7 mEq/L (3.5-5.1); Sodium 137 mEq/L (136-145); eGFR For African Americans > 60 (> 60); eGFR For Non-African Americans > 60 (> 60)
[2019-03-11 02:35] LABS: Albumin 3.2 g/dL (3.5-5.7); Albumin/Globulin Ratio 1.3 (1.1-2.2); Bilirubin,Indirect 0.3 mg/dL (0.0-1.0); Bilirubin,Total 0.3 mg/dL (0.3-1.0); Globulin 2.4 g/dL (2.4-3.5); Total Protein 5.6 g/dL (6.4-8.9)
[2019-03-11 02:44] LABS: Platelet Estimate Normal (Normal); Reactive Lymphocytes Present (Not Present)
[2019-03-11] MEDS: Pantoprazole 40 MG VIAL IVP SCH (06:18)
[2019-03-11] MEDS: 0.9 % Sodium Chloride 1,000 ML IVC SCH (06:18)
[2019-03-11] MEDS: Budesonide/Formoterol 160/4.5 1 PUFF INH IH SCH (07:23)
[2019-03-11] MEDS: Tiotropium 18 MCG inhalation IH SCH (07:24)
[2019-03-11] MEDS ORDERED: Ertapenem 1,000 MG in 0.9 % Sodium Chloride Mini Bag 100 ML IVPB SCH (09:00)
[2019-03-11] MEDS ORDERED: Cholecalciferol (D-3) 1,000 UNIT (25MCG) TABLET PO SCH (09:00)
[2019-03-11] MEDS: clonazePAM 1 MG TABLET PO SCH (10:56)
[2019-03-11] MEDS: Nicotine 7 MG PATCH.TD24 TD SCH (10:56)
[2019-03-11] MEDS: predniSONE 20 MG TABLET PO SCH (10:56)
[2019-03-11] MEDS: *HR* Ticagrelor 90 MG TABLET PO SCH (10:57)
[2019-03-11] MEDS: Metoprolol XL (24 HR) Succ 25 MG TAB.ER.24H PO SCH (10:57)
[2019-03-11] MEDS: Sucralfate 1 GM TABLET PO SCH (10:57)
[2019-03-11] MEDS: amLODIPine 5 MG TABLET PO SCH (10:57)
[2019-03-11] MEDS: Sennosides/Docusate Sodium TABLET PO SCH (10:57)
[2019-03-11] MEDS: Isosorbide MONOnitrate (24 HR) 30 MG TAB.ER.24H PO SCH (10:57)
[2019-03-11 12:36] VITALS: BP 150/106
[2019-03-11] MEDS ORDERED: Prochlorperazine 10 MG/2 ML VIAL IVP PRN (14:18)
== END 2019-03-11 17:50 | disposition home or self-care (01) | DRG 193 ==
LOC: EMEROOARM 11:25 → SUATTDRO 18:03 → 2NNU 18:03 → 2NENU 03-06 13:20
PROVIDERS: ADMIT Internal Medicine; ATTEND Pharmacist

== ENCOUNTER 2019-08-29 12:48 | Observation (INO) ==
[2019-08-29] MEDS ORDERED: 0.9 % Sodium Chloride 1,000 ML IVC ONE (13:28)
[2019-08-29 13:45] LABS: Hemoglobin 11.1 g/dL (11.5-15.4)
[2019-08-29 13:47] LABS: Hematocrit 33.7 % (35.3-44.9); Mean Corpuscular HGB Conc 32.9 g/dL (31.6-35.5); Mean Corpuscular Hemoglobin 29.5 pg (28.0-33.3); Mean Corpuscular Volume 89.6 fL (83.0-100.0); Mean Platelet Volume 11.7 fL (9.4-12.4); Platelet Count 205 K/mcL (140-400); Red Blood Count 3.76 M/mcL (3.82-4.97); Red Cell Distribution Width 21.4 % (11.5-14.5); White Blood Count 25.7 K/mcL (4.3-11.1)
[2019-08-29 13:49] LABS: INR 1.5; Prothrombin Time 17.3 Seconds (9.4-12.1)
[2019-08-29 13:52] LABS: Activated Partial Thrombo Time 30.6 Seconds (26.0-36.0)
[2019-08-29] MEDS ORDERED: Piperacillin/Tazobactam 3.375 GM in 0.9 % Sodium Chloride Mini Bag 100 ML IVPB ONE (14:20)
[2019-08-29 14:41] LABS: Bilirubin,Urine Large (Negative); Blood,Urine Trace (Negative); Glucose,Urine (UA) Normal (Normal); Ketones,Urine Negative (Negative); Leukocyte Esterase,Urine Small (Negative); Nitrite,Urine Positive (Negative); Protein,Urine 30 mg/dL (Neg-Trace); Specific Gravity,Urine 1.019 (1.010-1.025)
[2019-08-29 14:46] LABS: Bacteria,Urine Many per hpf (None-Few); Hyaline Casts,Urine None Seen per lpf (None-Few); Squamous Epithelial Cell,Urine Many per lpf (None-Few)
[2019-08-29 14:49] LABS: Lymphocytes # 1.5 K/mcL (0.6-4.6); Neutrophils # 24.2 K/mcL (1.6-8.9)
[2019-08-29 14:52] LABS: Hypochromasia Present (Not Present); Platelet Estimate Normal (Normal)
[2019-08-29 14:53] LABS: Target Cells 2+ (Not Present)
[2019-08-29 14:54] LABS: Albumin 2.7 g/dL (3.5-5.7); Albumin/Globulin Ratio 1.2 (1.1-2.2); Bilirubin,Total 13.1 mg/dL (0.3-1.0); Calcium 13.7 mg/dL (8.6-10.3); Globulin 2.2 g/dL (2.4-3.5); Magnesium 2.4 mg/dL (1.6-2.6); Potassium 4.7 mEq/L (3.5-5.1); Thyroid Stimulating Hormone 5.105 mcIU/mL (0.340-5.600); Total Protein 4.9 g/dL (6.4-8.9); Troponin I 0.15 ng/mL (< 0.04)
[2019-08-29 14:54] LABS: Clarity,Urine Hazy (Clear); Color,Urine Dark Yellow (Yellow)
[2019-08-29 15:02] LABS: Granular Casts,Urine Few per lpf (None Seen)
[2019-08-29] MEDS ORDERED: Ondansetron ODT 4 MG TAB.RAPDIS SL PRN (17:27)
[2019-08-29] MEDS ORDERED: *HR* LORazepam Oral Conc 2 MG/ML SL PRN (17:33)
[2019-08-29] MEDS ORDERED: *HR* OxyCODONE Immed Rel 5 MG TABLET PO PRN (18:42)
[2019-08-29] MEDS ORDERED: haloperidoL 1 MG TABLET PO PRN (18:43)
[2019-08-29] MEDS ORDERED: *HR* LORazepam 0.5 MG TABLET PO PRN (18:44)
[2019-08-29] MEDS: clonazePAM 1 MG TABLET PO SCH (20:57)
[2019-08-30] MEDS: Morphine Sulfate ER (12 HR) 15 MG TABLET.ER PO SCH ×2 (00:03→09:18)
[2019-08-30 07:54] VITALS: BP 85/54
[2019-08-30] MEDS: clonazePAM 1 MG TABLET PO SCH (09:18)
[2019-08-30] MEDS ORDERED: Haloperidol Oral Conc 10 MG/5 ML UDC PO ONE (10:10)
== END 2019-08-30 11:59 | disposition hospice, inpatient (51) ==
LOC: EMEROOARM 12:48 → 2ANU 12:48
PROVIDERS: ADMIT Internal Medicine; ATTEND Internal Medicine